=== PATIENT | male | born 1935 | race Caucasian/White ===

== ENCOUNTER 2020-04-24 12:17 | Inpatient (IN) | payer OTHER ==
[2020-04-24 12:47] LABS: Absolute Lymphocytes (CBC) 0.9 K/uL (0.7-4.9); Basophils % 0.6 % (0-1.3); Hematocrit 47.1 % (39.6-49.0); Lymphocytes % 6.9 % (15.3-44.8); MPV 10.3 fL (7.6-11.3); RBC Red Blood Cell Count 4.89 M/uL (4.33-5.43)
[2020-04-24 12:51] LABS: Protime INR 1.06
--- NOTE | 2020-04-24 12:51 | RAD REPORT ---
EXAM DESCRIPTION: CT - Ct Stroke Brain Wo Cont - 04/24/2020 12:43 pm CLINICAL HISTORY: CONFUSED Headache, drowsiness, CVA symptomology COMPARISON: No comparisons TECHNIQUE: All CT scans are performed using dose optimization technique as appropriate and may inclu de automated exposure control or mA/KV adjustment according to patient size. FINDINGS: No intracranial hemorrhage, hydrocephalus or extra-axial fluid collection. Moderate genera lized brain atrophy is present with moderate periventricular and deep white matter chronic microvascu lar ischemic changes. No areas of brain edema or evidence of midline shift. Trace fluid is seen in the right maxillary antrum the paranasal sinuses and mastoids otherwise clear. The calvarium is intact. IMPRESSION: No acute intracranial abnormality. If there is continued clinical concern for CVA, MR i maging of the brain would be recommended. The findings were discussed with Gail in the ER on 04/24/2020 at 12:45 p.m. by telephone.
[2020-04-24 12:57] LABS: Potassium 3.1 mmol/L (3.5-5.1)
--- NOTE | 2020-04-24 13:20 | RAD REPORT ---
EXAM DESCRIPTION: RAD - Chest Single View - 04/24/2020 1:15 pm CLINICAL HISTORY: AMS Chest pain. COMPARISON: Chest Pa And Lat (2 Views) dated 09/18/2019; Chest Single View dated 09/18/2017; CHEST PA AND LAT 2 VIEW dated 10/24/2013; CHEST PA AND LAT 2 VIEW dated 12/04/2012 FINDINGS: Portable technique limits examination quality. The lungs are grossly clear. The heart is moderately enlarged. No displaced fractures.Aortic atherosc lerosis. IMPRESSION: No acute intrathoracic process suspected.
[2020-04-24] MEDS ORDERED: ALTEPLASE 100 ML IV ONE (13:34)
--- NOTE | 2020-04-24 13:45 | ER ---
Nurse's Notes [facility] Name: Jhonatan Madden Age: 84 yrs Sex: Male : 1935 Arrival Date: 04/24/2020 Time: 12:19 Bed 3 Private MD: Rio Brooks V Diagnosis: Altered mental status, unspecified;Aphasia;Aphasia following unspecified cerebrovascular disease Presentation: 04/24 12:25 Chief complaint: Niece reports that pt lives alone but neighbors check on him twice a ph day, approx an hour ago they called saying that he wasn't speaking clearly and was confused, pt reports weakness that started last night, garbled speech noted upon arrival to ED, last known normal last night. Coronavirus screen: Patient denies a cough. Patient denies shortness of breath or difficulty breathing. Patient denies measured and/or subjective temperature greater than 100.4F prior to today's visit. Patient denies travel on a cruise ship or to a country the [facility] currently lists as an affected area. Patient denies contact with known and/or suspected case of COVID-19. Ebola Screen: No symptoms or risks identified at this time. An acute neurological deficit is present. The patient has been moved to a treatment area. Pre-hospital glucose is not applicable to this patient. Initial Sepsis Screen: Does the patient meet any 2 criteria? Altered Mental Status. Does the patient have a suspected source of infection? No. Patient's initial sepsis screen is negative. Risk Assessment: Do you want to hurt yourself or someone else? Patient reports no desire to harm self or others. 12:25 Method Of Arrival: Wheelchair ph 12:25 Acuity: DONG 2 ph 19:23 Onset of symptoms is unknown. jd3 Triage Assessment: 19:21 The onset of the patients symptoms was at an unknown time. General: Appears in no jd3 apparent distress. comfortable, Behavior is calm, cooperative. Neuro: Reports pt with AMS on arrival to ED. 19:24 The onset of the patients symptoms was April 24, 2020 at 00:00. jd3 Stroke Activation: Symptom onset > 6 hours Physician: Stroke Attending; Name: ; Notified At: ; Arrived At: Physician: Chief Stroke Resident; Name: ; Notified At: ; Arrived At: Physician: Stroke Resident; Name: ; Notified At: ; Arrived At: Physician: ED Attending; Name: Medhat; Notified At: 12:25; Arrived At: 12:25 Physician: ED Resident; Name: ; Notified At: ; Arrived At: Historical: - Allergies: 12:37 Codeine; ph - Home Meds: 13:12 trelegy inhaler [Active]; tramadol 50 mg oral tab [Active]; aspirin 81 mg Oral TbEC 1 ph tab once daily [Active]; Niacin Oral [Active]; - PMHx: 12:37 COPD; Hypertension; ph - PSHx: 12:37 Hernia repair; prostate surgery; Appendectomy; back surgery; ph - Immunization history:: Adult Immunizations unknown. - Social history:: Smoking status: unknown. Screenin:25 Abuse screen: Denies threats or abuse. Nutritional screening: No deficits noted. em Tuberculosis screening: No symptoms or risk factors identified. Fall Risk IV access (20 points). Gait- Impaired (20 pts.). Mental Status- Overestimates/Forgets Limitations (15 pts.). Total Mcbride Fall Scale indicates High Risk Score (45 or more points). Side Rails Up X 2 Placed Close to Nursing Station Family Present and informed to notify staff if the need to leave the bedside. Assessment: 12:25 Reassessment: Dr Meléndez at bedside to assess pt, BGL 104, code stroke called overhead. ph 12:25 General: Appears in no apparent distress. uncomfortable, slender, well developed, well em nourished, Behavior is calm. Pain: Unable to use pain scale. Does not appear to understand pain scale. Neuro: Level of Consciousness is awake, confused, Moves all extremities. Facial symmetry appears normal, niece states pt is confused and speech is slurred. Cardiovascular: Capillary refill < 3 seconds Patient's skin is warm and dry. Rhythm is atrial fibrillation. Respiratory: Airway is patent Respiratory effort is even, unlabored, Respiratory pattern is regular, symmetrical. Derm: Skin is intact, is fragile, is thin, Skin is pink, warm \T\ dry. Musculoskeletal: Range of motion: intact in all extremities. 12:25 Reassessment: pt was unable to complete the NIH stroke scale due to pt was having em trouble following commands, Dr. Meléndez assessed pt and was unable to assess limb ataxia, sensory loss, and extinction and inattention and was given 0 for all. 12:30 Reassessment: Pt taken to CT via stretcher by LONG Rosario. ph 13:05 Patient has been NPO before screening. The patient is alert, and able to follow em commands. The patient exhibits slurred or garbled speech. Provider notified of the indication for Speech Therapy consult. The patient is exhibiting difficulty speaking. Provider notified of the indication for Speech Therapy consult. The patient does not exhibit difficulty understanding words. The patient is able to swallow own secretions with no drooling or need for suction. Patient tolerated one teaspoon of water. No drooling, immediate coughing, gurgling, or clearing of the throat was noted. The patient tolerated 90mL of water. No drooling, immediate coughing, gurgling, or clearing of the throat was noted. The patient passed the bedside swallow screening. Oral medications may be given as ordered. Contact Physician for further diet orders. Provider notified of bedside swallow screening results: Monty Meléndez MD. 13:10 T-PA (Activase) Screening: Indications: Definite evidence of stroke, ischemic, embolic, em or hypertensive: Yes. Treatment will start within 4.5 hours onset of symptoms: Yes. No evidence of intracranial hemorrhage or CT of head and no evidence of peripheral hemorrhage or recent CVA: Yes. Consent for thrombolytic therapy: Yes. 13:10 VAN Scoring: Arm Drift: Patients demonstrates NO arm weakness. Patient is VAN Negative. em 14:00 Reassessment: Patient appears in no apparent distress at this time. Patient and/or em family updated on plan of care and expected duration. Pain level reassessed. 15:38 Reassessment: Patient appears in no apparent distress at this time. Patient and/or em family updated on plan of care and expected duration. Pain level reassessed. Patient is alert, oriented x 3, equal unlabored respirations, skin warm/dry/pink. 16:25 Reassessment: Patient appears in no apparent distress at this time. pt wheeled to MRI em via wheelchair, D/C'd Angel bertrand, BP 172/77. 17:58 Reassessment: Patient appears in no apparent distress at this time. returned back from em MRI, BP 192/98, Dr. Meléndez notified, restarted Cardene. 18:30 Reassessment: Patient appears in no apparent distress at this time. Niece (Yvrose Frost) went home, if need anything she can be reached at [phone]. 19:15 General: Appears in no apparent distress. comfortable, well groomed, well developed, jd3 Behavior is calm, cooperative. Pain: Denies pain. Neuro: Level of Consciousness is awake, alert, confused, Moves all extremities. Speech with expressive aphasia noted, Facial symmetry appears normal. Cardiovascular: Capillary refill < 3 seconds Patient's skin is warm and dry. Rhythm is atrial fibrillation. Respiratory: Airway is patent Respiratory effort is even, unlabored, Respiratory pattern is regular, symmetrical, Denies cough, shortness of breath. GI: No signs and/or symptoms were reported involving the gastrointestinal system. : No signs and/or symptoms were reported regarding the genitourinary system. EENT: No signs and/or symptoms were reported regarding the EENT system. Derm: Skin is intact, is fragile, is thin, Skin is dry, Skin is normal, Skin temperature is warm. Musculoskeletal: Range of motion: intact in all extremities. 19:41 Reassessment: report given to Suze ALVES. jd3 Vital Signs: 12:25 BP 207 / 90; Pulse 65; Resp 14; Temp 97.8; Pulse Ox 100% on R/A; ph 12:59 BP 179 / 93; Pulse 59; Resp 19; Pulse Ox 100% on R/A; em 13:36 Weight 79.8 kg (M); em 13:45 BP 206 / 93; Pulse 57; em 13:55 BP 170 / 79; Pulse 55; em 14:04 BP 164 / 79; Pulse 58; em 14:10 BP 161 / 71; Pulse 61; Resp 16; Pulse Ox 100% on R/A; em 14:14 BP 149 / 97; Pulse 60; em 14:16 BP 168 / 84; Pulse 58; em 14:19 BP 170 / 78; Pulse 57; em 14:21 BP 178 / 77; Pulse 49; em 14:30 BP 157 / 80; Pulse 57; em 14:43 BP 157 / 80; Pulse 62; em 14:45 BP 188 / 82; Pulse 55; em 14:50 BP 170 / 75; Pulse 56; em 14:55 BP 153 / 63; Pulse 58; em 15:12 BP 153 / 82; Pulse 56; em 15:30 BP 156 / 82; Pulse 61; Resp 16; Pulse Ox 100% ; em 15:38 BP 169 / 78; Pulse 63; Resp 18; em 16:00 BP 164 / 76; Pulse 57; em 16:15 BP 160 / 70; Pulse 55; em 16:25 BP 172 / 77; Pulse 57; Resp 16; Pulse Ox 99% on R/A; em 17:56 BP 192 / 98; Pulse 72; Resp 16; Pulse Ox 100% on R/A; em 18:35 BP 171 / 63; Pulse 65; Resp 20; Pulse Ox 99% on R/A; Pain 0/10; em 18:53 BP 140 / 64; Pulse 59; Resp 19; Pulse Ox 99% on R/A; em 19:15 BP 142 / 67; Pulse 56; Resp 16 S; Pulse Ox 97% on R/A; jd3 NIH Stroke Scale Scores: 12:25 NIHSS Score: 5 em 19:18 NIHSS Score: 4 jd3 ED Course: 12:19 Patient arrived in ED. am2 12:19 Rio Brooks MD is Private Physician. am2 12:25 Arm band placed on. em 12:33 Patient has correct armband on for positive identification. Placed in gown. Bed in low mh5 position. Call light in reach. Adult w/ patient. Warm blanket given. site monitor on. Pulse ox on. NIBP on. 12:34 Initial lab(s) drawn, by me, sent to lab. EKG done, by ED staff, reviewed by Monty Meléndez MD. Inserted saline lock: 20 gauge in left antecubital area, using aseptic technique. Blood collected. 12:36 Monty Meléndez MD is Attending Physician. kdr 12:36 Triage completed. ph 12:38 Abraham Young, RN is Primary Nurse. em 12:43 CT Stroke Brain w/o Contrast In Process Unspecified. EDMS 12:49 Basic Metabolic Panel Sent. mh5 12:50 CBC with Diff Sent. mh5 12:50 Protime (+inr) Sent. mh5 12:50 Ptt, Activated Sent. mh5 13:14 Stroke CXR 1 View In Process Unspecified. EDMS 13:44 Rio Brooks MD is Hospitalizing Provider. kdr 13:50 Missed attempt(s): 22 gauge in right wrist. forearm. mh5 13:59 Inserted saline lock: 22 gauge in left forearm, using aseptic technique. mh5 17:59 MRA Head Wo Cont In Process Unspecified. EDMS 18:01 MRA Neck W/Wo Cont In Process Unspecified. EDMS 18:01 Brain W/Wo Cont In Process Unspecified. EDMS 19:25 No provider procedures requiring assistance completed. Patient admitted, IV remains in jd3 place. 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 Exp: em 12/28/2021. Lot #: [id number]. } Route: IM; Site: right deltoid; 19:24 Follow up: Response: No adverse reaction j Point of Care Testing: Blood Glucose: 12:25 Blood Glucose: 104 mg/dL; em Ranges: Intake: Output: 18:53 Urine: 500ml (Voided); Total: 500ml. em Outcome: 13:45 Decision to Hospitalize by Provider. kdr 19:42 Admitted to ICU accompanied by nurse, via stretcher, room ICU 6, on monitor, with j chart, Report called to Suze ALVES 19:42 Condition: stable 19:42 Instructed on the need for admit. 19:43 Patient left the ED. jd3 NIH Stroke Scale - NIH Stroke Score Date: 04/24/2020 Time: 12:25 Total Score = 5 1a. Level of Consciousness (LOC) - 0(Alert) 1b. Level of Consciousness (LOC) (Year \T\ Age) - 0(Both) 1c. LOC Commands (Open \T\ Closes Eyes/Stock Counter) - 1(One) 2. Best Gaze (Lateral Gaze Paresis) - 0(Normal) 3. Visual Field Loss - 0(No visual loss) 4. Facial Palsy - 0(Normal) 5a. Left Arm: Motor (10-second hold) - 0(No drift) 5b. Right Arm: Motor (10-second hold) - 0(No drift) 6a. Left Leg: Motor (5-second hold - always test supine) - 0(No drift) 6b. Right Leg: Motor (5-second hold - always test supine) - 0(No drift) 7. Limb Ataxia (finger/nose \T\ heel/dotson - test with eyes open) - 0(Absent) 8. Sensory Loss (pinprick arms/legs/face) - 0(Normal) 9. Best Language: Aphasia (description/naming/reading) - 2(Severe aphasia) 10. Dysarthria (speech clarity - read or repeat words) - 2(Severe) 11. Extinction and Inattention (visual/tactile/auditory/spatial/personal) - 0(No abnormality) Initials: NIH Stroke Scale - NIH Stroke Score Date: 04/24/2020 Time: 19:18 Total Score = 4 1a. Level of Consciousness (LOC) - 0(Alert) 1b. Level of Consciousness (LOC) (Year \T\ Age) - 1(One) 1c. LOC Commands (Open \T\ Closes Eyes/Stock Counter) - 0(Both) 2. Best Gaze (Lateral Gaze Paresis) - 0(Normal) 3. Visual Field Loss - 0(No visual loss) 4. Facial Palsy - 0(Normal) 5a. Left Arm: Motor (10-second hold) - 0(No drift) 5b. Right Arm: Motor (10-second hold) - 0(No drift) 6a. Left Leg: Motor (5-second hold - always test supine) - 0(No drift) 6b. Right Leg: Motor (5-second hold - always test supine) - 0(No drift) 7. Limb Ataxia (finger/nose \T\ heel/dotson - test with eyes open) - 0(Absent) 8. Sensory Loss (pinprick arms/legs/face) - 0(Normal) 9. Best Language: Aphasia (description/naming/reading) - 1(Mild to moderate aphasia) 10. Dysarthria (speech clarity - read or repeat words) - 2(Severe) 11. Extinction and Inattention (visual/tactile/auditory/spatial/personal) - 0(No abnormality) Initials: jd3 Signatures: Dispatcher [employer] Monty Fuentes MD MD [facility] Abraham Young, RN RN em Maite Zimmerman RN RN ph Mikey, Latoya [facility] Rosmery Polk [facility] Simone Huerta RN RN jd3 Maite Zimmerman RN ph Corrections: (The following items were deleted from the chart) 13:23 12:25 Neuro: Level of Consciousness is awake, confused, em em
--- NOTE | 2020-04-24 13:45 | EDPHYS ---
Physician Documentation [facility]ly [facility] Name: Jhonatan Madden Age: 84 yrs Sex: Male : 1935 Arrival Date: 04/24/2020 Time: 12:19 Bed 3 Private MD: Rio Brooks V ED Physician Monty Meléndez HPI: 04/24 13:19 This 84 yrs old Male presents to ER via Wheelchair with complaints of S/S of kdr Possible Stroke. 13:19 The patient's problem is reported as altered mental status, disoriented to place, time, kdr confused, responds to to verbal stimuli, to tactile stimuli, weakness. Onset: The symptoms/episode began/occurred at an unknown time. Initially, niece indicated that he had been found in this condition this morning but later she indicated that he was making coffee and apparently well at 09:00 today and. 13:45 Duration: This was a single incident. kdr 17:40 Context: the episode(s) was witnessed, by no one, symptoms became apparent at 11:00. kdr occurred at home, occurred while the patient was at rest, Possible contributing factors include:. The symptoms are alleviated by nothing. The symptoms are aggravated by nothing. Associated signs and symptoms: Pertinent positives: confusion, weakness. Severity of symptoms: At their worst the symptoms were mild in the emergency department the symptoms are unchanged. Patient's baseline: Neuro: alert and fully oriented, Motor: no deficits, Ambulation: walks without assistance, Speech: normal for age, The patient has a previous history of COPD, HTN. The patient has not experienced similar symptoms in the past. The patient has not recently seen a physician. Historical: - Allergies: 12:37 Codeine; ph - Home Meds: 13:12 trelegy inhaler [Active]; tramadol 50 mg oral tab [Active]; aspirin 81 mg Oral TbEC 1 ph tab once daily [Active]; Niacin Oral [Active]; - PMHx: 12:37 COPD; Hypertension; ph - PSHx: 12:37 Hernia repair; prostate surgery; Appendectomy; back surgery; ph - Immunization history:: Adult Immunizations unknown. - Social history:: Smoking status: unknown. ROS: 17:40 Constitutional: The patient is poor historian and family not initially present Eyes: kdr Negative for injury, pain, redness, and discharge. 17:40 Constitutional: Edvin arrived and indicated that to her knowledge, the patient had been well and in his usual satae of health until tihs morning when the nieghbor found him unable to speek clearly 17:40 Unable to obtain ROS due to patient's speech is incomprehensible, patient's inability to understand questions. Exam: 17:40 Constitutional: This is a well developed, well nourished patient who is awake, alert, kdr and in no acute distress. Head/Face: Normocephalic, atraumatic. Eyes: Pupils equal round and reactive to light, extra-ocular motions intact. Lids and lashes normal. Conjunctiva and sclera are non-icteric and not injected. Cornea within normal limits. Periorbital areas with no swelling, redness, or edema. Neck: Trachea midline, no thyromegaly or masses palpated, and no cervical lymphadenopathy. Supple, full range of motion without nuchal rigidity, or vertebral point tenderness. No Meningismus. Chest/axilla: Normal chest wall appearance and motion. Nontender with no deformity. No lesions are appreciated. Cardiovascular: Regular rate and rhythm with a normal S1 and S2. No gallops, murmurs, or rubs. Normal PMI, no JVD. No pulse deficits. Respiratory: Lungs have equal breath sounds bilaterally, clear to auscultation and percussion. No rales, rhonchi or wheezes noted. No increased work of breathing, no retractions or nasal flaring. Abdomen/GI: Soft, non-tender, with normal bowel sounds. No distension or tympany. No guarding or rebound. No evidence of tenderness throughout. Back: No spinal tenderness. No costovertebral tenderness. Full range of motion. MS/ Extremity: Pulses equal, no cyanosis. Neurovascular intact. Full, normal range of motion. 17:40 Neuro: Orientation: unable to test, Cranial nerves: no acute changes, Cerebellar function: no acute changes, Motor: moves all fours, strength is 4/5 in the right arm, left arm, right leg and left leg, Gait: is unsteady, shuffling. 17:48 Radiologist reports: No bleed - [place] kdr Vital Signs: 12:25 BP 207 / 90; Pulse 65; Resp 14; Temp 97.8; Pulse Ox 100% on R/A; ph 12:59 BP 179 / 93; Pulse 59; Resp 19; Pulse Ox 100% on R/A; em 13:36 Weight 79.8 kg (M); em 13:45 BP 206 / 93; Pulse 57; em 13:55 BP 170 / 79; Pulse 55; em 14:04 BP 164 / 79; Pulse 58; em 14:10 BP 161 / 71; Pulse 61; Resp 16; Pulse Ox 100% on R/A; em 14:14 BP 149 / 97; Pulse 60; em 14:16 BP 168 / 84; Pulse 58; em 14:19 BP 170 / 78; Pulse 57; em 14:21 BP 178 / 77; Pulse 49; em 14:30 BP 157 / 80; Pulse 57; em 14:43 BP 157 / 80; Pulse 62; em 14:45 BP 188 / 82; Pulse 55; em 14:50 BP 170 / 75; Pulse 56; em 14:55 BP 153 / 63; Pulse 58; em 15:12 BP 153 / 82; Pulse 56; em 15:30 BP 156 / 82; Pulse 61; Resp 16; Pulse Ox 100% ; em 15:38 BP 169 / 78; Pulse 63; Resp 18; em 16:00 BP 164 / 76; Pulse 57; em 16:15 BP 160 / 70; Pulse 55; em 16:25 BP 172 / 77; Pulse 57; Resp 16; Pulse Ox 99% on R/A; em 17:56 BP 192 / 98; Pulse 72; Resp 16; Pulse Ox 100% on R/A; em 18:35 BP 171 / 63; Pulse 65; Resp 20; Pulse Ox 99% on R/A; Pain 0/10; em 18:53 BP 140 / 64; Pulse 59; Resp 19; Pulse Ox 99% on R/A; em 19:15 BP 142 / 67; Pulse 56; Resp 16 S; Pulse Ox 97% on R/A; jd3 NIH Stroke Scale Scores: 12:25 NIHSS Score: 5 em 19:18 NIHSS Score: 4 jd3 MDM: 12:38 ED course: CT head negative - onset is unknown - not a tPA candidate. kdr 13:34 ED course: Niece updated time frame now states that last known well was 10:00 AM. Seen kdr making coffee at that time and when the neighbor returned an hour late at 11:00 he was then noted to be altered and poor speech.. 13:45 Patient medically screened. kdr 17:40 Data reviewed: vital signs, nurses notes, lab test result(s), EKG, radiologic studies. [facility] Counseling: I had a detailed discussion with the patient and/or guardian regarding: the historical points, exam findings, and any diagnostic results supporting the discharge/admit diagnosis, lab results, radiology results, the need for outpatient follow up. Physician consultation: Az Dahl MD regarding admission, consult, patient's condition, need to evaluate the patient as soon as possible, and will see patient in unit, later today, would like medications started, TPA. Admission orders: after a detailed discussion of the patient's condition and case, the admit orders are written by me. 04/24 12:35 Order name: Glucose, Ancillary Testing; Complete Time: 12:37 [facility] 04/24 12:38 Order name: Basic Metabolic Panel; Complete Time: 13:15 [facility] 04/24 12:38 Order name: CBC with Diff; Complete Time: 13:15 [facility] 04/24 12:38 Order name: Protime (+inr); Complete Time: 13:15 [facility] 04/24 12:38 Order name: Ptt, Activated; Complete Time: 13:15 [facility] 04/24 17:34 Order name: CKMB Creatine Kinase MB [facility] 04/24 12:38 Order name: CT Stroke Brain w/o Contrast; Complete Time: 12:56 [facility] 04/24 17:34 Order name: CKMB Creatine Kinase MB [facility] 04/24 17:34 Order name: Creatine Phosphokinase [facility] 04/24 17:34 Order name: Creatine Phosphokinase [facility] 04/24 17:34 Order name: Lipid Profile [facility] 04/24 17:34 Order name: Lipid Profile [facility] 04/24 17:34 Order name: Troponin I [facility] 04/24 17:34 Order name: Troponin I [facility] 04/24 12:38 Order name: Stroke CXR 1 View [facility] 04/24 12:38 Order name: EKG; Complete Time: 12:38 [facility] 04/24 12:38 Order name: Accucheck; Complete Time: 12:50 [facility] 04/24 12:38 Order name: Cardiac monitoring; Complete Time: 12:50 [facility] 04/24 12:38 Order name: EKG - Nurse/Tech; Complete Time: 12:50 [facility] 04/24 17:05 Order name: Diet Mech. Soft (chopped); Complete Time: 17:05 ph 04/24 17:27 Order name: MRA Head Wo Cont EDMS 04/24 17:34 Order name: NPO EDMS 04/24 17:34 Order name: NPO EDMS 04/24 17:34 Order name: NPO EDMS 04/24 17:36 Order name: MRA Neck W/Wo Cont EDMS 04/24 17:36 Order name: Brain W/Wo Cont EDMS 04/24 12:38 Order name: IV Saline Lock; Complete Time: 12:50 kdr 04/24 12:38 Order name: Labs collected and sent; Complete Time: 12:50 kdr 04/24 12:38 Order name: NPO; Complete Time: 12:50 kdr 04/24 12:38 Order name: O2 Per Protocol; Complete Time: 12:57 kdr 04/24 12:38 Order name: O2 Sat Monitoring; Complete Time: 12:57 kdr 04/24 12:38 Order name: Stroke Swallow Screen; Complete Time: 19:11 kdr Administered Medications: 13:45 Drug: niCARdipine (25mg/250ml) 5 mg/hr {Note: started at 5 mg/hr at 1345.} Route: IV; em Rate: calculated rate; Site: left antecubital; 19:25 Follow up: Response: No adverse reaction; IV Status: Infusion continued upon admission jd3 14:05 Drug: Alteplase {Co-Signature: ph (Maite Zimmerman RN).} Route: IV Thrombolytics; Rate: em calculated rate; 15:06 Follow up: Response: No adverse reaction ph 15:07 Follow up: Response: No adverse reaction em 19:25 Follow up: infusion complete at 1506 ph 18:59 Drug: Tetanus-Diphtheria Toxoid Adult 0.5 ml {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 Exp: em 12/28/2021. Lot #: [id number]. } Route: IM; Site: right deltoid; 19:24 Follow up: Response: No adverse reaction jd3 Point of Care Testing: Blood Glucose: 12:25 Blood Glucose: 104 mg/dL; em Ranges: Critical Glucose Levels:Adult <50 mg/dl or >400 mg/dl <40 mg/dl or >180 mg/dl Disposition: 04/24/20 13:45 Hospitalization ordered by Rio Brooks for Inpatient Admission. Preliminary diagnosis are Altered mental status, unspecified, Aphasia, Aphasia following unspecified cerebrovascular disease. - Bed requested for Intensive Care Unit. - Status is Inpatient Admission. jd3 - Condition is Serious. - Problem is new. - Symptoms have improved. NIH Stroke Scale - NIH Stroke Score Date: 04/24/2020 Time: 12:25 Total Score = 5 1a. Level of Consciousness (LOC) - 0(Alert) 1b. Level of Consciousness (LOC) (Year \T\ Age) - 0(Both) 1c. LOC Commands (Open \T\ Closes Eyes/Lead Fabricator) - 1(One) 2. Best Gaze (Lateral Gaze Paresis) - 0(Normal) 3. Visual Field Loss - 0(No visual loss) 4. Facial Palsy - 0(Normal) 5a. Left Arm: Motor (10-second hold) - 0(No drift) 5b. Right Arm: Motor (10-second hold) - 0(No drift) 6a. Left Leg: Motor (5-second hold - always test supine) - 0(No drift) 6b. Right Leg: Motor (5-second hold - always test supine) - 0(No drift) 7. Limb Ataxia (finger/nose \T\ heel/dotson - test with eyes open) - 0(Absent) 8. Sensory Loss (pinprick arms/legs/face) - 0(Normal) 9. Best Language: Aphasia (description/naming/reading) - 2(Severe aphasia) 10. Dysarthria (speech clarity - read or repeat words) - 2(Severe) 11. Extinction and Inattention (visual/tactile/auditory/spatial/personal) - 0(No abnormality) Initials: NIH Stroke Scale - NIH Stroke Score Date: 04/24/2020 Time: 19:18 Total Score = 4 1a. Level of Consciousness (LOC) - 0(Alert) 1b. Level of Consciousness (LOC) (Year \T\ Age) - 1(One) 1c. LOC Commands (Open \T\ Closes Eyes/Lead Fabricator) - 0(Both) 2. Best Gaze (Lateral Gaze Paresis) - 0(Normal) 3. Visual Field Loss - 0(No visual loss) 4. Facial Palsy - 0(Normal) 5a. Left Arm: Motor (10-second hold) - 0(No drift) 5b. Right Arm: Motor (10-second hold) - 0(No drift) 6a. Left Leg: Motor (5-second hold - always test supine) - 0(No drift) 6b. Right Leg: Motor (5-second hold - always test supine) - 0(No drift) 7. Limb Ataxia (finger/nose \T\ heel/dotson - test with eyes open) - 0(Absent) 8. Sensory Loss (pinprick arms/legs/face) - 0(Normal) 9. Best Language: Aphasia (description/naming/reading) - 1(Mild to moderate aphasia) 10. Dysarthria (speech clarity - read or repeat words) - 2(Severe) 11. Extinction and Inattention (visual/tactile/auditory/spatial/personal) - 0(No abnormality) Initials: jd3 Signatures: Dispatcher [employer] [facility] Monty Meléndez MD MD kdr Abraham Young, RN LONG em Maite Zimmerman RN RN ph Simone Huerta RN RN j Ricardo Castellon RN RN ja Maite Zimmerman RN ph Corrections: (The following items were deleted from the chart) 13:39 13:34 ED course: Niece updated time frame. [facility] kdr 17:27 12:58 MR STROKE PROTOCOL+MRI.RAD.BRZ ordered. [facility] 17:48 13:45 Hospitalization Ordered by Rio Brooks MD for Inpatient Admission. kdr Preliminary diagnosis is Altered mental status, unspecified; Aphasia; Aphasia following unspecified cerebrovascular disease. Bed requested for Telemetry/MedSurg (Inpatient). Status is Inpatient Admission. Condition is Serious. Problem is new. Symptoms have improved. kdr 18:48 17:48 04/24/2020 13:45 Hospitalization Ordered by Rio Brooks MD for Inpatient ja1 Admission. Preliminary diagnosis is Altered mental status, unspecified; Aphasia; Aphasia following unspecified cerebrovascular disease. Bed requested for Intensive Care Unit. Status is Inpatient Admission. Condition is Serious. Problem is new. Symptoms have improved. kdr 19:43 18:48 04/24/2020 13:45 Hospitalization Ordered by Rio Brooks MD for Inpatient jd3 Admission. Preliminary diagnosis is Altered mental status, unspecified; Aphasia; Aphasia following unspecified cerebrovascular disease. Bed requested for Intensive Care Unit. Status is Inpatient Admission. Condition is Serious. Problem is new. Symptoms have improved. ja1
[2020-04-24] MEDS ORDERED: Nicardipine/NS 25 MG/250 ML KIT IV ONE (13:46)
[2020-04-24] MEDS ORDERED: NA CHLORIDE 0.9% 1,000 ML IV SCH ×2 (18:00→21:28)
[2020-04-24] MEDS ORDERED: TETANUS & DIPHTHERIA TOX,ADULT 0.5 ML VIAL ONE (18:15)
--- NOTE | 2020-04-24 18:31 | RAD REPORT ---
EXAM DESCRIPTION: MRI - Brain W/Wo Cont - 04/24/2020 5:59 pm CLINICAL HISTORY: Confused; Aphasia Headache, drowsiness, CVA symptomology COMPARISON: MRA Head Wo Cont dated 04/24/2020 TECHNIQUE: Multi-sequence, multiplanar MR imaging of the brain was performed with contrast. FINDINGS: No intracranial hemorrhage, hydrocephalus, or extra-axial fluid collection.Moderate conflu ent T2/FLAIR hyperintensity in the periventricular and deep white matter is present compatible with c hronic microvascular ischemic changes. No edema or shift of midline structures. No intracranial mass. An area of restricted diffusion is seen in the left posterior parietal lobe measuring 4.0 x 3.5 cm c ompatible with acute CVA. No hemorrhagic component is seen.. The midline structures are normally formed. Mild fluid is seen in the right mastoid air cell. Post-contrast images show no abnormal enhancement to suggest tumor or infection. IMPRESSION: 4.0 x 3.5 cm acute nonhemorrhagic CVA left posterior parietal lobe.
--- NOTE | 2020-04-24 18:32 | RAD REPORT ---
EXAM DESCRIPTION: MRI - MRA Head Wo Cont - 04/24/2020 5:59 pm CLINICAL HISTORY: Confused;Aphasia CVA COMPARISON: Ct Stroke Brain Wo Cont dated 04/24/2020 FINDINGS: 3D noncontrast [id number] MR angiography of the [place] was performed. No aneurysm, flow-limiting stenosis or vascular malformation is seen. Forward flow seen in codominant vertebral arteries. The visualized dural venous sinuses appear patent. IMPRESSION: No significant flow abnormality of the [place] is identified.
--- NOTE | 2020-04-24 18:34 | RAD REPORT ---
EXAM DESCRIPTION: MRI - MRA Neck W/Wo Cont - 04/24/2020 5:59 pm CLINICAL HISTORY: Confused; Aphasia CVA symptomology COMPARISON: No comparisons FINDINGS: Contrast enhance 2D [id number] MR angiography of the neck vessels was performed. Image quality of the submitted study is poor with poor opacification of the neck vessels. The majorit y visualize contrast is in the venous system of the left upper extremity. Examination is considered q uite limited for assessment of carotid disease. No gross severe carotid stenosis is seen, however car otid ultrasound would be recommended for better visualization if clinically indicated.
[2020-04-24] MEDS ORDERED: Nicardipine in Saline, Iso-Osm 20 MG/200 ML IV.SOLN. IV PRN (20:39)
[2020-04-24] MEDS ORDERED: INSULIN -REGULAR HUMAN 50 UNIT/0.5 ML ML SQ SCH (21:00)
[2020-04-24 21:10] LABS: Urine Appearance CLOUDY; Urine Bilirubin NEGATIVE (NEG); Urine Blood 1+ (NEG); Urine Color YELLOW; Urine Glucose NEGATIVE (NEG); Urine Protein TRACE (NEG)
[2020-04-24 21:17] LABS: Urine Microscopic Reflex ORDER UMIC
--- NOTE | 2020-04-24 21:27 | P.HP ---
Certification for Inpatient Patient admitted to: Inpatient With expected LOS: >2 Midnights Practitioner: I am a practitioner with admitting privileges, knowledge of patient current condition, hospital course, and medical plan of care. Services: Services provided to patient in accordance with Admission requirements found in Title 42 Section 412.3 of the Code of Federal Regulations Patient History Date of Service: 04/24/20 Reason for admission: DIFFICULTY IN SPEECH History of Present Illness: MR. BOLIVAR THIS AM WAS FOUND TO HAVE SPEECH DIFFICULTY NOTED BY A NEIGHBOUR. HE LATER DROPPED HIS COFFEE. HE WAS BROUGHT TO ER IN 3 HOURS AND RECEIVED TPA, SAW SIGNIFICANT IMPROVEMENT IN CVA. HE HAS L POSTERIOR PARIETAL 4.3.5 CM STROKE THAT IS AN INFARCT. HE DOES NOT HAVE AN MAJOR BLOCKAGE ON MRA. Allergies codeine Allergy (Verified 09/19/17 04:58) Itching - Past Medical/Surgical History Diabetic: No -: Hypertension -: COPD -: Prostate Enlargement -: Urolift -: Appendectomy - Social History Alcohol use: Yes CD- Drugs: No Caffeine use: Yes Review of Systems 10-point ROS is otherwise unremarkable General: Weakness, Malaise Physical Examination - Vital Signs Temperature: 97.8 F Blood Pressure: 142/67 Pulse: 56 Respirations: 16 - Physical Exam General: Mild distress HEENT: Atraumatic, PERRLA, Mucous membr. moist/pink, EOMI, Sclerae nonicteric Neck: Supple, 2+ carotid pulse no bruit, No LAD, Without JVD or thyroid abnormality Respiratory: Clear to auscultation bilaterally, Normal air movement Cardiovascular: Regular rate/rhythm, Normal S1 S2 Gastrointestinal: Normal bowel sounds, No tenderness Musculoskeletal: No tenderness Integumentary: No rashes Neurological: Normal strength at 5/5 x4 extr, Abnormal speech (EXPRESSIVE APHASIA. HE IS ABLE TO ARTICULATE BUT STILL HAS SOME JARGON. THIS IS AFTER TPA AT 6 PM IN ER. ) Lymphatics: No axilla or inguinal lymphadenopathy - Studies Laboratory Data (last 24 hrs) 04/24/20 12:25: PT 12.5, INR 1.06, APTT 28.7 04/24/20 12:25: WBC 12.6 H, Hgb 15.7, Hct 47.1, Plt Count 165 04/24/20 12:25: Sodium 129 L, Potassium 3.1 L, BUN 14, Creatinine 1.11, Glucose 102 Assessment and Plan - Problems (Diagnosis) (1) Left acute arterial ischemic stroke, MCA (middle cerebral artery) Current Visit: Yes Status: Acute Plan: SP TPA. RECOVERED SOME. CONTINUE PROTOCOL IN ICU. POST CVA THERAPY AFTER 24 HOURS- ASPIRIN OR PLAVIX. THIS IS AN INFRACT MAINLY FROM AGING RELATED VASCUALR CHANGES. PT CONSULT REHAB CONSULT SPEECH THERAPY. - Advance Directives Does patient have a Living Will: Yes Does patient have a Durable POA for Healthcare: Yes
[2020-04-24 21:33] LABS: Urine Bacteria <20 /HPF (NONE SEEN); Urine Culture Reflex Order NOT NEEDED
[2020-04-24] MEDS ORDERED: POTASSIUM CL SA 10 MEQ TAB PO ONE (22:03)
[2020-04-25 04:05] VITALS: O2SAT 97
[2020-04-25 05:11] VITALS: BMI 24.8
[2020-04-25 05:44] LABS: CKMB Creatine Kinase MB 4.9 ng/mL (0.3-3.6); Troponin I 0.14 ng/mL (0.0-0.045)
[2020-04-25 06:51] LABS: Potassium 3.1 mmol/L (3.5-5.1)
[2020-04-25] MEDS: TRAMADOL HCL 50 MG TAB PO SCH ×2 (08:50→13:01)
[2020-04-25] MEDS ORDERED: ASPIRIN EC 81 MG TAB PO SCH (09:00)
[2020-04-25] MEDS ORDERED: AMLODIPINE 5 MG TAB PO SCH (09:00)
[2020-04-25] MEDS ORDERED: POTASSIUM CL SA 10 MEQ TAB PO ONE (09:00)
[2020-04-25] MEDS ORDERED: HOME MED 1 EA UNK (Fluticasone/Umeclidin/Vilanter [Trelegy Ellipta 100-62.5-25] 1 EACH) IH SCH (09:00)
[2020-04-25 13:20] LABS: MPV 9.9 fL (7.6-11.3)
--- NOTE | 2020-04-25 14:18 | RAD REPORT ---
EXAM DESCRIPTION: RAD - Barium Swallow Modified - 04/25/2020 2:09 pm CLINICAL HISTORY: stroke patient, difficulty swallowing COMPARISON: None. TECHNIQUE: The patient was given liquid, semi-solid and solid forms of barium. Lateral view fluorosc opic imaging was performed in conjunction with speech pathology service. FINDINGS: Cineloop acquisitions: 19 Fluoro time: 3 minutes 12 seconds Laryngeal penetration: cleared with thin liquid Pharyngeal residue: Moderate with thin liquid in the vallecular and pyriform 1 sec. swallow delay. Prominent cricopharyngus IMPRESSION: Modified barium swallow as summarized above and fully detailed on speech pathology repor carlo
--- NOTE | 2020-04-25 14:21 | RAD REPORT ---
EXAM DESCRIPTION: CT - Head Brain Wo Cont - 04/25/2020 1:58 pm CLINICAL HISTORY: ischemic stroke, post TPA COMPARISON: Ct Stroke Brain Wo Cont dated 04/24/2020; Brain W/Wo Cont dated 04/24/2020 TECHNIQUE: Axial 5 mm thick images of the head were obtained without IV contrast. All CT scans are performed using dose optimization technique as appropriate and may include automated exposure control or mA/KV adjustment according to patient size. FINDINGS: No intracranial hemorrhage has developed. Hypodense tissues in the posterior left parietal lobe are again noted. There is loss of duque matter -white matter differentiation. Mild cortical brett a and sulcal effacement seen in the infarction zone. This does not cause any increase in the amount o f localized mass effect. No edema or shift of midline structures. Underlying atrophy and chronic isch emic changes again noted. Ventricles remain in proportion to volume loss. Mastoid air cells are clear. Right maxillary sinus fluid and mucosal thickening again noted. No acute bony findings. IMPRESSION: Left parietal CVA changes are noted. No hemorrhage has developed, no increase mass effect or edema and the infarction does not appear to h ave enlarged since prior day.
[2020-04-25 14:40] LABS: Platelet Estimate ADEQ
[2020-04-25 16:48] VITALS: BP 154/75; TEMP 97.1
--- NOTE | 2020-04-25 19:19 | PN ---
Subjective: Mr. Serrato is about the same as yesterday when I saw him in emergency room. He still has a speech difficulty with expressive and also receptive aphasia to moderate extent. He is physica lly able to move all 4 limbs with 4/5 strength. Physical Examination: Vital signs: Blood pressure 159/62, pulse is 67. HEENT/NECK: No JVD. No carotid bruits. Chest: Clear. Heart: Regular. Neurological: As described above. 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 Start with therapy, consultat ion Speech Therapy. Referred to rehab. Prognosis overall guarded. Aspirin has been restarted. Jimmie enox subcu. The patient is an 84-year-old man at this age, patient is about to have a stroke from va scular disease. JONATHON/MUNIRA Voice ID: [id number] Report ID: [id number]
--- NOTE | 2020-04-25 20:49 | CON ---
Reason For Consultation: Consultation called because of acute stroke. History Of Present Illness: Mr. Serrato is an 84-year-old right-handed patient with strok e risk factors of hypertension and COPD, who comes in with aphasia and mild right-sided weakness. He came into the hospital at 12:19. His niece reportedly checked with him about an hour prior to him c oming into the hospital and found that he was not making sense, was confused, and some weakness was n oted. The patient himself apparently reported weakness may have started the night before. However, when he came to [facility] the head CT scan was negative for any acute ischemic or hemorrhag ic changes. Since he had significant deficit of aphasia, both expressive and receptive along with ri ght upper and some lower extremity weakness, he did have a higher NIH Stroke Scale around 5, although not fully documented in the emergency room note, but the patient was felt to be a good candidate for tPA since his arrival time and workup was within the 4.5 hour window for tPA. His head CT scan was actually done within 30 minutes of his arrival to [facility]. He did receive tPA per protoc ol and was admitted to the ICU for protocol of neuro checks and followup. Aspirin was not given. Bl ood pressures were kept below 180 systolic. He did see initially some significant improvement in the aphasia, but then that stabilized later, but still has significant deficits of communication and cherelle e right arm and leg weakness. A [address] scan showed no hemorrhagic conversion. His brai n MRI and MRA showed no significant blockage in the brain or neck vessel distribution. A barium swal low study showed there was some laryngeal penetration which cleared with thin liquids. In terms of t he pharynx, there was some pharyngeal residue which is moderate with thin liquids in the vallecula an d pyriform. There was a 1 second swallow delay. The speech pathologist recommended a mechanical sof t diet with ground meats and nectar thick liquids and that the speech therapy will be helpful. He wa s evaluated by Physical therapy and determined to be a good candidate for admission to the inpatient rehabilitation unit and is therefore deemed appropriate and necessary for him to begin improvement af ter his stroke to be admitted to the inpatient rehabilitation unit. Past Medical History: COPD and hypertension. Past Surgical History: Hernia repair, prostate surgery, appendectomy, and back surgery. Home Medications: Tramadol 50 mg as needed, aspirin 81 mg daily, niacin daily. Allergies: CODEINE. Social History: No recent tobacco or alcohol use. Family History: Noncontributory. Review of Systems: No reported fevers, chills, nausea, vomiting, myalgias, arthralgias. No travels to places in risk fo r COVID-19. Physical Examination: Vital Signs: Blood pressure 159/62, pulse 67, respiratory rate 16, temperature 97.2, oxygen saturati on 98% on room air. Weight 168 pounds, height 5 feet 9 inches, BMI 25.4. General: Mr. Serrato is resting in bed. He is in no acute distress. He does have significant brui sing in his arms, in his back, and in his lower extremities, possibly related to the tPA or potential ly a fall, although the patient is not able to articulate any history of falling. Otherwise, he is c lear in terms of auscultation. Abdomen: Soft. Extremities: Showed no significant edema, but again bruising throughout the body. Neurologic: Patient is alert. He has difficulty comprehending speech and expressing himself eventua lly with gestures, communication can be made for him to either move arm leg or so, however, it takes significant repeated efforts to get him to understand the instructions and to express himself. In te marium of cranial nerves, no obvious focal cranial nerve deficits noted. There may be subtle right naso labial fold decreased, but he has good excursions and smiling and sensation appears intact. Motor ex amination; a subtle 4+/5 strength is noted in the right upper extremity and 5-/5 in the left upper ex tremity and lower extremities also on the right, slightly weak around 4+/5 on the left, 5/5. Sensati on difficult to assess fully appears intact bilaterally. Coordination appears intact, although some difficulty with lateral movement. He does require some cuing and some steading as he tries to ambula te. Laboratory Studies: Complete blood count with differential essentially unremarkable, except slightly elevated white blood cell count of 12.6, neutrophils slightly elevated at 82.6. Coagulation panel i s normal. Chemistries show sodium being low at 129, potassium low at 3.1. Kinase was elevated at 48 8. Calcium normal at 8.9, glucose 102, HDL cholesterol is 71, LDL cholesterol 46. His cholesterol H DL ratio 1.82. Urinalysis is 1+ blood, 5 to 10 red blood cells, otherwise unremarkable. Imaging Studies: His chest x-ray shows no acute cardiothoracic processes. Assessment And Plan: Mr. Serrato is an 84-year-old patient with an acute left parietal stroke measu ring 4 x 3.5 cm in the left posterior parietal lobe. He has deficits of a transcortical aphasia, bot h comprehension expression are impacted and some difficulty with right-sided strength in the upper an d lower extremities and difficulty performing learned behaviors bilaterally. He has comorbid hyperte nsion and COPD and he did receive tPA with some initial recovery and reverting back to deficits which he currently has an AH of 5. His stroke would likely show improvement with aggressive director geophysical laboratory apy, which it is recommended that he be admitted to the inpatient rehabilitation unit for physical, o ccupational, and speech therapy. He should have his blood pressure began to normalize over the next 3 to 5 days, which is the time for most slowing following a stroke. He will be back on aspirin 81 mg daily, folic acid 1 mg daily, Lovenox for DVT prophylaxis, and Norvasc to be used for his hypertensi on and since his LDL is less than 70, will be off high-dose statin at this point. Again, admit to [facility] inpatient rehabilitation unit. JOHNNY/MUNIRA Voice ID: [id number] Report ID: [id number]
--- NOTE | 2020-04-26 06:41 | P.DS ---
Admission Date: 04/24/20 Discharge Date: 04/26/20 Disposition: TRANSFR TO OTHER-PSY/CD/REHAB Reason for Admission: DIFFICULTY IN SPEECH - Problems (1) Left acute arterial ischemic stroke, MCA (middle cerebral artery) Status: Acute Brief History of Present Illness: MR. BOLIVAR THIS AM WAS FOUND TO HAVE SPEECH DIFFICULTY NOTED BY A NEIGHBOUR. HE LATER DROPPED HIS COFFEE. HE WAS BROUGHT TO ER IN 3 HOURS AND RECEIVED TPA, SAW SIGNIFICANT IMPROVEMENT IN CVA. HE HAS L POSTERIOR PARIETAL 4.3.5 CM STROKE THAT IS AN INFARCT. HE DOES NOT HAVE AN MAJOR BLOCKAGE ON MRA. Hospital Course: MR. BOLIVAR RECOVERED PARTIALLY AFTER TPA REGARDING HIS SPEECH. HE STILL HS SIGNIFICANT RECEPTIVE AND EXPRESSIVE APHASIA. HE IS TRANSFERRED TO REHAB FOR FURTHER CARE. Vital Signs/Physical Exam: Temp Pulse Resp BP Pulse Ox 97.1 F 55 16 154/75 H 97 04/25/20 16:00 04/25/20 16:00 04/25/20 16:00 04/25/20 16:00 04/25/20 16:00 Laboratory Data at Discharge: WBC 12.6 K/uL (4.3-10.9) H 04/24/20 12:25 Hgb 15.7 g/dL (13.6-17.9) 04/24/20 12:25 Hct 47.1 % (39.6-49.0) 04/24/20 12:25 Plt Count 143 K/uL (152-406) L 04/25/20 13:10 PT 12.5 SECONDS (9.5-12.5) 04/24/20 12:25 INR 1.06 04/24/20 12:25 APTT 28.7 SECONDS (24.3-36.9) 04/24/20 12:25 Sodium 129 mmol/L (136-145) L 04/24/20 12:25 Potassium 3.1 mmol/L (3.5-5.1) L 04/25/20 04:56 BUN 14 mg/dL (7-18) 04/24/20 12:25 Creatinine 1.11 mg/dL (0.55-1.3) 04/24/20 12:25 Glucose 102 mg/dL (74-106) 04/24/20 12:25 Troponin I 0.14 ng/mL (0.0-0.045) H 04/25/20 04:56 Triglycerides 59 mg/dL (<150) 04/25/20 04:56 Cholesterol 129 mg/dL (<200) 04/25/20 04:56 HDL Cholesterol 71 mg/dL (40-60) H 04/25/20 04:56 Cholesterol/HDL Ratio 1.82 04/25/20 04:56 Home Medications: Aspirin [Adult Aspirin Regimen] 81 mg PO DAILY 04/24/20 Fluticasone/Umeclidin/Vilanter [Trelegy Ellipta 100-62.5-25] 1 each IH DAILY 04/24/20 Tramadol HCl [Ultram] 50 mg PO DAILYPRN PRN 04/24/20
[2020-04-26] MEDS ORDERED: ENOXAPARIN 40 MG/0.4 ML SQ SCH (09:00)
== END 2020-04-25 16:25 | DRG 63 ==
LOC: ER 12:17 → ERHOLD 17:33 → 3RD-ICU 19:40 → 2ND 04-25 10:30
PROVIDERS: ADMIT Internal Medicine; ATTEND Internal Medicine
DX: I63.512 Cerebral infarction due to unspecified occlusion or stenosis of left middle cerebral artery (principal); R47.01 Aphasia; I10 Essential (primary) hypertension; J44.9 Chronic obstructive pulmonary disease, unspecified; R53.1 Weakness; R29.705 NIHSS score 5; Z90.49 Acquired absence of other specified parts of digestive tract; Z79.82 Long term (current) use of aspirin; Z79.899 Other long term (current) drug therapy; Z88.5 Allergy status to narcotic agent
CPT/HCPCS: 36415; 70450; 70544; 70549; 70553; 71045; 74230; 80048; 80061; 81003; 81015; 82550; 82553; 82947; 84132; 84484; 85025; 85049; 85610; 85730; 90471; 90714; 92523; 92611; 92977; 93005; 96365; 96366; 97112; 97116; 97161; 97530; 99285; A9577; J2997; J7030; U0002

== ENCOUNTER 2020-04-25 11:30 | Inpatient (IN) | payer OTHER ==
--- NOTE | 2020-04-25 12:39 | R.PREADM ---
SCREENING DATE AND TIME 04/25/2020 11:40 (CDT) ANTICIPATED REHAB ADMISSION DATE 04/27/2020 REFERRING FACILITY Doctor Office REFERRAL DATE AND TIME 04/25/2020 08:10 (CDT) REFERRAL OFFICE PHONE REFERRAL ROOM# [id number] ACUTE ADMIT DATE 04/24/2020 Previous Rehabilitation(s): No. ACUTE IGNITION SPECIALIST/DC CLEAN IN PLACES OPERATOR Naila REFERRING PHYSICIAN Dr Brooks REHAB FACILITY [facility] CLINICAL LIAISON Marjorie Ponce PHYSICIAN REVIEWER Dr. Az Dahl M.D. MR# [id number] [id number] NAME CHRIS BOLIVAR AD[address]ESS [address] PHONE [facility] [address] DATE OF 1935 AGE 84 SSN# [id number] GENDER male MARITAL STATUS Unknown RACE white PREF. LANGUAGE (IF NON-BULGARIAN) Sinhala ADMIT FROM 02 - [facility] PRE-HOSPITAL LIVING SETTING 01 - Home (private home/apt. board/care, assisted living, [facility], transitional living) HOME TYPE AND DETAILS Type of home: single family house # of steps to enter the residence: 0 # of levels in the residence: 1 # of steps within the residence: 0 PRE-HOSPITAL LIVING WITH Alone FAMILY SUPPORT No PRIMARY FAMILY CONTACT NAME Yvrose Frost PRIMARY FAMILY CONTACT PHONE PRIMARY FAMILY CONTACT RELATIONSHIP Neice IS PRIMARY FAMILY CONTACT AUTH. REP.? no 1ST EMERGENCY CONTACT Yvrose Frost 1ST CONTACT PHONE 1ST CONTACT RELATIONSHIP Neice IS 1ST CONTACT AUTH. REP.? no PHONE 2ND CONTACT ON ADM.? no PATIENT EMPLOYMENT STATUS Retired (for age) PATIENT EMPLOYER No Employer PAYOR INFORMATION: 1ST PAYOR NAME MEDICARE 1ST PAYOR PHONE 1ST PAYOR INJURY/ILLNESS DUE TO ACCIDENT? No ANOTHER DEMOCRAT RESPONSIBLE? 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 SUMMARY OF ACUTE HOSPITALIZATION: Pt. is a 84 yo Right-handed white male. 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 His impairment category is Stroke 01 - Right Body (Left Brain) (01.2). Pre-morbidly, Pt. was independent/mod-I in Transfers Control and Locomotion; and he had good Balance, Safety Awareness, Social Cognition, Sphincter Control, and Communication. Currently, he has deficits of Transfers Control, Balance, Locomotion, Safety Awareness, Self-Care, an d Communication. Pt. is now referred to [facility] for acute in-patient rehabilitation in order to maximize patient's functional independence in activities of daily living, strength, ROM, and mobi lity. Patient has realistic goal of being discharged at assistance level 6-Therese to reside at Home with Pt self. Patient was found to have speech difficulty yesterday morning by a neighbor. A bit later he dropped his coffee cup due to right sided weakness. Patient lives at home independently and normally performs all ADLs and administered TPA. The patient was treated and monitored in the ICU and now needs intensive rehab in order to return home independently, at his baseline. It is reasonably and necessary for the patient to be admitted to inpatient rehab in order to regain transfers Control, balance, locomotion, safety awareness, self-care, and communication. PAST MEDICAL HISTORY HTN COPD PAST SURGICAL HISTORY: Urolift, Appendectomy, Prostate Enlargement MEDICATION ALLERGIES: CODEINE ENVIRONMENTAL ALLERGIES: None Known - Substance Allergies None Known - Other Allergies None Known CODE STATUS: Full code WEIGHT/HEIGHT/BMI: WEIGHT 168 lbs HEIGHT 5' 9" BMI 24.8 DIET: - Diet Type Regular - Diet - Solid Texture Regular - Diet - Liquid Texture Regular - Tube Feed N/A REVIEW OF SYSTEMS: - Gen Alert and awake Lying in bed No apparent distress Oriented to: person, time, and place - Vital Signs Vital signs stable, afebrile - CVS RRR VITAL SIGNS Temperature: 97.4 F SBP/DBP: 165/77 Pulse: 62 Resp: 16 Vital signs stable, afebrile MEDICATIONS/TREATMENT: Other- See attached MAR (Medication Administration Record). CURRENT SPHINCTER CONTROL: Pre-hospital bladder status: continent # of bladder accidents in the last 7 days prior to screenin Pre-hospital bowel status: continent # of bowel accidents in the last 7 days prior to screenin Last Bowel Movement Date: 04/25/2020 CURRENT LOCOMOTION STATUS: distance walked 4 feet *4 side steps DETAILED CURRENT FUNCTIONAL STATUS: - Bladder accident frequency: Ind - No accidents in the past 7 days - Bowel accident frequency: Ind - No accidents in the past 7 days - Walking score based on distance walked: 0(N/A) score based on distance walked: 1(<=50ft) - Wheelchair score based on distance traveled: 0(N/A) QI SCORES: - Self-Care A. Eating 04-Supervision or touching assistance B. Oral hygiene 04-Supervision or touching assistance C. Toileting hygiene 03-Partial/moderate assistance E. Shower/bathe self 88-Not attempted due to medical condition or safety concerns F. Upper body dressing 03-Partial/moderate assistance G. Lower body dressing 88-Not attempted due to medical condition or safety concerns H. Putting on/taking off footwear 88-Not attempted due to medical condition or safety concerns - Mobility A. Roll left and right 04-Supervision or touching assistance B. Sit to lying 04-Supervision or touching assistance C. Lying to sitting on side of bed 04-Supervision or touching assistance D. Sit to stand 04-Supervision or touching assistance E. Chair/byf-sf-ptrwv transfer 04-Supervision or touching assistance F. Toilet transfer 04-Supervision or touching assistance G. Car transfer 88-Not attempted due to medical condition or safety concerns I. Walk 10 feet 10-Not attempted due to environmental limitations J. Walk 50 feet with two turns 88-Not attempted due to medical condition or safety concerns K. Walk 150 feet 88-Not attempted due to medical condition or safety concerns L. Walking 10 feet on uneven surfaces 88-Not attempted due to medical condition or safety concerns M. 1 step (curb) 88-Not attempted due to medical condition or safety concerns N. 4 steps 88-Not attempted due to medical condition or safety concerns O. 12 steps 88-Not attempted due to medical condition or safety concerns P. Picking up object 88-Not attempted due to medical condition or safety concerns R. Wheel 50 feet with two turns S. Wheel 150 feet - Bladder and Bowel Bladder continence 0-Always continent Bowel continence 0-Always continent - Endurance Poor - Balance Poor - Safety Awareness Poor CURRENT FUNC. DEFICITS: Self-Care, Mobility, Endurance, Balance, and Safety Awareness HISTORY OF FALLS. HAS THE PATIENT HAD TWO OR MORE FALLS IN THE PAST YEAR OR ANY FALL WITH INJURY IN T HE PAST YEAR?: Yes PRIOR SURGERY. DID THE PATIENT HAVE MAJOR SURGERY DURING THE 100 DAYS PRIOR TO ADMISSION?: No THERAPY NOTES FROM ACUTE CARE: Attached. SPECIAL NEEDS: - Safety Concerns Skin breakdown precautions needed due to skin breakdown risk PRECAUTIONS: - Weight Bearing Precaution WBAT right LE PATIENT NEEDS ACTIVE AND ONGOING THERAPEUTIC INTERVENTION OF MULTIPLE THERAPY DISCIPLINES, INCLUDING: - Occupational Therapy Cognitive Retraining. Visual Perceptual Training. - Dietary and Nutrition Adequate Nutrition. Nutritional Education. Nutritional Supplements. - Speech Therapy Cognitive Training. Expressive Language Skills. Memory Strategies. Receptive Language Skills. Speech Intelligibility Training. PATIENT NEEDS CLOSE MEDICAL SUPERVISION BY A REHABILITATION PHYSICIAN FOR: Coordination of Treatment Team PATIENT REQUIRES 24X7 REHAB NURSING FOR MEDICAL AND FUNCTIONAL MGT. OF THE FOLLOWING DEFICITS: Disease Management Medication Management Patient/Family Education Providing Safe Environment PATIENT REQUIRES INTENSIVE, COORDINATED INTERDISCIPLINARY APPROACH TO REHAB: Arranging Home Equipment/Services Discharge Planning Family Intervention/Training Hop Trainer/Case Management PATIENT REHAB POTENTIAL: Andrew BOLIVAR is able and expected to receive 3 hours of individualized therapy daily on at least 5 of every 7 days Andrew BOLIVAR's prognosis for significant practical improvement within a reasonable period of time appe ars Good Expected level of measurable improvement will be of a practical value to Andrew BOLIVAR's functional cap acity or adaptations to impairments Has a viable Discharge Plan Medically appropriate; condition is sufficiently stable to participate in intensive rehab program DISCHARGE PLAN: - Estimated Length of Stay (days) 17. - Consensus on plan Discharge plan has been discussed with primary caregiver. Patient/Family is in agreement with the tiara n. - Patient/Family Goals Return home with assistance. - Planned Living Setting Upon Discharge Home, to live alone. Primary caregiver: Pt self. RECOMMENDED CARE LEVEL: IRF RECOMMENDATION DETAILS: Recommended Admission to Comprehensive Rehabilitation Program to Increase Functional [place] SCREENER'S COMPLETENESS CONFIRMATION: - Screening Confirmation The patient data collection on this preadmission screening form is finished PHYSICIANS REVIEW AND ADMISSION DETERMINATION Admit - Based on my review of the Pre-Admission Screening results, in my medical judgment and experie nce, I concur with the findings and recommend admission to [facility], as this patient requires an IRF level of care. SIGNATURE PANEL: Superintendent Pressure - [electronically] signed by Ariadne Amato Lens Finisher on 04/25/2020 at 12:17 (CD T) Clinical Liaison - [electronically] signed by Marjorie Ponce RN on 04/25/2020 at 12:29 (CDT) Physician Reviewer - [electronically] signed by Dr. Az Dahl M.D. on 04/25/2020 at 12:38 (CDT )
[2020-04-25] MEDS ORDERED: TRAMADOL HCL 50 MG TAB PO PRN (17:44)
--- NOTE | 2020-04-25 17:51 | R.HP ---
FACILITY: [facility] ENCOUNTER DATE AND TIME: 04/25/2020 17:46 (CDT) MR#: [id number] NAME CHRIS BOLIVAR ADDRESS: [address] [place] [address] ROAD CITY: [place]IP [id number] PHONE: DATE OF : 1935 AGE: 84 SSN# [id number] GENDER: Male DEXTERITY Right-handed MARITAL STATUS Unknown RACE White PRE-HOSPITAL LIVING SETTING 01 - Home (private home/apt. board/care, assisted living, fci, transitional living) PRE-HOSPITAL LIVING WITH Alone ENCOUNTER PHYSICIAN: Dr. Az Dahl M.D. REFERRING DOCTOR: Dr Brooks DATE OF ADMISSION: 04/25/2020 17:47 (Central Daylight Time) REFERRING FACILITY Doctor Office HOME TYPE AND DETAILS: Type of home: single family house # of steps to enter the residence: 0 # of levels in the residence: 1 # of steps within the residence: 0 ONSET DATE: 04/24/2020 PRIMARY DIAGNOSIS-RELATED SURGERIES: No surgeries related to the primary diagnosis were performed. HISTORY OF PRESENT ILLNESS (HPI): Pt. is a 84 yo Right-handed white male. 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 His impairment category is Stroke 01 - Right Body (Left Brain) (01.2). Pre-morbidly, Pt. was independent/mod-I in Transfers Control and Locomotion; and he had good Balance, Safety Awareness, Social Cognition, Sphincter Control, and Communication. Currently, he has deficits of Transfers Control, Balance, Locomotion, Safety Awareness, Self-Care, an d Communication. Pt. is now referred to [facility] for acute in-patient rehabilitation in order to maximize patient's functional independence in activities of daily living, strength, ROM, and mobi lity. Patient has realistic goal of being discharged at assistance level 6-Therese to reside at Home with Pt self. Patient was found to have speech difficulty yesterday morning by a neighbor. A bit later he dropped his coffee cup due to right sided weakness. Patient lives at home independently and normally performs all ADLs and administered TPA. The patient was treated and monitored in the ICU and now needs intensive rehab in order to return home independently, at his baseline. It is reasonably and necessary for the patient to be admitted to inpatient rehab in order to regain transfers Control, balance, locomotion, safety awareness, self-care, and communication. MEDICATION ALLERGIES: CODEINE ENVIRONMENTAL ALLERGIES: None Known - Substance Allergies None Known - Other Allergies None Known PAST MEDICAL HISTORY: HTN COPD PAST SURGICAL HISTORY: Urolift, Appendectomy, Prostate Enlargement FAMILY HISTORY: Family history is not contributory. SOCIAL HISTORY: - Home Living Alone REVIEW OF SYSTEMS: - Gen No Chills Fatigue No Fever - Eyes No Double Vision No itchiness - ENMT Difficulty Swallowing - CVS No Chest Discomfort No Chest Pain Fatigue No Weight Gain - Resp No Cough No Shortness of Breath - GI Continent No Abdominal Pain No Constipation No Diarrhea - Continent No Kidney Pain No Painful Urination No Urinary Urgency - MSK No Joint Pain No Muscle Cramps Stiffness - Skin No Itching No Rash No Suspicious Lesions - Neuro Coordination Difficulty No Difficulty with Concentration Memory Loss No Seizures Weakness Global aphasia - Psych No Anxiety No Depression No HIV Exposure No Persistent Infections No Seasonal Allergies - Endo No Cold/Heat Intolerance No Excessive Hunger No Excessive Thirst No Excessive Urination PHYSICAL EXAM - Gen Alert and awake Lying in bed No apparent distress Oriented to: person, time, and place - Skin Bruising on the forearms and back Normacephalic - Eyes No abnormalities - ENMT No abnormalities - Neck No abnormalities - CVS RRR - Chest Clear - Resp Clear to auscultation - Abd Soft - GI + bowel sounds Deferred - No abnormalities - Ext Mild edema in both lower extremities. - MSK 4+/5 weakness in right upper and lower extremities - Neuro 4/5 strength right upper and lower extremities, global aphasia - Psych Mild anxiety. VITAL SIGNS Temperature: 97.4 F SBP/DBP: 165/77 Pulse: 62 Resp: 16 NURSING: - Shower allowing shower - Bladder care per protocol - Skin care per protocol PRECAUTIONS: - Weight Bearing Precaution WBAT right LE ACTIVITIES OOB only with supervision QI SCORES: - Self-Care A. Eating 04-Supervision or touching assistance B. Oral hygiene 04-Supervision or touching assistance C. Toileting hygiene 03-Partial/moderate assistance E. Shower/bathe self 88-Not attempted due to medical condition or safety concerns F. Upper body dressing 03-Partial/moderate assistance G. Lower body dressing 88-Not attempted due to medical condition or safety concerns H. Putting on/taking off footwear 88-Not attempted due to medical condition or safety concerns - Mobility A. Roll left and right 04-Supervision or touching assistance B. Sit to lying 04-Supervision or touching assistance C. Lying to sitting on side of bed 04-Supervision or touching assistance D. Sit to stand 04-Supervision or touching assistance E. Chair/dbr-vt-wqsbu transfer 04-Supervision or touching assistance F. Toilet transfer 04-Supervision or touching assistance G. Car transfer 88-Not attempted due to medical condition or safety concerns I. Walk 10 feet 10-Not attempted due to environmental limitations J. Walk 50 feet with two turns 88-Not attempted due to medical condition or safety concerns K. Walk 150 feet 88-Not attempted due to medical condition or safety concerns L. Walking 10 feet on uneven surfaces 88-Not attempted due to medical condition or safety concerns M. 1 step (curb) 88-Not attempted due to medical condition or safety concerns N. 4 steps 88-Not attempted due to medical condition or safety concerns O. 12 steps 88-Not attempted due to medical condition or safety concerns P. Picking up object 88-Not attempted due to medical condition or safety concerns R. Wheel 50 feet with two turns S. Wheel 150 feet - Bladder and Bowel Bladder continence 0-Always continent Bowel continence 0-Always continent - Endurance Poor - Balance Poor - Safety Awareness Poor CURRENT FUNC. DEFICITS: Self-Care, Mobility, Endurance, Balance, and Safety Awareness MEDICATIONS: - Other See attached MAR (Medication Administration Record) ASSESSMENT: Pt. 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 was independent/mod-I in Transfers Control a nd Locomotion; and he had good Balance, Safety Awareness, Social Cognition, Sphincter Control, and Co mmunication.Currently, he has deficits of Transfers Control, Balance, Locomotion, Safety Awareness, S elf-Care, and Communication.Pt. is now referred to [facility] for acute in-pat ient rehabilitation in order to maximize patient's functional independence in activities of daily jose ing, strength, ROM, and mobility.- Rehab Goal Patient has realistic goal of being discharged at assistance level 6-Therese to reside at Home with Pt self. Patient was found to have speech difficulty yesterday morning by a neighbor. A bit later he dropped his coffee cup due to right sided weakness. Patient lives at home independently and normally performs all ADLs and administered TPA. The patient was treated and monitored in the ICU and now needs intensive rehab in order to return home independently, at his baseline. It is reasonably and necessary for the patient to be admitted to inpatient rehab in order to regain transfers Control, balance, locomotion, safety awareness, self-care, and communication.REHAB PLAN: for Dementia, TBI, Stroke, or others - Physical Therapy Gait dysfunction - to improve, our physical therapists will perform initial evaluation of pt's status upon admission and devise an individualized program for Gait Training, and Wheel Chair mobility Inability to transfer - to improve, our physical therapists will perform initial evaluation of pt's s tatus upon admission and devise an individualized program for Bed mobility Need for home safety evaluation - to improve, our physical therapists will perform initial evaluation of pt's status upon admission and devise an individualized program for Home Evaluation Need in caregiver upon discharge - to improve, our physical therapists will perform initial evaluatio n of pt's status upon admission and devise an individualized program for Caregiver Training Edema - to improve, our physical therapists will perform initial evaluation of pt's status upon admi ssion and devise an individualized program for Elevation Training, and Lymphedema Therapy New precaution - to improve, our physical therapists will perform initial evaluation of pt's status u akila admission and devise an individualized program for Patient precaution education Poor balance - to improve, our physical therapists will perform initial evaluation of pt's status upo n admission and devise an individualized program for Balance Training Weakness - to improve, our physical therapists will perform initial evaluation of pt's status upon ad mission and devise an individualized program for Aquatic Therapy, Neuromuscular Reeducation, and Stre ngthening Achieving independence - to improve, our physical therapists will perform initial evaluation of pt's status upon admission and devise an individualized program for Community Reintegration Activities - Occupational Therapy ADL deficits - to improve, our occupation therapists will perform initial evaluation of pt's status u akila admission and devise an individualized program for Bathing, Bed mobility, Community Reintegration , Cooking, Dressing, Eating, Fine Motor Skills, Grooming, Homemaking, Kitchen Mobility, Laundry, Eleanor ent Education, Safety Awareness, Splinting - Positioning, Transfers(Toilet, Tub, Shower), and Wheel C hair Management Need for companion caregiver - to improve, our occupation therapists will perform initial evaluation of pt's s tatus upon admission and devise an individualized program for Caregiver Training Weakness - to improve, our occupation therapists will perform initial evaluation of pt's status upon admission and devise an individualized program for Aquatic Therapy, Balance, Endurance, UE ROM, and U E strengthening MEDICAL PLAN: - Diet Type Start Regular - Diet - Liquid Texture Start Regular - Tube Feed Start N/A - Bladder care per protocol - Weight Bearing Precaution WBAT right LE - Skin care per protocol - Other See attached MAR (Medication Administration Record) - Diet - Solid Texture Regular - Shower shower DISCHARGE PLAN: - Estimated Length of Stay (days) 17. - Consensus on plan Discharge plan has been discussed with primary caregiver. Patient/Family is in agreement with the tiara n. - Patient/Family Goals Return home with assistance. - Planned Living Setting Upon Discharge Home, to live alone. Primary caregiver: Pt self. SIGNATURE PANEL: (CDT)
--- NOTE | 2020-04-25 17:53 | PAPE ---
PATIENT: [facility] MR# [id number] REFERRING DOCTOR Dr Brooks EVALUATION DATE AND TIME 04/25/2020 17:51 (CDT) NAME CHRIS BOLIVAR DATE OF 1935 AGE 84 PHONE SSN# [id number] GENDER male EVALUATING PHYSICIAN Dr. Az Dahl M.D. ADMISSION DIAGNOSIS: 4.0 x 3.5cm acute non-hemorrhagic CVA L posterio-parietal lobe ONSET DATE 04/24/2020 POST-ADMISSION FUNCTIONAL/MEDICAL STATUS: - Bladder Same accident frequency: Ind - No accidents in the past 7 days - Bowel Same accident frequency: Ind - No accidents in the past 7 days - Walking Same score based on distance walked: 0(N/A) Same score based on distance walked: 1(<=50ft) - Wheelchair Same score based on distance traveled: 0(N/A) STATUS CHANGE EVALUATION: No change in Functional or Medical Status is identified compared with Pre-Admission screening. PATIENT NEEDS CLOSE MEDICAL SUPERVISION BY A REHABILITATION PHYSICIAN FOR: Coordination of Treatment Team PATIENT REQUIRES 24X7 REHAB NURSING FOR MEDICAL AND FUNCTIONAL MGT. OF THE FOLLOWING DEFICITS: Disease Management Medication Management Patient/Family Education Providing Safe Environment PATIENT REQUIRES INTENSIVE, COORDINATED INTERDISCIPLINARY APPROACH TO REHAB: Arranging Home Equipment/Services Discharge Planning Family Intervention/Training Top Stitcher/Case Management LIST OF IDENTIFIED AND POTENTIAL PROBLEMS: Alteration in leisure activities Bladder, Incontinence Bowel, Incontinence Infection, Actual or Potential Mobility Impaired Pain, Alteration in Comfort Self Care Deficit Skin Integrity, Actual or Potential Urinary Tract Infection (UTI), Actual or Potential PATIENT COULD BE AT RISK FOR COMPLICATIONS FROM ADVERSE MEDICAL CONDITIONS DUE TO HIS/HER COMORBIDITI ES AND THE RIGORS OF THE INTENSIVE REHABILLITATION PROGRAM. METHODS OR INTERVENTIONS TO AVOID COMPLIC ATIONS INCLUDE: - Bleeding Stroke patients assessed for lethargy or change in status. - Infection Clinical staff to assess and manage the signs and symptoms of infection including fever, redness, war mth, etc. - Urinary Tract Infection - Aspiration Clinical staff will assess and manage coughing, drooling, congestion. - Falls Patient will be evaluated for Fall Precautions and will be placed on Fall Precautions as indicated pe r protocol. - Skin Breakdown Nursing will assess skin daily using assessment tool and will place on Skin Breakdown Precautions as indicated per protocol. - Pain Clinical staff may employ non-medication methods such as massage, distraction, decrease stimulus, etc . as needed. Clinical staff will assess patient's pain level every shift per protocol to assess and e nsure pain management effectiveness. Medications will be given and the pain level re-assessed. PRELIMINARY PLAN OF CARE: - Physical Therapy Patient needs Physical Therapy for a daily minimum of 1.5 hours at least 5 out of 7 days, to improve: Mobility, Strengthening, Transfers, Stretching, ROM, Endurance, Ability to manage stairs, Gait, and Balance. - Speech Therapy Patient needs Speech Therapy for a daily minimum of 0.5 hours at least 5 out of 7 days, to improve: S wallowing, Cognition, Language Skills, and Compensatory Strategies. - Rehabilitation Nursing Patient requires 24x7 Rehabilitation Nursing for: Pain Issues, Identifying and preventing risk factor s, Monitoring and reporting current medical conditions, Assisting with ambulation and transfer, Maria E ting with all ADL-s, Teaching patients about disease process and medications, Family teaching, Provid ing safe environment, Bowel and Bladder Issues, Skin Integrity, and Medication Management. Patient needs Top Stitcher and/or Case Management for: Discharge Planning, Arranging Home Equipmen t or Services, and Family Interventions. - Dietary and Nutrition Services Patient needs Dietary and Nutrition Services for: Adequate Nutrition, Nutritional Supplements, and Nu tritional Education. - Occupational Therapy Patient needs Occupational Therapy for a daily minimum of 1.5 hours at least 5 out of 7 days, to impr ove Activities of Daily Living, including: Eating, Grooming, Bathing, Dressing, Toileting, Toilet Tra nsfers, Community Reintegration, Higher functional activities, Adaptive Equipment, Splinting, Househo ld Tasks, and Other activities as determined. QI SCORES: - Self-Care A. Eating 04-Supervision or touching assistance B. Oral hygiene 04-Supervision or touching assistance C. Toileting hygiene 03-Partial/moderate assistance E. Shower/bathe self 88-Not attempted due to medical condition or safety concerns F. Upper body dressing 03-Partial/moderate assistance G. Lower body dressing 88-Not attempted due to medical condition or safety concerns H. Putting on/taking off footwear 88-Not attempted due to medical condition or safety concerns - Mobility A. Roll left and right 04-Supervision or touching assistance B. Sit to lying 04-Supervision or touching assistance C. Lying to sitting on side of bed 04-Supervision or touching assistance D. Sit to stand 04-Supervision or touching assistance E. Chair/ebz-tn-iykyq transfer 04-Supervision or touching assistance F. Toilet transfer 04-Supervision or touching assistance G. Car transfer 88-Not attempted due to medical condition or safety concerns I. Walk 10 feet 10-Not attempted due to environmental limitations J. Walk 50 feet with two turns 88-Not attempted due to medical condition or safety concerns K. Walk 150 feet 88-Not attempted due to medical condition or safety concerns L. Walking 10 feet on uneven surfaces 88-Not attempted due to medical condition or safety concerns M. 1 step (curb) 88-Not attempted due to medical condition or safety concerns N. 4 steps 88-Not attempted due to medical condition or safety concerns O. 12 steps 88-Not attempted due to medical condition or safety concerns P. Picking up object 88-Not attempted due to medical condition or safety concerns R. Wheel 50 feet with two turns S. Wheel 150 feet - Bladder and Bowel Bladder continence 0-Always continent Bowel continence 0-Always continent - Endurance Poor - Balance Poor - Safety Awareness Poor POTENTIAL FUNCTIONAL GOALS FOR PATIENT TO ACHIEVE BY DISCHARGE: - Safety Precaution Patient will remain free from falls or injury at time of discharge. - Bed Mobility Patient will perform bed mobility at 4-Edwardo level of assistance. - Transfers Patient will complete transfers from bed to chair at 4-Edwardo level of assistance. - Mobility Patient will ambulate 150 ft with 4-Edwardo level of assistance with RW. PATIENT REHAB POTENTIAL Andrew BOLIVAR is able and expected to receive 3 hours of individualized therapy daily on at least 5 of every 7 days SendyMarcos HERNANDEZOSMEL's prognosis for significant practical improvement within a reasonable period of time appe ars Good Expected level of measurable improvement will be of a practical value to Andrew BOLIVAR's functional cap acity or adaptations to impairments Has a viable Discharge Plan Medically appropriate; condition is sufficiently stable to participate in intensive rehab program DISCHARGE PLAN: - Estimated Length of Stay (days) 17. - Consensus on plan Discharge plan has been discussed with primary caregiver. Patient/Family is in agreement with the tiara n. - Patient/Family Goals Return home with assistance. - Planned Living Setting Upon Discharge Home, to live alone. Primary caregiver: Pt self. CONCLUSION ON REHABILITATION NECESSITY: I have evaluated patient's pre-admission functional status and, comparing it to the patient's post-ad mission functional status now, I conclude that the pre-admission assessment was accurate. Patient's c ondition on admission supports the medical necessity of admission to IRF. It is safe to proceed with patient's therapy program. SIGNATURE PANEL: (CDT)
[2020-04-25] MEDS: ENOXAPARIN 40 MG/0.4 ML SQ SCH (18:04)
--- NOTE | 2020-04-26 02:06 | FAST ---
SHIFT START DATE/TIME: 04/25/2020 19:00 (CDT) SHIFT END DATE/TIME: 04/26/2020 07:00 (CDT) NAME CHRIS BOLIVAR DATE OF : 1935 DATE OF ADMISSION: 04/25/2020 17:47 (CDT) PHONE: AGE: 84 N# [id number] GENDER: Male ENCOUNTER PHYSICIAN: Dr. Az Dahl M.D. 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 EATING: Not assessed/no information CODE: - ORAL HYGIENE: Not assessed/no information CODE: - TOILETING HYGIENE: TOILETING HYGIENE - STEP 1: Does the patient complete the activity by him/herself with no assistance (physical, verbal/nonverbal cueing, setup/clean-up)? No. TOILETING HYGIENE - STEP 2: Does the patient need only setup/clean-up assistance from one helper? No. TOILETING HYGIENE - STEP 3: Does the patient need only verbal/nonverbal cueing or touching/steadying/contact guard assistance fro m one helper? No. TOILETING HYGIENE - STEP 4: Does the patient need physical assistance - for example lifting or trunk support from one helper - wi th the helper providing less than half of the effort? Yes. 1. [id number] ADMISSION PERFORMANCE: Partial/moderate assistance CODE: 03 BATHING: Not assessed/no information CODE: - DRESSING - UPPER BODY: Not assessed/no information CODE: - DRESSING - LOWER BODY: Not assessed/no information CODE: - PUTTING ON/TAKING OFF FOOTWEAR: Not assessed/no information CODE: - ROLL LEFT AND RIGHT: ROLL LEFT AND RIGHT - STEP 1: Does the patient complete the activity by him/herself with no assistance (physical, verbal/nonverbal cueing, setup/clean-up)? No. ROLL LEFT AND RIGHT - STEP 2: Does the patient need only setup/clean-up assistance from one helper? No. ROLL LEFT AND RIGHT - STEP 3: Does the patient need only verbal/nonverbal cueing or touching/steadying/contact guard assistance fro m one helper? No. ROLL LEFT AND RIGHT - STEP 4: Does the patient need physical assistance - for example lifting or trunk support from one helper - wi th the helper providing less than half of the effort? Yes. 1. [id number] ADMISSION PERFORMANCE: Partial/moderate assistance CODE: 03 SIT TO LYING: Not assessed/no information CODE: - LYING TO SITTING: Not assessed/no information CODE: - SIT TO STAND: Not assessed/no information CODE: - TRANSFERS: BED, CHAIR: Not assessed/no information CODE: - TRANSFER TOILET: Not assessed/no information CODE: - TRANSFERS: CAR: Not assessed/no information CODE: - WALK 10 FEET: Not assessed/no information CODE: - 1 STEP (CURB): Not assessed/no information CODE: - PICKING UP OBJECT: Not assessed/no information CODE: - DOES THE PATIENT USE A WHEELCHAIR/SCOOTER? CODE: EXPR WHEEL 50 FEET WITH TWO TURNS: Not assessed/no information CODE: - INDICATE THE TYPE OF WHEELCHAIR/SCOOTER USED: CODE: EXPR WHEEL 150 FEET: Not assessed/no information CODE: - INDICATE THE TYPE OF WHEELCHAIR/SCOOTER USED: CODE: EXPR BLADDER AND BOWEL: H350. BLADDER CONTINENCE (3-DAY ASSESSMENT PERIOD): Always incontinent CODE: 4 H400. BOWEL CONTINENCE (3-DAY ASSESSMENT PERIOD): Always continent CODE: 0
[2020-04-26 03:24] LABS: Urine Appearance CLEAR; Urine Bilirubin NEGATIVE (NEG); Urine Blood NEGATIVE (NEG); Urine Color YELLOW; Urine Glucose NEGATIVE (NEG); Urine Protein NEGATIVE (NEG); Urine Specific Gravity 1.015 (1.005-1.030); Urine pH 6.5 (5.0-7.0)
[2020-04-26 03:54] LABS: Urine Bacteria <20 /HPF (NONE SEEN); Urine Culture Reflex Order NOT NEEDED; Urine RBC <5 /HPF (NONE SEEN)
[2020-04-26 06:59] LABS: Albumin 2.8 g/dL (3.4-5.0); Potassium 3.3 mmol/L (3.5-5.1); Prealbumin 12.1 mg/dL (20-40)
[2020-04-26 07:20] LABS: Absolute Lymphocytes (CBC) 1.6 K/uL (0.7-4.9); Basophils % 0.8 % (0-1.3); Hematocrit 41.5 % (39.6-49.0); Lymphocytes % 17.2 % (15.3-44.8); MPV 9.6 fL (7.6-11.3); RBC Red Blood Cell Count 4.33 M/uL (4.33-5.43)
[2020-04-26] MEDS: TRELEGY ELLIPTA IH SCH (08:00)
[2020-04-26] MEDS: ASPIRIN EC 81 MG TAB PO SCH (08:02)
[2020-04-26] MEDS ORDERED: POTASSIUM CL SA 10 MEQ TAB PO ONE (09:51)
[2020-04-26] MEDS: ENOXAPARIN 40 MG/0.4 ML SQ SCH (16:14)
[2020-04-26] MEDS: ENSURE HIGH PROTEIN 237 ML CAN PO SCH (20:57)
[2020-04-26] MEDS: PROMOD 30 ML DOSE PO SCH (20:57)
--- NOTE | 2020-04-26 23:56 | PN ---
Subjective: Mr. Serrato is stable. He is doing about the same. 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 He also has receptive aphasia because he does not comprehend the question whi ch is asked properly and has the answer which is coming out which is not appropriate, even though he is able to make some sentences now. Assessment And Plan: 1.Cerebrovascular accident; infarct, parietal lobe, left side. Continue OT, PT, and speech therapy. 2.Hypertension, 150/76, currently stable. 3.Hypokalemia. Replace potassium one more time, 20 mEq. RVD/MODL Voice ID: [id number] Report ID: [id number]
[2020-04-27] MEDS: TRELEGY ELLIPTA IH SCH ×2 (08:00→11:57)
[2020-04-27] MEDS ORDERED: cloNIDine HCL 0.1 MG TAB PO PRN (08:09)
[2020-04-27] MEDS: ASPIRIN EC 81 MG TAB PO SCH (08:16)
[2020-04-27] MEDS: ENSURE HIGH PROTEIN 237 ML CAN PO SCH ×2 (08:16→19:34)
[2020-04-27] MEDS: PROMOD 30 ML DOSE PO SCH ×2 (08:16→19:34)
[2020-04-27] MEDS: AMLODIPINE 5 MG TAB PO SCH (10:36)
[2020-04-27] MEDS ORDERED: DOCUSATE NA/SENNA CONC 1 TAB PO PRN (10:39)
[2020-04-27] MEDS: ENOXAPARIN 40 MG/0.4 ML SQ SCH (16:32)
--- NOTE | 2020-04-27 20:41 | PN ---
Mr. Serrato is an 84-year-old gentleman who has a stroke in left parietal region with global aphasia more expressive than receptive, but actually he has both. Physically he does not have any other marley or defects. He is able to ambulate. He is able to eat. He does not have aspiration. He is in the rehab for occupational and physical therapy. Blood pressure is high. We are adding Norvasc 5 mg onc e a day for blood pressure control. He is currently stable with overall guarded prognosis. RVD/MODL Voice ID: [id number] Report ID: [id number]
[2020-04-28] MEDS: AMLODIPINE 5 MG TAB PO SCH (07:12)
[2020-04-28] MEDS: ASPIRIN EC 81 MG TAB PO SCH (07:12)
[2020-04-28] MEDS: TRELEGY ELLIPTA IH SCH (09:10)
[2020-04-28] MEDS: ENSURE HIGH PROTEIN 237 ML CAN PO SCH (09:10)
[2020-04-28] MEDS: PROMOD 30 ML DOSE PO SCH (09:10)
[2020-04-28] MEDS: ENOXAPARIN 40 MG/0.4 ML SQ SCH (16:21)
--- NOTE | 2020-04-28 19:39 | R.PN ---
ENCOUNTER DATE AND TIME: 04/28/2020 19:34 (CDT) NAME CHRIS BOLIVAR DATE OF : 1935 DATE OF ADMISSION: 04/25/2020 17:47 (CDT) 4.0 x 3.5cm acute non-hemorrhagic CVA L posterio-parietal lobeCHIEF COMPLAINT: Aphasic stroke with right sided weakness SUBJECTIVE: Pt denied any Shortness of Breath. Pt denied any depression. Grooming done with standby assistance. CBC with differential is normal. NA and K are mildly low. His is on K replacement. Prealbumin is moderately low at 12.1. VITAL SIGNS Temperature: 97.6 F SBP/DBP: 151/78 Pulse: 60 Resp: 16 MEDICATION ALLERGIES: CODEINE ENVIRONMENTAL ALLERGIES: None Known - Substance Allergies None Known - Other Allergies None Known NURSING: - Shower allowing shower - Bladder care per protocol - Skin care per protocol PRECAUTIONS: - Weight Bearing Precaution WBAT right LE ACTIVITIES OOB only with supervision THERAPIES: - Occupational Therapy Cognitive Retraining. Visual Perceptual Training. - Dietary and Nutrition Adequate Nutrition. Nutritional Education. Nutritional Supplements. - Speech Therapy Cognitive Training. Expressive Language Skills. Memory Strategies. Receptive Language Skills. Speech Intelligibility Training. PHYSICAL EXAM - Gen Alert and awake Lying in bed No apparent distress Oriented to: person, time, and place - Skin Bruising on the forearms and back Normacephalic - Eyes No abnormalities - ENMT No abnormalities - Neck No abnormalities - CVS RRR - Chest Clear - Resp Clear to auscultation - Abd Soft - GI + bowel sounds Deferred - No abnormalities - Ext Mild edema in both lower extremities. - MSK 4+/5 weakness in right upper and lower extremities - Neuro 4/5 strength right upper and lower extremities, global aphasia - Psych Mild anxiety. ASSESSMENT: Pt. 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 was independent/mod-I in Transfers Control a nd Locomotion; and he had good Balance, Safety Awareness, Social Cognition, Sphincter Control, and Co mmunication.Currently, he has deficits of Transfers Control, Balance, Locomotion, Safety Awareness, S elf-Care, and Communication.Pt. is now referred to [facility] for acute in-pat ient rehabilitation in order to maximize patient's functional independence in activities of daily jose ing, strength, ROM, and mobility.- Rehab Goal Patient has realistic goal of being discharged at assistance level 6-Therese to reside at Home with Pt self. MDM/PLAN: - Physical Therapy Gait dysfunction - to improve, our physical therapists will perform initial evaluation of pt's statu s upon admission and devise an individualized program for Gait Training, and Wheel Chair mobility Inability to transfer - to improve, our physical therapists will perform initial evaluation of pt's status upon admission and devise an individualized program for Bed mobility Need for home safety evaluation - to improve, our physical therapists will perform initial evaluatio n of pt's status upon admission and devise an individualized program for Home Evaluation Need in caregiver upon discharge - to improve, our physical therapists will perform initial evaluati on of pt's status upon admission and devise an individualized program for Caregiver Training Edema - to improve, our physical therapists will perform initial evaluation of pt's status upon admis omkar and devise an individualized program for Elevation Training, and Lymphedema Therapy New precaution - to improve, our physical therapists will perform initial evaluation of pt's status upon admission and devise an individualized program for Patient precaution education Poor balance - to improve, our physical therapists will perform initial evaluation of pt's status up on admission and devise an individualized program for Balance Training Weakness - to improve, our physical therapists will perform initial evaluation of pt's status upon a dmission and devise an individualized program for Aquatic Therapy, Neuromuscular Reeducation, and Str engthening Achieving independence - to improve, our physical therapists will perform initial evaluation of pt's status upon admission and devise an individualized program for Community Reintegration Activities - Occupational Therapy ADL deficits - to improve, our occupation therapists will perform initial evaluation of pt's status upon admission and devise an individualized program for Bathing, Bed mobility, Community Reintegratio n, Cooking, Dressing, Eating, Fine Motor Skills, Grooming, Homemaking, Kitchen Mobility, Laundry, Pat ient Education, Safety Awareness, Splinting - Positioning, Transfers(Toilet, Tub, Shower), and Wheel Chair Management Need for care transport nurse - to improve, our occupation therapists will perform initial evaluation of pt's status upon admission and devise an individualized program for Caregiver Training Weakness - to improve, our occupation therapists will perform initial evaluation of pt's status upon admission and devise an individualized program for Aquatic Therapy, Balance, Endurance, UE ROM, and UE strengthening - Other See attached MAR (Medication Administration Record) - Diet Type Continue Regular - Diet - Liquid Texture Continue Regular - Tube Feed Continue N/A - Bladder care per protocol - Weight Bearing Precaution WBAT right LE - Skin care per protocol - Diet - Solid Texture Continue Regular - Shower allowing shower for Dementia, TBI, Stroke, or others FUNCTIONAL STATUS: UPDATED AT WEEKLY TEAM CONFERENCE - Bladder Same accident frequency: 7-Ind - No accidents in the past 7 days - Bowel Same accident frequency: 7-Ind - No accidents in the past 7 days - Walking Same score based on distance walked: 0(N/A) Same score based on distance walked: 1(<=50ft) - Wheelchair Same score based on distance traveled: 0(N/A) FUNCTIONAL STATUS: - Self-Care A. Eating modA B. Grooming Edwardo C. Bathing modA D. Dressing - Upper Edwardo E. Dressing - Lower modA F. Toileting Edwardo - Sphincter Control G. Bladder control Edwardo H. Bowel control Edwardo - Transfers Control I. Bed/Chair/Wheelchair Edwardo J. Toilet Edwardo K. Tub/Shower modA - Locomotion L. Walk/Wheelchair (B) modA M. Stairs ADNO - Communication N. Comprehension (B) modA O. Expression (B) modA - Social Cognition P. Social Interaction Edwardo Q. Problem Solving Edwardo R. Memory Edwardo - Endurance Fair - Balance Fair - Safety Awareness Fair QI SCORES: - Self-Care A. Eating 04-Supervision or touching assistance B. Oral hygiene 04-Supervision or touching assistance C. Toileting hygiene 03-Partial/moderate assistance E. Shower/bathe self 88-Not attempted due to medical condition or safety concerns F. Upper body dressing 03-Partial/moderate assistance G. Lower body dressing 88-Not attempted due to medical condition or safety concerns H. Putting on/taking off footwear 88-Not attempted due to medical condition or safety concerns - Mobility A. Roll left and right 04-Supervision or touching assistance B. Sit to lying 04-Supervision or touching assistance C. Lying to sitting on side of bed 04-Supervision or touching assistance D. Sit to stand 04-Supervision or touching assistance E. Chair/qff-do-jubfi transfer 04-Supervision or touching assistance F. Toilet transfer 04-Supervision or touching assistance G. Car transfer 88-Not attempted due to medical condition or safety concerns I. Walk 10 feet 10-Not attempted due to environmental limitations J. Walk 50 feet with two turns 88-Not attempted due to medical condition or safety concerns K. Walk 150 feet 88-Not attempted due to medical condition or safety concerns L. Walking 10 feet on uneven surfaces 88-Not attempted due to medical condition or safety concerns M. 1 step (curb) 88-Not attempted due to medical condition or safety concerns N. 4 steps 88-Not attempted due to medical condition or safety concerns O. 12 steps 88-Not attempted due to medical condition or safety concerns P. Picking up object 88-Not attempted due to medical condition or safety concerns R. Wheel 50 feet with two turns S. Wheel 150 feet - Bladder and Bowel Bladder continence 0-Always continent Bowel continence 0-Always continent - Endurance Poor - Balance Poor - Safety Awareness Poor CURRENT FUNC. DEFICITS: Self-Care, Mobility, Endurance, Balance, and Safety Awareness SIGNATURE PANEL: (CDT)
[2020-04-28] MEDS: JUVEN PACKET PO SCH (20:00)
[2020-04-28] MEDS: ENSURE ENLIVE 237 ML CAN PO SCH (20:10)
--- NOTE | 2020-04-29 02:53 | PN ---
Mr. Serrato is in a rehab, getting physical therapy. His blood pressure has been slightly high. He has been started on Norvasc 5 mg once a day since yesterday. He has a parietal stroke on the left si de with global aphasia, which is significant and not improving. He is able to ambulate with assistan ce. He has ability to communicate. He is very poor now because of aphasia. Clinically, he is stapatrick PRETTYD/MODL Voice ID: [id number] Report ID: [id number]
[2020-04-29] MEDS: JUVEN PACKET PO SCH ×2 (08:00→20:05)
[2020-04-29] MEDS: ASPIRIN EC 81 MG TAB PO SCH (08:15)
[2020-04-29] MEDS: AMLODIPINE 5 MG TAB PO SCH (08:15)
[2020-04-29] MEDS: ENSURE ENLIVE 237 ML CAN PO SCH ×2 (08:16→20:05)
[2020-04-29] MEDS: TRELEGY ELLIPTA IH SCH (08:22)
--- NOTE | 2020-04-29 14:45 | FAST ---
SHIFT START DATE/TIME: 04/29/2020 07:00 (CDT) SHIFT END DATE/TIME: 04/29/2020 19:00 (CDT) NAME CHRIS BOLIVAR DATE OF : 1935 DATE OF ADMISSION: 04/25/2020 17:47 (CDT) PHONE: AGE: 84 N# [id number] GENDER: Male ENCOUNTER PHYSICIAN: Dr. Az Dahl M.D. 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 EATING: EATING - STEP 1: Does the patient complete the activity by him/herself with no assistance (physical, verbal/nonverbal cueing, setup/clean-up)? No. EATING - STEP 2: Does the patient need only setup/clean-up assistance from one helper? Yes. 1. [id number] ADMISSION PERFORMANCE: Setup or clean-up assistance CODE: 05 TOILETING HYGIENE: TOILETING HYGIENE - STEP 1: Does the patient complete the activity by him/herself with no assistance (physical, verbal/nonverbal cueing, setup/clean-up)? No. TOILETING HYGIENE - STEP 2: Does the patient need only setup/clean-up assistance from one helper? Yes. 1. [id number] ADMISSION PERFORMANCE: Setup or clean-up assistance CODE: 05 BATHING: Not assessed/no information CODE: - DRESSING - UPPER BODY: DRESSING - UPPER BODY - STEP 1: Does the patient complete the activity by him/herself with no assistance (physical, verbal/nonverbal cueing, setup/clean-up)? No. DRESSING - UPPER BODY - STEP 2: Does the patient need only setup/clean-up assistance from one helper? Yes. 1. [id number] ADMISSION PERFORMANCE: Setup or clean-up assistance CODE: 05 DRESSING - LOWER BODY: DRESSING - LOWER BODY - STEP 1: Does the patient complete the activity by him/herself with no assistance (physical, verbal/nonverbal cueing, setup/clean-up)? No. DRESSING - LOWER BODY - STEP 2: Does the patient need only setup/clean-up assistance from one helper? Yes. 1. [id number] ADMISSION PERFORMANCE: Setup or clean-up assistance CODE: 05 PUTTING ON/TAKING OFF FOOTWEAR: FOOTWEAR - STEP 1: Does the patient complete the activity by him/herself with no assistance (physical, verbal/nonverbal cueing, setup/clean-up)? No. FOOTWEAR - STEP 2: Does the patient need only setup/clean-up assistance from one helper? Yes. 1. [id number] ADMISSION PERFORMANCE: Setup or clean-up assistance CODE: 05 ROLL LEFT AND RIGHT: ROLL LEFT AND RIGHT - STEP 1: Does the patient complete the activity by him/herself with no assistance (physical, verbal/nonverbal cueing, setup/clean-up)? No. ROLL LEFT AND RIGHT - STEP 2: Does the patient need only setup/clean-up assistance from one helper? Yes. 1. [id number] ADMISSION PERFORMANCE: Setup or clean-up assistance CODE: 05 SIT TO LYING: SIT TO LYING - STEP 1: Does the patient complete the activity by him/herself with no assistance (physical, verbal/nonverbal cueing, setup/clean-up)? No. SIT TO LYING - STEP 2: Does the patient need only setup/clean-up assistance from one helper? Yes. 1. [id number] ADMISSION PERFORMANCE: Setup or clean-up assistance CODE: 05 LYING TO SITTING: LYING TO SITTING ON SIDE OF BED - STEP 1: Does the patient complete the activity by him/herself with no assistance (physical, verbal/nonverbal cueing, setup/clean-up)? No. LYING TO SITTING ON SIDE OF BED - STEP 2: Does the patient need only setup/clean-up assistance from one helper? Yes. 1. [id number] ADMISSION PERFORMANCE: Setup or clean-up assistance CODE: 05 SIT TO STAND: SIT TO STAND - STEP 1: Does the patient complete the activity by him/herself with no assistance (physical, verbal/nonverbal cueing, setup/clean-up)? Yes. 1. [id number] ADMISSION PERFORMANCE: Independent CODE: 06 TRANSFERS: BED, CHAIR: CHAIR/[id number] TRANSFER - STEP 1: Does the patient complete the activity by him/herself with no assistance (physical, verbal/nonverbal cueing, setup/clean-up)? No. CHAIR/[id number] TRANSFER - STEP 2: Does the patient need only setup/clean-up assistance from one helper? Yes. 1. [id number] ADMISSION PERFORMANCE: Setup or clean-up assistance CODE: 05 TRANSFER TOILET: TOILET TRANSFER - STEP 1: Does the patient complete the activity by him/herself with no assistance (physical, verbal/nonverbal cueing, setup/clean-up)? Yes. 1. [id number] ADMISSION PERFORMANCE: Independent CODE: 06 TRANSFERS: CAR: Not assessed/no information CODE: - WALK 10 FEET: Not assessed/no information CODE: - WALK 50 FEET: Not assessed/no information CODE: - 1 STEP (CURB): Not assessed/no information CODE: - PICKING UP OBJECT: Not assessed/no information CODE: - DOES THE PATIENT USE A WHEELCHAIR/SCOOTER? Q1. DOES THE PATIENT USE A WHEELCHAIR/SCOOTER?: Yes CODE: 1 WHEEL 50 FEET WITH TWO TURNS: WHEEL 50 FEET WITH TWO TURNS - STEP 1: Does the patient complete the activity by him/herself with no assistance (physical, verbal/nonverbal cueing, setup/clean-up)? No. WHEEL 50 FEET WITH TWO TURNS - STEP 2: Does the patient need only setup/clean-up assistance from one helper? Yes. 1. [id number] ADMISSION PERFORMANCE: Setup or clean-up assistance CODE: 05 INDICATE THE TYPE OF WHEELCHAIR/SCOOTER USED: RR1. INDICATE THE TYPE OF WHEELCHAIR/SCOOTER USED.: Manual CODE: 1 WHEEL 150 FEET: WHEEL 150 FEET - STEP 1: Does the patient complete the activity by him/herself with no assistance (physical, verbal/nonverbal cueing, setup/clean-up)? Yes. 1. [id number] ADMISSION PERFORMANCE: Independent CODE: 06 INDICATE THE TYPE OF WHEELCHAIR/SCOOTER USED: SS1. INDICATE THE TYPE OF WHEELCHAIR/SCOOTER USED.: Manual CODE: 1 BLADDER AND BOWEL: H350. BLADDER CONTINENCE (3-DAY ASSESSMENT PERIOD): Always continent (no documented incontinence) CODE: 0 H400. BOWEL CONTINENCE (3-DAY ASSESSMENT PERIOD): Always continent CODE: 0 SIGNATURE PANEL: The following modified sections: 1. [id number] Admission Performance, 1. [id number] Admission Performance, 1. [id number] Admission Performance, 1. [id number] Admission Performance, 1. [id number] Admission Performance, 1. [id number] Admission Performance, 1. [id number] Admission Performance, 1. [id number] Admission Performance , 1. [id number] Admission Performance, 1. [id number] Admission Performance, 1. [id number] Admission Performanc e, Q1. Does the patient use a wheelchair/scooter?, 1. [id number] Admission Performance, RR1. Indicate th e type of wheelchair/scooter used., 1. [id number] Admission Performance, Code, SS1. Indicate the type of wheelchair/scooter used., H350. Bladder Continence (3-day assessment period), H400. Bowel Continence (3-day assessment period) were [electronically] signed by Rowan Padilla C.N.A. on TueApr 29 2020 14 :41:18 T-0500 (Central Daylight Time)
[2020-04-29] MEDS: ENOXAPARIN 40 MG/0.4 ML SQ SCH (16:41)
--- NOTE | 2020-04-29 18:23 | P.PN ---
Subjective Date of Service: 04/29/20 Chief Complaint: DIFFICULTY IN SPEECH. Subjective: No new changes HE HAS DIFFICULTY EXPRESSING WITH WHAT MAKES SENSE ALSO HIS RECEPTIVE APHASIA DOES NOT GIVE HIM QUESTION THAT HE CAN COMPREHEND. Review of Systems 10-point ROS is otherwise unremarkable Physical Examination - Vital Signs Temperature: 99.2 F Blood Pressure: 145/81 Pulse: 62 Respirations: 16 Pulse Ox (%): 100 - Physical Exam General: Mild distress HEENT: Atraumatic, PERRLA, EOMI Neck: Supple, JVD not distended Respiratory: Clear to auscultation bilaterally, Normal air movement Cardiovascular: Regular rate/rhythm, Normal S1 S2 Gastrointestinal: Normal bowel sounds, No tenderness Musculoskeletal: No tenderness Integumentary: No rashes Neurological: Abnormal speech (GLOBAL APHASIA. ) Lymphatics: No axilla or inguinal lymphadenopathy - Studies Medications List Reviewed: Yes Assessment And Plan - Current Problems (Diagnosis) (1) HTN (hypertension) Current Visit: Yes Status: Chronic Qualifiers: Hypertension type: essential hypertension Qualified Code(s): I10 - Essential (primary) hypertension (2) Left acute arterial ischemic stroke, MCA (middle cerebral artery) Current Visit: No Status: Acute Plan: 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
[2020-04-30 05:59] LABS: Absolute Lymphocytes (CBC) 1.8 K/uL (0.7-4.9); Basophils % 0.3 % (0-1.3); Hematocrit 38.3 % (39.6-49.0); Lymphocytes % 28.1 % (15.3-44.8); MPV 9.6 fL (7.6-11.3); RBC Red Blood Cell Count 3.95 M/uL (4.33-5.43)
[2020-04-30 06:37] LABS: BUN Blood Urea Nitrogen 14 mg/dL (7-18); Bicarbonate 30 mmol/L (21-32); Glucose Level 89 mg/dL (74-106); Sodium Level 136 mmol/L (136-145)
[2020-04-30 06:52] LABS: Blood Morphology Comment NOT SEEN (NOT SEEN); Platelet Estimate ADEQ; Potassium 2.8 mmol/L (3.5-5.1); Urine White Blood Cell Casts OK
[2020-04-30] MEDS: ASPIRIN EC 81 MG TAB PO SCH (07:16)
[2020-04-30] MEDS: AMLODIPINE 5 MG TAB PO SCH (07:16)
[2020-04-30] MEDS: JUVEN PACKET PO SCH ×2 (07:18→20:30)
[2020-04-30] MEDS: ENSURE ENLIVE 237 ML CAN PO SCH ×2 (07:18→20:30)
[2020-04-30] MEDS: TRELEGY ELLIPTA IH SCH (07:20)
[2020-04-30] MEDS ORDERED: POTASSIUM CL SA 10 MEQ TAB PO ONE (07:51)
[2020-04-30] MEDS: POTASSIUM CL SA 10 MEQ TAB PO SCH ×2 (08:00→20:30)
[2020-04-30] MEDS: ENOXAPARIN 40 MG/0.4 ML SQ SCH (16:34)
--- NOTE | 2020-04-30 18:29 | P.PN ---
Subjective Date of Service: 04/30/20 Chief Complaint: DIFFICULTY IN SPEECH. Subjective: Improving HE HAS DIFFICULTY EXPRESSING WITH WHAT MAKES SENSE ALSO HIS RECEPTIVE APHASIA DOES NOT GIVE HIM QUESTION THAT HE CAN COMPREHEND. HE IS STABLE, SLEEPING WELL. Review of Systems 10-point ROS is otherwise unremarkable Physical Examination - Vital Signs Temperature: 97.1 F Blood Pressure: 148/68 Pulse: 56 Respirations: 16 Pulse Ox (%): 98 - Physical Exam General: Mild distress HEENT: Atraumatic, PERRLA, EOMI Neck: Supple, JVD not distended Respiratory: Clear to auscultation bilaterally, Normal air movement Cardiovascular: Regular rate/rhythm, Normal S1 S2 Gastrointestinal: Normal bowel sounds, No tenderness Musculoskeletal: No tenderness Integumentary: No rashes Neurological: Normal speech, Normal tone, Normal affect, Abnormal speech Lymphatics: No axilla or inguinal lymphadenopathy - Studies Laboratory Data (last 24 hrs) 04/30/20 05:36: Sodium 136, Potassium 2.8 L*, BUN 14, Creatinine 0.70, Glucose 89 04/30/20 05:36: WBC 6.5 D, Hgb 13.1 L, Hct 38.3 L, Plt Count 154 Medications List Reviewed: Yes Assessment And Plan - Current Problems (Diagnosis) (1) HTN (hypertension) Current Visit: Yes Status: Chronic Qualifiers: Hypertension type: essential hypertension Qualified Code(s): I10 - Essential (primary) hypertension (2) Left acute arterial ischemic stroke, MCA (middle cerebral artery) Current Visit: No Status: Acute Plan: 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 START SPIRONOLACTONE 25 MG DAILY.
--- NOTE | 2020-04-30 18:35 | R.PN ---
ENCOUNTER DATE AND TIME: 04/30/2020 18:28 (CDT) NAME CHRIS BOLIVAR DATE OF : 1935 DATE OF ADMISSION: 04/25/2020 17:47 (CDT) 4.0 x 3.5cm acute non-hemorrhagic CVA L posterio-parietal lobeCHIEF COMPLAINT: Aphasic stroke with right sided weakness SUBJECTIVE: Pt denied any Shortness of Breath. Pt denied any depression. Grooming done with standby assistance. CBC with differential is normal. NA and K are mildly low. His is on K replacement. Prealbumin is moderately low at 12.1. Ambulated 750' with rolling walker and contact guard assistance. Ambulated 100' without an assistive device. Mobilized 300' with modified independence. VITAL SIGNS Temperature: 97.5 F SBP/DBP: 148/68 Pulse: 57 Resp: 16 MEDICATION ALLERGIES: CODEINE ENVIRONMENTAL ALLERGIES: None Known - Substance Allergies None Known - Other Allergies None Known NURSING: - Shower allowing shower - Bladder care per protocol - Skin care per protocol PRECAUTIONS: - Weight Bearing Precaution WBAT right LE ACTIVITIES OOB only with supervision THERAPIES: - Occupational Therapy Cognitive Retraining. Visual Perceptual Training. - Dietary and Nutrition Adequate Nutrition. Nutritional Education. Nutritional Supplements. - Speech Therapy Cognitive Training. Expressive Language Skills. Memory Strategies. Receptive Language Skills. Speech Intelligibility Training. PHYSICAL EXAM - Gen Alert and awake Lying in bed No apparent distress Oriented to: person, time, and place - Skin Bruising on the forearms and back Normacephalic - Eyes No abnormalities - ENMT No abnormalities - Neck No abnormalities - CVS RRR - Chest Clear - Resp Clear to auscultation - Abd Soft - GI + bowel sounds Deferred - No abnormalities - Ext Mild edema in both lower extremities. - MSK 4+/5 weakness in right upper and lower extremities - Neuro 4/5 strength right upper and lower extremities, global aphasia - Psych Mild anxiety. ASSESSMENT: Pt. 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 was independent/mod-I in Transfers Control a nd Locomotion; and he had good Balance, Safety Awareness, Social Cognition, Sphincter Control, and Co mmunication.Currently, he has deficits of Transfers Control, Balance, Locomotion, Safety Awareness, S elf-Care, and Communication.Pt. is now referred to [facility] for acute in-pat ient rehabilitation in order to maximize patient's functional independence in activities of daily jose ing, strength, ROM, and mobility.- Rehab Goal Patient has realistic goal of being discharged at assistance level 6-Therese to reside at Home with Pt self. MDM/PLAN: - Physical Therapy Gait dysfunction - to improve, our physical therapists will perform initial evaluation of pt's statu s upon admission and devise an individualized program for Gait Training, and Wheel Chair mobility Inability to transfer - to improve, our physical therapists will perform initial evaluation of pt's status upon admission and devise an individualized program for Bed mobility Need for home safety evaluation - to improve, our physical therapists will perform initial evaluatio n of pt's status upon admission and devise an individualized program for Home Evaluation Need in caregiver upon discharge - to improve, our physical therapists will perform initial evaluati on of pt's status upon admission and devise an individualized program for Caregiver Training Edema - to improve, our physical therapists will perform initial evaluation of pt's status upon admi ssion and devise an individualized program for Elevation Training, and Lymphedema Therapy New precaution - to improve, our physical therapists will perform initial evaluation of pt's status upon admission and devise an individualized program for Patient precaution education Poor balance - to improve, our physical therapists will perform initial evaluation of pt's status up on admission and devise an individualized program for Balance Training Weakness - to improve, our physical therapists will perform initial evaluation of pt's status upon a dmission and devise an individualized program for Aquatic Therapy, Neuromuscular Reeducation, and Str engthening Achieving independence - to improve, our physical therapists will perform initial evaluation of pt's status upon admission and devise an individualized program for Community Reintegration Activities - Occupational Therapy ADL deficits - to improve, our occupation therapists will perform initial evaluation of pt's status upon admission and devise an individualized program for Bathing, Bed mobility, Community Reintegratio n, Cooking, Dressing, Eating, Fine Motor Skills, Grooming, Homemaking, Kitchen Mobility, Laundry, Pat ient Education, Safety Awareness, Splinting - Positioning, Transfers(Toilet, Tub, Shower), and Wheel Chair Management Need for hearing healthcare practitioner - to improve, our occupation therapists will perform initial evaluation of pt's status upon admission and devise an individualized program for Caregiver Training Weakness - to improve, our occupation therapists will perform initial evaluation of pt's status upon admission and devise an individualized program for Aquatic Therapy, Balance, Endurance, UE ROM, and UE strengthening - Other See attached MAR (Medication Administration Record) - Diet Type Continue Regular - Diet - Liquid Texture Continue Regular - Tube Feed Continue N/A - Bladder care per protocol - Weight Bearing Precaution WBAT right LE - Skin care per protocol - Diet - Solid Texture Continue Regular - Shower allowing shower for Dementia, TBI, Stroke, or others FUNCTIONAL STATUS: UPDATED AT WEEKLY TEAM CONFERENCE - Bladder Same accident frequency: 7-Ind - No accidents in the past 7 days - Bowel Same accident frequency: 7-Ind - No accidents in the past 7 days - Walking Same score based on distance walked: 0(N/A) Same score based on distance walked: 1(<=50ft) - Wheelchair Same score based on distance traveled: 0(N/A) FUNCTIONAL STATUS: - Self-Care A. Eating modA B. Grooming Edwardo C. Bathing modA D. Dressing - Upper Edwardo E. Dressing - Lower modA F. Toileting Edwardo - Sphincter Control G. Bladder control Edwardo H. Bowel control Edwardo - Transfers Control I. Bed/Chair/Wheelchair Edwardo J. Toilet Edwardo K. Tub/Shower modA - Locomotion L. Walk/Wheelchair (B) modA M. Stairs ADNO - Communication N. Comprehension (B) modA O. Expression (B) modA - Social Cognition P. Social Interaction Edwardo Q. Problem Solving Edwardo R. Memory Edwardo - Endurance Fair - Balance Fair - Safety Awareness Fair QI SCORES: - Self-Care A. Eating 04-Supervision or touching assistance B. Oral hygiene 04-Supervision or touching assistance C. Toileting hygiene 03-Partial/moderate assistance E. Shower/bathe self 88-Not attempted due to medical condition or safety concerns F. Upper body dressing 03-Partial/moderate assistance G. Lower body dressing 88-Not attempted due to medical condition or safety concerns H. Putting on/taking off footwear 88-Not attempted due to medical condition or safety concerns - Mobility A. Roll left and right 04-Supervision or touching assistance B. Sit to lying 04-Supervision or touching assistance C. Lying to sitting on side of bed 04-Supervision or touching assistance D. Sit to stand 04-Supervision or touching assistance E. Chair/[id number] transfer 04-Supervision or touching assistance F. Toilet transfer 04-Supervision or touching assistance G. Car transfer 88-Not attempted due to medical condition or safety concerns I. Walk 10 feet 10-Not attempted due to environmental limitations J. Walk 50 feet with two turns 88-Not attempted due to medical condition or safety concerns K. Walk 150 feet 88-Not attempted due to medical condition or safety concerns L. Walking 10 feet on uneven surfaces 88-Not attempted due to medical condition or safety concerns M. 1 step (curb) 88-Not attempted due to medical condition or safety concerns N. 4 steps 88-Not attempted due to medical condition or safety concerns O. 12 steps 88-Not attempted due to medical condition or safety concerns P. Picking up object 88-Not attempted due to medical condition or safety concerns R. Wheel 50 feet with two turns S. Wheel 150 feet - Bladder and Bowel Bladder continence 0-Always continent Bowel continence 0-Always continent - Endurance Poor - Balance Poor - Safety Awareness Poor CURRENT FUNC. DEFICITS: Self-Care, Mobility, Endurance, Balance, and Safety Awareness SIGNATURE PANEL: (CDT)
[2020-04-30] MEDS ORDERED: DULERA 100/5 (MOMETASONE/FORMOTEROL) INHALER IH SCH (20:00)
[2020-04-30] MEDS: ADVAIR IH SCH (20:30)
[2020-05-01 06:00] LABS: Albumin 2.9 g/dL (3.4-5.0); BUN Blood Urea Nitrogen 24 mg/dL (7-18); Bicarbonate 33 mmol/L (21-32); Glucose Level 93 mg/dL (74-106); Potassium 3.4 mmol/L (3.5-5.1); Prealbumin 13.5 mg/dL (20-40); Sodium Level 137 mmol/L (136-145)
[2020-05-01 06:22] LABS: Absolute Lymphocytes (CBC) 1.7 K/uL (0.7-4.9); Hematocrit 38.8 % (39.6-49.0); Lymphocytes % 25.3 % (15.3-44.8); MPV 9.9 fL (7.6-11.3); RBC Red Blood Cell Count 4.02 M/uL (4.33-5.43)
[2020-05-01] MEDS: ASPIRIN EC 81 MG TAB PO SCH (07:21)
[2020-05-01] MEDS: AMLODIPINE 5 MG TAB PO SCH (07:21)
[2020-05-01] MEDS: POTASSIUM CL SA 10 MEQ TAB PO SCH ×2 (07:22→20:45)
[2020-05-01] MEDS: ENSURE ENLIVE 237 ML CAN PO SCH ×2 (07:22→20:46)
[2020-05-01] MEDS: SPIRONOLACTONE 25 MG TABLET PO SCH (07:22)
[2020-05-01] MEDS: TRELEGY ELLIPTA IH SCH (07:23)
[2020-05-01] MEDS: ADVAIR IH SCH ×2 (07:23→20:46)
[2020-05-01] MEDS: JUVEN PACKET PO SCH ×2 (07:23→20:46)
[2020-05-01 08:21] LABS: Blood Morphology Comment NOT SEEN (NOT SEEN); Platelet Estimate ADEQ
[2020-05-01] MEDS: ENOXAPARIN 40 MG/0.4 ML SQ SCH (16:34)
--- NOTE | 2020-05-01 18:01 | R.PN ---
ENCOUNTER DATE AND TIME: 05/01/2020 17:54 (CDT) NAME CHRIS BOLIVAR DATE OF : 1935 DATE OF ADMISSION: 04/25/2020 17:47 (CDT) 4.0 x 3.5cm acute non-hemorrhagic CVA L posterio-parietal lobeCHIEF COMPLAINT: Aphasic stroke with right sided weakness SUBJECTIVE: Pt denied any Shortness of Breath. Pt denied any depression. Grooming done with standby assistance. CBC 6.6, Hgb 13.3, Plt 131, K 3.4, prealbumin 13.5. His is on K replacement. Ambulated 750' with rolling walker and contact guard assistance. Ambulated 5250' without an assistive device. Up and down 25 steps with standby assistance. VITAL SIGNS Temperature: 97.5 F SBP/DBP: 174/66 Pulse: 58 Resp: 16 MEDICATION ALLERGIES: CODEINE ENVIRONMENTAL ALLERGIES: None Known - Substance Allergies None Known - Other Allergies None Known NURSING: - Shower allowing shower - Bladder care per protocol - Skin care per protocol PRECAUTIONS: - Weight Bearing Precaution WBAT right LE ACTIVITIES OOB only with supervision THERAPIES: - Occupational Therapy Cognitive Retraining. Visual Perceptual Training. - Dietary and Nutrition Adequate Nutrition. Nutritional Education. Nutritional Supplements. - Speech Therapy Cognitive Training. Expressive Language Skills. Memory Strategies. Receptive Language Skills. Speech Intelligibility Training. PHYSICAL EXAM - Gen Alert and awake Lying in bed No apparent distress Oriented to: person, time, and place - Skin Bruising on the forearms and back Normacephalic - Eyes No abnormalities - ENMT No abnormalities - Neck No abnormalities - CVS RRR - Chest Clear - Resp Clear to auscultation - Abd Soft - GI + bowel sounds Deferred - No abnormalities - Ext Mild edema in both lower extremities. - MSK 4+/5 weakness in right upper and lower extremities - Neuro 4/5 strength right upper and lower extremities, global aphasia - Psych Mild anxiety. ASSESSMENT: Pt. is a 84 yo Right-handed white male.On 04/24/[address] 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 was independent/mod-I in Transfers Control a nd Locomotion; and he had good Balance, Safety Awareness, Social Cognition, Sphincter Control, and Co mmunication.Currently, he has deficits of Transfers Control, Balance, Locomotion, Safety Awareness, S elf-Care, and Communication.Pt. is now referred to [facility] for acute in-pat ient rehabilitation in order to maximize patient's functional independence in activities of daily jose ing, strength, ROM, and mobility.- Rehab Goal Patient has realistic goal of being discharged at assistance level 6-Therese to reside at Home with Pt self. MDM/PLAN: - Physical Therapy Gait dysfunction - to improve, our physical therapists will perform initial evaluation of pt's statu s upon admission and devise an individualized program for Gait Training, and Wheel Chair mobility Inability to transfer - to improve, our physical therapists will perform initial evaluation of pt's status upon admission and devise an individualized program for Bed mobility Need for home safety evaluation - to improve, our physical therapists will perform initial evaluatio n of pt's status upon admission and devise an individualized program for Home Evaluation Need in caregiver upon discharge - to improve, our physical therapists will perform initial evaluati on of pt's status upon admission and devise an individualized program for Caregiver Training Edema - to improve, our physical therapists will perform initial evaluation of pt's status upon admi ssion and devise an individualized program for Elevation Training, and Lymphedema Therapy New precaution - to improve, our physical therapists will perform initial evaluation of pt's status upon admission and devise an individualized program for Patient precaution education Poor balance - to improve, our physical therapists will perform initial evaluation of pt's status up on admission and devise an individualized program for Balance Training Weakness - to improve, our physical therapists will perform initial evaluation of pt's status upon a dmission and devise an individualized program for Aquatic Therapy, Neuromuscular Reeducation, and Str engthening Achieving independence - to improve, our physical therapists will perform initial evaluation of pt's status upon admission and devise an individualized program for Community Reintegration Activities - Occupational Therapy ADL deficits - to improve, our occupation therapists will perform initial evaluation of pt's status upon admission and devise an individualized program for Bathing, Bed mobility, Community Reintegratio n, Cooking, Dressing, Eating, Fine Motor Skills, Grooming, Homemaking, Kitchen Mobility, Laundry, Pat ient Education, Safety Awareness, Splinting - Positioning, Transfers(Toilet, Tub, Shower), and Wheel Chair Management Need for aged or disabled carer - to improve, our occupation therapists will perform initial evaluation of pt's status upon admission and devise an individualized program for Caregiver Training Weakness - to improve, our occupation therapists will perform initial evaluation of pt's status upon admission and devise an individualized program for Aquatic Therapy, Balance, Endurance, UE ROM, and UE strengthening - Other See attached MAR (Medication Administration Record) - Diet Type Continue Regular - Diet - Liquid Texture Continue Regular - Tube Feed Continue N/A - Bladder care per protocol - Weight Bearing Precaution WBAT right LE - Skin care per protocol - Diet - Solid Texture Continue Regular - Shower allowing shower for Dementia, TBI, Stroke, or others FUNCTIONAL STATUS: UPDATED AT WEEKLY TEAM CONFERENCE - Bladder Same accident frequency: 7-Ind - No accidents in the past 7 days - Bowel Same accident frequency: 7-Ind - No accidents in the past 7 days - Walking Same score based on distance walked: 0(N/A) Same score based on distance walked: 1(<=50ft) - Wheelchair Same score based on distance traveled: 0(N/A) FUNCTIONAL STATUS: - Self-Care A. Eating modA B. Grooming Edwardo C. Bathing modA D. Dressing - Upper Edwardo E. Dressing - Lower modA F. Toileting Edwardo - Sphincter Control G. Bladder control Edwardo H. Bowel control Edwardo - Transfers Control I. Bed/Chair/Wheelchair Edwardo J. Toilet Edwardo K. Tub/Shower modA - Locomotion L. Walk/Wheelchair (B) modA M. Stairs ADNO - Communication N. Comprehension (B) modA O. Expression (B) modA - Social Cognition P. Social Interaction Edwardo Q. Problem Solving Edwardo R. Memory Edwardo - Endurance Fair - Balance Fair - Safety Awareness Fair QI SCORES: - Self-Care A. Eating 04-Supervision or touching assistance B. Oral hygiene 04-Supervision or touching assistance C. Toileting hygiene 03-Partial/moderate assistance E. Shower/bathe self 88-Not attempted due to medical condition or safety concerns F. Upper body dressing 03-Partial/moderate assistance G. Lower body dressing 88-Not attempted due to medical condition or safety concerns H. Putting on/taking off footwear 88-Not attempted due to medical condition or safety concerns - Mobility A. Roll left and right 04-Supervision or touching assistance B. Sit to lying 04-Supervision or touching assistance C. Lying to sitting on side of bed 04-Supervision or touching assistance D. Sit to stand 04-Supervision or touching assistance E. Chair/lhv-sy-zrcsy transfer 04-Supervision or touching assistance F. Toilet transfer 04-Supervision or touching assistance G. Car transfer 88-Not attempted due to medical condition or safety concerns I. Walk 10 feet 10-Not attempted due to environmental limitations J. Walk 50 feet with two turns 88-Not attempted due to medical condition or safety concerns K. Walk 150 feet 88-Not attempted due to medical condition or safety concerns L. Walking 10 feet on uneven surfaces 88-Not attempted due to medical condition or safety concerns M. 1 step (curb) 88-Not attempted due to medical condition or safety concerns N. 4 steps 88-Not attempted due to medical condition or safety concerns O. 12 steps 88-Not attempted due to medical condition or safety concerns P. Picking up object 88-Not attempted due to medical condition or safety concerns R. Wheel 50 feet with two turns S. Wheel 150 feet - Bladder and Bowel Bladder continence 0-Always continent Bowel continence 0-Always continent - Endurance Poor - Balance Poor - Safety Awareness Poor CURRENT FUNC. DEFICITS: Self-Care, Mobility, Endurance, Balance, and Safety Awareness SIGNATURE PANEL: (CDT)
[2020-05-01] MEDS: DOCUSATE NA/SENNA CONC 1 TAB PO PRN (20:45)
[2020-05-02] MEDS: ADVAIR IH SCH ×2 (07:29→20:26)
[2020-05-02] MEDS: ENSURE ENLIVE 237 ML CAN PO SCH ×2 (07:29→20:25)
[2020-05-02] MEDS: JUVEN PACKET PO SCH ×2 (07:29→20:26)
[2020-05-02] MEDS: POTASSIUM CL SA 10 MEQ TAB PO SCH ×2 (07:30→20:26)
[2020-05-02] MEDS: ASPIRIN EC 81 MG TAB PO SCH (07:30)
[2020-05-02] MEDS: SPIRONOLACTONE 25 MG TABLET PO SCH (07:30)
[2020-05-02] MEDS: AMLODIPINE 5 MG TAB PO SCH (07:30)
[2020-05-02] MEDS: TRELEGY ELLIPTA IH SCH (07:31)
[2020-05-02 08:09] LABS: Absolute Lymphocytes (CBC) 1.4 K/uL (0.7-4.9); Basophils % 1.1 % (0-1.3); Lymphocytes % 21.4 % (15.3-44.8); MPV 11.5 fL (7.6-11.3); RBC Red Blood Cell Count 4.63 M/uL (4.33-5.43)
[2020-05-02 08:20] LABS: Potassium 3.4 mmol/L (3.5-5.1)
--- NOTE | 2020-05-02 10:16 | P.RH.PN ---
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: Mobility, Transfers, Self Care Vital Signs: Last Vital Signs Temp 97.6 F 05/02/20 09:23 Pulse 50 05/02/20 09:23 Resp 18 05/02/20 09:23 BP 148/62 H 05/02/20 09:23 Pulse Ox 95 05/02/20 09:23 Laboratory: Laboratory Last Values WBC 6.5 K/uL (4.3-10.9) 05/02/20 07:40 RBC 4.63 M/uL (4.33-5.43) 05/02/20 07:40 Hgb 15.1 g/dL (13.6-17.9) 05/02/20 07:40 Hct 45.0 % (39.6-49.0) D 05/02/20 07:40 MCV 97.2 fL (80-100) 05/02/20 07:40 MCH 32.7 pg (27.0-35.0) 05/02/20 07:40 MCHC 33.6 g/dL (32.0-36.0) 05/02/20 07:40 RDW 12.6 % (12.1-15.2) 05/02/20 07:40 Plt Count 138 K/uL (152-406) L 05/02/20 07:40 MPV 11.5 fL (7.6-11.3) H D 05/02/20 07:40 Neutrophils % 65.1 % (41.7-73.7) 05/02/20 07:40 Lymphocytes % 21.4 % (15.3-44.8) 05/02/20 07:40 Monocytes % 10.6 % (3.3-12.3) 05/02/20 07:40 Eosinophils % 1.8 % (0-4.4) 05/02/20 07:40 Basophils % 1.1 % (0-1.3) 05/02/20 07:40 Absolute Neutrophils 4.2 K/uL (1.8-8.0) 05/02/20 07:40 Segmented Neutrophils 53 % (40-80) 05/01/20 05:30 Absolute Lymphocytes 1.4 K/uL (0.7-4.9) 05/02/20 07:40 Lymphocytes 30 % (15-42) 05/01/20 05:30 Monocytes 15 % (0-10) H 05/01/20 05:30 Absolute Monocytes 0.7 K/uL (0.1-1.3) 05/02/20 07:40 Eosinophils 1 % (0-3) 05/01/20 05:30 Absolute Eosinophils 0.1 K/uL (0-0.5) 05/02/20 07:40 Basophils 1 % (0-1) 05/01/20 05:30 Absolute Basophils 0.1 K/uL (0-0.5) 05/02/20 07:40 Clumped Platelets Many 05/01/20 05:30 Morphology Comment Not seen (NOT SEEN) 05/01/20 05:30 Sodium 137 mmol/L (136-145) 05/02/20 07:40 Potassium 3.4 mmol/L (3.5-5.1) L 05/02/20 07:40 Chloride 98 mmol/L (98-107) 05/02/20 07:40 Carbon Dioxide 30 mmol/L (21-32) 05/02/20 07:40 BUN 18 mg/dL (7-18) 05/02/20 07:40 Creatinine 0.96 mg/dL (0.55-1.3) 05/02/20 07:40 Estimated GFR 75 mL/min (=/>90) L 05/02/20 07:40 Glucose 117 mg/dL (74-106) H 05/02/20 07:40 Calcium 9.5 mg/dL (8.5-10.1) 05/02/20 07:40 Magnesium 2.0 mg/dL (1.8-2.4) 04/26/20 05:38 Albumin Cancelled 05/01/20 06:00 Prealbumin Cancelled 05/01/20 06:00 Urine Color Yellow 04/26/20 02:20 Urine Appearance Clear 04/26/20 02:20 Urine pH 6.5 (5.0-7.0) 04/26/20 02:20 Ur Specific [place] 1.015 (1.005-1.030) 04/26/20 02:20 Glucose (UA)(Auto) Negative (NEG) 04/26/20 02:20 Urine Ketones Negative (NEG) 04/26/20 02:20 Urine Blood Negative (NEG) 04/26/20 02:20 Urine Nitrite Negative (NEG) 04/26/20 02:20 Urine Bilirubin Negative (NEG) 04/26/20 02:20 Urine Urobilinogen 1.0 mg/dL (0.2-1.0) 04/26/20 02:20 Ur Leukocyte Esterase Negative (NEG) 04/26/20 02:20 Urine RBC <5 /HPF (NONE SEEN) 04/26/20 02:20 Urine WBC <5 /HPF (<5) 04/26/20 02:20 Ur Squamous Epith Cells <5 /HPF (NONE SEEN) 04/26/20 02:20 Urine Bacteria <20 /HPF (NONE SEEN) 04/26/20 02:20 Urine Culture Reflexed Not needed 04/26/20 02:20 Urine Total Protein Negative (NEG) 04/26/20 02:20 Weight: 164 lb 3.2 oz Wound Present: Yes Closed Surgical Incision Present: No Negative Pressure Wound Therapy Present: No Physician Update: Labs reviewed and are stable. He is doing fairly well with his expressive aphasia. His automatic speech is better. He is doing well physical therapy but has some difficulty performing learned activities such as dressing. He will likely require standby assistance with 2 or 3 step activities. Speech Therapy Update: Patient presents with mod-severe expressive aphasia characterized by severe anomia, paraphasias, and neologisms. Patient uses a combination of speech and non-speech to communicate basic wants/needs to caregivers. He can comprehend much more than he can express, though receptive language and cognition appears to be slightly impaired as well. Patient will require close supervision upon d/c home. 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 Please see the Rehabilitation Signature page for all necessary signatures.
[2020-05-02] MEDS: ENOXAPARIN 40 MG/0.4 ML SQ SCH (16:12)
--- NOTE | 2020-05-02 18:08 | P.PN ---
Subjective Date of Service: 05/02/20 Chief Complaint: DIFFICULTY IN SPEECH. Subjective: No new changes HE HAS DIFFICULTY EXPRESSING WITH WHAT MAKES SENSE ALSO HIS RECEPTIVE APHASIA DOES NOT GIVE HIM QUESTION THAT HE CAN COMPREHEND. HE IS STABLE, SLEEPING WELL. MR. BOLIVAR STILL HAS SAME GLOBAL APHASIA. HE CAN SEE SOMETHING BUT DOES NOT HAVE SENIOR J2EE DEVELOPER OF WHAT HE SEES OR HEARS. I SHOWED HIM TWO FINGERS AND ASKED HOW MANY- HE SAID 5 AND I ASKED HIM FIVE AND HE TOLD ME 10. Review of Systems 10-point ROS is otherwise unremarkable Physical Examination - Vital Signs Temperature: 97.6 F Blood Pressure: 148/62 Pulse: 50 Respirations: 18 Pulse Ox (%): 95 - Physical Exam General: Mild distress HEENT: Atraumatic, PERRLA, EOMI Neck: Supple, JVD not distended Respiratory: Clear to auscultation bilaterally, Normal air movement Cardiovascular: Regular rate/rhythm, Normal S1 S2 Gastrointestinal: Normal bowel sounds, No tenderness Musculoskeletal: No tenderness Integumentary: No rashes Neurological: Abnormal speech (SAME DEGREE OF APHASIA. ) Lymphatics: No axilla or inguinal lymphadenopathy - Studies Laboratory Data (last 24 hrs) 05/02/20 07:40: Sodium 137, Potassium 3.4 L, BUN 18, Creatinine 0.96, Glucose 117 H 05/02/20 07:40: WBC 6.5, Hgb 15.1, Hct 45.0 D, Plt Count 138 L Medications List Reviewed: Yes Assessment And Plan - Current Problems (Diagnosis) (1) HTN (hypertension) Current Visit: Yes Status: Chronic Qualifiers: Hypertension type: essential hypertension Qualified Code(s): I10 - Essential (primary) hypertension (2) Left acute arterial ischemic stroke, MCA (middle cerebral artery) Current Visit: No Status: Acute Plan: 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 NO CHANGES. RESUME PT. 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 START SPIRONOLACTONE 25 MG DAILY. IMPROVED SPIRONOLACONTE SHOULD HELP.
[2020-05-02] MEDS: DOCUSATE NA/SENNA CONC 1 TAB PO PRN (20:27)
[2020-05-03 05:44] VITALS: BMI 24.0
[2020-05-03 05:55] LABS: Absolute Lymphocytes (CBC) 2.1 K/uL (0.7-4.9); Basophils % 0.7 % (0-1.3); Hematocrit 37.1 % (39.6-49.0); Lymphocytes % 29.4 % (15.3-44.8); MPV 9.9 fL (7.6-11.3)
[2020-05-03 06:07] LABS: BUN Blood Urea Nitrogen 29 mg/dL (7-18); Bicarbonate 29 mmol/L (21-32); Glucose Level 83 mg/dL (74-106); Potassium 3.5 mmol/L (3.5-5.1); Sodium Level 138 mmol/L (136-145)
[2020-05-03] MEDS ORDERED: POLYETHYL GLY 3350 17 GM/DOSE PO PRN (07:03)
[2020-05-03] MEDS: AMLODIPINE 5 MG TAB PO SCH (07:20)
[2020-05-03] MEDS: ASPIRIN EC 81 MG TAB PO SCH (07:20)
[2020-05-03] MEDS: SPIRONOLACTONE 25 MG TABLET PO SCH (07:20)
[2020-05-03] MEDS: TRELEGY ELLIPTA IH SCH (07:23)
[2020-05-03] MEDS: JUVEN PACKET PO SCH ×2 (07:26→21:22)
[2020-05-03] MEDS: ENSURE ENLIVE 237 ML CAN PO SCH ×2 (07:26→21:22)
[2020-05-03] MEDS: ADVAIR IH SCH ×2 (10:01→21:21)
[2020-05-03 10:49] LABS: Blood Morphology Comment NOT SEEN (NOT SEEN); Platelet Estimate ADEQ; Urine White Blood Cell Casts OK
[2020-05-03] MEDS: ENOXAPARIN 30 MG/0.3 ML SQ SCH (16:29)
[2020-05-04 04:58] LABS: Absolute Lymphocytes (CBC) 1.9 K/uL (0.7-4.9); Basophils % 1.3 % (0-1.3); Hematocrit 38.3 % (39.6-49.0); Lymphocytes % 25.1 % (15.3-44.8); MPV 9.9 fL (7.6-11.3); RBC Red Blood Cell Count 3.91 M/uL (4.33-5.43)
[2020-05-04 05:11] LABS: Potassium 3.4 mmol/L (3.5-5.1)
[2020-05-04] MEDS: JUVEN PACKET PO SCH ×2 (07:19→20:00)
[2020-05-04] MEDS: ENSURE ENLIVE 237 ML CAN PO SCH ×2 (07:19→20:00)
[2020-05-04] MEDS: ADVAIR IH SCH ×2 (07:19→20:18)
[2020-05-04] MEDS: AMLODIPINE 5 MG TAB PO SCH (07:20)
[2020-05-04] MEDS: ASPIRIN EC 81 MG TAB PO SCH (07:20)
[2020-05-04] MEDS: SPIRONOLACTONE 25 MG TABLET PO SCH (07:20)
[2020-05-04] MEDS: TRELEGY ELLIPTA IH SCH (07:21)
--- NOTE | 2020-05-04 10:06 | P.PN ---
Subjective Date of Service: 05/04/20 Chief Complaint: DIFFICULTY IN SPEECH. Subjective: No new changes HE HAS DIFFICULTY EXPRESSING WITH WHAT MAKES SENSE ALSO HIS RECEPTIVE APHASIA DOES NOT GIVE HIM QUESTION THAT HE CAN COMPREHEND. HE IS STABLE, SLEEPING WELL. MR. BOLIVAR STILL HAS SAME GLOBAL APHASIA. HE CAN SEE SOMETHING BUT DOES NOT HAVE AGILE TEST LEAD OF WHAT HE SEES OR HEARS. I SHOWED HIM TWO FINGERS AND ASKED HOW MANY- HE SAID 5 AND I ASKED HIM FIVE AND HE TOLD ME 10. PER NURSES. HE IS EATING WELL, WALKING WELL. SPEECH IS THE SAME. Review of Systems 10-point ROS is otherwise unremarkable Physical Examination - Vital Signs Temperature: 98.4 F Blood Pressure: 154/67 Pulse: 46 Respirations: 18 Pulse Ox (%): 98 - Physical Exam General: Alert, In no apparent distress HEENT: Atraumatic, PERRLA, EOMI Neck: Supple, JVD not distended Respiratory: Clear to auscultation bilaterally, Normal air movement Cardiovascular: Regular rate/rhythm, Normal S1 S2 Gastrointestinal: Normal bowel sounds, No tenderness Musculoskeletal: No tenderness Integumentary: No rashes Neurological: Normal speech, Normal tone, Normal affect, Abnormal speech (DIFFUSE GLOBAL APHASIA) Lymphatics: No axilla or inguinal lymphadenopathy - Studies Laboratory Data (last 24 hrs) 05/04/20 04:30: Sodium 136, Potassium 3.4 L, BUN 27 H, Creatinine 0.85, Glucose 106 05/04/20 04:30: WBC 7.7, Hgb 12.8 L, Hct 38.3 L, Plt Count 147 L 05/03/20 05:12: WBC 7.1, Hgb 12.6 L D, Hct 37.1 L D, Plt Count 156 Medications List Reviewed: Yes Assessment And Plan - Current Problems (Diagnosis) (1) HTN (hypertension) Current Visit: Yes Status: Chronic Plan: CHANGE FROM AMLODIPINE TO LOSARTAN. I UNDERSTAND BOTH LOSARTAN AND SPIRONOLACTONE CAN RAISE K BUT THAT IS THE GOAL FOR THIS GM. 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 WILL FU ON LAB EVERY OTHER DYA. 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 NO CHANGES. RESUME PT. 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 START SPIRONOLACTONE 25 MG DAILY. IMPROVED SPIRONOLACONTE SHOULD HELP.
[2020-05-04] MEDS: ENOXAPARIN 30 MG/0.3 ML SQ SCH (16:37)
[2020-05-05 06:48] LABS: Potassium 4.1 mmol/L (3.5-5.1)
[2020-05-05] MEDS: SPIRONOLACTONE 25 MG TABLET PO SCH (07:05)
[2020-05-05] MEDS: ASPIRIN EC 81 MG TAB PO SCH (07:05)
[2020-05-05] MEDS: LOSARTAN POTASSIUM 50 MG TABLET PO SCH (07:05)
[2020-05-05] MEDS: ENSURE ENLIVE 237 ML CAN PO SCH ×2 (07:07→19:31)
[2020-05-05] MEDS: JUVEN PACKET PO SCH ×2 (07:07→19:31)
[2020-05-05] MEDS: ADVAIR IH SCH ×2 (07:07→19:31)
[2020-05-05] MEDS: TRELEGY ELLIPTA IH SCH (07:07)
[2020-05-05 07:46] LABS: Absolute Lymphocytes (CBC) 1.8 K/uL (0.7-4.9); Basophils % 1.2 % (0-1.3); Hematocrit 43.2 % (39.6-49.0); Lymphocytes % 21.4 % (15.3-44.8); MPV 10.2 fL (7.6-11.3); RBC Red Blood Cell Count 4.41 M/uL (4.33-5.43)
[2020-05-05] MEDS: ENOXAPARIN 30 MG/0.3 ML SQ SCH (17:16)
--- NOTE | 2020-05-05 17:55 | R.PN ---
ENCOUNTER DATE AND TIME: 05/05/2020 17:50 (CDT) NAME CHRIS BOLIVAR DATE OF : 1935 DATE OF ADMISSION: 04/25/2020 17:47 (CDT) 4.0 x 3.5cm acute non-hemorrhagic CVA L posterio-parietal lobeCHIEF COMPLAINT: Aphasic stroke with right sided weakness SUBJECTIVE: Pt denied any Shortness of Breath. Pt denied any depression. Grooming done with standby assistance. CBC with differential is normal. BMP is normal. Ambulated 750' with rolling walker and contact guard assistance. Ambulated 1500' without an assistive device. Up and down 15 steps with independence. VITAL SIGNS Temperature: 98.6 F SBP/DBP: 153/67 Pulse: 64 Resp: 16 MEDICATION ALLERGIES: CODEINE ENVIRONMENTAL ALLERGIES: None Known - Substance Allergies None Known - Other Allergies None Known NURSING: - Shower allowing shower - Bladder care per protocol - Skin care per protocol PRECAUTIONS: - Weight Bearing Precaution WBAT right LE ACTIVITIES OOB only with supervision THERAPIES: - Occupational Therapy Cognitive Retraining. Visual Perceptual Training. - Dietary and Nutrition Adequate Nutrition. Nutritional Education. Nutritional Supplements. - Speech Therapy Cognitive Training. Expressive Language Skills. Memory Strategies. Receptive Language Skills. Speech Intelligibility Training. PHYSICAL EXAM - Gen Alert and awake Lying in bed No apparent distress Oriented to: person, time, and place - Skin Bruising on the forearms and back Normacephalic - Eyes No abnormalities - ENMT No abnormalities - Neck No abnormalities - CVS RRR - Chest Clear - Resp Clear to auscultation - Abd Soft - GI + bowel sounds Deferred - No abnormalities - Ext Mild edema in both lower extremities. - MSK 4+/5 weakness in right upper and lower extremities - Neuro 4/5 strength right upper and lower extremities, global aphasia - Psych Mild anxiety. ASSESSMENT: Pt. is a 84 yo Right-handed white male.On 04/24/2020 he was admitted to [facility] with diag nosis 4.0 x 3.5cm acute non-hemorrhagic CVA L posterio-parietal lobe.His impairment category is Strok e 01 - Right Body (Left Brain) (01.2).Pre-morbidly, Pt. was independent/mod-I in Transfers Control a nd Locomotion; and he had good Balance, Safety Awareness, Social Cognition, Sphincter Control, and Co mmunication.Currently, he has deficits of Transfers Control, Balance, Locomotion, Safety Awareness, S elf-Care, and Communication.Pt. is now referred to [facility] for acute in-pat ient rehabilitation in order to maximize patient's functional independence in activities of daily jose ing, strength, ROM, and mobility.- Rehab Goal Patient has realistic goal of being discharged at assistance level 6-Therese to reside at Home with Pt self. MDM/PLAN: - Physical Therapy Gait dysfunction - to improve, our physical therapists will perform initial evaluation of pt's statu s upon admission and devise an individualized program for Gait Training, and Wheel Chair mobility Inability to transfer - to improve, our physical therapists will perform initial evaluation of pt's status upon admission and devise an individualized program for Bed mobility Need for home safety evaluation - to improve, our physical therapists will perform initial evaluatio n of pt's status upon admission and devise an individualized program for Home Evaluation Need in caregiver upon discharge - to improve, our physical therapists will perform initial evaluati on of pt's status upon admission and devise an individualized program for Caregiver Training Edema - to improve, our physical therapists will perform initial evaluation of pt's status upon admi ssion and devise an individualized program for Elevation Training, and Lymphedema Therapy New precaution - to improve, our physical therapists will perform initial evaluation of pt's status upon admission and devise an individualized program for Patient precaution education Poor balance - to improve, our physical therapists will perform initial evaluation of pt's status up on admission and devise an individualized program for Balance Training Weakness - to improve, our physical therapists will perform initial evaluation of pt's status upon a dmission and devise an individualized program for Aquatic Therapy, Neuromuscular Reeducation, and Str engthening Achieving independence - to improve, our physical therapists will perform initial evaluation of pt's status upon admission and devise an individualized program for Community Reintegration Activities - Occupational Therapy ADL deficits - to improve, our occupation therapists will perform initial evaluation of pt's status upon admission and devise an individualized program for Bathing, Bed mobility, Community Reintegratio n, Cooking, Dressing, Eating, Fine Motor Skills, Grooming, Homemaking, Kitchen Mobility, Laundry, Pat ient Education, Safety Awareness, Splinting - Positioning, Transfers(Toilet, Tub, Shower), and Wheel Chair Management Need for pharmacy care coordinator - to improve, our occupation therapists will perform initial evaluation of pt's status upon admission and devise an individualized program for Caregiver Training Weakness - to improve, our occupation therapists will perform initial evaluation of pt's status upon admission and devise an individualized program for Aquatic Therapy, Balance, Endurance, UE ROM, and UE strengthening - Other See attached MAR (Medication Administration Record) - Diet Type Continue Regular - Diet - Liquid Texture Continue Regular - Tube Feed Continue N/A - Bladder care per protocol - Weight Bearing Precaution WBAT right LE - Skin care per protocol - Diet - Solid Texture Continue Regular - Shower allowing shower for Dementia, TBI, Stroke, or others FUNCTIONAL STATUS: UPDATED AT WEEKLY TEAM CONFERENCE - Bladder Same accident frequency: 7-Ind - No accidents in the past 7 days - Bowel Same accident frequency: 7-Ind - No accidents in the past 7 days - Walking Same score based on distance walked: 0(N/A) Same score based on distance walked: 1(<=50ft) - Wheelchair Same score based on distance traveled: 0(N/A) FUNCTIONAL STATUS: - Self-Care A. Eating modA B. Grooming Edwardo C. Bathing modA D. Dressing - Upper Edwardo E. Dressing - Lower modA F. Toileting Edwardo - Sphincter Control G. Bladder control Edwardo H. Bowel control Edwardo - Transfers Control I. Bed/Chair/Wheelchair Edwardo J. Toilet Edwardo K. Tub/Shower modA - Locomotion L. Walk/Wheelchair (B) modA M. Stairs ADNO - Communication N. Comprehension (B) modA O. Expression (B) modA - Social Cognition P. Social Interaction Edwardo Q. Problem Solving Edwardo R. Memory Edwardo - Endurance Fair - Balance Fair - Safety Awareness Fair QI SCORES: - Self-Care A. Eating 04-Supervision or touching assistance B. Oral hygiene 04-Supervision or touching assistance C. Toileting hygiene 03-Partial/moderate assistance E. Shower/bathe self 88-Not attempted due to medical condition or safety concerns F. Upper body dressing 03-Partial/moderate assistance G. Lower body dressing 88-Not attempted due to medical condition or safety concerns H. Putting on/taking off footwear 88-Not attempted due to medical condition or safety concerns - Mobility A. Roll left and right 04-Supervision or touching assistance B. Sit to lying 04-Supervision or touching assistance C. Lying to sitting on side of bed 04-Supervision or touching assistance D. Sit to stand 04-Supervision or touching assistance E. Chair/[id number] transfer 04-Supervision or touching assistance F. Toilet transfer 04-Supervision or touching assistance G. Car transfer 88-Not attempted due to medical condition or safety concerns I. Walk 10 feet 10-Not attempted due to environmental limitations J. Walk 50 feet with two turns 88-Not attempted due to medical condition or safety concerns K. Walk 150 feet 88-Not attempted due to medical condition or safety concerns L. Walking 10 feet on uneven surfaces 88-Not attempted due to medical condition or safety concerns M. 1 step (curb) 88-Not attempted due to medical condition or safety concerns N. 4 steps 88-Not attempted due to medical condition or safety concerns O. 12 steps 88-Not attempted due to medical condition or safety concerns P. Picking up object 88-Not attempted due to medical condition or safety concerns R. Wheel 50 feet with two turns S. Wheel 150 feet - Bladder and Bowel Bladder continence 0-Always continent Bowel continence 0-Always continent - Endurance Poor - Balance Poor - Safety Awareness Poor CURRENT FUNC. DEFICITS: Self-Care, Mobility, Endurance, Balance, and Safety Awareness SIGNATURE PANEL: (CDT)
[2020-05-06 05:31] LABS: Absolute Lymphocytes (CBC) 1.6 K/uL (0.7-4.9); Basophils % 1.1 % (0-1.3); Hematocrit 39.5 % (39.6-49.0); Lymphocytes % 16.1 % (15.3-44.8); MPV 10.1 fL (7.6-11.3); RBC Red Blood Cell Count 4.06 M/uL (4.33-5.43)
[2020-05-06 05:41] LABS: BUN Blood Urea Nitrogen 28 mg/dL (7-18); Bicarbonate 27 mmol/L (21-32); Glucose Level 84 mg/dL (74-106); Potassium 3.9 mmol/L (3.5-5.1); Sodium Level 138 mmol/L (136-145)
[2020-05-06] MEDS: SPIRONOLACTONE 25 MG TABLET PO SCH (06:59)
[2020-05-06] MEDS: LOSARTAN POTASSIUM 50 MG TABLET PO SCH ×2 (07:00→07:43)
[2020-05-06] MEDS: ASPIRIN EC 81 MG TAB PO SCH (07:00)
[2020-05-06] MEDS: ENSURE ENLIVE 237 ML CAN PO SCH ×2 (07:00→19:04)
[2020-05-06] MEDS: JUVEN PACKET PO SCH ×2 (07:00→19:04)
[2020-05-06] MEDS: ADVAIR IH SCH ×2 (07:01→19:03)
[2020-05-06] MEDS: TRELEGY ELLIPTA IH SCH (07:01)
[2020-05-06] MEDS ORDERED: LOSARTAN POTASSIUM 50 MG TABLET PO ONE (07:45)
[2020-05-06] MEDS: ENOXAPARIN 30 MG/0.3 ML SQ SCH (17:12)
--- NOTE | 2020-05-06 18:03 | R.PN ---
ENCOUNTER DATE AND TIME: 05/06/2020 18:00 (CDT) NAME CHRIS BOLIVAR DATE OF : 1935 DATE OF ADMISSION: 04/25/2020 17:47 (CDT) 4.0 x 3.5cm acute non-hemorrhagic CVA L posterio-parietal lobeCHIEF COMPLAINT: Aphasic stroke with right sided weakness SUBJECTIVE: Pt denied any Shortness of Breath. Pt denied any depression. Grooming done with standby assistance. CBC with differential and BMP are esssentially normal. Ambulated 750' with rolling walker and contact guard assistance. Ambulated 2000' without an assistive device. Up and down 20 steps with independence. VITAL SIGNS Temperature: 97.6 F SBP/DBP: 169/73 Pulse: 60 Resp: 14 MEDICATION ALLERGIES: CODEINE ENVIRONMENTAL ALLERGIES: None Known - Substance Allergies None Known - Other Allergies None Known NURSING: - Shower allowing shower - Bladder care per protocol - Skin care per protocol PRECAUTIONS: - Weight Bearing Precaution WBAT right LE ACTIVITIES OOB only with supervision THERAPIES: - Occupational Therapy Cognitive Retraining. Visual Perceptual Training. - Dietary and Nutrition Adequate Nutrition. Nutritional Education. Nutritional Supplements. - Speech Therapy Cognitive Training. Expressive Language Skills. Memory Strategies. Receptive Language Skills. Speech Intelligibility Training. PHYSICAL EXAM - Gen Alert and awake Lying in bed No apparent distress Oriented to: person, time, and place - Skin Bruising on the forearms and back Normacephalic - Eyes No abnormalities - ENMT No abnormalities - Neck No abnormalities - CVS RRR - Chest Clear - Resp Clear to auscultation - Abd Soft - GI + bowel sounds Deferred - No abnormalities - Ext Mild edema in both lower extremities. - MSK 4+/5 weakness in right upper and lower extremities - Neuro 4/5 strength right upper and lower extremities, global aphasia - Psych Mild anxiety. ASSESSMENT: Pt. is a 84 yo Right-handed white male.On 04/24/2020 he was admitted to [facility] with diag nosis 4.0 x 3.5cm acute non-hemorrhagic CVA L posterio-parietal lobe.His impairment category is Strok e 01 - Right Body (Left Brain) (01.2).Pre-morbidly, Pt. was independent/mod-I in Transfers Control a nd Locomotion; and he had good Balance, Safety Awareness, Social Cognition, Sphincter Control, and Co mmunication.Currently, he has deficits of Transfers Control, Balance, Locomotion, Safety Awareness, S elf-Care, and Communication.Pt. is now referred to [facility] for acute in-pat ient rehabilitation in order to maximize patient's functional independence in activities of daily jose ing, strength, ROM, and mobility.- Rehab Goal Patient has realistic goal of being discharged at assistance level 6-Therese to reside at Home with Pt self. MDM/PLAN: - Physical Therapy Gait dysfunction - to improve, our physical therapists will perform initial evaluation of pt's statu s upon admission and devise an individualized program for Gait Training, and Wheel Chair mobility Inability to transfer - to improve, our physical therapists will perform initial evaluation of pt's status upon admission and devise an individualized program for Bed mobility Need for home safety evaluation - to improve, our physical therapists will perform initial evaluatio n of pt's status upon admission and devise an individualized program for Home Evaluation Need in caregiver upon discharge - to improve, our physical therapists will perform initial evaluati on of pt's status upon admission and devise an individualized program for Caregiver Training Edema - to improve, our physical therapists will perform initial evaluation of pt's status upon admi ssion and devise an individualized program for Elevation Training, and Lymphedema Therapy New precaution - to improve, our physical therapists will perform initial evaluation of pt's status upon admission and devise an individualized program for Patient precaution education Poor balance - to improve, our physical therapists will perform initial evaluation of pt's status up on admission and devise an individualized program for Balance Training Weakness - to improve, our physical therapists will perform initial evaluation of pt's status upon a dmission and devise an individualized program for Aquatic Therapy, Neuromuscular Reeducation, and Str engthening Achieving independence - to improve, our physical therapists will perform initial evaluation of pt's status upon admission and devise an individualized program for Community Reintegration Activities - Occupational Therapy ADL deficits - to improve, our occupation therapists will perform initial evaluation of pt's status upon admission and devise an individualized program for Bathing, Bed mobility, Community Reintegratio n, Cooking, Dressing, Eating, Fine Motor Skills, Grooming, Homemaking, Kitchen Mobility, Laundry, Pat ient Education, Safety Awareness, Splinting - Positioning, Transfers(Toilet, Tub, Shower), and Wheel Chair Management Need for critical care nurse practitioner - to improve, our occupation therapists will perform initial evaluation of pt's status upon admission and devise an individualized program for Caregiver Training Weakness - to improve, our occupation therapists will perform initial evaluation of pt's status upon admission and devise an individualized program for Aquatic Therapy, Balance, Endurance, UE ROM, and UE strengthening - Other See attached MAR (Medication Administration Record) - Diet Type Continue Regular - Diet - Liquid Texture Continue Regular - Tube Feed Continue N/A - Bladder care per protocol - Weight Bearing Precaution WBAT right LE - Skin care per protocol - Diet - Solid Texture Continue Regular - Shower allowing shower for Dementia, TBI, Stroke, or others FUNCTIONAL STATUS: UPDATED AT WEEKLY TEAM CONFERENCE - Bladder Same accident frequency: 7-Ind - No accidents in the past 7 days - Bowel Same accident frequency: 7-Ind - No accidents in the past 7 days - Walking Same score based on distance walked: 0(N/A) Same score based on distance walked: 1(<=50ft) - Wheelchair Same score based on distance traveled: 0(N/A) FUNCTIONAL STATUS: - Self-Care A. Eating modA B. Grooming Edwardo C. Bathing modA D. Dressing - Upper Edwardo E. Dressing - Lower modA F. Toileting Edwardo - Sphincter Control G. Bladder control Edwardo H. Bowel control Edwardo - Transfers Control I. Bed/Chair/Wheelchair Edwardo J. Toilet Edwardo K. Tub/Shower modA - Locomotion L. Walk/Wheelchair (B) modA M. Stairs ADNO - Communication N. Comprehension (B) modA O. Expression (B) modA - Social Cognition P. Social Interaction Edwardo Q. Problem Solving Edwardo R. Memory Edwardo - Endurance Fair - Balance Fair - Safety Awareness Fair QI SCORES: - Self-Care A. Eating 04-Supervision or touching assistance B. Oral hygiene 04-Supervision or touching assistance C. Toileting hygiene 03-Partial/moderate assistance E. Shower/bathe self 88-Not attempted due to medical condition or safety concerns F. Upper body dressing 03-Partial/moderate assistance G. Lower body dressing 88-Not attempted due to medical condition or safety concerns H. Putting on/taking off footwear 88-Not attempted due to medical condition or safety concerns - Mobility A. Roll left and right 04-Supervision or touching assistance B. Sit to lying 04-Supervision or touching assistance C. Lying to sitting on side of bed 04-Supervision or touching assistance D. Sit to stand 04-Supervision or touching assistance E. Chair/[id number] transfer 04-Supervision or touching assistance F. Toilet transfer 04-Supervision or touching assistance G. Car transfer 88-Not attempted due to medical condition or safety concerns I. Walk 10 feet 10-Not attempted due to environmental limitations J. Walk 50 feet with two turns 88-Not attempted due to medical condition or safety concerns K. Walk 150 feet 88-Not attempted due to medical condition or safety concerns L. Walking 10 feet on uneven surfaces 88-Not attempted due to medical condition or safety concerns M. 1 step (curb) 88-Not attempted due to medical condition or safety concerns N. 4 steps 88-Not attempted due to medical condition or safety concerns O. 12 steps 88-Not attempted due to medical condition or safety concerns P. Picking up object 88-Not attempted due to medical condition or safety concerns R. Wheel 50 feet with two turns S. Wheel 150 feet - Bladder and Bowel Bladder continence 0-Always continent Bowel continence 0-Always continent - Endurance Poor - Balance Poor - Safety Awareness Poor CURRENT FUNC. DEFICITS: Self-Care, Mobility, Endurance, Balance, and Safety Awareness SIGNATURE PANEL: (CDT)
[2020-05-07] MEDS: LOSARTAN POTASSIUM 50 MG TABLET PO SCH (07:01)
[2020-05-07] MEDS: SPIRONOLACTONE 25 MG TABLET PO SCH (07:01)
[2020-05-07] MEDS: ASPIRIN EC 81 MG TAB PO SCH (07:01)
[2020-05-07] MEDS: TRELEGY ELLIPTA IH SCH (07:02)
[2020-05-07] MEDS: JUVEN PACKET PO SCH ×2 (07:02→19:07)
[2020-05-07] MEDS: ENSURE ENLIVE 237 ML CAN PO SCH ×2 (07:02→19:07)
[2020-05-07] MEDS: ADVAIR IH SCH ×2 (07:03→19:07)
--- NOTE | 2020-05-07 15:04 | FAST ---
ENCOUNTER DATE AND TIME: 05/07/2020 08:00 (CDT) NAME CHRIS BOLIVAR DATE OF : 1935 DATE OF ADMISSION: 04/25/2020 17:47 (CDT) PHONE: AGE: 84 N# [id number] GENDER: Male ENCOUNTER PHYSICIAN: Dr. Az Dahl M.D. 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 EATING: Not assessed/no information CODE: - ORAL HYGIENE: ORAL HYGIENE - STEP 1: Does the patient complete the activity by him/herself with no assistance (physical, verbal/nonverbal cueing, setup/clean-up)? Yes. 1. [id number] ADMISSION PERFORMANCE: Independent CODE: 06 TOILETING HYGIENE: Not assessed/no information CODE: - BATHING: SHOWER/BATHE SELF - STEP 1: Does the patient complete the activity by him/herself with no assistance (physical, verbal/nonverbal cueing, setup/clean-up)? Yes. 1. [id number] ADMISSION PERFORMANCE: Independent CODE: 06 DRESSING - UPPER BODY: DRESSING - UPPER BODY - STEP 1: Does the patient complete the activity by him/herself with no assistance (physical, verbal/nonverbal cueing, setup/clean-up)? Yes. 1. [id number] ADMISSION PERFORMANCE: Independent CODE: 06 DRESSING - LOWER BODY: DRESSING - LOWER BODY - STEP 1: Does the patient complete the activity by him/herself with no assistance (physical, verbal/nonverbal cueing, setup/clean-up)? Yes. 1. [id number] ADMISSION PERFORMANCE: Independent CODE: 06 PUTTING ON/TAKING OFF FOOTWEAR: FOOTWEAR - STEP 1: Does the patient complete the activity by him/herself with no assistance (physical, verbal/nonverbal cueing, setup/clean-up)? Yes. 1. [id number] ADMISSION PERFORMANCE: Independent CODE: 06 DOES THE PATIENT USE A WHEELCHAIR/SCOOTER? CODE: EXPR INDICATE THE TYPE OF WHEELCHAIR/SCOOTER USED: CODE: EXPR INDICATE THE TYPE OF WHEELCHAIR/SCOOTER USED: CODE: EXPR BLADDER AND BOWEL: CODE: EXPR CODE: EXPR SIGNATURE PANEL: The following modified sections: 1. [id number] Admission Performance, 1. [id number] Admission Performance, 1. [id number] Admission Performance, 1. [id number] Admission Performance, 1. [id number] Admission Performance were [electronically] signed by STEVEN Brady on TueMay 07 2020 15:03:51 GMT-0500 (Central Daylight Time)
--- NOTE | 2020-05-07 15:13 | FAST ---
SHIFT START DATE/TIME: 05/07/2020 07:00 (CDT) SHIFT END DATE/TIME: 05/07/2020 19:00 (CDT) NAME CHRIS BOLIVAR DATE OF : 1935 DATE OF ADMISSION: 04/25/2020 17:47 (CDT) PHONE: AGE: 84 N# [id number] GENDER: Male ENCOUNTER PHYSICIAN: Dr. Az Dahl M.D. 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 EATING: EATING - STEP 1: Does the patient complete the activity by him/herself with no assistance (physical, verbal/nonverbal cueing, setup/clean-up)? No. EATING - STEP 2: Does the patient need only setup/clean-up assistance from one helper? Yes. 1. [id number] ADMISSION PERFORMANCE: Setup or clean-up assistance CODE: 05 ORAL HYGIENE: ORAL HYGIENE - STEP 1: Does the patient complete the activity by him/herself with no assistance (physical, verbal/nonverbal cueing, setup/clean-up)? No. ORAL HYGIENE - STEP 2: Does the patient need only setup/clean-up assistance from one helper? Yes. 1. [id number] ADMISSION PERFORMANCE: Setup or clean-up assistance CODE: 05 TOILETING HYGIENE: TOILETING HYGIENE - STEP 1: Does the patient complete the activity by him/herself with no assistance (physical, verbal/nonverbal cueing, setup/clean-up)? Yes. 1. [id number] ADMISSION PERFORMANCE: Independent CODE: 06 BATHING: Not assessed/no information CODE: - DRESSING - UPPER BODY: DRESSING - UPPER BODY - STEP 1: Does the patient complete the activity by him/herself with no assistance (physical, verbal/nonverbal cueing, setup/clean-up)? Yes. 1. [id number] ADMISSION PERFORMANCE: Independent CODE: 06 DRESSING - LOWER BODY: DRESSING - LOWER BODY - STEP 1: Does the patient complete the activity by him/herself with no assistance (physical, verbal/nonverbal cueing, setup/clean-up)? Yes. 1. [id number] ADMISSION PERFORMANCE: Independent CODE: 06 PUTTING ON/TAKING OFF FOOTWEAR: FOOTWEAR - STEP 1: Does the patient complete the activity by him/herself with no assistance (physical, verbal/nonverbal cueing, setup/clean-up)? Yes. 1. [id number] ADMISSION PERFORMANCE: Independent CODE: 06 ROLL LEFT AND RIGHT: ROLL LEFT AND RIGHT - STEP 1: Does the patient complete the activity by him/herself with no assistance (physical, verbal/nonverbal cueing, setup/clean-up)? No. ROLL LEFT AND RIGHT - STEP 2: Does the patient need only setup/clean-up assistance from one helper? Yes. 1. [id number] ADMISSION PERFORMANCE: Setup or clean-up assistance CODE: 05 SIT TO LYING: SIT TO LYING - STEP 1: Does the patient complete the activity by him/herself with no assistance (physical, verbal/nonverbal cueing, setup/clean-up)? No. SIT TO LYING - STEP 2: Does the patient need only setup/clean-up assistance from one helper? Yes. 1. [id number] ADMISSION PERFORMANCE: Setup or clean-up assistance CODE: 05 LYING TO SITTING: LYING TO SITTING ON SIDE OF BED - STEP 1: Does the patient complete the activity by him/herself with no assistance (physical, verbal/nonverbal cueing, setup/clean-up)? No. LYING TO SITTING ON SIDE OF BED - STEP 2: Does the patient need only setup/clean-up assistance from one helper? Yes. 1. [id number] ADMISSION PERFORMANCE: Setup or clean-up assistance CODE: 05 SIT TO STAND: SIT TO STAND - STEP 1: Does the patient complete the activity by him/herself with no assistance (physical, verbal/nonverbal cueing, setup/clean-up)? No. SIT TO STAND - STEP 2: Does the patient need only setup/clean-up assistance from one helper? Yes. 1. [id number] ADMISSION PERFORMANCE: Setup or clean-up assistance CODE: 05 TRANSFERS: BED, CHAIR: CHAIR/[id number] TRANSFER - STEP 1: Does the patient complete the activity by him/herself with no assistance (physical, verbal/nonverbal cueing, setup/clean-up)? No. CHAIR/[id number] TRANSFER - STEP 2: Does the patient need only setup/clean-up assistance from one helper? Yes. 1. [id number] ADMISSION PERFORMANCE: Setup or clean-up assistance CODE: 05 TRANSFER TOILET: TOILET TRANSFER - STEP 1: Does the patient complete the activity by him/herself with no assistance (physical, verbal/nonverbal cueing, setup/clean-up)? No. TOILET TRANSFER - STEP 2: Does the patient need only setup/clean-up assistance from one helper? Yes. 1. [id number] ADMISSION PERFORMANCE: Setup or clean-up assistance CODE: 05 TRANSFERS: CAR: Not assessed/no information CODE: - WALK 10 FEET: WALK 10 FEET - STEP 1: Does the patient complete the activity by him/herself with no assistance (physical, verbal/nonverbal cueing, setup/clean-up)? No. WALK 10 FEET - STEP 2: Does the patient need only setup/clean-up assistance from one helper? Yes. 1. [id number] ADMISSION PERFORMANCE: Setup or clean-up assistance CODE: 05 WALK 50 FEET: WALK 50 FEET - STEP 1: Does the patient complete the activity by him/herself with no assistance (physical, verbal/nonverbal cueing, setup/clean-up)? No. WALK 50 FEET - STEP 2: Does the patient need only setup/clean-up assistance from one helper? Yes. 1. [id number] ADMISSION PERFORMANCE: Setup or clean-up assistance CODE: 05 WALK 150 FEET: WALK 150 FEET - STEP 1: Does the patient complete the activity by him/herself with no assistance (physical, verbal/nonverbal cueing, setup/clean-up)? No. WALK 150 FEET - STEP 2: Does the patient need only setup/clean-up assistance from one helper? Yes. 1. [id number] ADMISSION PERFORMANCE: Setup or clean-up assistance CODE: 05 WALK 10 FEET UNEVEN: Not assessed/no information CODE: - 1 STEP (CURB): Not assessed/no information CODE: - PICKING UP OBJECT: Not assessed/no information CODE: - DOES THE PATIENT USE A WHEELCHAIR/SCOOTER? Q1. DOES THE PATIENT USE A WHEELCHAIR/SCOOTER?: No CODE: 0 INDICATE THE TYPE OF WHEELCHAIR/SCOOTER USED: CODE: EXPR INDICATE THE TYPE OF WHEELCHAIR/SCOOTER USED: CODE: EXPR BLADDER AND BOWEL: H350. BLADDER CONTINENCE (3-DAY ASSESSMENT PERIOD): Always continent (no documented incontinence) CODE: 0 H400. BOWEL CONTINENCE (3-DAY ASSESSMENT PERIOD): Always continent CODE: 0 SIGNATURE PANEL: The following modified sections: 1. [id number] Admission Performance, 1. [id number] Admission Performance, 1. [id number] Admission Performance, 1. MT3404v Admission Performance, 1. AO5649t Admission Performance, 1. WO5618t Admission Performance, 1. [id number] Admission Performance, 1. LE1044E Admission Performance , 1. [id number] Admission Performance, 1. [id number] Admission Performance, 1. [id number] Admission Performanc e, 1. PD9121V Admission Performance, 1. [id number] Admission Performance, 1. CK2694P Admission Performan ce, 1. UQ0982P Admission Performance, 1. [id number] Admission Performance, Q1. Does the patient use a wh eelchair/scooter?, H350. Bladder Continence (3-day assessment period), H400. Bowel Continence (3-day assessment period) were [electronically] signed by Anitha DesaiNFrederic on TueMay 07 2020 15:12:20 G MT-0500 (Central Daylight Time)
--- NOTE | 2020-05-07 15:58 | PN ---
He is on the rehab floor. Subjective: Mr. Serrato continues to have speech difficulties. He is able to say a few words, not able to say some others. I have done a full examination of his speech again today, but is not able t o identify a pen or a paper. He was able to identify my 2 and 5 fingers. He was able to say correct ly compared to yesterday, but when showed a telephone, he was not able to identify what that is. He came up with some word, which is a new word, but could not say phone. Otherwise, he is able to ambul ate, eat properly without any kind of dysphagia. Assessment/plan: Global aphasia. Continue speech therapy. Continue OT and PT. Discharge plan per Dr. Dahl following Medicare guidelines. JONATHON/MUNIRA Voice ID: [id number] Report ID: [id number]
[2020-05-07] MEDS: ENOXAPARIN 30 MG/0.3 ML SQ SCH (16:20)
--- NOTE | 2020-05-07 17:41 | P.PN ---
Subjective Date of Service: 05/07/20 Chief Complaint: DIFFICULTY IN SPEECH. Subjective: No new changes HE HAS DIFFICULTY EXPRESSING WITH WHAT MAKES SENSE ALSO HIS RECEPTIVE APHASIA DOES NOT GIVE HIM QUESTION THAT HE CAN COMPREHEND. HE IS STABLE, SLEEPING WELL. MR. BOLIVAR STILL HAS SAME GLOBAL APHASIA. HE CAN SEE SOMETHING BUT DOES NOT HAVE GRADER GREEN MEAT OF WHAT HE SEES OR HEARS. I SHOWED HIM TWO FINGERS AND ASKED HOW MANY- HE SAID 5 AND I ASKED HIM FIVE AND HE TOLD ME 10. PER NURSES. HE IS EATING WELL, WALKING WELL. SPEECH IS THE SAME. CHRIS'S SPEECH IS STILL THE SAME. HE AMBULATES WELL AND EATS WELL. DC PLAN IN TWO DAYS. Review of Systems 10-point ROS is otherwise unremarkable General: Weakness Physical Examination - Vital Signs Temperature: 97.2 F Blood Pressure: 161/45 Pulse: 53 Respirations: 20 Pulse Ox (%): 98 - Physical Exam General: Alert, In no apparent distress HEENT: Atraumatic, PERRLA, EOMI Neck: Supple, JVD not distended Respiratory: Clear to auscultation bilaterally, Normal air movement Cardiovascular: Regular rate/rhythm, Normal S1 S2 Gastrointestinal: Normal bowel sounds, No tenderness Musculoskeletal: No tenderness Integumentary: No rashes Neurological: Normal speech, Normal tone, Normal affect, Abnormal speech Lymphatics: No axilla or inguinal lymphadenopathy - Studies Medications List Reviewed: Yes Assessment And Plan - Current Problems (Diagnosis) (1) HTN (hypertension) Current Visit: Yes Status: Chronic Plan: CHANGE FROM AMLODIPINE TO LOSARTAN. I UNDERSTAND BOTH LOSARTAN AND SPIRONOLACTONE CAN RAISE K BUT THAT IS THE GOAL FOR THIS GM. 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 WILL FU ON LAB EVERY OTHER DYA. 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 NO CHANGES. RESUME PT. 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 START SPIRONOLACTONE 25 MG DAILY. IMPROVED SPIRONOLACONTE SHOULD HELP. (4) All medications reviewed Current Visit: Yes Status: Acute
--- NOTE | 2020-05-07 18:12 | R.PN ---
ENCOUNTER DATE AND TIME: 05/07/2020 18:09 (CDT) NAME CHRIS BOLIVAR DATE OF : 1935 DATE OF ADMISSION: 04/25/2020 17:47 (CDT) 4.0 x 3.5cm acute non-hemorrhagic CVA L posterio-parietal lobeCHIEF COMPLAINT: Aphasic stroke with right sided weakness SUBJECTIVE: Pt denied any Shortness of Breath. Pt denied any depression. Grooming done with standby assistance. CBC with differential and BMP are esssentially normal. Ambulated 750' with rolling walker and contact guard assistance. Ambulated 2000' without an assistive device. Up and down 20 steps with independence. VITAL SIGNS Temperature: 97.0 F SBP/DBP: 157/76 Pulse: 65 Resp: 14 MEDICATION ALLERGIES: CODEINE ENVIRONMENTAL ALLERGIES: None Known - Substance Allergies None Known - Other Allergies None Known NURSING: - Shower allowing shower - Bladder care per protocol - Skin care per protocol PRECAUTIONS: - Weight Bearing Precaution WBAT right LE ACTIVITIES OOB only with supervision THERAPIES: - Occupational Therapy Cognitive Retraining. Visual Perceptual Training. - Dietary and Nutrition Adequate Nutrition. Nutritional Education. Nutritional Supplements. - Speech Therapy Cognitive Training. Expressive Language Skills. Memory Strategies. Receptive Language Skills. Speech Intelligibility Training. PHYSICAL EXAM - Gen Alert and awake Lying in bed No apparent distress Oriented to: person, time, and place - Skin Bruising on the forearms and back Normacephalic - Eyes No abnormalities - ENMT No abnormalities - Neck No abnormalities - CVS RRR - Chest Clear - Resp Clear to auscultation - Abd Soft - GI + bowel sounds Deferred - No abnormalities - Ext Mild edema in both lower extremities. - MSK 4+/5 weakness in right upper and lower extremities - Neuro 4/5 strength right upper and lower extremities, global aphasia - Psych Mild anxiety. ASSESSMENT: Pt. is a 84 yo Right-handed white male.On 04/24/2020 [facility] with diag nosis 4.0 x 3.5cm acute non-hemorrhagic CVA L posterio-parietal lobe.His impairment category is Strok e 01 - Right Body (Left Brain) (01.2).Pre-morbidly, Pt. was independent/mod-I in Transfers Control a nd Locomotion; and he had good Balance, Safety Awareness, Social Cognition, Sphincter Control, and Co mmunication.Currently, he has deficits of Transfers Control, Balance, Locomotion, Safety Awareness, S elf-Care, and Communication.Pt. is now referred to [facility] for acute in-pat ient rehabilitation in order to maximize patient's functional independence in activities of daily jose ing, strength, ROM, and mobility.- Rehab Goal Patient has realistic goal of being discharged at assistance level 6-Therese to reside at Home with Pt self. MDM/PLAN: - Physical Therapy Gait dysfunction - to improve, our physical therapists will perform initial evaluation of pt's statu s upon admission and devise an individualized program for Gait Training, and Wheel Chair mobility Inability to transfer - to improve, our physical therapists will perform initial evaluation of pt's status upon admission and devise an individualized program for Bed mobility Need for home safety evaluation - to improve, our physical therapists will perform initial evaluatio n of pt's status upon admission and devise an individualized program for Home Evaluation Need in caregiver upon discharge - to improve, our physical therapists will perform initial evaluati on of pt's status upon admission and devise an individualized program for Caregiver Training Edema - to improve, our physical therapists will perform initial evaluation of pt's status upon admi ssion and devise an individualized program for Elevation Training, and Lymphedema Therapy New precaution - to improve, our physical therapists will perform initial evaluation of pt's status upon admission and devise an individualized program for Patient precaution education Poor balance - to improve, our physical therapists will perform initial evaluation of pt's status up on admission and devise an individualized program for Balance Training Weakness - to improve, our physical therapists will perform initial evaluation of pt's status upon a dmission and devise an individualized program for Aquatic Therapy, Neuromuscular Reeducation, and Str engthening Achieving independence - to improve, our physical therapists will perform initial evaluation of pt's status upon admission and devise an individualized program for Community Reintegration Activities - Occupational Therapy ADL deficits - to improve, our occupation therapists will perform initial evaluation of pt's status upon admission and devise an individualized program for Bathing, Bed mobility, Community Reintegratio n, Cooking, Dressing, Eating, Fine Motor Skills, Grooming, Homemaking, Kitchen Mobility, Laundry, Pat ient Education, Safety Awareness, Splinting - Positioning, Transfers(Toilet, Tub, Shower), and Wheel Chair Management Need for health care analyst - to improve, our occupation therapists will perform initial evaluation of pt's status upon admission and devise an individualized program for Caregiver Training Weakness - to improve, our occupation therapists will perform initial evaluation of pt's status upon admission and devise an individualized program for Aquatic Therapy, Balance, Endurance, UE ROM, and UE strengthening - Other See attached MAR (Medication Administration Record) - Diet Type Continue Regular - Diet - Liquid Texture Continue Regular - Tube Feed Continue N/A - Bladder care per protocol - Weight Bearing Precaution WBAT right LE - Skin care per protocol - Diet - Solid Texture Continue Regular - Shower allowing shower for Dementia, TBI, Stroke, or others FUNCTIONAL STATUS: UPDATED AT WEEKLY TEAM CONFERENCE - Bladder Same accident frequency: 7-Ind - No accidents in the past 7 days - Bowel Same accident frequency: 7-Ind - No accidents in the past 7 days - Walking Same score based on distance walked: 0(N/A) Same score based on distance walked: 1(<=50ft) - Wheelchair Same score based on distance traveled: 0(N/A) FUNCTIONAL STATUS: - Self-Care A. Eating modA B. Grooming Edwardo C. Bathing modA D. Dressing - Upper Edwardo E. Dressing - Lower modA F. Toileting Edwardo - Sphincter Control G. Bladder control Edwardo H. Bowel control Edwardo - Transfers Control I. Bed/Chair/Wheelchair Edwardo J. Toilet Edwardo K. Tub/Shower modA - Locomotion L. Walk/Wheelchair (B) modA M. Stairs ADNO - Communication N. Comprehension (B) modA O. Expression (B) modA - Social Cognition P. Social Interaction Edwardo Q. Problem Solving Edwardo R. Memory Edwardo - Endurance Fair - Balance Fair - Safety Awareness Fair QI SCORES: - Self-Care A. Eating 04-Supervision or touching assistance B. Oral hygiene 04-Supervision or touching assistance C. Toileting hygiene 03-Partial/moderate assistance E. Shower/bathe self 88-Not attempted due to medical condition or safety concerns F. Upper body dressing 03-Partial/moderate assistance G. Lower body dressing 88-Not attempted due to medical condition or safety concerns H. Putting on/taking off footwear 88-Not attempted due to medical condition or safety concerns - Mobility A. Roll left and right 04-Supervision or touching assistance B. Sit to lying 04-Supervision or touching assistance C. Lying to sitting on side of bed 04-Supervision or touching assistance D. Sit to stand 04-Supervision or touching assistance E. Chair/eil-lu-dlpao transfer 04-Supervision or touching assistance F. Toilet transfer 04-Supervision or touching assistance G. Car transfer 88-Not attempted due to medical condition or safety concerns I. Walk 10 feet 10-Not attempted due to environmental limitations J. Walk 50 feet with two turns 88-Not attempted due to medical condition or safety concerns K. Walk 150 feet 88-Not attempted due to medical condition or safety concerns L. Walking 10 feet on uneven surfaces 88-Not attempted due to medical condition or safety concerns M. 1 step (curb) 88-Not attempted due to medical condition or safety concerns N. 4 steps 88-Not attempted due to medical condition or safety concerns O. 12 steps 88-Not attempted due to medical condition or safety concerns P. Picking up object 88-Not attempted due to medical condition or safety concerns R. Wheel 50 feet with two turns S. Wheel 150 feet - Bladder and Bowel Bladder continence 0-Always continent Bowel continence 0-Always continent - Endurance Poor - Balance Poor - Safety Awareness Poor CURRENT FUNC. DEFICITS: Self-Care, Mobility, Endurance, Balance, and Safety Awareness SIGNATURE PANEL: (CDT)
[2020-05-08 06:03] LABS: Absolute Lymphocytes (CBC) 1.7 K/uL (0.7-4.9); Basophils % 1.1 % (0-1.3); Hematocrit 37.8 % (39.6-49.0); MPV 9.6 fL (7.6-11.3); RBC Red Blood Cell Count 3.88 M/uL (4.33-5.43)
[2020-05-08 06:08] LABS: Albumin 2.9 g/dL (3.4-5.0); Potassium 4.1 mmol/L (3.5-5.1); Prealbumin 13.5 mg/dL (20-40)
[2020-05-08] MEDS: ASPIRIN EC 81 MG TAB PO SCH (07:32)
[2020-05-08] MEDS: LOSARTAN POTASSIUM 50 MG TABLET PO SCH (07:32)
[2020-05-08] MEDS: SPIRONOLACTONE 25 MG TABLET PO SCH (07:33)
[2020-05-08] MEDS: ADVAIR IH SCH ×2 (07:33→20:40)
[2020-05-08] MEDS: TRELEGY ELLIPTA IH SCH (07:35)
[2020-05-08] MEDS: ENSURE ENLIVE 237 ML CAN PO SCH ×2 (09:55→20:39)
[2020-05-08] MEDS: JUVEN PACKET PO SCH ×2 (09:55→20:40)
[2020-05-08] MEDS: ENOXAPARIN 30 MG/0.3 ML SQ SCH (16:41)
--- NOTE | 2020-05-08 18:20 | R.PN ---
ENCOUNTER DATE AND TIME: 05/08/2020 18:11 (CDT) NAME CHRIS BOLIVAR DATE OF : 1935 DATE OF ADMISSION: 04/25/2020 17:47 (CDT) 4.0 x 3.5cm acute non-hemorrhagic CVA L posterio-parietal lobeCHIEF COMPLAINT: Aphasic stroke with right sided weakness SUBJECTIVE: Pt denied any Shortness of Breath. Pt denied any depression. Grooming done with standby assistance. CBC with differential and BMP are essentially normal. Hgb 13. 1, Poacher Wringer Operator 0.97, Prealbumin 13.5. Ambulated 2750' with independence and an without an assistive device. Up and down 25 steps with inde pendence. VITAL SIGNS Temperature: 97.9 F SBP/DBP: 156/82 Pulse: 60 Resp: 16 MEDICATION ALLERGIES: CODEINE ENVIRONMENTAL ALLERGIES: None Known - Substance Allergies None Known - Other Allergies None Known NURSING: - Shower allowing shower - Bladder care per protocol - Skin care per protocol PRECAUTIONS: - Weight Bearing Precaution WBAT right LE ACTIVITIES OOB only with supervision THERAPIES: - Occupational Therapy Cognitive Retraining. Visual Perceptual Training. - Dietary and Nutrition Adequate Nutrition. Nutritional Education. Nutritional Supplements. - Speech Therapy Cognitive Training. Expressive Language Skills. Memory Strategies. Receptive Language Skills. Speech Intelligibility Training. PHYSICAL EXAM - Gen Alert and awake Lying in bed No apparent distress Oriented to: person, time, and place - Skin Bruising on the forearms and back Normacephalic - Eyes No abnormalities - ENMT No abnormalities - Neck No abnormalities - CVS RRR - Chest Clear - Resp Clear to auscultation - Abd Soft - GI + bowel sounds Deferred - No abnormalities - Ext Mild edema in both lower extremities. - MSK 4+/5 weakness in right upper and lower extremities - Neuro 4/5 strength right upper and lower extremities, global aphasia - Psych Mild anxiety. ASSESSMENT: Pt. is a 84 yo Right-handed white male.On 04/24/2020 he was admitted to [facility] with diag nosis 4.0 x 3.5cm acute non-hemorrhagic CVA L posterio-parietal lobe.His impairment category is Strok e 01 - Right Body (Left Brain) (01.2).Pre-morbidly, Pt. was independent/mod-I in Transfers Control a nd Locomotion; and he had good Balance, Safety Awareness, Social Cognition, Sphincter Control, and Co mmunication.Currently, he has deficits of Transfers Control, Balance, Locomotion, Safety Awareness, S elf-Care, and Communication.Pt. is now referred to [facility] for acute in-pat ient rehabilitation in order to maximize patient's functional independence in activities of daily jose ing, strength, ROM, and mobility.- Rehab Goal Patient has realistic goal of being discharged at assistance level 6-Therese to reside at Home with Pt self. MDM/PLAN: - Physical Therapy Gait dysfunction - to improve, our physical therapists will perform initial evaluation of pt's statu s upon admission and devise an individualized program for Gait Training, and Wheel Chair mobility Inability to transfer - to improve, our physical therapists will perform initial evaluation of pt's status upon admission and devise an individualized program for Bed mobility Need for home safety evaluation - to improve, our physical therapists will perform initial evaluatio n of pt's status upon admission and devise an individualized program for Home Evaluation Need in caregiver upon discharge - to improve, our physical therapists will perform initial evaluati on of pt's status upon admission and devise an individualized program for Caregiver Training Edema - to improve, our physical therapists will perform initial evaluation of pt's status upon admi ssion and devise an individualized program for Elevation Training, and Lymphedema Therapy New precaution - to improve, our physical therapists will perform initial evaluation of pt's status upon admission and devise an individualized program for Patient precaution education Poor balance - to improve, our physical therapists will perform initial evaluation of pt's status up on admission and devise an individualized program for Balance Training Weakness - to improve, our physical therapists will perform initial evaluation of pt's status upon a dmission and devise an individualized program for Aquatic Therapy, Neuromuscular Reeducation, and Str engthening Achieving independence - to improve, our physical therapists will perform initial evaluation of pt's status upon admission and devise an individualized program for Community Reintegration Activities - Occupational Therapy ADL deficits - to improve, our occupation therapists will perform initial evaluation of pt's status upon admission and devise an individualized program for Bathing, Bed mobility, Community Reintegratio n, Cooking, Dressing, Eating, Fine Motor Skills, Grooming, Homemaking, Kitchen Mobility, Laundry, Pat ient Education, Safety Awareness, Splinting - Positioning, Transfers(Toilet, Tub, Shower), and Wheel Chair Management Need for career development specialist - to improve, our occupation therapists will perform initial evaluation of pt's status upon admission and devise an individualized program for Caregiver Training Weakness - to improve, our occupation therapists will perform initial evaluation of pt's status upon admission and devise an individualized program for Aquatic Therapy, Balance, Endurance, UE ROM, and UE strengthening - Other See attached MAR (Medication Administration Record) - Diet Type Continue Regular - Diet - Liquid Texture Continue Regular - Tube Feed Continue N/A - Bladder care per protocol - Weight Bearing Precaution WBAT right LE - Skin care per protocol - Diet - Solid Texture Continue Regular - Shower allowing shower for Dementia, TBI, Stroke, or others FUNCTIONAL STATUS: UPDATED AT WEEKLY TEAM CONFERENCE - Bladder Same accident frequency: 7-Ind - No accidents in the past 7 days - Bowel Same accident frequency: 7-Ind - No accidents in the past 7 days - Walking Same score based on distance walked: 0(N/A) Same score based on distance walked: 1(<=50ft) - Wheelchair Same score based on distance traveled: 0(N/A) FUNCTIONAL STATUS: - Self-Care A. Eating modA B. Grooming Edwardo C. Bathing modA D. Dressing - Upper Edwardo E. Dressing - Lower modA F. Toileting Edwardo - Sphincter Control G. Bladder control Edwardo H. Bowel control Edwardo - Transfers Control I. Bed/Chair/Wheelchair Edwardo J. Toilet Edwardo K. Tub/Shower modA - Locomotion L. Walk/Wheelchair (B) modA M. Stairs ADNO - Communication N. Comprehension (B) modA O. Expression (B) modA - Social Cognition P. Social Interaction Edwardo Q. Problem Solving Edwardo R. Memory Edwardo - Endurance Fair - Balance Fair - Safety Awareness Fair QI SCORES: - Self-Care A. Eating 04-Supervision or touching assistance B. Oral hygiene 04-Supervision or touching assistance C. Toileting hygiene 03-Partial/moderate assistance E. Shower/bathe self 88-Not attempted due to medical condition or safety concerns F. Upper body dressing 03-Partial/moderate assistance G. Lower body dressing 88-Not attempted due to medical condition or safety concerns H. Putting on/taking off footwear 88-Not attempted due to medical condition or safety concerns - Mobility A. Roll left and right 04-Supervision or touching assistance B. Sit to lying 04-Supervision or touching assistance C. Lying to sitting on side of bed 04-Supervision or touching assistance D. Sit to stand 04-Supervision or touching assistance E. Chair/[id number]-[id number] transfer 04-Supervision or touching assistance F. Toilet transfer 04-Supervision or touching assistance G. Car transfer 88-Not attempted due to medical condition or safety concerns I. Walk 10 feet 10-Not attempted due to environmental limitations J. Walk 50 feet with two turns 88-Not attempted due to medical condition or safety concerns K. Walk 150 feet 88-Not attempted due to medical condition or safety concerns L. Walking 10 feet on uneven surfaces 88-Not attempted due to medical condition or safety concerns M. 1 step (curb) 88-Not attempted due to medical condition or safety concerns N. 4 steps 88-Not attempted due to medical condition or safety concerns O. 12 steps 88-Not attempted due to medical condition or safety concerns P. Picking up object 88-Not attempted due to medical condition or safety concerns R. Wheel 50 feet with two turns S. Wheel 150 feet - Bladder and Bowel Bladder continence 0-Always continent Bowel continence 0-Always continent - Endurance Poor - Balance Poor - Safety Awareness Poor CURRENT FUNC. DEFICITS: Self-Care, Mobility, Endurance, Balance, and Safety Awareness SIGNATURE PANEL: (CDT)
--- NOTE | 2020-05-08 21:32 | P.PN ---
Subjective Date of Service: 05/08/20 Chief Complaint: DIFFICULTY IN SPEECH. Subjective: Improving HE HAS DIFFICULTY EXPRESSING WITH WHAT MAKES SENSE ALSO HIS RECEPTIVE APHASIA DOES NOT GIVE HIM QUESTION THAT HE CAN COMPREHEND. HE IS STABLE, SLEEPING WELL. MR. BOLIVAR STILL HAS SAME GLOBAL APHASIA. HE CAN SEE SOMETHING BUT DOES NOT HAVE NIB INSPECTOR OF WHAT HE SEES OR HEARS. I SHOWED HIM TWO FINGERS AND ASKED HOW MANY- HE SAID 5 AND I ASKED HIM FIVE AND HE TOLD ME 10. PER NURSES. HE IS EATING WELL, WALKING WELL. SPEECH IS THE SAME. CHRIS'S SPEECH IS STILL THE SAME. HE AMBULATES WELL AND EATS WELL. DC PLAN IN TWO DAYS. MR. BOLIVAR IS SAFE TO BE GOING HOME. FAMILY WILL HAVE TO SUPERVISE HIS SPEECH IS SERIOUSLY AFFECTED. Review of Systems 10-point ROS is otherwise unremarkable Neurological: Change in Speech Physical Examination - Vital Signs Temperature: 97.8 F Blood Pressure: 134/60 Pulse: 58 Respirations: 16 Pulse Ox (%): 100 - Physical Exam General: Alert, In no apparent distress HEENT: Atraumatic Neck: Supple Respiratory: Clear to auscultation bilaterally Cardiovascular: No edema, Normal S1 S2 Neurological: Normal gait, Normal strength at 5/5 x4 extr, Normal tone, Abnormal speech - Studies Laboratory Data (last 24 hrs) 05/08/20 05:36: Sodium 141, Potassium 4.1, BUN 35 H, Creatinine 0.97, Glucose 89 05/08/20 05:36: WBC 7.2 D, Hgb 13.1 L, Hct 37.8 L, Plt Count 213 Medications List Reviewed: Yes Assessment And Plan - Current Problems (Diagnosis) (1) HTN (hypertension) Current Visit: Yes Status: Chronic Plan: CHANGE FROM AMLODIPINE TO LOSARTAN. I UNDERSTAND BOTH LOSARTAN AND SPIRONOLACTONE CAN RAISE K BUT THAT IS THE GOAL FOR THIS . 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 WILL FU ON LAB EVERY OTHER DYA. 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 NO CHANGES. RESUME PT. 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 START SPIRONOLACTONE 25 MG DAILY. IMPROVED SPIRONOLACONTE SHOULD HELP. (4) All medications reviewed Current Visit: Yes Status: Acute
[2020-05-09] MEDS: SPIRONOLACTONE 25 MG TABLET PO SCH (07:20)
[2020-05-09] MEDS: LOSARTAN POTASSIUM 50 MG TABLET PO SCH (07:20)
[2020-05-09] MEDS: ASPIRIN EC 81 MG TAB PO SCH (07:20)
[2020-05-09] MEDS: ADVAIR IH SCH (07:20)
[2020-05-09] MEDS: JUVEN PACKET PO SCH (07:22)
[2020-05-09] MEDS: ENSURE ENLIVE 237 ML CAN PO SCH (07:22)
[2020-05-09 07:23] VITALS: BP 133/71
[2020-05-09] MEDS: TRELEGY ELLIPTA IH SCH (07:23)
[2020-05-09 09:44] VITALS: TEMP 97.4
--- NOTE | 2020-05-09 10:04 | P.RH.PN ---
Estimated Length of Stay: 15 Expected Discharge Date: 05/09/20 Discharge Disposition Plan: Home Family Support: Yes Correction Goal: Mobility, Transfers, Self Care Vital Signs: Last Vital Signs Temp 97.4 F 05/09/20 08:00 Pulse 64 05/09/20 08:00 Resp 14 05/09/20 08:00 BP 133/71 05/09/20 08:00 Pulse Ox 97 05/09/20 08:00 Laboratory: Laboratory Last Values WBC 7.2 K/uL (4.3-10.9) D 05/08/20 05:36 RBC 3.88 M/uL (4.33-5.43) L 05/08/20 05:36 Hgb 13.1 g/dL (13.6-17.9) L 05/08/20 05:36 Hct 37.8 % (39.6-49.0) L 05/08/20 05:36 MCV 97.4 fL (80-100) 05/08/20 05:36 MCH 33.8 pg (27.0-35.0) 05/08/20 05:36 MCHC 34.7 g/dL (32.0-36.0) 05/08/20 05:36 RDW 12.9 % (12.1-15.2) 05/08/20 05:36 Plt Count 213 K/uL (152-406) 05/08/20 05:36 MPV 9.6 fL (7.6-11.3) 05/08/20 05:36 Neutrophils % 59.4 % (41.7-73.7) 05/08/20 05:36 Lymphocytes % 23.0 % (15.3-44.8) 05/08/20 05:36 Monocytes % 13.7 % (3.3-12.3) H 05/08/20 05:36 Eosinophils % 2.8 % (0-4.4) 05/08/20 05:36 Basophils % 1.1 % (0-1.3) 05/08/20 05:36 Absolute Neutrophils 4.3 K/uL (1.8-8.0) 05/08/20 05:36 Segmented Neutrophils 53 % (40-80) 05/01/20 05:30 Absolute Lymphocytes 1.7 K/uL (0.7-4.9) 05/08/20 05:36 Lymphocytes 30 % (15-42) 05/01/20 05:30 Monocytes 15 % (0-10) H 05/01/20 05:30 Absolute Monocytes 1.0 K/uL (0.1-1.3) 05/08/20 05:36 Eosinophils 1 % (0-3) 05/01/20 05:30 Absolute Eosinophils 0.2 K/uL (0-0.5) 05/08/20 05:36 Basophils 1 % (0-1) 05/01/20 05:30 Absolute Basophils 0.1 K/uL (0-0.5) 05/08/20 05:36 Clumped Platelets Present 05/03/20 05:12 Morphology Comment Not seen (NOT SEEN) 05/03/20 05:12 Sodium 141 mmol/L (136-145) 05/08/20 05:36 Potassium 4.1 mmol/L (3.5-5.1) 05/08/20 05:36 Chloride 107 mmol/L (98-107) 05/08/20 05:36 Carbon Dioxide 29 mmol/L (21-32) 05/08/20 05:36 BUN 35 mg/dL (7-18) H 05/08/20 05:36 Creatinine 0.97 mg/dL (0.55-1.3) 05/08/20 05:36 Estimated GFR 74 mL/min (=/>90) L 05/08/20 05:36 Glucose 89 mg/dL (74-106) 05/08/20 05:36 Calcium 9.1 mg/dL (8.5-10.1) 05/08/20 05:36 Magnesium 2.0 mg/dL (1.8-2.4) 04/26/20 05:38 Albumin 2.9 g/dL (3.4-5.0) L 05/08/20 05:36 Prealbumin 13.5 mg/dL (20-40) L 05/08/20 05:36 Urine Color Yellow 04/26/20 02:20 Urine Appearance Clear 04/26/20 02:20 Urine pH 6.5 (5.0-7.0) 04/26/20 02:20 Ur Specific Viola 1.015 (1.005-1.030) 04/26/20 02:20 Glucose (UA)(Auto) Negative (NEG) 04/26/20 02:20 Urine Ketones Negative (NEG) 04/26/20 02:20 Urine Blood Negative (NEG) 04/26/20 02:20 Urine Nitrite Negative (NEG) 04/26/20 02:20 Urine Bilirubin Negative (NEG) 04/26/20 02:20 Urine Urobilinogen 1.0 mg/dL (0.2-1.0) 04/26/20 02:20 Ur Leukocyte Esterase Negative (NEG) 04/26/20 02:20 Urine RBC <5 /HPF (NONE SEEN) 04/26/20 02:20 Urine WBC <5 /HPF (<5) 04/26/20 02:20 Ur Squamous Epith Cells <5 /HPF (NONE SEEN) 04/26/20 02:20 Urine Bacteria <20 /HPF (NONE SEEN) 04/26/20 02:20 Urine Culture Reflexed Not needed 04/26/20 02:20 Urine Total Protein Negative (NEG) 04/26/20 02:20 Weight: 162 lb 12.8 oz Wound Present: Yes Closed Surgical Incision Present: No Negative Pressure Wound Therapy Present: No Physician Update: Labs reviewed and are stable. He has done well with all therapy including speech. His global aphasia has improved well. He will go home and have no transportation to do outpatient speech therapy. Therefore, he will have home health speech therapy. Speech Therapy Update: Pt. cont. to present with mild-moderate receptive, [id number] expressive aphasia. Patient requires repeated, simplified instruction. Patient attempts to communicate verbally but often utilizes gestures and visual referents to communicate basic wants/needs. Continued ST is warranted at this time to address aforementioned deficits. Summary: Patient's care plan and continuous churn buttermaker goals have been reviewed and revised as necessary. Please see the Rehabilitation Signature page for all necessary signatures.
--- NOTE | 2020-05-09 18:07 | PN ---
Subjective: Mr. Serrato is doing lot better. He is ambulating and eating properly after stroke. H is aphasia has improved today. He was able to come around to tell me "I recognize table and TV and c loset with some effort" and he was able to tell me about 2 in 5 fingers I showed him. So this is the improvement he has so far. Blood pressure is stable. He will continue on spironolactone and losartan. 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 RVD/MODL Voice ID: [id number] Report ID: [id number]
== END 2020-05-09 13:25 | disposition home health service (06) | DRG 57 ==
LOC: 5TH 16:44
PROVIDERS: ADMIT Psychiatry & Neurology Neurology with Special Qualifications in Child Neurology; ATTEND Psychiatry & Neurology Neurology with Special Qualifications in Child Neurology
DX: I69.320 Aphasia following cerebral infarction (principal); I69.351 Hemiplegia and hemiparesis following cerebral infarction affecting right dominant side; I10 Essential (primary) hypertension; J44.9 Chronic obstructive pulmonary disease, unspecified; E87.6 Hypokalemia; Z88.5 Allergy status to narcotic agent; Z20.828 Contact with and (suspected) exposure to other viral communicable diseases; Z90.49 Acquired absence of other specified parts of digestive tract
CPT/HCPCS: 36415; 80048; 81001; 82040; 83735; 84134; 85025; 87086; 87088; 92507; 92523; 92610; 97110; 97112; 97116; 97161; 97530; 97542; J1650

== ENCOUNTER 2020-07-05 15:38 | Emergency (ER) | payer OTHER ==
[2020-07-05 17:46] LABS: Absolute Lymphocytes (CBC) 1.8 K/uL (0.7-4.9); Basophils % 0.6 % (0-1.3); Hematocrit 42.8 % (39.6-49.0); Lymphocytes % 22.8 % (15.3-44.8); MPV 10.1 fL (7.6-11.3); Protime INR 1.05; RBC Red Blood Cell Count 4.53 M/uL (4.33-5.43)
[2020-07-05 18:12] LABS: ALT/SGPT 41 U/L (12-78); AST/SGOT 33 U/L (15-37); Albumin 3.3 g/dL (3.4-5.0); Alkaline Phosphatase 89 U/L (45-117); BUN Blood Urea Nitrogen 33 mg/dL (7-18); Bicarbonate 26 mmol/L (21-32); Bilirubin Direct 0.2 mg/dL (0-0.2); Bilirubin Total 0.7 mg/dL (0.2-1.0); Glucose Level 80 mg/dL (74-106); Lipase 308 U/L (73-393); NT PRO-BNP 1707 pg/mL (<450); Potassium 4.6 mmol/L (3.5-5.1); Protein, Total 7.3 g/dL (6.4-8.2); Sodium Level 134 mmol/L (136-145); Troponin (Emerg Dept Use Only) < 0.02 ng/mL (0.0-0.045)
--- NOTE | 2020-07-05 19:31 | RAD REPORT ---
EXAM DESCRIPTION: CT - Chest For Pe Angio - 07/05/2020 7:16 pm CLINICAL HISTORY: sob COMPARISON: 2016 TECHNIQUE: Dynamically enhanced axial 3 mm thick images of the chest were obtained during administra tion of <100> mL Isovue 370 IV contrast. Coronal and oblique reconstruction images were generated and reviewed. Exam utilizes a protocol for optimal evaluation of pulmonary arterial tree. Maximum intensity projections 3D imaging was utilized All CT scans are performed using dose optimization technique as appropriate and may include automated exposure control or mA/KV adjustment according to patient size. FINDINGS: A pulmonary embolus is not seen. Prominence of the main pulmonary artery may pulmonary art erial hypertension A thoracic aortic aneurysm is not noted. A pleural effusion is not seen. A pericardial effusion is not seen. Bilateral calcified pleural plaqu es A lung consolidation is not present. Centrilobular emphysema IMPRESSION: Negative for a pulmonary embolism. 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
--- NOTE | 2020-07-05 19:58 | RAD REPORT ---
EXAM DESCRIPTION: CT - Abdomen Pelvis W Contrast - 07/05/2020 7:16 pm CLINICAL HISTORY: Abdominal pain COMPARISON: 2016 TECHNIQUE: Computed axial tomography of the abdomen pelvis was obtained. 100 cc Isovue-300 was admin istered intravenously. Oral contrast was not requested which limits evaluation of bowel. All CT scans are performed using dose optimization technique as appropriate and may include automated exposure control or mA/KV adjustment according to patient size. FINDINGS: The liver, spleen, pancreas, adrenal and kidneys appear unremarkable. Diverticula stem from the colon without evidence of diverticulitis. Postsurgical changes of left inguinal hernia repair. Moderate right inguinal hernia contains fat. An infrarenal abdominal aorta has an AP diameter 3.4 centimeters. Small umbilical hernia contains fat. Diastases of the rectus abdominis muscles 4.8 centimeters. Mild to moderate anterior subluxation L5 on S1. Spondylolysis L5 Mild gallbladder distention. Atherosclerotic disease. High-grade stenosis right common iliac artery. High-grade stenosis left external iliac artery IMPRESSION: Moderate right inguinal hernia containing fat 3.4 centimeter abdominal aortic aneurysm Mild gallbladder distention
--- NOTE | 2020-07-05 20:27 | EDPHYS ---
Physician Documentation [facility] Name: Jhonaatn Madden Age: 85 yrs Sex: Male : 1935 Arrival Date: 07/05/2020 Time: 15:40 Bed 2 Private MD: Rio Brooks V ED Physician Gab Powers HPI: 07/05 16:49 This 85 yrs old Male presents to ER via Ambulatory with complaints of jmm Breathing Difficulty. 16:49 The patient has shortness of breath at rest. Onset: The symptoms/episode began/occurred jmm at an unknown time. The patient's shortness of breath is aggravated by nothing, is alleviated by nothing. This is an 85 year old male with a of COPD, HTN that presents to the ED with complaints of shortness of breath. Ongoing for an uncertain duration. Home health evaluated the patient and had concerns due to labored breathing. Patient denies chest pain but admits to some right sided abdominal pain. . Historical: - Allergies: 15:59 Codeine; jd3 - Home Meds: 15:59 losartan 100 mg oral tab [Active]; spironolactone 25 mg Oral tab [Active]; Flonase jd3 Nasal [Active]; olopatadine ophthalmic ophthalmic [Active]; Advair Diskus Inhl [Active]; aspirin 81 mg Oral TbEC 1 tab once daily [Active]; - PMHx: 15:59 COPD; Hypertension; jd3 - PSHx: 15:59 prostate surgery; Hernia repair; Appendectomy; back surgery; jd3 - Immunization history:: Adult Immunizations up to date. - Social history:: Smoking status: Patient/guardian denies using tobacco, but has a distant history of tobacco abuse. ROS: 16:49 Constitutional: Negative for fever, chills, and weight loss, Cardiovascular: Negative jmm for chest pain, palpitations, and edema. 16:49 Respiratory: Positive for shortness of breath. 16:49 Abdomen/GI: Positive for abdominal pain. 16:49 All other systems are negative. Exam: 16:49 Constitutional: This is a well developed, well nourished patient who is awake, alert, jmm and in no acute distress. Head/Face: atraumatic. Eyes: EOMI, no conjunctival erythema appreciated ENT: Moist Mucus Membranes Neck: Trachea midline, Supple Chest/axilla: Normal chest wall appearance and motion. 16:49 Respiratory: Normal respirations, no respiratory distress appreciated Abdomen/GI: Non distended, soft Back: Normal ROM Skin: General appearance color normal MS/ Extremity: Moves all extremities, no obvious deformities appreciated, no edema noted to the lower extremities Neuro: Awake and alert, normal gait Psych: Behavior is normal, Mood is normal, Patient is cooperative and pleasant 16:49 Cardiovascular: Rate: bradycardic, Rhythm: regular. Vital Signs: 15:59 BP 150 / 64; Pulse 49; Resp 20 S; Temp 98.5(O); Pulse Ox 99% on R/A; Weight 73.48 kg jd3 (R); Height 5 ft. 9 in. (175.26 cm) (R); Pain 0/10; 17:00 BP 154 / 68; Pulse 38; Resp 20; Pulse Ox 100% on R/A; rb1 18:00 BP 155 / 61; Pulse 38; Resp 22; Pulse Ox 100% ; Pain 0/10; rb1 18:30 BP 155 / 60; Pulse 41; Resp 18; Pulse Ox 100% ; rb1 19:30 BP 189 / 79; Pulse 46; Resp 21; Pulse Ox 100% on R/A; rv 20:00 BP 205 / 79; Pulse 45; Resp 21; Pulse Ox 100% on R/A; rv 20:30 BP 196 / 76; Pulse 49; Resp 18; Pulse Ox 100% on R/A; rv 21:00 BP 165 / 60; Pulse 38 MON; Resp 16; Pulse Ox 100% on R/A; rv 22:00 BP 176 / 67; Pulse 47; Resp 19; Pulse Ox 99% ; rr5 23:00 BP 126 / 54; Pulse 45; Resp 16; Pulse Ox 99% on R/A; rr5 15:59 Body Mass Index 23.92 (73.48 kg, 175.26 cm) jd3 21:00 A fib rv MDM: 16:49 Patient medically screened. adelaida 20:15 Data reviewed: vital signs, nurses notes. ED course: Voicemail left with Rajan davila regarding the patient. . 20:20 ED course: I discussed the patient with Dr. Comer whom recommended transfer due to giovanni need for EP. . 21:07 ED course: Transfer to [facility] initiated. [facility] 22:29 ED course: I discussed the patient with with cardiology and Dr. Zamorano whom accepted [facility] transfer. . 07/05 17:01 Order name: Basic Metabolic Panel; Complete Time: 18:14 [facility] 07/05 17:01 Order name: CBC with Diff; Complete Time: 17:56 [facility] 07/05 17:01 Order name: LFT's; Complete Time: 18:14 [facility] 07/05 17:01 Order name: Magnesium; Complete Time: 18:14 [facility] 07/05 17:01 Order name: NT PRO-BNP; Complete Time: 18:14 [facility] 07/05 17:01 Order name: PT-INR; Complete Time: 17:56 [facility] 07/05 17:01 Order name: Troponin (emerg Dept Use Only); Complete Time: 18:14 [facility] 07/05 17:01 Order name: EKG; Complete Time: 17:02 [facility] 07/05 17:01 Order name: Cardiac monitoring; Complete Time: 17:29 [facility] 07/05 17:40 Order name: Lipase; Complete Time: 18:14 [facility] 07/05 18:15 Order name: CT Chest For PE Angio; Complete Time: 19:34 [facility] 07/05 18:15 Order name: CT Abd/Pelvis - IV Contrast Only; Complete Time: 20:02 [facility] 07/05 20:15 Order name: COVID-19 [facility] 07/05 17:01 Order name: EKG - Nurse/Tech; Complete Time: 17:29 [facility] 07/05 17:01 Order name: IV Saline Lock; Complete Time: 17:29 [facility] 07/05 17:01 Order name: Labs collected and sent; Complete Time: 17:29 [facility] 07/05 17:01 Order name: O2 Per Protocol; Complete Time: 17:29 [facility] 07/05 17:01 Order name: O2 Sat Monitoring; Complete Time: 17:28 [facility] 07/05 19:42 Order name: EKG - Nurse/Tech; Complete Time: 20:10 [facility] Administered Medications: No medications were administered Disposition: 07/06 08:58 Co-signature as Attending Physician, Gab Powers MD I agree with the assessment and adelaida plan of care. Disposition: 07/05/20 22:34 Transfer ordered to [facility]. Diagnosis are Dyspnea, Bradycardia, unspecified. - Reason for transfer: Higher level of care. - Accepting physician is Jaun. - Condition is Stable. - Problem is new. - Symptoms are unchanged. Signatures: Dispatcher [employer] [facility] Gab Powers MD MD cha Mickail, Joel, PA PA jmm Davies, Jonathon, RN RN jd3 Kenny Walden RN RN rv Corrections: (The following items were deleted from the chart) 07/05 17:40 17:15 LIPASE+C.LAB.BRZ ordered. [facility] 20:28 20:27 07/05/2020 20:27 Discharged to Home. Impression: Bradycardia, unspecified; jmm Dyspnea. Condition is Stable. Forms are SBAR form, Medication Reconciliation Form, Thank You Letter, Antibiotic Education, Prescription Opioid Use. Follow up: Rio Brooks; When: 2 - 3 days; Reason: Recheck today's complaints, Continuance of care, Re-evaluation by your physician. [facility] 20:51 20:29 Hospitalization Ordered by Rio Brooks MD for Observation. Preliminary diagnosis jmm is Dyspnea; Bradycardia, unspecified. Bed requested for Telemetry/MedSurg (observation). Status is Observation. Condition is Stable. Problem is new. Symptoms are unchanged. [facility] 07/06 00:02 07/05 22:34 07/05/2020 22:34 Transfer ordered to [facility]. rv Diagnosis is Dyspnea; Bradycardia, unspecified. Reason for transfer: Higher level of care. Accepting physician is Jaun. Condition is Stable. Problem is new. Symptoms are unchanged. [facility]
--- NOTE | 2020-07-05 20:27 | ER ---
Nurse's Notes [facility] Name: Jhonatan Madden Age: 85 yrs Sex: Male : 1935 Arrival Date: 07/05/2020 Time: 15:40 Bed 2 Private MD: Rio Brooks V Diagnosis: Dyspnea;Bradycardia, unspecified Presentation: 07/05 15:53 Chief complaint: Patient's son or daughter states: adult child states: "His home nurse jd3 said he need was having problems breathing with his COPD and we needed to come to the ER. he said he has been feeling short of breath for the last 2 days.". Coronavirus screen: difficulty breathing, At this time, the client does not indicate any symptoms associated with coronavirus-19. Ebola Screen: Patient negative for fever greater than or equal to 101.5 degrees Fahrenheit, and additional compatible Ebola Virus Disease symptoms. Initial Sepsis Screen: Does the patient meet any 2 criteria? No. Patient's initial sepsis screen is negative. Does the patient have a suspected source of infection? No. Patient's initial sepsis screen is negative. Risk Assessment: Do you want to hurt yourself or someone else? Patient reports no desire to harm self or others. Onset of symptoms was July 03, 2020. 15:53 Method Of Arrival: Ambulatory [facility] 15:53 Acuity: DONG 3 jd3 Triage Assessment: 16:50 Respiratory: Onset: The symptoms/episode began/occurred x 2 days. rb1 20:25 General: Appears comfortable, Behavior is calm, cooperative. Pain: Denies pain. rv Historical: - Allergies: 15:59 Codeine; jd3 - Home Meds: 15:59 losartan 100 mg oral tab [Active]; spironolactone 25 mg Oral tab [Active]; Flonase jd3 Nasal [Active]; olopatadine ophthalmic ophthalmic [Active]; Advair Diskus Inhl [Active]; aspirin 81 mg Oral TbEC 1 tab once daily [Active]; - PMHx: 15:59 COPD; Hypertension; jd3 - PSHx: 15:59 prostate surgery; Hernia repair; Appendectomy; back surgery; jd3 - Immunization history:: Adult Immunizations up to date. - Social history:: Smoking status: Patient/guardian denies using tobacco, but has a distant history of tobacco abuse. Screenin:29 Abuse screen: Denies threats or abuse. Denies injuries from another. Nutritional bp screening: No deficits noted. Tuberculosis screening: No symptoms or risk factors identified. Fall Risk None identified. Assessment: 16:50 General: Appears in no apparent distress. comfortable, Behavior is calm, cooperative. rb1 Neuro: Level of Consciousness is awake, alert, obeys commands, Oriented to person, place, time, situation, Speech Needs time to responds and has trouble verbalizing. Cardiovascular: Rhythm is sinus bradycardia. Respiratory: Airway is patent Respiratory effort is even, unlabored, Respiratory pattern is regular, symmetrical, the patient has mild shortness of breath. Respiratory: Reports shortness of breath since x 2 days. GI: No signs and/or symptoms were reported involving the gastrointestinal system. : No signs and/or symptoms were reported regarding the genitourinary system. Derm: Skin is pink, warm \\T\\ dry. 17:50 Reassessment: Patient appears in no apparent distress at this time. No changes from rb1 previously documented assessment. Family at the bedside. 18:45 Reassessment: Patient appears in no apparent distress at this time. Patient and/or rb1 family updated on plan of care and expected duration. Pain level reassessed. Patient is alert, oriented x 3, equal unlabored respirations, skin warm/dry/pink. 20:21 Reassessment:. Reassessment: HEART RATE IS AT 40s, BLOOD PRESSURE OF 189/79. MICKAIL, malena HICKEY, AWARE OF THE VITAL SIGNS. FAMILY UPDATED AT BEDSIDE. MONITORING HEART RHYTHM AND VITAL SIGNS CLOSELY. PATIENT DENIES ANY CHEST PAIN OR DISCOMFORT. DENIES DIZZINESS OR LIGHT HEADEDNESS. Cardiovascular: Heart tones S1 S2 present Patient's skin is warm and dry. Rhythm is atrial fibrillation Chest pain is denied. Respiratory: Airway is patent Respiratory effort is even, unlabored, Breath sounds are clear bilaterally. 21:07 Reassessment: LOREN MONTANO, KENROY, CONTACT NUMBER [phone]. rv 21:25 Reassessment: FAMILY UPDATED ON THE PLAN FOR TRANSFER VIA PHONE CALL. rv 23:16 Reassessment: report given to LONG Doe of [facility]. rr5 Vital Signs: 15:59 BP 150 / 64; Pulse 49; Resp 20 S; Temp 98.5(O); Pulse Ox 99% on R/A; Weight 73.48 kg jd3 (R); Height 5 ft. 9 in. (175.26 cm) (R); Pain 0/10; 17:00 BP 154 / 68; Pulse 38; Resp 20; Pulse Ox 100% on R/A; rb1 18:00 BP 155 / 61; Pulse 38; Resp 22; Pulse Ox 100% ; Pain 0/10; rb1 18:30 BP 155 / 60; Pulse 41; Resp 18; Pulse Ox 100% ; rb1 19:30 BP 189 / 79; Pulse 46; Resp 21; Pulse Ox 100% on R/A; rv 20:00 BP 205 / 79; Pulse 45; Resp 21; Pulse Ox 100% on R/A; rv 20:30 BP 196 / 76; Pulse 49; Resp 18; Pulse Ox 100% on R/A; rv 21:00 BP 165 / 60; Pulse 38 MON; Resp 16; Pulse Ox 100% on R/A; rv 22:00 BP 176 / 67; Pulse 47; Resp 19; Pulse Ox 99% ; rr5 23:00 BP 126 / 54; Pulse 45; Resp 16; Pulse Ox 99% on R/A; rr5 15:59 Body Mass Index 23.92 (73.48 kg, 175.26 cm) jd3 21:00 A fib rv ED Course: 15:40 Patient arrived in ED. ag5 15:40 Rio Brooks MD is Private Physician. ag5 15:46 Boo Alamo PA is PHCP. jmm 15:46 Gab Powers MD is Attending Physician. [facility] 15:57 Triage completed. jd3 16:00 Arm band placed on. jd3 16:48 Boo Alamo PA is PHCP. jmm 16:48 Gab Powers MD is Attending Physician. [facility] 16:50 Margo John, LONG is Primary Nurse. rb1 17:04 Missed attempt(s): 22 gauge in right forearm. Bleeding controlled, band aid applied, rb1 catheter tip intact. 17:29 Patient has correct armband on for positive identification. Bed in low position. Call bp light in reach. Side rails up X2. Adult w/ patient. 17:29 Inserted saline lock: 22 gauge in right forearm, using aseptic technique. Blood bp collected. 19:16 CT Chest For PE Angio In Process Unspecified. EDMS 19:16 CT Abd/Pelvis - IV Contrast Only In Process Unspecified. EDMS 20:26 Rio Brooks MD is Referral Physician. jmm 20:29 Rio Brooks MD is Hospitalizing Provider. [facility] 21:07 initiated transfer to [facility] spoke with Kimberlyn Woodruff. mw2 21:09 No provider procedures requiring assistance completed. rv 22:10 Dr. Nadine Dye the [employer]el C[employer] Machine Operator from [facility] accepted the pt. mw2 22:25 Dr. Lourdes Zamorano the Emergency Dr at [facility] accepted the pt. mw2 22:33 Kimberlyn Tejeda the transfer table operator at [facility] called and gave acceptance for [facility] pt. They will be going to [facility] Emergency Department. Report number [id number]. 07/06 00:01 IV is intact, with fluids infusing freely, Patient transferred, IV remains in place. rv Administered Medications: No medications were administered Outcome: 07/05 20:27 Discharge ordered by MD. [facility] 20:29 Decision to Hospitalize by Provider. [facility] 22:34 ER care complete, transfer ordered by MD. [facility] 07/06 00:01 Transferred by ground EMS to [facility], Transfer form completed. rv X-rays sent w/ patient. Condition: stable Instructed on the need for transfer. 00:02 Patient left the ED. rv Signatures: Dispatcher [employer] EDMS Boo Alamo PA PA jmm Barber, Rebecca, RN RN rb1 Simone Huerta RN RN jd3 Peltier, Brian RN LONG Jono Randolph 2 Kenny Walden RN Marty Melissa RN RN rr5 Kiara Olvera 5
== END 2020-07-06 00:02 | disposition short-term general hospital (02) ==
LOC: ER 15:38
DX: R00.1 Bradycardia, unspecified (principal); Z20.828 Contact with and (suspected) exposure to other viral communicable diseases; I10 Essential (primary) hypertension; J44.9 Chronic obstructive pulmonary disease, unspecified; Z79.82 Long term (current) use of aspirin; Z88.5 Allergy status to narcotic agent
CPT/HCPCS: 93005 ×2; 85025; 80048; 36415; 83735; 85610; 80076; 84484; 83690; 83880; 71275; 74177; 99285; U0002; Q9967

== ENCOUNTER 2020-09-22 11:13 | Emergency (ER) | payer OTHER ==
--- OUTSIDE RECORDS SUMMARY | 2020-09-22 11:17 | XMS REPORT | Clinical Summary ---
:1935 Author Organization [facility] Address [address] [place] [address] Care Team Providers Name Role Phone Pcp, No Primary Care Provider Unavailable Allergies Active Allergy Reactions Severity Noted Date Comments Codeine Itching 07/06/2020 Medications Medication Sig Dispensed Refills Start Date End Date Status fluticasone 1 spray by 0 Active propionate Nasal route (FLONASE) 50 daily. mcg/actuation nasal spray olopatadine 1 drop 2 0 Active (PATANOL) 0.1 % (two) times ophthalmic solution daily. fluticasone Inhale 1 0 Active propion-salmeteroL puff by (ADVAIR) 100-50 mouth via mcg/dose diskus inhaler inhaler every 12 (twelve) hours. aspirin 81 MG EC Take 81 mg 0 Ac tive tablet by mouth daily. apixaban (ELIQUIS) Take 1 60 tablet 1 07/10/2020 Active 5 mg Tab tablet tablet (5 mg total) by mouth 2 (two) times daily. atorvastatin Take 1 30 tablet 0 07/10/2020 Active (LIPITOR) 10 MG tablet (10 1 tablet mg total) by mouth nightly. hydrALAZINE Take 1 90 tablet 0 07/11/2020 Active (APRESOLINE) 25 MG tablet (25 tablet mg total) by mouth 3 (three) times daily. losartan (COZAAR) Take 100 mg 0 Discontinued 100 MG tablet by mouth 0 (Reord er) daily. spironolactone Take 25 mg 0 Disc ontinued (ALDACTONE) 25 MG by mouth 0 (S top Taking at tablet daily. Discharge) losartan (COZAAR) Take 1 30 tablet 1 07/10/2020 D iscontinued 25 MG tablet tablet (25 0 (Reord er) mg total) by mouth daily. apixaban (ELIQUIS) Take 1 60 tablet 1 07/10/2020 Discontinued 5 mg Tab tablet tablet (5 mg 0 total) by mouth 2 (two) times daily. atorvastatin Take 1 30 tablet 0 07/10/2020 Discon tinued (LIPITOR) 10 MG tablet (10 0 tablet mg total) by mouth nightly. losartan (COZAAR) Take 1 30 tablet 1 07/10/2020 D iscontinued 25 MG tablet tablet (25 0 (Stop Taking at mg total) by Dischar ge) mouth daily. Hospital, Clinic, or Other Ordered Dose Route Frequency Start Date End Date Status Facility Administered Medication influenza vaccine (PF) 0.5 mL IM Once 07/22/20202019 Ended (FLUAD HIGH DOSE) syringe 65 years and up Active Problems Problem Noted Date Diastolic dysfunction 07/22/2020 Paroxysmal atrial fibrillation 07/22/2020 Chronic anticoagulation 07/22/2020 LUMA (acute kidney injury) 07/11/2020 Bradycardia 07/06/2020 Encounters Date Type Specialty Care Team Description 08/04/2020 Telephone Transplant Kristy Raya Follow-up MELPIDIO 07/22/2020 Office Visit Transplant Nadine Dye Bradycardia; MD Joshua Diastolic dysfu nction; Paroxysmal atri al fibrillation (HCC); Chronic anticoa gulation; Solitary pulmon pako nodule 07/22/2020 Orders Only Transplant Bartolo Fountain Y, Bradycardia ( Primary RN Dx) 07/10/2020 - Emergency Cardiology Deirdre Valenzuela LUMA (acute k idney injury) (HCC) (Primary Dx); 07/11/2020 MD Suellen Hyponatremia; Deirdre Valenzuela MD Giveon, Ron, MD Hasan, Reyes Siu MD 07/10/2020 Travel 07/08/2020 Anesthesia Event Oleksandr Wynn MD 07/08/2020 Surgery Lambert Faria PACEMA KIRSTY Feng MD INSERTION W/ MA C ANESTHESIA 07/07/2020 Outside Orders Jennifer Mccrary, SALES UTILITY REPRESENTATIVE, RPSGT 07/06/2020 - Hospital Encounter Cardiology Lourdes Zamorano Bradyca rdia (Primary Dx); 07/10/2020 MD Jaime Chronic atrial fibrillation (HCC); Nadine Dye Chronic antic oagulation; MD Joshua Simple chronic bronchitis (HCC); Lung mass; Lung nodule; IPF (idiopathic pulmonary fibrosis) (HCC) 07/06/2020 Orders Only General Internal Medicine 07/06/2020 Lab Requisition Lab 07/06/2020 Travel after 09/22/2019 Immunizations Name Administration Dates Next Due INFLUENZA QIV ADJUVANTED PF IM 07/22/2020 Social History Tobacco Use Types Packs/Day Years Used Date Former Smoker Alcohol Use Drinks/Week oz/Week Comments No Alcohol Habits Answer Date Recorded How often do you have a drink containing alcohol? Never 07/06/2020 How many drinks containing alcohol do you have on a typical Not asked day when you are drinking? How often do you have six or more drinks on one occasion? No t asked Sex Assigned at Date Recorded Not on file Last Filed Vital Signs Vital Sign Reading Time Taken Comments Blood Pressure 188/87 07/22/2020 2:46 PM CDT Pulse 78 07/22/2020 2:46 PM CDT Temperature 36.2 C (97.2 F) 07/22/2020 2:46 PM CDT Respiratory Rate 18 07/22/2020 2:46 PM CDT Oxygen Saturation 100% 07/22/2020 2:46 PM ra CDT Inhaled Oxygen Concentration 21% 07/07/2020 4:35 AM CDT Weight 77.9 kg (171 lb 11.2 oz) 07/22/2020 2:46 PM CDT Height 175.3 cm (5' 9") 07/22/2020 2:46 PM actual CDT Body Mass Index 25.36 07/22/2020 2:46 PM CDT Plan of Treatment Date Type Specialty Care Team Description 10/01/2020 Appointment Radiology Nadine Dye MD [address] [address] 0 [phone] Health Maintenance Due Date Last Done Comments PNEUMOCOCCAL 65+ YRS (1 of 1 - [id number]) 2001 MEDICARE ANNUAL WELLNESS (YEAR 2 or FIRST YEAR if no 05/15/2002 IPPE) INFLUENZA VACCINE Completed 07/22/2020 Implants Implanted Type Area Special Delivery Mail Carrier Device Shelf Model / Identifier Expiration Serial / Date Lot Pacemaker Micra Transcath Perm [id number] - [id number] PACEMAKER/I N/A: [employer]:CARD 08/11/2021 [id number] / Implanted: Qty: 1 on 07/08/2020 by Lambert Faria MD at [facility] CD CHAMBER Heart RHY:PACING SYS [id number] / 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 B-TYPE NATRIURETIC STAT 07/22/2020 2:59 Bradycardia Resul ts for this FACTOR (BNP) PM CDT procedure are i n the results section. COMPREHENSIVE STAT 07/22/2020 2:59 Bradycardia Results fo r this METABOLIC PANEL PM CDT procedure ar e in the results section. CBC W/PLT COUNT & AUTO Routine 07/22/2020 2:59 Bradycardia R esults for this DIFFERENTIAL PM CDT procedure are i n the results section. ECG 12-LEAD Routine 07/22/2020 12:42 PM CDT Procedure Note - Interface, External Ris In - 07/22/2020 3:52 PM CDT Ventricular Rate 84 BPM Atrial Rate 38 BPM QRS Duration 162 ms Q-T Interval 450 ms QTC Calculation(Bazett) 531 ms R Coolin 68 degrees T Coolin 68 degrees Electronic ventricular pacem adriane When compared with ECG of 08:24, Electronic ventricular pacem adriane has replaced Atrial fibrillation Vent. rate has increased BY 48 BPM ECG 12-LEAD Routine 07/22/2020 12:42 Bradycardia Results for this PM CDT procedure are i n the results section. RHYTHM STRIP - SCAN 07/14/2020 3:33 PM CDT RHYTHM STRIP - SCAN 07/14/2020 11:50 AM CDT REPORT OF PROCEDURE - 07/14/2020 10:51 ENDOSCOPY SCAN AM CDT RHYTHM STRIP - SCAN 07/14/2020 10:51 AM CDT ARRYTHMIA IMPLANT REPORT 07/14/2020 10:51 Results for this - SCAN AM CDT procedure are i n the results section. CARDIAC CATH REPORT - 07/14/2020 10:51 SCAN AM CDT REPORT OF PROCEDURE - 07/14/2020 10:51 ENDOSCOPY SCAN AM CDT ARRYTHMIA IMPLANT REPORT 07/11/2020 12:00 Results for this - SCAN PM CDT procedure are i n the results section. CBC W/PLT COUNT & AUTO Routine 07/11/2020 7:28 R esults for this DIFFERENTIAL AM CDT procedure are i n the results section. CBC W/PLT COUNT & AUTO Routine 07/11/2020 7:28 R esults for this DIFFERENTIAL AM CDT procedure are i n the results section. MAGNESIUM Routine 07/11/2020 5:03 Results for this AM CDT procedure are i n the results section. BASIC METABOLIC PANEL Routine 07/11/2020 5:03 Re sults for this (7) AM CDT procedure are i n the results section. SARS-COV2/RT-PCR (HS & STAT 07/11/2020 2:42 Results for this REF LABS) AM CDT procedure are i n the results section. CBC W/PLT COUNT & AUTO STAT 07/10/2020 11:26 R esults for this DIFFERENTIAL PM CDT procedure are i n the results section. PT/APTT STAT 07/10/2020 11:26 Results for this PM CDT procedure are i n the results section. BASIC METABOLIC PANEL STAT 07/10/2020 11:26 Re sults for this (7) PM CDT procedure are i n the results section. CBC W/PLT COUNT & AUTO STAT 07/10/2020 11:26 R esults for this DIFFERENTIAL PM CDT procedure are i n the results section. ARTERIAL DOPPLER LEG, STAT 07/10/2020 10:59 Re sults for this RIGHT PM CDT procedure are i n the results section. MAGNESIUM Routine 07/10/2020 4:39 Results for this AM CDT procedure are i n the results section. BASIC METABOLIC PANEL Routine 07/10/2020 4:39 Re sults for this (7) AM CDT procedure are i n the results section. TRANSFUSION SERVICE 07/09/2020 6:01 REPORT - SCAN PM CDT LIMITED 2D JUSTINO 07/09/2020 7:36 Results for this ECHOCARDIOGRAM AM CDT procedure are in the results section. CBC W/PLT COUNT & AUTO Routine 07/09/2020 3:51 R esults for this DIFFERENTIAL AM CDT procedure are i n the results section. MAGNESIUM Routine 07/09/2020 3:51 Results for this AM CDT procedure are i n the results section. BASIC METABOLIC PANEL Routine 07/09/2020 3:51 Re sults for this (7) AM CDT procedure are i n the results section. CBC W/PLT COUNT & AUTO Routine 07/09/2020 3:51 R esults for this DIFFERENTIAL AM CDT procedure are i n the results section. XR CHEST 1 VIEW Routine 07/08/2020 3:10 Results for this PORTABLE/BEDSIDE PM CDT procedure a re in the results section. LEADLESS PACEMAKER 07/08/2020 11:30 AV heart block INSERTION W/ MAC AM CDT ANESTHESIA ABORH, MANUAL STAT 07/08/2020 6:32 Results fo r this AM CDT procedure are i n the results section. TYPE AND SCREEN, Routine 07/08/2020 6:22 Results for this AUTOMATED AM CDT procedure are i n the results section. CBC W/PLT COUNT & AUTO Routine 07/08/2020 5:04 R esults for this DIFFERENTIAL AM CDT procedure are i n the results section. APTT Routine 07/08/2020 5:04 Results for this AM CDT procedure are i n the results section. MAGNESIUM Routine 07/08/2020 5:04 Results for this AM CDT procedure are i n the results section. BASIC METABOLIC PANEL Routine 07/08/2020 5:04 Re sults for this (7) AM CDT procedure are i n the results section. CBC W/PLT COUNT & AUTO Routine 07/08/2020 5:04 R esults for this DIFFERENTIAL AM CDT procedure are i n the results section. CBC W/PLT COUNT & AUTO Routine 07/07/2020 9:53 R esults for this DIFFERENTIAL AM CDT procedure are i n the results section. CBC W/PLT COUNT & AUTO Routine 07/07/2020 9:53 R esults for this DIFFERENTIAL AM CDT procedure are i n the results section. CT CHEST WITHOUT IV Routine 07/07/2020 9:45 Resu lts for this CONTRAST AM CDT procedure are i n the results section. IMMUNOFIXATION Routine 07/07/2020 4:40 Results f or this ELECTROPHORESIS (JOHNSON) AM CDT proced ure are in the results section. APTT Routine 07/07/2020 4:40 Results for this AM CDT procedure are i n the results section. MAGNESIUM Routine 07/07/2020 4:40 Results for this AM CDT procedure are i n the results section. HEMOGLOBIN A1C Routine 07/07/2020 4:40 Results f or this AM CDT procedure are i n the results section. ANGIOTENSIN CONVERTING Routine 07/07/2020 4:40 R esults for this ENZYME (RADHA) AM CDT procedure are i n the results section. IRON, TIBC, % SAT. Routine 07/07/2020 4:40 Resul ts for this (WITHOUT FERRITIN) AM CDT procedure are in the results section. VITAMIN B12 AND FOLATE Routine 07/07/2020 4:40 R esults for this AM CDT procedure are i n the results section. PROTEIN ELECTROPHORESIS, AP Routine 07/07/2020 4:40 Results for this SERUM AM CDT procedure are i n the results section. KAPPA / LAMBDA LIGHT Routine 07/07/2020 4:40 Res ults for this CHAINS, SERUM AM CDT procedure are in the results section. LIPID PANEL Routine 07/07/2020 4:40 Results for this AM CDT procedure are i n the results section. TSH/FREE T4 IF INDICATED Routine 07/07/2020 4:40 Results for this AM CDT procedure are i n the results section. BASIC METABOLIC PANEL Routine 07/07/2020 4:40 Re sults for this (7) AM CDT procedure are i n the results section. CAROTID DOPPLER Routine 07/06/2020 10:24 Results for this BILATERAL PM CDT procedure are i n the results section. POCT-GLUCOSE METER Routine 07/06/2020 4:32 Resul ts for this PM CDT procedure are i n the results section. APTT Routine 07/06/2020 2:10 Results for this PM CDT procedure are i n the results section. POCT-GLUCOSE METER Routine 07/06/2020 11:08 Resul ts for this AM CDT procedure are i n the results section. CBC W/PLT COUNT & AUTO Routine 07/06/2020 10:03 R esults for this DIFFERENTIAL AM CDT procedure are i n the results section. CBC W/PLT COUNT & AUTO Routine 07/06/2020 10:03 R esults for this DIFFERENTIAL AM CDT procedure are i n the results section. 2D ECHO W/ DOPPLER JUSTINO 07/06/2020 9:17 Resul ts for this (CW/PW/COLOR) AM CDT procedure are in the results section. ECG 12-LEAD Routine 07/06/2020 8:24 AM CDT Procedure Note - Interface, External Ris In - 07/06/2020 8:25 AM CDT Ventricular Rate 36 BPM Atrial Rate 138 BPM QRS Duration 86 ms Q-T Interval 510 ms QTC Calculation(Bazett) 394 ms R Coolin -40 degrees T Coolin 46 degrees Atrial fibrillation with slo w ventricular response Left axis deviation Abnormal ECG ECG 12-LEAD Routine 07/06/2020 8:24 AM CDT Resu lts for this procedure are i n the results section . POCT-GLUCOSE METER Routine 07/06/2020 7:46 AM CDT Results for this procedure are i n the results section . MAGNESIUM Routine 07/06/2020 5:24 AM CDT Resu lts for this procedure are i n the results section . BASIC METABOLIC PANEL (7) Routine 07/06/2020 5:24 AM CDT Results for this procedure are i n the results section . APTT Routine 07/06/2020 5:24 AM CDT Resu lts for this procedure are i n the results section . B-TYPE NATRIURETIC FACTOR STAT 07/06/2020 3:49 AM CDT Results for this (BNP) procedure are i n the results section . TSH/FREE T4 IF INDICATED STAT 07/06/2020 3:49 AM CDT Results for this procedure are i n the results section . CT BRAIN WITHOUT IV STAT 07/06/2020 3:25 AM CDT Results for this CONTRAST procedure are i n the results section . XR CHEST 1 VIEW STAT 07/06/2020 2:16 AM CDT R esults for this PORTABLE/BEDSIDE procedure a re in the results section . CBC W/PLT COUNT & AUTO STAT 07/06/2020 2:09 AM CDT Results for this DIFFERENTIAL procedure are i n the results section . TROPONIN I STAT Add-on 07/06/2020 2:09 AM CDT Resu lts for this procedure are i n the results section . COMPREHENSIVE METABOLIC STAT 07/06/2020 2:09 AM CDT Results for this PANEL procedure are i n the results section . APTT STAT 07/06/2020 2:09 AM CDT Resu lts for this procedure are i n the results section . PROTHROMBIN TIME/INR STAT 07/06/2020 2:09 AM CDT Results for this procedure are i n the results section . CBC W/PLT COUNT & AUTO STAT 07/06/2020 2:09 AM CDT Results for this DIFFERENTIAL procedure are i n the results section . ECG 12-LEAD Routine 07/06/2020 1:54 AM CDT Procedure Note - Interface, External Ris In - 07/06/2020 7:32 PM CDT Ventricular Rate 40 BPM Atrial Rate 41 BPM QRS Duration 82 ms Q-T Interval 522 ms QTC Calculation(Bazett) 425 ms R Coolin -46 degrees T Coolin 52 degrees Atrial fibrillation with slo w ventricular response Left axis deviation Anterior infarct , age undet ermined Abnormal ECG No previous ECGs available ECG 12-LEAD STAT 07/06/2020 1:54 AM CDT Resu lts for this procedure are in the resu lts section. SARS-COV2/RT-PCR ([facility] & STAT 07/06/2020 1:42 AM CDT Results for this procedure REF LABS) are in the resu lts section. SARS-COV2/RT-PCR ([facility] & Routine 07/05/2020 8:44 PM CDT Results for this procedure REF LABS) are in the resu lts section. after 09/22/2019 Results CBC with platelet count + automated diff (07/22/2020 2:59 PM CDT)Only the most recent of8 resultswithin the time period is included. Pathologist Sig nature WBC 9.1 3.5 - 10.5 [facility] K/L [facility] RBC 4.45 (L) 4.63 - 6.08 [facility] M/L [facility] Hemoglobin 14.2 13.7 - 17.5 [facility] GM/DL [facility] Hematocrit 42.3 40.1 - 51.0 % [facility] MCV 95.1 (H) 79.0 - 92.2 fL [facility] MCH 31.9 25.7 - 32.2 pg [facility] MCHC 33.6 32.3 - 36.5 [facility] GM/DL [facility] RDW 12.2 11.6 - 14.4 % [facility] Platelets 156 150 - 450 K/CU [facility] MPV 11.3 9.4 - 12.4 fL [facility] nRBC 0 0 - 0 /100 WBC [facility] % Neutros 69 % [facility] % Lymphs 19 % [facility] % Monos 9 % [facility] % Eos 1 % [facility] % Baso 1 % [facility] # Neutros 6.25 (H) 1.78 - 5.38 [facility] # Lymphs 1.75 1.32 - 3.57 [facility]/L [facility] # Monos 0.85 (H) 0.30 - 0.82 [facility] # Eos 0.12 0.04 - 0.54 [facility] # Baso 0.07 0.01 - 0.08 [facility] Immature 0 0 - 1 % [facility] Granulocytes-Relative [facility] Specimen Blood Performing Organization Address City/[facility]/Zipcode Phone Number [address] [address] CENTER B-type Natriuretic Factor (BNP) (07/22/2020 2:59 PM CDT)Only the most recent of 2 resultswithin the time period is included. Pathologist Sig nature BNP 255 (H) 0 - 100 pg/mL [facility] Specimen Blood Narrative Performed At [employer] Apprentice ID - BS [facility] Performing Organization Address City/State/Zipcode Phone Number [facility] [address] [place] [address] CENTER Comprehensive metabolic panel (07/22/2020 2:59 PM CDT)Only the most recent of2 resultswithin the time period is included. Protein, Total 7.5 6.0 - 8.3 [facility] gm/dL [facility] Albumin 3.8 3.5 - 5.0 [facility] g/dL [facility] Alkaline 86 40 - 150 U/L [facility] Phosphatase [facility] Total Bilirubin 0.6 0.2 - 1.2 [facility] mg/dL [facility] Sodium 136 136 - 145 [facility] meq/L [facility] Potassium 3.6 3.5 - 5.1 [facility] meq/L [facility] Chloride 99 98 - 107 [facility] meq/L [facility] CO2 27 22 - 29 meq/L [facility] BUN 16 7 - 21 mg/dL [facility] Creatinine 1.01 0.57 - 1.25 [facility] mg/dL [facility] Glucose 84 70 - 105 [facility] mg/dL [facility] Calcium 9.5 8.4 - 10.2 [facility] mg/dL [facility] AST 37 (H) 5 - 34 U/L [facility] ALT 34 6 - 55 U/L [facility] EGFR 70Comment: mL/min/1.73 [facility] ESTIMATED GFR IS sq [facility] NOT ACCURATE MEDICAL CENTER CREATININE CLEARANCE IN PREDICTING GLOMERULAR FILTRATION RATE. ESTIMATED GFR IS NOT APPLICABLE FOR DIALYSIS PATIENTS. Specimen Blood Narrative Performed At [employer] Apprentice ID - BS [facility] Performing Organization Address City/State/Zipcode Phone Number [facility] [address] [place] [address] CENTER ECG 12 lead (07/22/2020 12:42 PM CDT)Only the most recent of3 resultswithin the time period is included. Specimen Narrative Performed At Ventricular Rate 84 BPM GE MUSE Atrial Rate 38 BPM QRS Duration 162 ms Q-T Interval 450 ms QTC Calculation(Bazett) 531 ms R Coolin 68 degrees T Coolin 68 degrees Electronic ventricular pacemaker When compared with ECG of 06-JUL-2020 08 :24, Electronic ventricular pacemaker has rep laced Atrial fibrillation Vent. rate has increased BY 48 BPM Confirmed by Nadine Dye ([id number]) on 07/28/2020 11:41: 27 AM Procedure Note Interface, External Ris In - 07/28/2020 11:41 AM CDT Ventricular Rate 84 BPM Atrial Rate 38 BPM QRS Duration 162 ms Q-T Interval 450 ms QTC Calculation(Bazett) 531 ms R Coolin 68 degrees T Coolin 68 degrees Electronic ventricular pacemaker When compared with ECG of 06-JUL-2020 08 :24, Electronic ventricular pacemaker has rep laced Atrial fibrillation Vent. rate has increased BY 48 BPM Confirmed by Nadine Dye ([id number]) on 11:41:27 AM Performing Organization Address City/[facility]/Zipcode Phone Number GE MUSE RHYTHM STRIP - SCAN (07/14/2020 3:33 PM CDT)Only the most recent of3 results within the time period is included. Narrative Performed At This result has an attachment that is no t available. EKG-SCANNED (07/14/2020 10:51 AM CDT)Only the most recent of2 resultswithin the time period is included. Narrative Performed At This result has an attachment that is no t available. ARRYTHMIA IMPLANT REPORT - SCAN (07/14/2020 10:51 AM CDT)Only the most recent of 2 resultswithin the time period is included. Narrative Performed At This result has an attachment that is no t available. CARDIAC CATH REPORT - SCAN (07/14/2020 10:51 AM CDT) Narrative Performed At This result has an attachment that is no t available. Magnesium (07/11/2020 5:03 AM CDT)Only the most recent of6 resultswithin the time period is included. Pathologist Sig nature Magnesium 1.9 1.6 - 2.6 mg/dL [facility] Specimen Blood Narrative Performed At Baker Apprentice ID - SUSAN [facility] Performing Organization Address City/[facility] Phone Number [facility] [address] [place] [address] CENTER Basic metabolic panel (07/11/2020 5:03 AM CDT)Only the most recent of7 results within the time period is included. Sodium 130 (L) 136 - 145 meq/L [facility] Potassium 3.7 3.5 - 5.1 meq/L [facility] Chloride 100 98 - 107 meq/L [facility] CO2 20 (L) 22 - 29 meq/L [facility] BUN 51 (H) 7 - 21 mg/dL [facility] Creatinine 1.26 (H) 0.57 - 1.25 [facility] mg/dL [facility] Glucose 100 70 - 105 mg/dL [facility] Calcium 9.6 8.4 - 10.2 [facility] mg/dL [facility] EGFR 55Comment: ESTIMATED mL/min/1.[address] [facility] GFR IS NOT m [facility] ACCURATE [place] CREATININE CLEARANCE IN PREDICTING GLOMERULAR FILTRATION RATE. ESTIMATED GFR IS NOT APPLICABLE FOR DIALYSIS PATIENTS. Specimen Blood Narrative Performed At [facility] Apprentice ID - JOSHUAASI [facility] Performing Organization Address City/State/Zipcode Phone Number [facility] [address] [place] [address] CENTER SARS-CoV2/RT-PCR (Asymptomatic ONLY) (07/11/2020 2:42 AM CDT)Only the most recent of3 resultswithin the time period is included. SARS-COV2/RT-PCR Negative Not Detected, [facility] Negative, See [facility] external report CENTER for linked test SARS-COV-2 [facility] PERFORMING LAB [facility] Specimen Other - Nasopharyngeal wall structure (b philip structure) Narrative Performed At Negative results do not preclude SARS-CoV-2 [facility] infection and should not be used as the sole basis for patient management decisions. Negative results must be combined with clinical observations, patient history, and epidemiological information. A false negative result may occur if a specimen is improperly collected, transported or handled. The limit of detection for this assay is 250 copies/mL. This SARS CoV-2 test is a rapid, real-time RT-PCR test intended for the qualitative detection of nucleic acid from SARS-CoV-2 in a nasopharyngeal swab specimen collected from individuals suspected of COVID-19 by their healthcare provider. This test has not been Food and Drug Administration (FDA) cleared or approved and has been authorized by FDA under an Emergency Use Authorization (EUA). This EUA will be effective until the declaration that circumstances exist justifying the authorization of the emergency use of in vitro diagnostic tests for detection and/or diagnosis of COVID-19 is terminated under Section 564(b)(2) of the Act or the EUA is revoked under Section 564(g) of the Act. Fact Sheet for Healthcare Providers: https://www.[employer]/Documents/Xpert%20Xpre ss%20SARS%20CoV-2/Fact%20Sheets/3023802%20SAR S-COV-2%20HEALTHCARE%20PROVIDERS%20FACT%20SHEE T.pdf Fact Sheet for Healthcare Patients: https://www.[employer] Lines/Documents/Xpert%20Xpre ss%20SARS%20CoV-2/Fact%20Sheets/[id number]%20SAR S-COV-2%20PATIENT%20FACT%20SHEET.pdf Performing Laboratory: [address] [place] [address] Performing Organization Address [facility] [place] [address] CENTER PT/aPTT (07/10/2020 11:26 PM CDT) [facility] Protime 14.5 (H) 11.9 - 14.2 seconds [facility] INR 1.16 <=5.90 [facility] PTT 30.0 22.5 - 36.0 seconds [facility] Specimen Blood Narrative Performed At Effective 04/11/2019: PT Reference Range [facility] Change New: 11.9-14.2 Previous: 11.7-14.7 RECOMMENDED COUMADIN/WARFARIN INR THERAPY RANGES STANDARD DOSE: 2.0-3.0 Includes: PROPHYLAXIS for venous thrombosis, systemic embolization; TREATMENT for venous thrombosis and/or pulmonary embolus. HIGH RISK: Target INR is 2.5-3.5 for patients wiht mechanical heart valves. Performing Organization Address [facility] Phone Number [facility]ARY[facility]ETH [facility] [address] [place] [address] CENTER Arterial doppler leg, right (07/10/2020 10:59 PM CDT) Pathologist Sig nature Ejection Fraction [facility] Specimen Impressions Performed At Right Impression [facility] 1. There is no pseudoaneurysm visualized . 2. There is no hematoma visualized. 3. There is no venous obstruction or arteriovenous fistula visualized. 4. The common femoral artery flow is biphasic with a velocity of 92 cm/sec. (within normal range). Conclusions Summary Duplex imaging of the right groin area was performed. The vessels were adequately visualized. There was no evidence of a pseudoaneurysm, venous obstruction or arteriovenous fistula in the right groin area. Signature Velocities are measured in cm/s ; Diameters are measured in cm Narrative Performed At PV LAB - Pseudoaneurysm Survey [facility] Demographics Patient Name CHRIS BOLIVAR Date of Study 07/10/2020 Age 85 Visit Number [id number] Gender Male Accession Number [id number] Date of 1935 Referring Nicolas Gilmore Room Number 1158 Physician Gloria Electrical Calibrator Skye Frank T Interpreting Physician PETE Saucedo Procedure Type of Study: Pseudoaneurysm: PSEUDOANEURYSM, GROIN DOPPLER RIGHT. Indications for Study:Pseudoaneurysm. Patient Status:STAT. Study Location:Portable. Technical Quality:Adequate visualization . Risk Factors History of Disease + + +--------- + !Diagnosis !Date !Comments ! + + +--------- + !History/Risk Factors: !07/06/2020!stroke ! + + +--------- + !History/Risk Factors: !07/10/2020!S/P pacemaker 07/08/20 ! ! ! !A fib ! ! ! !Eliquis ! ! ! !H/O stroke ! ! ! !carotid artery disease ! ! ! !Right groin bleeding ! + + +--------- + Procedure Note Interface, External Ris In - 07/11/2020 7:39 AM CDT [facility] LAB - Pseudoaneurysm Survey Demographics Patient Name CHRIS BOLIVAR te of Study 07/10/2020 e 85 Visit Number [id number] Ge nder Male Accession Number [id number] Da te of 1935 Referring Nicolas Pacheco om Number [id number] Physician Gloria Electrical Calibratoraman Frank RVT In terpreting Yisel Abdalla, Ph ysician Procedure Type of Study: Pseudoaneurysm: PSEUDOANEURYSM, GROIN D OPPLER RIGHT. Indications for Study:Pseudoaneurysm. Patient Status:STAT. Study Location:Portable. Technical Quality:Adequate visualization . Risk Factors History of Disease + + + + !Diagnosis !Date !Comments ! + + + + !History/Risk Factors: !07/06/2020 !stroke ! + + + + !History/Risk Factors: !07/10/2020 !S/P pacemaker 07/08/20 ! ! ! !A fib ! ! ! !Eliquis ! ! ! !H/O stroke ! ! ! !carotid artery disease ! ! ! !Right groin bleeding ! + + + + Impressions Right Impression 1. There is no pseudoaneurysm visualized . 2. There is no hematoma visualized. 3. There is no venous obstruction or art eriovenous fistula visualized. 4. The common femoral artery flow is bip hasic with a velocity of 92 cm/sec. (within normal range). Conclusions Summary Duplex imaging of the right groin area was performed. The vessels were adequately visualized. There was no joann dence of a pseudoaneurysm, venous obstruction or arteriovenous fistula in the right groin area. Signature Velocities are measured in cm/s ; Diamet ers are measured in cm Performing Organization Address City/State/Zipcode Phone Number [facility] REPORT - SCAN (07/09/2020 6:01 PM CDT) Narrative Performed At This result has an attachment that is no t available. Limited 2D Echocardiogram (07/09/2020 7:36 AM CDT) Pathologist Sig nature Ejection Fraction [facility] [employer] [facility] Specimen Narrative Performed At Transthoracic Echocardiography Report (T TE) [facility] Demographics Patient Name CHRIS BOLIVAR Date of Study 07/09/2020 Gender Male Visit Number [id number] Race Unknown Room Number 1415 Number Date of 1935 Referring Physician Bienvenido Verdin MD Age 85 year(s) Electrical Calibrator Nadeem Sinha i Ply Bander Chelly Devries, Interpreting Wendi new [facility] Physician Procedure Type of Study TTE procedure:LIMITED 2D ECHOCARDIOGRAM (Routine) Indications:Pericardial effusion. Clinical History HGB 14.5 HCT 42.8 % COPD HTN BRADYCARDIA LEADLESS PACEMAKER INSERTION 07/08/2020 Contrast Medium: Definity. Height: 69 inches Weight: 72.12 kg (159 lbs) BSA: 1.87 m^2 BMI: 23.48 kg/m^2 HR: 60 bpm BP: 107/58 mmHg Summary 1. LV is normal function. LVEF is normal (>60%) . All segments contract normally. 2. Normal RV size and function. 3. No Doppler. Signature Findings Technical Quality: Technically difficult exam. Left Ventricle Parasternal long axis measurements not possible. LV endocardium is partially visualized with IV ultrasound enhancing agent. The left ventricle is chamber size (by vol index) is normal (male - LVED vol - 34-74ml/m2). All of the LV segments cont ract normally . Global LV systolic function normal . LVEF by Ramirez's method of disk assessment is normal (>60%) . Left Atrium LA size is severely enlarged (>48 ml/m2) . Right Ventricle RV chamber size appears normal by limited views . Global RV systolic function is normal . Right Atrium RA cavity size is moderately enlarged . Aortic Valve Moderate AoV cusp calcification. AoV cusp mobility is decreased . Mitral Valve Moderate mitral annular calcification. Mild MV leaflet thickening. The submitral apparatus appears thickened and calc ified . Tricuspid Valve TV is partially visualized. Unable to estimate peak systolic PA pressure; inadequate TR velocity signal. Pulmonic Valve Normal PV structure and function by limited views and Doppler. Aorta Aortic root size (SInus of Valsalva diameter) is indeterminate (not well seen) . Pericardium No pericardial effusion is visualized. IVC/SVC/PA/PV/Pleural The estimated RA pressure by IVC dynamics 0-5mmHg . Chambers/Structures Left Atrium LA Volume: 102.67 ml LA Area: 30.52 cm^2 LA Vol. Index: 55 ml/m^2 Left Ventricle LVEDV Rmairez's:68.01 ml LVESV Ramirez's:24.75 ml LVEF Ramirez's: 63.6 % LVEDVI: 36 ml/m^2 LVESVI: 13 ml/m^2 Procedure Note Interface, External Ris In - 07/09/2020 6:08 PM CDT Transthoracic Echocardiography Report (TTE) Demographics Patient Name CHRIS BOLIVAR Date of Study 07/09/2020 Gender Male Visit Number [id number] Race Unknown Room [place] [address] Number Date of 1935 Referri Physician Bienvenido Verdin MD Age 85 year(s) Sonogra nando Gomez Ply Bander Chelly Devries, Interpr eting Wendi Ordonez, [facility] Elisabeth ferrari MD Procedure Type of Study TTE procedure:LIMITED 2D ECHO CARDIOGRAM (Routine) Indications:Pericardial effusion. Clinical History HGB 14.5 HCT 42.8 % COPD HTN BRADYCARDIA LEADLESS PACEMAKER INSERTION 07/08/2020 Contrast Medium: Definity. Height: 69 inches Weight: 72.12 kg (159 lbs) BSA: 1.87 m^2 BMI: 23.48 kg/m^2 HR: 60 bpm BP: 107/58 mmHg Summary 1. LV is normal function. LVEF is almita l (>60%) . All segments contract normally. 2. Normal RV size and function. 3. No Doppler. Signature Findings Technical Quality: Technically difficult exam. Left Ventricle Parasternal long axis measurements not possible. LV endocardium is p artially visualized with IV ultrasound enhan cing agent. The left ventricle is chamber size (by vol index) is normal (male - LVED vol - 34-74ml/m2 ). All of the LV segments contract normally . Globa l LV systolic function normal . LVEF by Ramirez' s method of disk assessment is normal (>60%) . Left Atrium LA size is sever chava enlarged (>48 ml/m2) . Right Ventricle RV chamber size appears normal by limited views . Global RV systol ic function is normal . Right Atrium RA cavity size i s moderately enlarged . Aortic Valve Moderate AoV cus p calcification. AoV cusp mobilit y is decreased . Mitral Valve Moderate mitral annular calcification. Mild MV leaflet thickening. The submitral ap paratus appears thickened and calcified . Tricuspid Valve TV is partially visualized. Unable to estima te peak systolic PA pressure; inadequate TR ve locity signal. Pulmonic Valve Normal PV struct ure and function by limited views and Doppler. Aorta Aortic root size (SInus of Valsalva diameter) is indeterminate (n ot well seen) . Pericardium No pericardial e ffusion is visualized. IVC/SVC/PA/PV/Pleural The estimated RA pressure by IVC dynamics 0-5mmHg . Chambers/Structures Left Atrium LA Volume: 102.67 ml LA Area: 30.52 cm^2 LA Vol. Index: 55 ml/m^2 Left Ventricle LVEDV Ramirez's:68.01 ml LVESV Ramirez's:24.75 ml LVEF Ramirez's: 63.6 % LVEDVI: 36 ml/m^2 LVESVI: 13 ml/m^2 Performing Organization Address City/State/[facility] Phone Number [facility] XR chest 1 view portable / bedside (07/08/2020 3:10 PM CDT)Only the most recent of2 resultswithin the time period is included. Specimen Narrative Performed At FINAL REPORT [employer] INDICATION: s/p Micra leadless PPM COMPARISON: July 06, 2020 TECHNIQUE: Single frontal view of the est. FINDINGS: Lungs and pleura: Clear lungs. No effusi on. Heart and mediastinum: Normal heart size . Unremarkable mediastinal contours. Osseous structures: No acute abnormality . Other: None. IMPRESSION: No acute intrathoracic abnormality. Signed: Devi Cabral MD Report Verified Date/Time: 07/08/2020 15:21:30 Reading Location: [facility] Radiolog y Reading Room Procedure Note Interface, External Ris In - 07/08/2020 3:23 PM CDT FINAL REPORT INDICATION: s/p Micra leadless PPM COMPARISON: July 06, 2020 TECHNIQUE: Single frontal view of the est. FINDINGS: Lungs and pleura: Clear lungs. No effusi on. Heart and mediastinum: Normal heart size . Unremarkable mediastinal contours. Osseous structures: No acute abnormality . Other: None. IMPRESSION: No acute intrathoracic abnormality. Signed: Devi Cabral MD Report Verified Date/Time: 07/08/2020 1 5:21:30 Reading Location: [facility] Reading Room Performing Organization Address City/[facility] Phone Number GE RIS ABORH, manual (07/08/2020 6:32 AM CDT) Pathologist Sig nature ABO Grouping O [facility] Rh Factor POS [facility] Specimen Blood Performing Organization Address [facility] Phone Number [address] [address] Type and screen, automated (07/08/2020 6:22 AM CDT) Pathologist Sig nature ABO/RH AUTOMATED O POSITIVE [facility] Ab Scrn NEGATIVE [facility] Specimen Blood Performing Organization Address [facility] Phone Number [address] [address] aPTT (07/08/2020 5:04 AM CDT)Only the most recent of5 resultswithin the time period is included. Pathologist Sig nature PTT 69.6 (H) 22.5 - 36.0 seconds [facility] Specimen Blood Performing Organization Address City/State/Zipcode Phone Number [facility] [address] [place] [address] chest without IV contrast (07/07/2020 9:45 AM CDT) Specimen Narrative Performed At FINAL REPORT [employer] TECHNIQUE: HRCT of the chest WITHOUT int ravenous contrast. Dose modulation, iterative reconstruction, an d/or weight-based adjustment of the mA/kV was utilized to reduce the radiation dose to as low as reasonably achievable. INDICATION: Interstitial lung disease. R ight upper lobe lung lesion. COMPARISON: None. FINDINGS: ABSENCE OF INTRAVENOUS CONTRAST DECREASE S SENSITIVITY FOR DETECTION OF FOCAL LESIONS AND VASCULAR PATHOLOGY. LINES/TUBES: None. LUNGS AND AIRWAYS: Mild retained secreti ons within the trachea. There is mild bibasilar bronchiectasis. Centra l airways are otherwise patent. There is mild diffuse bronchial wall thickening. Irregular-shaped nodular opacity in the left lower lobe adjacent to the left hemidiaphragm measuring 6 mm. ( See axial image 41). There is an 8 mm irregular nodular opacity within the posterior left upper lobe with surrounding groundglass opacit y. (See axial image 12). PLEURA: Bilateral pleural calcifications . There are anterior pleural calcifications of the right hemithorax w hich corresponds to the nodular density described on recent ches t x-ray.. There is a trace right-sided pleural effusion. There are mild subpleural reticular opacities and the lung bases. HEART AND MEDIASTINUM: The visualized th yroid gland is normal. No significant mediastinal, hilar, or axill pako lymphadenopathy. The heart is not enlarged. There is a small pericardial effusion. There is mitral annular calcification. Reevalu ate calcifications are also noted. Atherosclerotic calcifications in the thoracic aorta and coronary arteries... SOFT TISSUES AND BONES: There are a few bilateral healed anterior fracture deformities. Degenerative brown es noted throughout the thoracic spine. No suspicious osseous le omkar.. UPPER ABDOMEN: Unremarkable. 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 The pleural calcifications in the anterior right hemithorax correspond to the nodular density descri bed on recent chest x-ray. Minimal bibasilar subpleural reticular o pacities and bronchiectasis concerning for mild pulmonary fibrosis. Irregular nodular opacity within the pos terior left upper lobe with surrounding groundglass opacity. There i s also a nodular opacity in the left lower lobe. 2017 Fleischner Society Recommendations for Multiple Solid Lung Nodules Follow-Up base on size (average of long- and short-axis diameters). Use most suspicious nodule f or followup. Nodule Size (mm) >8 Low-Risk Patient: CT at 3-6 months, then consider CT at 18-24 months Nodule Size (mm) >8 High-Risk Patient: C T at 3-6 months, then at 18-24 months Signed: James Arreola MD Report Verified Date/Time: 07/07/2020 09:59:03 Reading Location: [facility] [employer] Reading Room - [place] [address] Procedure Note Interface, External Ris In - 07/07/2020 10:01 AM CDT FINAL REPORT TECHNIQUE: HRCT of the chest WITHOUT int ravenous contrast. Dose modulation, iterative reconstruction, an d/or weight-based adjustment of the mA/kV was utilized to reduce the radiation dose to as low as reasonably achievable. INDICATION: Interstitial lung disease. R ight upper lobe lung lesion. COMPARISON: None. FINDINGS: ABSENCE OF INTRAVENOUS CONTRAST DECREASE S SENSITIVITY FOR DETECTION OF FOCAL LESIONS AND VASCULAR PATHOLOGY. LINES/TUBES: None. LUNGS AND AIRWAYS: Mild retained secreti ons within the trachea. There is mild bibasilar bronchiectasis. Centra l airways are otherwise patent. There is mild diffuse bronchial wall thickening. Irregular-shaped nodular opacity in the left lower lobe adjacent to the left hemidiaphragm measuring 6 mm. ( See axial image 41). There is an 8 mm irregular nodular opacity within the posterior left upper lobe with surrounding groundglass opacit y. (See axial image 12). PLEURA: Bilateral pleural calcifications . There are anterior pleural calcifications of the right hemithorax w hich corresponds to the nodular density described on recent ches t x-ray.. There is a trace right-sided pleural effusion. There are mild subpleural reticular opacities and the lung bases. HEART AND MEDIASTINUM: The visualized th yroid gland is normal. No significant mediastinal, hilar, or axill pako lymphadenopathy. The heart is not enlarged. There is a small pericardial effusion. There is mitral annular calcification. Reevalu ate calcifications are also noted. Atherosclerotic calcifications in the thoracic aorta and coronary arteries... SOFT TISSUES AND BONES: There are a few bilateral healed anterior fracture deformities. Degenerative brown es noted throughout the thoracic spine. No suspicious osseous le omkar.. UPPER ABDOMEN: Unremarkable. 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 The pleural calcifications in the anterior right hemithorax correspond to the nodular density descri bed on recent chest x-ray. Minimal bibasilar subpleural reticular o pacities and bronchiectasis concerning for mild pulmonary fibrosis. Irregular nodular opacity within the pos terior left upper lobe with surrounding groundglass opacity. There i s also a nodular opacity in the left lower lobe. 2017 Fleischner Society Recommendations for Multiple Solid Lung Nodules Follow-Up base on size (average of long- and short-axis diameters). Use most suspicious nodule f or followup. Nodule Size (mm) >8 Low-Risk Patient: CT at 3-6 months, then consider CT at 18-24 months Nodule Size (mm) >8 High-Risk Patient: C T at 3-6 months, then at 18-24 months Signed: James Arreola MD Report Verified Date/Time: 07/07/2020 0 9:59:03 Reading Location: [facility] Reading Room - [place] [address] Performing Organization Address City/State/Zipcode Phone Number GE RIS Vitamin B12 and Folate (07/07/2020 4:40 AM CDT) Pathologist Sig nature Vitamin B12 351 213 - 816 pg/mL [facility] Folate 10.70 >=7.00 ng/mL [facility] Specimen Blood Narrative Performed At Baker Apprentice MATT - JENAE Guerra [facility] Performing Organization Address City/State/Zipcode Phone Number [facility] [address] [place] [address] CENTER TSH/Free T4 If Indicated (07/07/2020 4:40 AM CDT)Only the most recent of2 resultswithin the time period is included. Pathologist Sig nature TSH 1.960 0.350 - 4.940 uIU/mL [facility] Specimen Blood Narrative Performed At [facility] [employer] ID - JENAE Guerra [facility] Performing Organization Address City/[facility]/Zipcode Phone Number [facility] [address] [place] [address] CENTER Iron, TIBC, % sat. (without ferritin) (07/07/2020 4:40 AM CDT) Pathologist Sig nature Iron 102.0 40.0 - 160.0 [facility] ug/dL [facility] TIBC 228 (L) 250 - 450 ug/dL [facility] Iron % Saturation 45 20 - 55 % [facility] Specimen Blood Narrative Performed At [facility] Apprentice ID - JENAE Guerra [facility] Performing Organization Address City/[facility] Phone Number [facility] [address] [place] [address] [place] / lambda light chains, serum (07/07/2020 4:40 AM CDT) [place] Lt 38.1 (H) 3.3 - 19.4 [facility] Chain,Free mg/L [facility] Lambda Lt 19.6 5.7 - 26.3 [facility] Chain,Free mg/L [facility] [place]/Lambda,Fr 1.94 (H) 0.26 - 1.65 [facility] ee Comment: INC[facility]PORATED Free kappa/lambda ratio in serum of normal individuals is 0.26-1.65. Excess production of free kappa or lambda chains can alter th is ratio. Monoclonal free light chains are found in serum of patients with multiple myeloma, Waldenstrom's macroglobulinemia, mu-heavy chain disease, primary amyloidosis, light chain deposition disease, monoclonal gammopathy of undetermined significance, and lymphoproliferative disorders. Measu rement of free light chain concentration in serum is useful for diagnosis, prognosis, monitoring disease activity and following response to therapy of these disorders. Specimen Blood Narrative Performed At Performing Lab [facility] [place] [address] [place] [address] Richardson Edward MD, PhD, AURA Performing Organization Address City/[facility] Phone Number [place] [address] INCORPORATED [address] [facility] Angiotensin Converting Enzyme (RADHA) (07/07/2020 4:40 AM CDT) Pathologist Sig nature RADHA, Serum 21 9 - 67 U/L [facility] D Specimen Blood Narrative Performed At Performing Lab [facility] EZ [facility] te [address] [place] [address] Richardson Edward MD, PhD, AURA Performing Organization Address [facility] Phone Number [facility] [place] [address] INCORPORATED [address] [facility] Immunofixation electrophoresis (JOHNSON) (07/07/2020 4:40 AM CDT) IgG 1,276 540-1,822 [facility] mg/dL [facility] IgA 260 63 - 484 [facility] mg/dL [facility] IgM 175 22 - 293 [facility] mg/dL [facility] Serum JOHNSON IgM-lambda, [facility] Identification monoclonal (Note: the [facility] immunoglobulin present is polyclonal in distribution; the monoclonal protein is of very small concentration) Pathologist: MARYBETH Mccormick MD (electronic [facility]) MEDICAL CENTER Specimen Blood Narrative Performed At Baker Apprentice ID - NTP [facility] Performing Organization Address City/[facility]/Zipcode Phone Number [facility] [address] [place] [address] CENTER Protein electrophoresis, serum (07/07/2020 4:40 AM CDT) Albumin Fraction 3.2 (L) 3.5 - 5.5 [facility] g/dL [facility] Alpha 1 Fraction 0.2 0.2 - 0.4 [facility] g/dL [facility] Alpha 2 Fraction 0.9 0.5 - 0.9 [facility] g/dL [facility] Beta Fraction 0.8 0.6 - 1.1 [facility] g/dL [facility] Gamma Globulin 1.4 0.7 - 1.7 [facility] Fraction g/dL [facility] Interpretation Small restriction in [facility] mid-gamma region; [facility] concentration is [facility] insufficient to quantitate. Serum JOHNSON reported separately. Pathologist: MARYBETH Mccormick MD (electronic [facility] signature) MEDICAL [place] Protein, Total 6.4 6.0 - 8.3 [facility] gm/dL [facility] Specimen Blood Narrative Performed At [employer] Apprentice MATT Guerra [facility] Performing Organization Address City/State/Zipcode Phone Number [address] [address] [place] Hemoglobin A1c (07/07/2020 4:40 AM CDT) Pathologist Sig nature Hemoglobin A1C 5.3 4.3 - 6.1 % [facility] Specimen Blood Performing Organization Address City/State/Zipcode Phone Number [address] [address] [place] Lipid panel (07/07/2020 4:40 AM CDT) Pathologist Sig nature Triglycerides 27 mg/dL [facility] DICAL [place] Cholesterol 123 mg/dL [facility] ICAL [place] HDL 51 mg/dL [facility] [place] LDL Calculated 67 mg/dL [facility] Specimen Blood Narrative Performed At Triglyceride Reference Range: [facility] Low Risk <150 Borderline 150-199 High Risk 200-499 Very High Risk >=500 Cholesterol Reference Range: Low Risk <200 Borderline 200-239 High Risk >240 HDL Cholesterol Reference Range: Low Risk >=60 High Risk <40 LDL Cholesterol Reference Range: Optimal <100 Near Optimal 100-129 Borderline 130-159 High 160-189 Very High >=190 Baker Apprentice MATT Guerra Performing Organization Address City/State/Zipcode Phone Number [facility] [address] [place] [address] CENTER Carotid doppler bilateral (07/06/2020 10:24 PM CDT) [facility] Sig nature Ejection Fraction [facility] ECHO HEARTLAB MKCK ESSON CPACS Specimen Impressions Performed At Right Impression [facility]CHO [facility] 1. There is 50-69% diameter reduction in the internal carotid artery with a peak velocity of 168/28cm/sec and heterogeneous shadowing plaque. 2. There is non-occluding plaque in the external carotid artery. 3. There is non-occluding plaque in the common carotid artery. 4. The vertebral artery flow is antegrad e . 5. The subclavian artery is within normal limits where visualized. Left Impression 1. There is <50% diameter reduction in the internal carotid artery with a peak velocity of 62/12cm/sec and heterogeneous shadowing plaque. 2. There is non-occluding plaque in the external carotid artery. 3. There is non-occluding plaque in the common carotid artery. 4. The vertebral artery flow is antegrad e . 5. The subclavian artery is within normal limits where visualized. Conclusions Summary Carotid duplex scanning and color flow imaging were performed bilaterally. The arteries were adequately visualized. The right internal carotid artery had 50-69% hemodynamically significant stenosis with heterogeneous shadowing plaque. The left internal carotid artery had <50% hemodynamically insignificant stenosis with heterogeneous shadowing plaque. The vertebral artery flow was antegrade and normal bilaterally. The subclavian arteries were patent with normal flow bilaterally where visualized. Signature Velocities are measured in cm/s ; Diameters are measured in cm Carotid Right Measurements + +----+----+-----+ +---- + + !Location !PSV !EDV !Angle!%Stenosis 2D!%Stenosis Doppler!Tortuosity ! + +----+----+-----+ +---- + + !Prox CCA !88.8!13.7!60 ! ! ! ! + +----+----+-----+ +---- + + !Dist CCA !64 !8.7 !60 ! ! ! ! + +----+----+-----+ +---- + + !Prox ICA !168 !28.1!60 ! !>50% !Severe ! + +----+----+-----+ +---- + + !Dist ICA !114 !19.4!60 ! ! ! ! + +----+----+-----+ +---- + + !Vertebral !41.7! !60 ! ! ! ! + +----+----+-----+ +---- + + !Prox Subclavian!108 ! !60 ! ! ! ! + +----+----+-----+ +---- + + - There is antegrade vertebral flow noted on the right side. - Additional Measurements:ICAPSV/CCAPSV 2.62.ICAEDV/CCAEDV 2.05. Carotid Left Measurements + +----+----+-----+ +---- + + !Location !PSV !EDV !Angle!%Stenosis 2D!%Stenosis Doppler!Tortuosity ! + +----+----+-----+ +---- + + !Prox CCA !102 ! !60 ! ! ! ! + +----+----+-----+ +---- + + !Dist CCA !80.6!10.5!60 ! ! ! ! + +----+----+-----+ +---- + + !Prox ICA !62.3!12.1!18 ! !<50% !Severe ! + +----+----+-----+ +---- + + !Dist ICA !71.5!15.6!18 ! ! ! ! + +----+----+-----+ +---- + + !Prox ECA !48.3!8.41!0 ! ! ! ! + +----+----+-----+ +---- + + !Vertebral !42.8!12.8!60 ! ! ! ! + +----+----+-----+ +---- + + !Prox Subclavian!80.6! !60 ! ! ! ! + +----+----+-----+ +---- + + - There is antegrade vertebral flow noted on the left side. - Additional Measurements:ICAPSV/CCAP SV 0.89. Narrative Performed At LAB - Carotid Duplex Study [facility] ECHO HEARTLAB [facility] Demographics Patient Name CHRIS BOLIVAR Date of Study 07/06/2020 Age 85 Visit Number [id number] Gender Male Accession Number [id number] Date of 1935 Referring Nadine Dye MD Room Number 6105 Physician Marnie Kaba Electrical Calibrator Skye Frank Interpreting Amanuel Blanco MD RVT Physician Procedure Type of Study: Cerebral: Carotid, CAROTID DOPPLER, SHAJI ATERAL. Indications for Study:Stroke. Patient Status:Routine. Study Location:Portable. Technical Quality:Adequate visualization . Risk Factors History of Disease + -----+ +--------+ !Diagnosis !Date !Comments! + -----+ +--------+ !History/Risk Factors: !07/06/2020!stroke ! + -----+ +--------+ Procedure Note Interface, External Ris In - 07/07/2020 8:25 AM CDT PV LAB - Carotid Duplex Study Demographics Patient Name CHRIS BOLIVAR te of Study 07/06/2020 Ag e 85 Visit Number [id number] Ge nder Male Accession Number [id number] Da te of 1935 Referring Nadine Dye MD Ro om Number [id number] Physician Marnie Mccoy MD Electrical Calibrator Skye Frank In terpreting Amanuel Blanco MD RVT Ph ysician Procedure Type of Study: Cerebral: Carotid, CAROTID DOPPLER, SHAJI ATERAL. Indications for Study:Stroke. Patient Status:Routine. Study Location:Portable. Technical Quality:Adequate visualization . Risk Factors History of Disease + + +--------+ !Diagnosis !Date !Comments! + + +--------+ !History/Risk Factors: !07/06/2020!stroke ! + + +--------+ Impressions Right Impression 1. There is 50-69% diameter reduction in the internal carotid artery with a peak velocity of 168/28cm/sec and hetero geneous shadowing plaque. 2. There is non-occluding plaque in the external carotid artery. 3. There is non-occluding plaque in the common carotid artery. 4. The vertebral artery flow is antegrad e . 5. The subclavian artery is within almita l limits where visualized. Left Impression 1. There is <50% diameter reduction in t he internal carotid artery with a peak velocity of 62/12cm/sec and heterog eneous shadowing plaque. 2. There is non-occluding plaque in the external carotid artery. 3. There is non-occluding plaque in the common carotid artery. 4. The vertebral artery flow is antegrad e . 5. The subclavian artery is within almita l limits where visualized. Conclusions Summary Carotid duplex scanning and color flow imaging were performed bilaterally. The arteries were adequately visualized . The right internal carotid artery had 50-69% hemodynamically significant stenosis with heterogeneous shadowing plaque. The left internal car otid artery had <50% hemodynamically insignificant stenosis with heterogeneous shadowing plaque. The vertebral artery flow was a ntegrade and normal bilaterally. The subclavian arteries were patent wit h normal flow bilaterally where visualized. Signature Velocities are measured in cm/s ; Diamet ers are measured in cm Carotid Right Measurements + +----+----+-----+------- -----+ + + !Location !PSV !EDV !Angle!%Stenos is 2D!%Stenosis Doppler!Tortuosity ! + +----+----+-----+------- -----+ + + !Prox CCA !88.8!13.7!60 ! ! ! ! + +----+----+-----+------- -----+ + + !Dist CCA !64 !8.7 !60 ! ! ! ! + +----+----+-----+------- -----+ + + !Prox ICA !168 !28.1!60 ! !>50% !Severe ! + +----+----+-----+------- -----+ + + !Dist ICA !114 !19.4!60 ! ! ! ! + +----+----+-----+------- -----+ + + !Vertebral !41.7! !60 ! ! ! ! + +----+----+-----+------- -----+ + + !Prox Subclavian!108 ! !60 ! ! ! ! + +----+----+-----+------- -----+ + + - There is antegrade vertebral flow no hans on the right side. - Additional Measurements:ICAPSV/CCAPS V 2.62.ICAEDV/CCAEDV 2.05. Carotid Left Measurements + +----+----+-----+------- -----+ + + !Location !PSV !EDV !Angle!%Stenos is 2D!%Stenosis Doppler!Tortuosity ! + +----+----+-----+------- -----+ + + !Prox CCA !102 ! !60 ! ! ! ! + +----+----+-----+------- -----+ + + !Dist CCA !80.6!10.5!60 ! ! ! ! + +----+----+-----+------- -----+ + + !Prox ICA !62.3!12.1!18 ! !<50% !Severe ! + +----+----+-----+------- -----+ + + !Dist ICA !71.5!15.6!18 ! ! ! ! + +----+----+-----+------- -----+ + + !Prox ECA !48.3!8.41!0 ! ! ! ! + +----+----+-----+------- -----+ + + !Vertebral !42.8!12.8!60 ! ! ! ! + +----+----+-----+------- -----+ + + !Prox Subclavian!80.6! !60 ! ! ! ! + +----+----+-----+------- -----+ + + - There is antegrade vertebral flow no hans on the left side. - Additional Measurements:ICAPSV/CCAPS V 0.89. Performing Organization Address City/State/Zipcode Phone Number [facility] Areshay POC-Glucose meter (07/06/2020 4:32 PM CDT)Only the most recent of3 results within the time period is included. POC-Glucose Meter 83Comment: : 70 - 110 mg/dL [facility] TESTED AT [address], [facility]: Baker Apprentice/Technic bud ID = [id number] for KARYN SEBASTIAN Specimen Blood Performing Organization Address City/[facility] Phone Number [place] [phone] [place] 2D Echo W/Doppler(CW/PW/Color) (07/06/2020 9:17 AM CDT) Pathologist Sig nature Ejection Fraction [facility] Military [employer] [facility] Specimen Narrative Performed At Transthoracic Echocardiography Report (T TE) [facility] [employer] [facility] Demographics Patient Name CHRIS BOLIVAR Date of Study 07/06/2020 Gender Male Visit Number [id number] Race Unknown Room Number 6105 Number Date of 1935 Referring Physician Mert Martinez Age 85 year(s) Electrical Calibrator Sumi Ty CS Ply Bander Chelly Devries, Interpreting Jung chavarria MD RDCS Physician Procedure Type of Study TTE procedure:2DECHO W DOPPLER(CW/PW/COLOR) (JUSTINO) Indications:Shortness of breath. Clinical History Bradycardia, Former smoker, COPD, HTN HGB 15.1 HCT 44.5 % Contrast Medium: Definity. Amount - 2 ml Height: 69 inches Weight: 73.03 kg (161 lbs) BSA: 1.88 m^2 BMI: 23.78 kg/m^2 HR: 38 bpm BP: 136/61 mmHg Summary The left ventricle is chamber size (by vol index) is normal (male - LVED vol - 34-74ml/m2). Mild concentric LV hypertrophy. All of the LV segments are hyperkinetic . LVEF by Ramirez's method of disk assessment is increased (>70%) . Degree of diastolic dysfunction (LAP assessment) is inconclusive due to arrhythmia . Moderate aortic stenosis. AoV area at rest by continuity equation is in the range of 1.2 cm2. AoV dimensionless obstructive index (DOI)) is 0.37 .Peak Grad; 27 mmHg ,Mean Grad; 14 mmHg . Mild to moderate tricuspid regurgitatio n. Estimated peak systolic PA pressure is 45-50 mmHg (mild pulmonary hypertension) . Previous Study No prior studies available for comparis on. Signature Findings Technical Quality: Technically difficult exam. Left Ventricle LV endocardium is adequately visualized with IV ultrasound enhancing agent. The left ventricle is chamber size (by vol index) is normal (male - LVED vol - 34-74ml/m2). Mild concentric LV hypertro phy. All of the LV segments are hyperkinetic . Global LV systolic function hyperdynamic . LVEF by Ramirez' s method of disk assessment is increased (>70%) . Degree of diastolic dysfunction (LAP assessment) i s inconclusive due to arrhythmia . Left Atrium LA size is severely enlarged (>48 ml/m2) . Right Ventricle RV chamber size appears normal by limited views . Global RV systolic function is normal . Right Atrium RA cavity size is moderately enlarged . Aortic Valve Moderate AoV cusp calcification. AoV cusp mobility is decreased . A trace of aortic regurgitation. Moderate aortic stenosis. AoV area at rest by continuity equation is in the range of 1.2 cm2. AoV dimensionless obstructive index (DOI)) i s 0.37 .Peak Grad; 27 mmHg ,Mean Grad; 14 mmHg . Mitral Valve Moderate mitral annular calcification. Mild MV leaflet thickening. The submitral apparatus appears thickened and calc ified . Trace mitral regurgitation. Tricuspid Valve Mild to moderate tricuspid regurgitation. Estimated peak systolic PA pressure is 45-50 mmHg (mild pulmonary hypertension) . Pulmonic Valve Normal PV structure and function by limited views and Doppler. Aorta Aortic root size (SInus of Valsalva diameter) is indeterminate (not well seen) . Pericardium No pericardial effusion is visualized. IVC/SVC/PA/PV/Pleural The estimated RA pressure by IVC dynamics 0-5mmHg . Chambers/Structures Left Atrium LA Volume: 126.95 ml LA Area: 33.82 cm^2 LA Vol. Index: 68 ml/m^2 Left Ventricle LVIDd: 4.53 cm LVIDs: 2.84 cm LV Septum Diastolic: 1.2 cm LV PW Diastolic: 1.29 cm LV FS: 37.3 % LVEDV Ramirez's:99.64 ml LVESV Ramirez's:25.53 ml LVEDVI: 53 ml/m^2 LVEF Ramirez's: 74.4 % LVESVI: 14 ml/m^2 LVOT Diameter: 2 cm Right Ventricle RVOT VTI: 15.09 cm Doppler/Quantitative Measurements Mitral Valve Mean Velocity: 0.86 m/s Mean Gradient: 3.93 mmHg Area (continuity): 1.66 cm^2 MV VTI: 45.12 cm MV Todd. Peak: 1.76 m/s Aortic Valve Peak Velocity: 2.61 m/s Mean Velocity: 1.77 m/s Peak Gradient: 27.2 mmHg Mean Gradient: 14.45 mmHg AV Area (continuity): 1.16 cm^2 Area (2D): 1.45 cm^2 AV VTI: 64.85 cm AV DVI: 0.37 LVOT Peak Velocity: 0.8 m/s Peak Gradient: 2.57 mmHg Mean Velocity: 0.55 m/s Mean Gradient: 1.39 mmHg LVOT Diameter: 2 cm LVOT VTI: 23.87 cm LVOT Area: 3.14 cm^2 LVOT SV:74.95 ml LVOT CO: 2.85 l/min LVOT CI: 1.52 l/min/m^2 Tricuspid Valve TR Velocity: 3.27 m/s TR Gradient: 42.84 mmHg Procedure Note Interface, External Ris In - 07/07/2020 9:40 AM CDT Transthoracic Echocardiography Report (TTE) Demographics Patient Name CHRIS BOLIVAR Date of Study 07/06/2020 Gender Male Visit Number [id number] Race Unknown Room [facility] 6105 Number Date of 1935 Referri Physician Mert Martinez Age 85 year(s) Sonogra pher Sumi Ty [facility] Ply Bander Chelly Devries, Interpr eting Jung Hong MD [facility] Physici an Procedure Type of Study TTE procedure:2DECHO W DOPPLE R(CW/PW/COLOR) (JUSTINO) Indications:Shortness of breath. Clinical History Bradycardia, Former smoker, COPD, HTN HGB 15.1 HCT 44.5 % Contrast Medium: Definity. Amount - 2 ml Height: 69 inches Weight: 73.03 kg (161 lbs) BSA: 1.88 m^2 BMI: 23.78 kg/m^2 HR: 38 bpm BP: 136/61 mmHg Summary The left ventricle is chamber size (by vol index) is normal (male - LVED vol - 34-74ml/m2). Mild concentric LV h ypertrophy. All of the LV segments are hyperkinetic . LVEF by Ramirez's me thod of disk assessment is increased (>70%) . Degree of diastolic dysfunction (LAP as sessment) is inconclusive due to arrhythmia . Moderate aortic stenosis. AoV area at r est by continuity equation is in the range of 1.2 cm2. AoV dimensionless obstructive index (DOI)) is 0.37 .Peak Grad; 27 mmHg ,Mean Grad; 14 mmHg . Mild to moderate tricuspid regurgitatio n. Estimated peak systolic PA pressure is 45-50 mmHg (mild pulmonary hypertension) . Previous Study No prior studies available for comparis on. Signature Findings Technical Quality: Technically difficult exam. Left Ventricle LV endocardium i s adequately visualized with IV ultrasound enhan cing agent. The left ventricle is chamber size (by vol index) is normal (male - LVED vol - 34-74ml/m2 ). Mild concentric LV hypertrophy. All of the LV se gments are hyperkinetic . Global LV systolic functio n hyperdynamic . LVEF by Ramirez's method of disk a ssessment is increased (>70%) . Degree of diasto lic dysfunction (LAP assessment) is inconclusive due to arrhythmia . Left Atrium LA size is sever chava enlarged (>48 ml/m2) . Right Ventricle RV chamber size appears normal by limited views . Global RV systol ic function is normal . Right Atrium RA cavity size i s moderately enlarged . Aortic Valve Moderate AoV cus p calcification. AoV cusp mobilit y is decreased . A trace of aorti c regurgitation. Moderate aortic stenosis. AoV area at rest by continuity equation is in the range of 1.2 cm2 . AoV dimensionles s obstructive index (DOI)) is 0.37 .Peak Grad; 27 m mHg ,Mean Grad; 14 mmHg . Mitral Valve Moderate mitral annular calcification. Mild MV leaflet thickening. The submitral ap paratus appears thickened and calcified . Trace mitral reg urgitation. Tricuspid Valve Mild to moderate tricuspid regurgitation. Estimated peak s ystolic PA pressure is 45-50 mmHg (mild pulmonary hypertension) . Pulmonic Valve Normal PV struct ure and function by limited views and Doppler. Aorta Aortic root size (SInus of Valsalva diameter) is indeterminate (n ot well seen) . Pericardium No pericardial e ffusion is visualized. IVC/SVC/PA/PV/Pleural The estimated RA pressure by IVC dynamics 0-5mmHg . Chambers/Structures Left Atrium LA Volume: 126.95 ml LA Area: 33.82 cm^2 LA Vol. Index: 68 ml/m^2 Left Ventricle LVIDd: 4.53 cm LVIDs: 2.84 cm LV Septum Diastolic: 1.2 cm LV PW Diastolic: 1.29 cm LV FS: 37.3 % LVEDV Ramirez's:99.64 ml LVESV Ramirez's:25.53 ml LVEDVI: 53 ml/m^2 LVEF Ramirez's: 74.4 % LVESVI: 14 ml/m^2 LVOT Diameter: 2 cm Right Ventricle RVOT VTI: 15.09 cm Doppler/Quantitative Measurements Mitral Valve Mean Velocity: 0.86 m/s Mean Gradient: 3.93 mmHg Area (continuity): 1.66 cm^2 MV V TI: 45.12 cm MV Todd. Peak: 1.76 m/s Aortic Valve Peak Velocity: 2.61 m/s Mean Velocity: 1.77 m/s Peak Gradient: 27.2 mmHg Mean Gradient: 14.45 mmHg AV Area (continuity): 1.16 cm^2 Area (2D): 1.45 cm^2 AV VTI: 64.85 cm AV DVI: 0.37 LVOT Peak Velocity: 0.8 m/s Pea k Gradient: 2.57 mmHg Mean Velocity: 0.55 m/s Abigail n Gradient: 1.39 mmHg LVOT Diameter: 2 cm LVO T VTI: 23.87 cm LVOT Area: 3.14 cm^2 LVO T SV:74.95 ml LVOT CO: 2.85 l/min LVO T CI: 1.52 l/min/m^2 Tricuspid Valve TR Velocity: 3.27 m/s TR Gradient: 42.84 mmHg Performing Organization Address City/State/[facility] Hospital[facility] Phone Number [facility] ECHO HEARTLAB [facility] CT brain without IV contrast (07/06/2020 3:25 AM CDT) Specimen Narrative Performed At FINAL REPORT [facility] CT Head without contrast CLINICAL HISTORY: Altered mental status BRADYCARDIA TECHNIQUE: Contiguous axial images throu gh the head without contrast. This exam was performed according to the departmental dose optimization program which includes auto mated exposure control, adjustment of the mA and/or kV according to the patient size, and/or use of an iterative reconstruction techn ique. COMPARISON: None FINDINGS: Age indeterminate lucency within the lef t frontal parietal lobe. There is periventricular and subcortical white matter hypodensity which is nonspecific but compatible with chronic microvascular ischemic change. There are atherosclerot ic calcifications of the intracranial circulation. There is gener alized parenchymal volume loss without hydrocephalus, midline shif t, or apparent mass effect. No acute intracranial hemorrhage. Basila r cisterns are patent. There are no extra-axial fluid collections. Th e skull is intact. Air-fluid level in the right maxillary sinus, alfonso elate for signs acute sinusitis. Mastoid air cells are clear. Intraorbital contents are unremarkable. IMPRESSION: Age-indeterminate infarction within the left frontal parietal lobe, recommend further evaluation with MRI br ain to exclude acute infarction. Air-fluid level in the right maxillary s inus. Correlate for signs acute sinusitis. Signed: Darlin Edmond MD Report Verified Date/Time: 07/06/2020 03:30:21 Procedure Note Interface, External Ris In - 07/06/2020 3:33 AM CDT FINAL REPORT CT Head without contrast CLINICAL HISTORY: Altered mental status BRADYCARDIA TECHNIQUE: Contiguous axial images throu gh the head without contrast. This exam was performed according to the departmental dose optimization program which includes auto mated exposure control, adjustment of the mA and/or kV according to the patient size, and/or use of an iterative reconstruction techn ique. COMPARISON: None FINDINGS: Age indeterminate lucency within the lef t frontal parietal lobe. There is periventricular and subcortical white matter hypodensity which is nonspecific but compatible with chronic microvascular ischemic change. There are atherosclerot ic calcifications of the intracranial circulation. There is gener alized parenchymal volume loss without hydrocephalus, midline shif t, or apparent mass effect. No acute intracranial hemorrhage. Basila r cisterns are patent. There are no extra-axial fluid collections. Th e skull is intact. Air-fluid level in the right maxillary sinus, alfonso elate for signs acute sinusitis. Mastoid air cells are clear. Intraorbital contents are unremarkable. IMPRESSION: Age-indeterminate infarction within the left frontal parietal lobe, recommend further evaluation with MRI br ain to exclude acute infarction. Air-fluid level in the right maxillary s inus. Correlate for signs acute sinusitis. Signed: Darlin Edmond MD Report Verified Date/Time: 07/06/2020 0 3:30:21 Performing Organization Address City/State/Zipcode Phone Number [facility] Troponin I (07/06/2020 2:09 AM CDT) Pathologist Sig nature Troponin I <0.01 0.00 - 0.03 ng/mL [facility] Specimen Blood Narrative Performed At Troponin I (TnI) levels must be interpreted [facility] in the context of the presenting symptoms and the clinical findings. Elevated TnI levels indicate myocardial damage, but are not specific for ischemic heart disease. Elevated TnI levels are seen in patients with other cardiac conditions (including myocarditis and congestive heart failure), and slight TnI elevations occur in patients with other conditions, including sepsis, renal failure, acidosis, acute neurological disease, and persistent tachyarrhythmia. Baker Apprentice ID - [id number] Performing Organization Address City/State/Zipcode Phone Number [facility] [address] [place] [phone] CENTER PT/INR (07/06/2020 2:09 AM CDT) Pathologist Sig nature Protime 13.7 11.9 - 14.2 seconds [facility] INR 1.08 <=5.90 [facility] Specimen Blood Narrative Performed At Effective 04/11/2019: PT Reference Range [facility] Change New: 11.9-14.2 Previous: 11.7-14.7 RECOMMENDED COUMADIN/WARFARIN INR THERAPY RANGES STANDARD DOSE: 2.0-3.0 Includes: PROPHYLAXIS for venous thrombosis, systemic embolization; TREATMENT for venous thrombosis and/or pulmonary embolus. HIGH RISK: Target INR is 2.5-3.5 for patients wiht mechanical heart valves. Performing Organization Address City/State/Zipcode Phone Number [facility] [address] [place] [address] CENTER after 09/22/2019 Insurance Payer Benefit Plan / Subscriber ID Effective Phone Address T ype Group Dates MEDICARE MEDICARE A B [id number] 2001-Prese Medicare nt MCR GENERIC MEDICARE [id number] 2020-Prese Medigap SUPPLEMENT/IND SUPPLEMENT nt IVIDUAL CDC REVIEW CDC REVIEW [id number] 2020-[place] [place] [address] [id number]) [place] [id number] Advance Directives For more information, please contact: [phone] Code Status Date Activated Date Inactivated Comments Full Code 07/11/2020 2:32 AM 07/11/2020 6:09 PM This code status was determined by: Patient Full Code 07/06/2020 4:52 AM 07/10/2020 11:35 AM This code status was determined by: Patient
--- OUTSIDE RECORDS SUMMARY | 2020-09-22 11:19 | XMS REPORT | Continuity of Care Document ---
:1935 Author Organization [facility] t Address [facility] [place] [address] Care Team Providers Name Role Phone Pcp Primary Care Physician Unavailable Elver MAGALLANES M Attending Clinician Unavailable Joshua Dye MD Attending Clinician JOSHUA DYE Attending Clinician Unavailable Александр RN, Y Attending Clinician Unavailable Nicolas FREEMAN, Suellen Attending Clinician Gloria Valenzuela MD Attending Clinician Eduardo FREEMAN Attending Clinician Lata FREEMAN, Shree Siu Attending Clinician GLORIA VALENZUELA Attending Clinician Unavailable Jaime Duron MD Attending Clinician Bienvenido FREEMAN, Jung Attending Clinician Kingsley FREEMAN, Elian Attending Clinician Anibalxnaiame [employer], RPSGT, G Attending Clinician Unavailable Jaime DURON Attending Clinician Unavailable EDUARDO Admitting Clinician Unavailable JOSHUA DYE Admitting Clinician Unavailable Payers Payer Name Policy Type Policy Effective Date Expiration Date Sour ce Number MEDICAREMEDICARE A [id number] 2001 MARYBETH Palacios [id number] 2000-P 00:00:00 - Medical resentMedicare Center MCR [id number] 2020 MARYBETH Diaz SUPPLEMENT/INDIVIDUALG 00:00:00 - Medical ENERIC MEDICARE Center [id number]/-PresentMedigap CDC REVIEWCDC [id number] 2020 MARYBETH Baldwin [id number]/ 00:00:00 - [place] [address] Problems Condition Condition Condition Status Onset Resolution Last Treating Co mments Source Name Details Category Date Date Treatment Clinician Date Diastolic Diastolic Disease Active [facility]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 07-22 Ryann kes - n n 00:00: Medical 00 [place] Paroxysmal Paroxysmal Disease Active [facility] atrial atrial 07-22 [facility] fibrillati fibrillati 00:00: Me dical on on [place] Chronic Chronic Disease Active [facility] anticoagul anticoagul 07-22 Ryann kes - ation ation 00:00: Medical 00 [place] LUMA (acute LUMA (acute Disease Active [facility] kidney kidney 07-11 [facility] - injury) injury) 00:00: Medical 00 [place] Bradycardi Bradycardi Disease Active [facility] a a 07-06 [facility] - 00:00: Medical 00 [place] Allergies, Adverse Reactions, Alerts Allergy Allergy Status Severity Reaction(s) Onset Inactive Treating Comm ents Source Name Type Date Date Clinician Olivia Temple Active Itching [facility] ty to 07-06 [facility] - adverse 00:00: Medical reaction 00 [place] s Social History Social Habit Start Date Stop Date Quantity Comments Source History SDDC [facility] - Alcohol Std Drinks [facility] History SDDC [facility] - Alcohol Binge Medical Charisse ter Sex Assigned At [facility] Alcohol intake 2020-07-09 2020-07-09 [facility] non-drinker of Medical Ce nter alcohol (finding) History SDDC 2020-07-06 2020-07-[address] [facility] - Alcohol Frequency 00:00:00 00:00:00 [facility] Smoking Status Start Date Stop Date Source Former smoker 2020-07-09 00:00:00 2020-07-09 00:00:00 [facility] Medications Ordered Filled Start Stop Current Ordering Indication Dosage Frequency Signature Comments Components Source Medication Medication Date Date Medication? Clinician (SIG) Name Name influenza 2020- No .5mL [facility] vaccine 07-22 [facility] - (PF) 16:00: 15:37 Medical 00 :00 Center (FLUAD HIGH DOSE) syringe 65 years and up fluticasone 2020-0 Yes 1{spray QD [address] [facility] propionate 07-22 } Nasal [facility] - (FLONASE) 14:54: route Medical 50 01 daily. [place] mcg/actuati on nasal spray olopatadine Yes 1[drp] Q.5D [address] [facility] (PATANOL) 07-22 (two) [facility] - 0.1 % 14:54: times Medical ophthalmic 01 daily. [place] solution fluticasone Yes 1{puff} Inhale [address] [facility] propion-kenia 07-22 puff by [facility] - meteroL 14:54: mouth via Medic al (ADVAIR) 01 inhaler [place] 10050 every 12 mcg/dose (twelve) diskus hours. inhaler aspirin 81 2019-0 Yes 81mg QD Take [address] MG EC 07-22 by mouth [facility] - tablet 14:54: daily. Medical 01 [place] hydrALAZINE Yes 25mg Q.67744624 Take [address] [facility] (APRESOLINE - [id number] tablet (25 [facility] - ) 25 MG 00:00: 3D mg total) Medic al tablet 00 by mouth 3 Center (three) times daily. losartan 2019- No 100mg QD Take [address] [facility] (COZAAR) 8- 08-27 mg by [facility] - 100 MG 11:52: 00:00 mouth Medical tablet 51 :00 daily. [place] spironolact 2019-2019- No 25mg QD Take [address] [facility] one 8- 08-27 by mouth [facility] - (ALDACTONE) 07:53: 00:00 daily. Med ical 25 MG 57 :00 Center tablet apixaban Yes 5mg Q.5D Take [address] [facility] [address] (ELIQUIS) 5 8-27 tablet (5 Carlos es - mg Tab 00:00: mg total) Medica l tablet 00 by mouth 2 Center (two) times daily. atorvastati 2020- Yes 10mg QD Take [address] [facility] [address] n (LIPITOR) 8- 08-27 tablet (10 L ukes - 10 MG 00:00: 23:59 mg total) Medica l tablet 00 :00 by mouth Center nightly. losartan 2019-0 2019- No 25mg QD Take [address] [facility] [address] (COZAAR) 25 07-10- tablet (25 L ukes - MG tablet 00:00: 00:00 mg total) Me dical 00 :00 by mouth Center daily. losartan 2019- No 25mg QD Take [address] [facility] [address] (COZAAR) 25 07-10 tablet (25 L ukes - MG tablet 00:00: 00:00 mg total) Me dical 00 :00 by mouth Center daily. apixaban 2019- No 5mg Q.5D Take [address] [facility] [address] (ELIQUIS) 5 07-10 tablet (5 Ryann kes - mg Tab 00:00: 00:00 mg total) Medic al tablet 00 :00 by mouth 2 Center (two) times daily. atorvastati 2019- No 10mg QD Take [address] [facility] n (LIPITOR) 07-10 tablet (10 L ukes - 10 MG 00:00: 00:00 mg total) Medica l tablet 00 :00 by mouth Center nightly. Immunizations Ordered Immunization Filled Immunization Date Status Commen ts Source Name Name INFLUENZA QIV 2020-07-22 Completed [facility] - ADJUVANTED PF IM 00:00:00 Medical Center Vital Signs Vital Name Observation Time Observation Value Comments Source Systolic blood 2020-07-22 14:46:00 188 mm[Hg] [facility] Diastolic blood 2020-07-22 14:46:00 87 mm[Hg] [facility] S [facility] Heart rate 2020-07-22 14:46:00 78 /min [facility] Body temperature 2020-07-22 14:46:00 36.22 Acmila [facility] Respiratory rate 2020-07-22 14:46:00 18 /min [facility] Body height 2020-07-22 14:46:00 175.3 cm actual [facility] Body weight 2020-07-22 14:46:00 77.883 kg [facility] BMI 2020-07-22 14:46:00 25.36 kg/m2 [facility] Oxygen saturation in 2020-07-22 14:46:00 100 /min ra [facility] - Arterial blood by Medical Ce nter Pulse oximetry Procedures Procedure Date / Time Performing Clinician Source Performed COMPREHENSIVE METABOLIC 2020-07-22 14:59:[address] [facility] PANEL [facility] B-TYPE NATRIURETIC FACTOR 2020-07-22 14:59:00 Jeremie Palomino CH I [facility] (BNP) [facility] CBC W/PLT COUNT & AUTO 2020-07-22 14:59:00 Jeremie Palomino [facility] DIFFERENTIAL [facility] ECG 12-LEAD 2020-07-22 12:42:42 Unknown, Hl7 Doctor [facility] RHYTHM STRIP - SCAN 2020-07-14 15:33:26 Provider, [facility] Sc[facility] RHYTHM STRIP - SCAN 2020-07-14 11:50:44 Provider, [facility] Scanning [facility] REPORT OF PROCEDURE - 2020-07-14 10:51:53 Provider, [facility] ENDOSCOPY SCAN Scanning [facility] RHYTHM STRIP - SCAN 2020-07-14 10:51:51 Provider, [facility] ARRYTHMIA IMPLANT REPORT - 2020-07-14 10:51:42 Provider, [facility] SCAN Scanning [facility] CARDIAC CATH REPORT - SCAN 2020-07-14 10:51:32 Provider, [facility]ly [facility] Scanning [facility] REPORT OF PROCEDURE - 2020-07-14 10:51:28 Provider, [facility]ly [facility] ENDOSCOPY SCAN Scanning [facility] ARRYTHMIA IMPLANT REPORT - 2020-07-11 12:00:06 Provider, [facility] SCAN Scanning [facility] CBC W/PLT COUNT & AUTO 2020-07-11 07:28:00 [facility]els [facility] DIFFERENTIAL [facility] BASIC METABOLIC PANEL (7) 2020-07-11 05:03:00 Carol Samuels CH I [facility] MAGNESIUM 2020-07-11 05:03:00 Carol Samuels [facility] SARS-COV2/RT-PCR ([facility] & 2020-07-11 02:42:00 Deirdre Valenzuela [facility] - REF LABS) [facility] BASIC METABOLIC PANEL (7) 2020-07-10 23:26:00 Deirdre Valenzuela CH, I [facility] PT/APTT 2020-07-10 23:26:00 Deirdre Valenzuela [facility] CBC W/PLT COUNT & AUTO 2020-07-10 23:26:00 Nicolas Deirdre [facility] - DIFFERENTIAL [facility] ARTERIAL DOPPLER LEG, 2020-07-10 22:59:00 Nicole-Vang, [facility] S t [facility] - RIGHT [facility] BASIC METABOLIC PANEL (7) 2020-07-10 04:39:00 Mert Martinez [facility] MAGNESIUM 2020-07-10 04:39:00 Nadine Dye [facility] TRANSFUSION SERVICE REPORT 2020-07-09 18:01:08 ProviderAngel [facility] - - SCAN Scanning [facility] LIMITED 2D ECHOCARDIOGRAM 2020-07-09 07:36:29 Lambert Faria [facility] BASIC METABOLIC PANEL (7) 2020-07-09 03:51:00 Mert Martinez [facility] MAGNESIUM 2020-07-09 03:51:00 ObNadine kinney [facility] CBC W/PLT COUNT & AUTO 2020-07-09 03:51:00 [facility]ST 1 VIEW 2020-07-08 15:10:00 Lambert Faria [facility] - PORTABLE/BEDSIDE Medical Center LEADLESS PACEMAKER 2020-07-08 11:30:00 Lambert Faria [facility] - INSERTION W/ [facility] ANESTHESIA ABORH, MANUAL 2020-07-08 06:32:00 Janae Valle [facility] TYPE AND SCREEN, AUTOMATED 2020-07-08 06:22:00 Lambert Faria [facility] BASIC METABOLIC PANEL (7) 2020-07-08 05:04:00 Mert Martinez [facility] MAGNESIUM 2020-07-08 05:04:00 Nadine Dye Joshua [facility] APTT 2020-07-08 05:04:00 Mert Martinez [facility] CBC W/PLT COUNT & AUTO 2020-07-08 05:04:00 Juan Mert [facility] DIFFERENTIAL [facility] CBC W/PLT COUNT & AUTO 2020-07-07 09:53:[address] [facility] IV 2020-07-07 09:45:00 Ethan Patel [facility] BASIC METABOLIC PANEL (7) 2020-07-07 04:40:00 Mert Martinez [facility] TSH/FREE T4 IF INDICATED 2020-07-07 04:40:00 Ethan Patel r [facility] LIPID PANEL 2020-07-07 04:40:00 Nadine Dye Joshua [facility] KAPPA / LAMBDA LIGHT 2020-07-07 04:40:00 Nadine Dye [facility] PROTEIN ELECTROPHORESIS, 2020-07-07 04:40:00 Nadine Dye [facility] VITAMIN B12 AND FOLATE 2020-07-07 04:40:00 Nadine Dye [facility] IRON, TIBC, % SAT. 2020-07-07 04:40:00 Nadine Dye [facility] (WITHOUT FERRITIN) [facility] ANGIOTENSIN CONVERTING 2020-07-07 04:40:00 Nadine Dye [facility] ENZYME (RADHA) [facility] HEMOGLOBIN A1C 2020-07-07 04:40:00 Nadine Dye [facility] MAGNESIUM 2020-07-07 04:40:00 Nadine Dye [facility] APTT 2020-07-07 04:40:00 [facility] I[facility] 2020-07-07 04:40:00 Tanner Mcknight [facility] ELECTROPHORESIS (JOHNSON) Medical Ce nter CAROTID DOPPLER BILATERAL 2020-07-06 22:24:00 Nadine Dye [facility] POCT-GLUCOSE METER 2020-07-06 16:32:00 Nadine Dye [facility] APTT 2020-07-06 14:10:00 [facility] POCT-GLUCOSE METER 2020-07-06 11:08:00 Nadine Dye [facility] CBC W/PLT COUNT & AUTO 2020-07-06 10:03:00 [facility] 2D ECHO W/ DOPPLER 2020-07-06 09:17:00 Juan [facility] (CW/PW/COLOR) [facility] ECG 12-LEAD 2020-07-06 08:24:40 Unknown, Hl7 Doctor [facility] POCT-GLUCOSE METER 2020-07-06 07:46:00 Nadien Dye [facility] APTT 2020-07-06 05:24:00 Juan [facility] BASIC METABOLIC PANEL (7) 2020-07-06 05:24:00 Mert Martinez [facility] MAGNESIUM 2020-07-06 05:24:00 [facility] TSH/FREE T4 IF INDICATED 2020-07-06 03:49:00 Mert Martinez [facility] B-TYPE NATRIURETIC FACTOR 2020-07-06 03:49:[address] [facility] (BNP) [facility] CT BRAIN WITHOUT IV 2020-07-06 03:25:00 Lourdes Duron [facility] XR CHEST 1 VIEW 2020-07-06 02:16:00 [facility] PROTHROMBIN TIME/INR 2020-07-06 02:09:00 [facility] 2020-07-06 02:09:00 [facility] COMPREHENSIVE METABOLIC 2020-07-06 02:09:00 [facility] I 2020-07-06 02:09:00 Mert Martinez [facility] CBC W/PLT COUNT & AUTO 2020-07-06 02:09:00 Lourdes Duron [facility] - DIFFERENTIAL [facility] ECG 12-LEAD 2020-07-06 01:54:30 Unknown, Hl7 Doctor [facility] SARS-COV2/RT-PCR ([facility] & 2020-07-06 01:42:[address] Lour[address] Duron [facility] - REF LABS) [facility] SARS-COV2/RT-PCR ([facility] & 2020-07-05 20:44:00 [facility] - REF LABS) [facility] Plan of Care Planned Activity Planned Date Details Comments Source Future Scheduled 2002-05-15 MEDICARE ANNUAL [facility] - Test 00:00:00 WELLNESS (YEAR 2 or Medical Center FIRST YEAR if no IPPE) [code = MEDICARE ANNUAL WELLNESS (YEAR 2 or FIRST YEAR if no IPPE)] Future Scheduled 2001 P[facility]OC[facility]CCAL 65+ YRS [facility]00 (1 of 1 - Medical Center [id number]) [code = PNEUMOCOCCAL 65+ YRS (1 of 1 - [id number] PCV13)] Results Test Description Test Time Test Comments Results Result [facility] e Comments ECG 12 lead 2020-07-28 Interface, External [facility] 11:41:29 Ris In - 07/28/2020 - Med ical 11:41 AM Center CDTVentricular Rate 84 BPMAtrial Rate 38 BPMQRS Duration 162 msQ-T Interval 450 msQTC Calculation(Bazett) 531 msR [place] 68 degreesT [place] 68 degreesElectronic ventricular pacemakerWhen compared with ECG of 06-JUL-2020 08:24,Electronic ventricular pacemaker has replaced Atrial fibrillationVent. rate has increased BY 48 BPMConfirmed by Nadine Dye ([id number]) on 07/28/2020 11:41:27 AM B-type Natriuretic Factor (BNP) 2020-07-22 17:33:00 Test Item Value Reference Range Interpretation Comme nts BNP (test code = 96012-4) 255 pg/mL 0-100 H JUAREZ (test code = JUAREZ) Dispatch Clerk ID - BS Lab Interpretation (test code = 86068-1) [facility]normal [facility] FA[facility] (BNP)2020-07-22 17:33:00 Test Item Value Reference Range Interpretation Comments B-TYPE NATRIURETIC PEPTIDE (BEAKER) 255 pg/mL 0-100 H (test code = 700) Dispatch Clerk ID - BSComprehensive metabolic [id number] 17:21:00 Test Item Value Reference Range Interpretation Comments Protein, Total (test 7.5 6.0- 8.3 gm/dL code = 2885-2) Albumin (test code = 3.8 g/dL 3.5-5 55771-0) Alkaline Phosphatase 86 U/L 40-150 (test code = 6768-6) Total Bilirubin (test 0.6 mg/dL 0.2-1.2 code = 1975-2) Sodium (test code = 136 meq/L 239-900 4870-2) Potassium (test code = 3.6 meq/L 3.5-5.1 2823-3) Chloride (test code = 99 meq/L 98-107 2075-0) CO2 (test code = 27 meq/L 22-29 2028-9) BUN (test code = 16 mg/dL 7-21 3094-0) Creatinine (test code 1.01 mg/dL 0.57-1.25 = 2160-0) Glucose (test code = 84 mg/dL 70-105 2345-7) Calcium (test code = 9.5 mg/dL 8.4-10.2 90963-2) AST (test code = 37 U/L 5-34 H 1920-8) ALT (test code = 34 U/L 6-55 1742-6) EGFR (test code = 70 mL/min/1.73 [place] [address]-9) NOT ACCURATE CREATININE CLEARANCE IN PREDICTING GLOMERULAR FILTRATION RATE . ESTIMATED GFR I S NOT APPLICABLE FOR DIALYSIS PATIENTS. JUAREZ (test code = JUAREZ) Dispatch Clerk ID - BS Lab Interpretation Abnormal (test code = 57015-8) [facility] [id number] 17:21:00 Test Item Value Reference Range Interpretation Comments TOTAL PROTEIN 7.5 gm/dL 6.0-8.3 (BEAKER) (test code = 770) ALBUMIN (BEAKER) 3.8 g/dL 3.5-5.0 (test code = 1145) ALKALINE PHOSPHATASE 86 U/L 40-150 (BEAKER) (test code = 346) BILIRUBIN TOTAL 0.6 mg/dL 0.2-1.2 (BEAKER) (test code = 377) SODIUM (BEAKER) (test 136 meq/L 136-145 code = 381) POTASSIUM (BEAKER) 3.6 meq/L 3.5-5.1 (test code = 379) CHLORIDE (BEAKER) 99 meq/L 98-107 (test code = 382) CO2 (BEAKER) (test 27 meq/L 22-29 code = 355) BLOOD UREA NITROGEN 16 mg/dL 7-21 (BEAKER) (test code = 354) CREATININE (BEAKER) 1.01 mg/dL 0.57-1.25 (test code = 358) GLUCOSE RANDOM 84 mg/dL 70-105 (BEAKER) (test code = 652) CALCIUM (BEAKER) 9.5 mg/dL 8.4-10.2 (test code = 697) AST (SGOT) (BEAKER) 37 U/L 5-34 H (test code = 353) ALT (SGPT) (BEAKER) 34 U/L 6-55 (test code = 347) EGFR (BEAKER) (test 70 mL/min/1.73 ESTIMA REDD GFR IS code = 1092) sq m NOT ACCURATE CREATININE CLEARANCE IN PREDICTING GLOMERULAR FILTRATION RATE . ESTIMATED GFR I S NOT APPLICABLE FOR DIALYSIS PATIEN TS. Dispatch Clerk ID - BSCBC with platelet count + automated [id number] 15:23:00 Test Item Value Reference Range Interpretation Comments WBC (test code = 6690-2) 9.1 3.5- 10.5 K/L RBC (test code = 789-8) 4.45 4.63- 6.08 M/L L MCHC (test code = 786-4) 33.6 32.3- 36.5 GM/DL Hematocrit (test code = 4544-3) 42.3 % 40.1-51 MCV (test code = 787-2) 95.1 fL 79-92.2 H MCH (test code = 785-6) 31.9 pg 25.7-32.2 RDW (test code = 788-0) 12.2 % 11.6-14.4 Platelets (test code = 777-3) 156 150- 450 K/CU MM MPV (test code = 83220-5) 11.3 fL 9.4-12.4 nRBC (test code = 413) 0 0- 0 /100 WBC % Neutros (test code = 429) 69 % % Lymphs (test code = 430) 19 % % Monos (test code = 431) 9 % % Eos (test code = 432) 1 % % Baso (test code = 437) 1 % # Neutros (test code = 670) 6.25 1.78- 5.38 K/L H # Lymphs (test code = 414) 1.75 1.32- 3.57 K/L # Monos (test code = 415) 0.85 0.30- 0.82 K/L H # Eos (test code = 416) 0.12 0.04- 0.54 K/L # Baso (test code = 417) 0.07 0.01- 0.08 K/L Immature Granulocytes-Relative 0 % 0-1 (test code = 2801) Lab Interpretation (test code = Abnormal 45056-3) [facility] W/PLT COUNT & AUTO [id number] 15:23:00 Test Item Value Reference Range Interpretation Comments WHITE BLOOD CELL COUNT (BEAKER) 9.1 K/ L 3.5-10.5 (test code = 775) RED BLOOD CELL COUNT (BEAKER) 4.45 M/ L 4.63-6.08 L (test code = 761) HEMOGLOBIN (BEAKER) (test code = 14.2 GM/DL 13.7-17.5 410) HEMATOCRIT (BEAKER) (test code = 42.3 % 40.1-51.0 411) MEAN CORPUSCULAR VOLUME (BEAKER) 95.1 fL 79.0-92.2 H (test code = 753) MEAN CORPUSCULAR HEMOGLOBIN 31.9 pg 25.7-32.2 (BEAKER) (test code = 751) MEAN CORPUSCULAR HEMOGLOBIN CONC 33.6 GM/DL 32.3-36.5 (BEAKER) (test code = 752) RED CELL DISTRIBUTION WIDTH 12.2 % 11.6-14.4 (BEAKER) (test code = 412) PLATELET COUNT (BEAKER) (test 156 K/CU MM 150-450 code = 756) MEAN PLATELET VOLUME (BEAKER) 11.3 fL 9.4-12.4 (test code = 754) NUCLEATED RED BLOOD CELLS 0 /100 WBC 0-0 (BEAKER) (test code = 413) NEUTROPHILS RELATIVE PERCENT 69 % (BEAKER) (test code = 429) LYMPHOCYTES RELATIVE PERCENT 19 % (BEAKER) (test code = 430) MONOCYTES RELATIVE PERCENT 9 % (BEAKER) (test code = 431) EOSINOPHILS RELATIVE PERCENT 1 % (BEAKER) (test code = 432) BASOPHILS RELATIVE PERCENT 1 % (BEAKER) (test code = 437) NEUTROPHILS ABSOLUTE COUNT 6.25 K/ L 1.78-5.38 H (BEAKER) (test code = 670) LYMPHOCYTES ABSOLUTE COUNT 1.75 K/ L 1.32-3.57 (BEAKER) (test code = 414) MONOCYTES ABSOLUTE COUNT (BEAKER) 0.85 K/ L 0.30-0.82 H (test code = 415) EOSINOPHILS ABSOLUTE COUNT 0.12 K/ L 0.04-0.54 (BEAKER) (test code = 416) BASOPHILS ABSOLUTE COUNT (BEAKER) 0.07 K/ L 0.01-0.08 (test code = 417) IMMATURE GRANULOCYTES-RELATIVE 0 % 0-1 PERCENT (BEAKER) (test code = 2801) SARS-CoV2/RT-PCR (Asymptomatic ONLY)2020-07-11 09:49:00 Test Item Value Reference Range Interpretation Comments SARS-COV2/RT-PCR Negative Not Detected, (test code = Negative, See 07638-7) external report for linked test SARS-COV-2 [facility] PERFORMING LAB (test code = 00634-2) JUAREZ (test code = Negative results do not JUAREZ) preclude SARS-CoV-2 infection and should not be used as [...] of the Act. Fact Sheet for Healthcare Providers:https://www.[employer]/Documents/Xper t%20Xpress%20SARS%20CoV- 2/Fact%20Sheets/302-3802 %13ERQI-CIN-2%20HEALTHCA RE%20PROVIDERS%20FACT%20 SHEET.pdf Fact Sheet for Healthcare Patients:https://www.[employer]/Documents/Xpert %20Xpress%20SARS%20CoV-2 /Fact%20Sheets/302-3801% 08AOSM-HVW-5%20PATIENT%2 0FACT%20SHEET.pdf Performing Laboratory:[facility] [place] Kandis Newman.[address]ARS-COV2/RT-PCR ([facility] & REF LABS)2020-07-11 09:49:00 Test Item Value Reference Range Interpretation Comments SARS-COV2/RT-PCR (test code Negative Not Detected, Negative, = 4903779) See external report for linked test SARS-COV-2 PERFORMING LAB [facility] (test code = 2284389) Negative results do not preclude SARS-CoV-2 infection and should not be used as the sole basis for patient management decisions. Negative results must be combined with clinical observations, patient history, and epidemiological information. A false negative result may occur if a specimen is improperly collected, transported or handled.The limit of detection for this assay is 250 copies/mL.This SARS CoV-2 test is a rapid, real-time RT-PCR test intended for the qualitative detection of nucleic acid from SARS-CoV-2 in a nasopharyngeal swab specimen collected from individuals suspected of COVID-19 by their healthcare provider.This test has not been Food and Drug [...] is revoked under Section 564(g) of the Act.Fact Sheet for Healthcare Pro viders:https://www.[employer]/Documents/Xpert%20Xpress%20SARS%20CoV-2/Fact%20Sh eets/302-3802%31DEUD-DIW-5%20HEALTHCARE%20PROVIDERS%20FACT%20SHEET.pdfFact Sheet for Healthcare Patients:https://www.[employer]/Documents/Xpert%20Xpress%20SARS%20CoV-2/Fact%20Sheets/302-3801%20SARS-COV -2%20PATIENT%20FACT%20SHEET.pdfPerforming Laboratory:[address]ph[address] Newman.[place], [place] [address]Zgdbefqk doppler leg, [id number] 07:38:50Ejection FractionSLEH ECHO HEARTLAB MKCKESSON CPACSRight Impression1. There is no pseudoaneurysm visualized.2. There is no hematoma visualized.3. There is no venous obstruction or arteriovenous fistulavisualized.4. The common femoral artery flow is biphasic with a velocity of 92 cm/sec.(within normal range). Conclusions Summary Duplex imaging of the right groin area was performed. The vessels were adequately visualized. There was no evidence of a pseudoaneurysm, venous obstruction or arteriovenous fistula in the right groin area. Signature Velocities are measured in cm/s ;Diameters are measured in cm Interface, External Ris In - 07/11/2020 7:39 AM CDTPV LAB - Pseudoaneurysm Survey Demographics Patient Name CHRIS BOLIVAR Date of Study 07/10/2020 Age 85 Visit Number [id number] Gender Male Accession Number [id number] Date of 1935 Referring Nicolas Gilmore Room Number 1155 Physician Gloria Dining Room Manager Skye Frank T Interpreting Yisel Abdalla Physician ProcedureType of Study: Pseudoaneurysm: PSEUDOANEURYSM, GROIN DOPPLER RIGHT. Indications for Study:Pseudoaneurysm.Patient Status:STAT.Study Location:Portable.Technical Quality:Adequate visualization.Risk FactorsHistory of Disease+ + + --+!Diagnosis !Date !Comments !+ ------+ + +!History/Risk Factors: !07/06/2020!stroke !+ + + --+!History/Risk Factors: !07/10/2020!S/P pacemaker 07/08/20 !! ! !A fib !! ! !Eliquis !! ! !H/O stroke !! ! !carotid artery disease !! ! !Right groin bleeding !+ + +----- +ImpressionsRight Impression1. There is no pseudoaneurysm visualized.2.There is no hematoma visualized.3. There is no venous obstruction or arteriovenous fistula visualized.4. The common femoral artery flow is biphasic with a velocity of 92 cm/sec.(within normal range). Co nclusions Summary Duplex imaging of the right groin area was performed. The vessels were adequately visualized. There was no evidence of a pseudoaneurysm, venous obstruction or arteriovenous fistula in the right groin area. Signature Velocities are measured in cm/s ; Diameters are measured in [facility] W/PLT COUNT & AUTO [id number] 07:38:00 Test Item Value Reference Range Interpretation Comments WHITE BLOOD CELL COUNT (BEAKER) 10.2 K/ L 3.5-10.5 (test code = 775) RED BLOOD CELL COUNT (BEAKER) 4.51 M/ L 4.63-6.08 L (test code = 761) HEMOGLOBIN (BEAKER) (test code = 14.6 GM/DL 13.7-17.5 410) HEMATOCRIT (BEAKER) (test code = 42.3 % 40.1-51.0 411) MEAN CORPUSCULAR VOLUME (BEAKER) 93.8 fL 79.0-92.2 H (test code = 753) MEAN CORPUSCULAR HEMOGLOBIN 32.4 pg 25.7-32.2 H (BEAKER) (test code = 751) MEAN CORPUSCULAR HEMOGLOBIN CONC 34.5 GM/DL 32.3-36.5 (BEAKER) (test code = 752) RED CELL DISTRIBUTION WIDTH 11.9 % 11.6-14.4 (BEAKER) (test code = 412) PLATELET COUNT (BEAKER) (test 189 K/CU MM 150-450 code = 756) MEAN PLATELET VOLUME (BEAKER) 10.3 fL 9.4-12.4 (test code = 754) NUCLEATED RED BLOOD CELLS 0 /100 WBC 0-0 (BEAKER) (test code = 413) NEUTROPHILS RELATIVE PERCENT 62 % (BEAKER) (test code = 429) LYMPHOCYTES RELATIVE PERCENT 22 % (BEAKER) (test code = 430) MONOCYTES RELATIVE PERCENT 13 % (BEAKER) (test code = 431) EOSINOPHILS RELATIVE PERCENT 2 % (BEAKER) (test code = 432) BASOPHILS RELATIVE PERCENT 1 % (BEAKER) (test code = 437) NEUTROPHILS ABSOLUTE COUNT 6.28 K/ L 1.78-5.38 H (BEAKER) (test code = 670) LYMPHOCYTES ABSOLUTE COUNT 2.23 K/ L 1.32-3.57 (BEAKER) (test code = 414) MONOCYTES ABSOLUTE COUNT (BEAKER) 1.35 K/ L 0.30-0.82 H (test code = 415) EOSINOPHILS ABSOLUTE COUNT 0.24 K/ L 0.04-0.54 (BEAKER) (test code = 416) BASOPHILS ABSOLUTE COUNT (BEAKER) 0.05 K/ L 0.01-0.08 (test code = 417) IMMATURE GRANULOCYTES-RELATIVE 0 % 0-1 PERCENT (BEAKER) (test code = 2801) Basic metabolic [id number] 06:23:00 Test Item Value Reference Range Interpretation Comments Sodium (test code = 130 meq/L 136-145 L 2951-2) Potassium (test code = 3.7 meq/L 3.5-5.1 2823-3) Chloride (test code = 100 meq/L 98-107 5-0) CO2 (test code = 20 meq/L 22-29 L 8-9) BUN (test code = 51 mg/dL 7-21 H 3094-0) Creatinine (test code 1.26 mg/dL 0.57-1.25 H = 2160-0) Glucose (test code = 100 mg/dL 70-105 2345-7) Calcium (test code = 9.6 mg/dL 8.4-10.2 05565-4) EGFR (test code = 55 mL/min/1.73 [place] [address]-3) NOT ACCURATE CREATININE CLEARANCE IN PREDICTING GLOMERULAR FILTRATION RATE . ESTIMATED GFR I S NOT APPLICABLE FOR DIALYSIS PATIENTS. JUAREZ (test code = JUAREZ) Dispatch Clerk ID - EDASI Lab Interpretation Abnormal (test code = 17911-6) [facility]esium[facility] 06[facility]23:00 Test Item Value Reference Range Interpretation Comments Magnesium (test code = 1.9 mg/dL 1.6-2.6 48755-7) JUAREZ (test code = JUAREZ) Dispatch Clerk ID - EDASI Lab Interpretation (test Normal code = 99757-5) [facility] 06:23:00 Test Item Value Reference Range Interpretation Comments MAGNESIUM (BEAKER) (test code = 1.9 mg/dL 1.6-2.6 627) Dispatch Clerk ID - EDASIBASIC METABOLIC [id number] 06:23:00 Test Item Value Reference Range Interpretation Comments SODIUM (BEAKER) 130 meq/L 136-145 L (test code = 381) POTASSIUM (BEAKER) 3.7 meq/L 3.5-5.1 (test code = 379) CHLORIDE (BEAKER) 100 meq/L 98-107 (test code = 382) CO2 (BEAKER) (test 20 meq/L 22-29 L code = 355) BLOOD UREA NITROGEN 51 mg/dL 7-21 H (BEAKER) (test code = 354) CREATININE (BEAKER) 1.26 mg/dL 0.57-1.25 H (test code = 358) GLUCOSE RANDOM 100 mg/dL 70-105 (BEAKER) (test code = 652) CALCIUM (BEAKER) 9.6 mg/dL 8.4-10.2 (test code = 697) EGFR (BEAKER) (test 55 mL/min/1.73 ESTIMA REDD GFR IS code = 1092) sq m NOT ACCURATE CREATININE CLEARANCE IN PREDICTING GLOMERULAR FILTRATION RATE . ESTIMATED GFR I S NOT APPLICABLE FOR DIALYSIS PATIEN TS. Dispatch Clerk ID - EDASIBASIC METABOLIC [id number] 23:54:00 Test Item Value Reference Range Interpretation Comments SODIUM (BEAKER) 128 meq/L 136-145 L (test code = 381) POTASSIUM (BEAKER) 4.0 meq/L 3.5-5.1 (test code = 379) CHLORIDE (BEAKER) 96 meq/L 98-107 L (test code = 382) CO2 (BEAKER) (test 22 meq/L 22-29 code = 355) BLOOD UREA NITROGEN 57 mg/dL 7-21 H (BEAKER) (test code = 354) CREATININE (BEAKER) 1.48 mg/dL 0.57-1.25 H (test code = 358) GLUCOSE RANDOM 95 mg/dL 70-105 (BEAKER) (test code = 652) CALCIUM (BEAKER) 9.8 mg/dL 8.4-10.2 (test code = 697) EGFR (BEAKER) (test 45 mL/min/1.73 ESTIMA REDD GFR IS code = 1092) sq m NOT ACCURATE CREATININE CLEARANCE IN PREDICTING GLOMERULAR FILTRATION RATE . ESTIMATED GFR I S NOT APPLICABLE FOR DIALYSIS PATIEN TS. Dispatch Clerk ID - [id number] 23:50:00 Test Item Value Reference Range Interpretation Comments Protime (test code = 14.5 11.9- 14.2 H 5902-2) seconds INR (test code = 1.16 <=5.90 6301-6) PTT (test code = 30.0 22.5- 36.0 46860-6) seconds JUAREZ (test code = JUAREZ) Effective 04/11/2019: PT Reference Range ChangeNew: 11.9-14.2 Previous: 11.7-14.7 RECOMMENDED COUMADIN/WARFARIN INR THERAPY RANGESSTANDARD DOSE: 2.0-3.0 Includes: PROPHYLAXIS for venous thrombosis, systemic embolization; TREATMENT for venous thrombosis and/or pulmonary embolus.HIGH RISK: Target INR is 2.5-3.5 for patients wiht mechanical heart valves. Lab Interpretation Abnormal (test code = 57002-6) [facility] CenterPT/[id number] 23:50:00 Test Item Value Reference Range Interpretation Comments PROTIME (BEAKER) (test code = 14.5 seconds 11.9-14.2 H 759) INR (BEAKER) (test code = 370) 1.16 <=5.90 PARTIAL THROMBOPLASTIN TIME 30.0 seconds 22.5-36.0 (BEAKER) (test code = 760) Effective 04/11/2019: PT Reference Range ChangeNew: 11.9-14.2 Previous: 11.7- 14.7RECOMMENDED COUMADIN/WARFARIN INR THERAPY RANGESSTANDARD DOSE: 2.0-3.0 Includes: PROPHYLAXIS for venous thrombosis, systemic embolization; TREATMENT for venous thrombosis and/or pulmonary embolus.HIGH RISK: Target INR is2.5-3.5 for patients wiht mechanical heart valves.CBC W/PLT COUNT & AUTO [id number] 23:37:00 Test Item Value Reference Range Interpretation Comments WHITE BLOOD CELL COUNT (BEAKER) 9.6 K/ L 3.5-10.5 (test code = 775) RED BLOOD CELL COUNT (BEAKER) 4.67 M/ L 4.63-6.08 (test code = 761) HEMOGLOBIN (BEAKER) (test code = 15.0 GM/DL 13.7-17.5 410) HEMATOCRIT (BEAKER) (test code = 43.0 % 40.1-51.0 411) MEAN CORPUSCULAR VOLUME (BEAKER) 92.1 fL 79.0-92.2 (test code = 753) MEAN CORPUSCULAR HEMOGLOBIN 32.1 pg 25.7-32.2 (BEAKER) (test code = 751) MEAN CORPUSCULAR HEMOGLOBIN CONC 34.9 GM/DL 32.3-36.5 (BEAKER) (test code = 752) RED CELL DISTRIBUTION WIDTH 11.9 % 11.6-14.4 (BEAKER) (test code = 412) PLATELET COUNT (BEAKER) (test 150 K/CU MM 150-450 code = 756) MEAN PLATELET VOLUME (BEAKER) 11.5 fL 9.4-12.4 (test code = 754) NUCLEATED RED BLOOD CELLS 0 /100 WBC 0-0 (BEAKER) (test code = 413) NEUTROPHILS RELATIVE PERCENT 56 % (BEAKER) (test code = 429) LYMPHOCYTES RELATIVE PERCENT 26 % (BEAKER) (test code = 430) MONOCYTES RELATIVE PERCENT 15 % (BEAKER) (test code = 431) EOSINOPHILS RELATIVE PERCENT 2 % (BEAKER) (test code = 432) BASOPHILS RELATIVE PERCENT 1 % (BEAKER) (test code = 437) NEUTROPHILS ABSOLUTE COUNT 5.40 K/ L 1.78-5.38 H (BEAKER) (test code = 670) LYMPHOCYTES ABSOLUTE COUNT 2.48 K/ L 1.32-3.57 (BEAKER) (test code = 414) MONOCYTES ABSOLUTE COUNT (BEAKER) 1.47 K/ L 0.30-0.82 H (test code = 415) EOSINOPHILS ABSOLUTE COUNT 0.16 K/ L 0.04-0.54 (BEAKER) (test code = 416) BASOPHILS ABSOLUTE COUNT (BEAKER) 0.07 K/ L 0.01-0.08 (test code = 417) IMMATURE GRANULOCYTES-RELATIVE 0 % 0-1 PERCENT (BEAKER) (test code = 2801) [id number] 05:49:00 Test Item Value Reference Range Interpretation Comments MAGNESIUM (BEAKER) (test code = 1.8 mg/dL 1.6-2.6 627) Dispatch Clerk ID - NTPBASIC METABOLIC [id number] 05:49:00 Test Item Value Reference Range Interpretation Comments SODIUM (BEAKER) 130 meq/L 136-145 L (test code = 381) POTASSIUM (BEAKER) 4.1 meq/L 3.5-5.1 (test code = 379) CHLORIDE (BEAKER) 100 meq/L 98-107 (test code = 382) CO2 (BEAKER) (test 22 meq/L 22-29 code = 355) BLOOD UREA NITROGEN 43 mg/dL 7-21 H (BEAKER) (test code = 354) CREATININE (BEAKER) 0.99 mg/dL 0.57-1.25 (test code = 358) GLUCOSE RANDOM 91 mg/dL 70-105 (BEAKER) (test code = 652) CALCIUM (BEAKER) 9.3 mg/dL 8.4-10.2 (test code = 697) EGFR (BEAKER) (test 72 mL/min/1.73 ESTIMA REDD GFR IS code = 1092) sq m NOT ACCURATE CREATININE CLEARANCE IN PREDICTING GLOMERULAR FILTRATION RATE . ESTIMATED GFR I S NOT APPLICABLE FOR DIALYSIS PATIEN TS. Dispatch Clerk ID - NTPAngiotensin Converting Enzyme (RADHA)2020-07-09 23:16:00 Test Item Value Reference Range Interpretation Comments RADHA, Serum (test 21 U/L code = 5119449) JUAREZ (test code = Performing Lab EZ JUAREZ) [facility] [address] [place] [address] Richardson Edward MD, PhD, AURA [facility] CenterLimited 2D [id number] 18:08:15 Ejection FractionSLEH ECHO HEARTLAB MKCKESSON CPACSInterface, External Ris In - 07/09/2020 6:08 PM CDTTransthoracic Echocardiography Report (TTE) Demographics Patient Name CHRIS BOLIVAR Date of Study 07/09/2020 Gender Male Visit Number [id number] Race Unknown Room Number 1415 Number Date of 1935 Referring Physician Bienvenido Verdin MD Age 85 year(s) Dining Room Manager Nadeem Gomez Bus Driver/Monitor Chelly Devries, Interpreting Wendi Ordonez [facility] Physician Procedure Type of Study TTE procedure:LIMITED 2D ECHOCARDIOGRAM (Routine) Indications:Pericardial effusion.Clinical HistoryHGB 14.5HCT 42.8 %COPDHTNBRADYCARDIALEADLESS PACEMAKER INSERTION 07/08/2020Contrast Medium: Definity.Height: 69 inches Weight: 72.12 kg (159 lbs) BSA: 1.87 m^2 BMI: 23.48 kg/m^2HR: 60 bpm BP: 107/58 mmHg Summary 1. LV is normal function. LVEF is normal (>60%) . All segments contract normally. 2. Normal RV size and function. 3. No Doppler. Signature 06:08 PM Findings Technical Quality: Technically difficult exam. Left Ventricle Parasternal long axis measurements not possible. LV endocardium is partially visualized with IV ultrasound enhancing agent. The left ventricle is chamber size (by vol index) is normal (male - LVED vol - 34-74ml/m2). All of the LV segments contract normally . Global LV systolic function normal . LVEF by Ramirez'smethod of disk assessment is normal (>60%) . [...] annular calcification. Mild MV leaflet thickening. The submitralapparatus appears thickened and calcified . Tricuspid Valve TV is partially visualized. Unable to estimate peak systolic PA pressure; inadequate TR velocity signal. Pulmonic Valve Normal PV structure and function by l imited views and Doppler. Aorta Aortic root size (SInus of Valsalva diameter) is indeterminate (not well seen) . Pericardium No pericardial effusion is visualized. IVC/SVC/PA/PV/Pleural The estimated RA pressure by IVC dynamics 0-5mmHg . Chambers/Structures Left Atrium LA Volume: 102.67 ml LA Area: 30.52cm^2 LA Vol. Index: 55 ml/m^2 Left Ventricle LVEDV Ramirez's:68.01 ml LVESV Ramirez's:24.75 ml LVEF Ramirez's: 63.6 % LVEDVI: 36 ml/m^2 LVESVI: 13 ml/m^2[facility] CenterKappa / lambda light chains, [id number] 12:07:00 Test Item Value Reference Interpretation Comments Range [place] Lt Chain,Free 38.1 mg/L 3.3-19.4 H (test code = 69973-5) Lambda Lt 19.6 mg/L 5.7-26.3 Chain,Free (test code = 53213-7) [place]/Lambda,Free 1.94 0.26-1.65 H Free pati a/lambda (test code = ratio in serum of 5523538) normal individu als is 0.26-1.65. Excessproductio n of free kappa or l ambda chains can alte r this ratio. Monoclon alfree light chains ar e found in serum of pat ients with multiple myeloma,Waldens trom's macroglobulinem ia, mu-heavy chain disease, primary amyloidosis,lig ht chain deposition dise ase, monoclonal gamm opathy of undeterminedsig nificanc e, and lymphoprolifera tive disorders. Douglas urement of free lightch ain concentration i n serum is useful for diagnosis, prog nosis, monitoringdisea se activity and fo llowing response to the rapy of these disorders . JUAREZ (test code = Performing Lab JUAREZ) EZ [facility] [address] [place] [address] Richardson Edward MD, PhD, AURA Lab Interpretation Abnormal (test code = 82422-5) [facility] W/PLT COUNT & AUTO [id number] 05:12:00 Test Item Value Reference Range Interpretation Comments WHITE BLOOD CELL COUNT (BEAKER) 8.5 K/ L 3.5-10.5 (test code = 775) RED BLOOD CELL COUNT (BEAKER) 4.58 M/ L 4.63-6.08 L (test code = 761) HEMOGLOBIN (BEAKER) (test code = 14.5 GM/DL 13.7-17.5 410) HEMATOCRIT (BEAKER) (test code = 42.8 % 40.1-51.0 411) MEAN CORPUSCULAR VOLUME (BEAKER) 93.4 fL 79.0-92.2 H (test code = 753) MEAN CORPUSCULAR HEMOGLOBIN 31.7 pg 25.7-32.2 (BEAKER) (test code = 751) MEAN CORPUSCULAR HEMOGLOBIN CONC 33.9 GM/DL 32.3-36.5 (BEAKER) (test code = 752) RED CELL DISTRIBUTION WIDTH 11.9 % 11.6-14.4 (BEAKER) (test code = 412) PLATELET COUNT (BEAKER) (test 187 K/CU MM 150-450 code = 756) MEAN PLATELET VOLUME (BEAKER) 10.3 fL 9.4-12.4 (test code = 754) NUCLEATED RED BLOOD CELLS 0 /100 WBC 0-0 (BEAKER) (test code = 413) NEUTROPHILS RELATIVE PERCENT 63 % (BEAKER) (test code = 429) LYMPHOCYTES RELATIVE PERCENT 19 % (BEAKER) (test code = 430) MONOCYTES RELATIVE PERCENT 13 % (BEAKER) (test code = 431) EOSINOPHILS RELATIVE PERCENT 3 % (BEAKER) (test code = 432) BASOPHILS RELATIVE PERCENT 1 % (BEAKER) (test code = 437) NEUTROPHILS ABSOLUTE COUNT 5.32 K/ L 1.78-5.38 (BEAKER) (test code = 670) LYMPHOCYTES ABSOLUTE COUNT 1.64 K/ L 1.32-3.57 (BEAKER) (test code = 414) MONOCYTES ABSOLUTE COUNT (BEAKER) 1.12 K/ L 0.30-0.82 H (test code = 415) EOSINOPHILS ABSOLUTE COUNT 0.24 K/ L 0.04-0.54 (BEAKER) (test code = 416) BASOPHILS ABSOLUTE COUNT (BEAKER) 0.07 K/ L 0.01-0.08 (test code = 417) IMMATURE GRANULOCYTES-RELATIVE 1 % 0-1 PERCENT (BEAKER) (test code = 2801) [id number] 05:01:00 Test Item Value Reference Range Interpretation Comments MAGNESIUM (BEAKER) (test code = 2.0 mg/dL 1.6-2.6 627) Dispatch Clerk ID - EDASIBASIC METABOLIC [id number] 05:01:00 Test Item Value Reference Range Interpretation Comments SODIUM (BEAKER) 130 meq/L 136-145 L (test code = 381) POTASSIUM (BEAKER) 4.4 meq/L 3.5-5.1 (test code = 379) CHLORIDE (BEAKER) 100 meq/L 98-107 (test code = 382) CO2 (BEAKER) (test 21 meq/L 22-29 L code = 355) BLOOD UREA NITROGEN 32 mg/dL 7-21 H (BEAKER) (test code = 354) CREATININE (BEAKER) 0.94 mg/dL 0.57-1.25 (test code = 358) GLUCOSE RANDOM 90 mg/dL 70-105 (BEAKER) (test code = 652) CALCIUM (BEAKER) 9.2 mg/dL 8.4-10.2 (test code = 697) EGFR (BEAKER) (test 76 mL/min/1.73 ESTIMA REDD GFR IS code = 1092) sq m NOT ACCURATE CREATININE CLEARANCE IN PREDICTING GLOMERULAR FILTRATION RATE . ESTIMATED GFR I S NOT APPLICABLE FOR DIALYSIS PATIEN TS. Dispatch Clerk ID - EDASIRAD, CHEST, 1 VIEW, NON [id number] 15:21:00Reason for exam:->s/p Micra leadless PPMShould this be performed at the bedside?->Yes FINAL REPORT INDICATION: s/p Micra leadless PPM COMPARISON: July 06, 2020 TECHNIQUE: Single frontal view of the chest. FINDINGS: Lungs and pleura: Clear lungs. No effusion.Heart and mediastinum: Normal heart size. Unremarkable mediastinal contours.Osseous structures: No acute abnormality.Other: None. IMPRESSION: No acute intrathoracic abnormality. Signed: Nubia Cabral Verified Date/Time: 07/08/2020 15:21:30 Reading Location: [facility] Radiology Reading Room XR chest 1 view portable / [id number] 15:21:00Interface, External Ris In - 07/08/2020 3:23 PM CDTFINAL REPORT INDICATION: s/p Micra leadless PPM COMPARISON: July 06, 2020 TECHNIQUE: Single frontal view of the chest. FINDIN GS: Lungs and pleura: Clear lungs. No effusion.Heart and mediastinum: Normal heart size. Unremarkable mediastinal contours.Osseous structures: No acute abnormality.Other: None. IMPRESSION: No acute intrathoracic abnormality. Signed: Nubia Cabral Verified Date/Time: 07/08/2020 15:21:30 [place] ding Location: [facility] Radiology Reading Room [facility] Immunofixation electrophoresis (JOHNSON)2020-07-08 15:11:00 Test Item Value Reference Range Interpretation Comments IgG (test code = 1276 mg/dL 540-1822 2465-3) IgA (test code = 260 mg/dL 63-484 2458-8) IgM (test code = 175 mg/dL 22-293 2464-6) Serum JOHNSON IgM-lambda, monoclonal Identification (test (Note: the majority of code = 1814) immunoglobulin present is polyclonal in distribution; the monoclonal protein is of very small concentration) Pathologist: (test code Gloria Jacobs MD = 2597) (electronic signature) JUAREZ (test code = JUAREZ) Dispatch Clerk ID - NTP [facility] CenterIMMUNOFIXATION ELECTROPHORESIS (JOHNSON)2020-07-08 15:11:00 Test Item Value Reference Range Interpretation Comments IMMUNOGLOBULIN G (IGG) 1276 mg/dL 540-1,822 (BEAKER) (test code = 427) IMMUNOGLOBULIN A (IGA) 260 mg/dL 63-484 (BEAKER) (test code = 639) IMMUNOGLOBULIN M (IGM) 175 mg/dL 22-293 (BEAKER) (test code = 638) SERUM JOHNSON ID (BEAKER) IgM-lambda, monoclonal (test code = 1814) (Note: the majority of immunoglobulin present is polyclonal in distribution; the monoclonal protein is of very small concentration) [id number] Gloria Jacobs MD (BEAKER) (test code = (electronic signature) 2597) Dispatch Clerk ID - NTPProtein electrophoresis, [id number] 15:10:00 Test Item Value Reference Range Interpretation Comments Albumin Fraction (test 3.2 g/dL 3.5-5.5 L code = 405) Alpha 1 Fraction (test 0.2 g/dL 0.2-0.4 code = 389) Alpha 2 Fraction (test 0.9 g/dL 0.5-0.9 code = 390) Beta Fraction (test 0.8 g/dL 0.6-1.1 code = 392) Gamma Globulin Fraction 1.4 g/dL 0.7-1.7 (test code = 391) Interpretation (test Small restriction in code = 2615) mid-gamma region; concentration is insufficient to quantitate. Serum JOHNSON reported separately. Pathologist: (test code Gloria Jacobs MD = 2616) (electronic signature) Protein, Total (test 6.4 6.0- 8.3 gm/dL code = 2660) JUAREZ (test code = JUAREZ) Dispatch Clerk ID - JENAE M Lab Interpretation Abnormal (test code = 84581-2) [facility] CenterPROTEIN ELECTROPHORESIS, [id number] 15:10:00 Test Item Value Reference Range Interpretation Comments ALBUMIN FRACTION 3.2 g/dL 3.5-5.5 L (BEAKER) (test code = 405) ALPHA 1 FRACTION 0.2 g/dL 0.2-0.4 (BEAKER) (test code = 389) ALPHA 2 FRACTION 0.9 g/dL 0.5-0.9 (BEAKER) (test code = 390) BETA FRACTION 0.8 g/dL 0.6-1.1 (BEAKER) (test code = 392) GAMMA GLOBULIN 1.4 g/dL 0.7-1.7 FRACTION (BEAKER) (test code = 391) INTERPRETATION-119 Small restriction in (BEAKER) (test code mid-gamma region; = 2615) concentration is insufficient to quantitate. Serum JOHNSON reported separately. [id number] Gloria Jacobs MD (BEAKER) (test code (electronic signature) = 2616) PROTEIN TOTAL SERUM, 6.4 gm/dL 6.0-8.3 SPEP (BEAKER) (test code = 2660) Dispatch Clerk ID - JENAE MABORH, [id number] 07:29:00 Test Item Value Reference Range Interpretation Comments ABO Grouping (test code = 2588) O Rh Factor (test code = 2589) POS [facility] CenterType and screen, [id number] 07:20:00 Test Item Value Reference Range Interpretation Comments ABO/RH AUTOMATED (BEAKER) (test O POSITIVE code = 2260) Ab Scrn (test code = 890-4) NEGATIVE [facility] CenterMAGNESIUM2020-08-25 06:58:00 Test Item Value Reference Range Interpretation Comments MAGNESIUM (BEAKER) 2.1 mg/dL 1.6-2.6 Specimen moderately (test code = 627) hemolyzed Dispatch Clerk ID - JENAE MBASIC METABOLIC [id number] 06:58:00 Test Item Value Reference Range Interpretation Comments SODIUM (BEAKER) 128 meq/L 136-145 L (test code = 381) POTASSIUM (BEAKER) 4.5 meq/L 3.5-5.1 Specimen moderately (test code = 379) hemolyzed CHLORIDE (BEAKER) 99 meq/L 98-107 (test code = 382) CO2 (BEAKER) (test 18 meq/L 22-29 L code = 355) BLOOD UREA NITROGEN 31 mg/dL 7-21 H (BEAKER) (test code = 354) CREATININE (BEAKER) 0.97 mg/dL 0.57-1.25 Specimen moderately (test code = 358) hemolyzed GLUCOSE RANDOM 90 mg/dL 70-105 (BEAKER) (test code = 652) CALCIUM (BEAKER) 8.9 mg/dL 8.4-10.2 (test code = 697) EGFR (BEAKER) (test 74 mL/min/1.73 ESTIMA REDD GFR IS code = 1092) sq m NOT ACCURATE CREATININE CLEARANCE IN PREDICTING GLOMERULAR FILTRATION RATE . ESTIMATED GFR I S NOT APPLICABLE FOR DIALYSIS PATIEN TS. Dispatch Clerk ID - JENAE [facility] W/PLT COUNT & AUTO [id number] 06:13:00 Test Item Value Reference Range Interpretation Comments WHITE BLOOD CELL COUNT (BEAKER) 7.6 K/ L 3.5-10.5 (test code = 775) RED BLOOD CELL COUNT (BEAKER) 4.49 M/ L 4.63-6.08 L (test code = 761) HEMOGLOBIN (BEAKER) (test code = 14.4 GM/DL 13.7-17.5 410) HEMATOCRIT (BEAKER) (test code = 41.8 % 40.1-51.0 411) MEAN CORPUSCULAR VOLUME (BEAKER) 93.1 fL 79.0-92.2 H (test code = 753) MEAN CORPUSCULAR HEMOGLOBIN 32.1 pg 25.7-32.2 (BEAKER) (test code = 751) MEAN CORPUSCULAR HEMOGLOBIN CONC 34.4 GM/DL 32.3-36.5 (BEAKER) (test code = 752) RED CELL DISTRIBUTION WIDTH 11.9 % 11.6-14.4 (BEAKER) (test code = 412) PLATELET COUNT (BEAKER) (test 139 K/CU MM 150-450 L code = 756) MEAN PLATELET VOLUME (BEAKER) 11.4 fL 9.4-12.4 (test code = 754) NUCLEATED RED BLOOD CELLS 0 /100 WBC 0-0 (BEAKER) (test code = 413) NEUTROPHILS RELATIVE PERCENT 56 % (BEAKER) (test code = 429) LYMPHOCYTES RELATIVE PERCENT 27 % (BEAKER) (test code = 430) MONOCYTES RELATIVE PERCENT 13 % (BEAKER) (test code = 431) EOSINOPHILS RELATIVE PERCENT 3 % (BEAKER) (test code = 432) BASOPHILS RELATIVE PERCENT 1 % (BEAKER) (test code = 437) NEUTROPHILS ABSOLUTE COUNT 4.25 K/ L 1.78-5.38 (BEAKER) (test code = 670) LYMPHOCYTES ABSOLUTE COUNT 2.01 K/ L 1.32-3.57 (BEAKER) (test code = 414) MONOCYTES ABSOLUTE COUNT (BEAKER) 0.98 K/ L 0.30-0.82 H (test code = 415) EOSINOPHILS ABSOLUTE COUNT 0.23 K/ L 0.04-0.54 (BEAKER) (test code = 416) BASOPHILS ABSOLUTE COUNT (BEAKER) 0.07 K/ L 0.01-0.08 (test code = 417) IMMATURE GRANULOCYTES-RELATIVE 0 % 0-1 PERCENT (BEAKER) (test code = 2801) [id number] 05:32:00 Test Item Value Reference Range Interpretation Comments PTT (test code = 75192-5) 69.6 22.5- 36.0 seconds H Lab Interpretation (test code = Abnormal 30112-9) [id number] Test Item Value Reference Range Interpretation Comments PARTIAL THROMBOPLASTIN TIME 69.6 seconds 22.5-36.0 H (BEAKER) (test code = 760) CBC W/PLT COUNT & AUTO [id number] 10:20:00 Test Item Value Reference Range Interpretation Comments WHITE BLOOD CELL COUNT 8.1 K/ L 3.5-10.5 (BEAKER) (test code = 775) RED BLOOD CELL COUNT 4.50 M/ L 4.63-6.08 L (BEAKER) (test code = 761) HEMOGLOBIN (BEAKER) 14.4 GM/DL 13.7-17.5 (test code = 410) HEMATOCRIT (BEAKER) 42.6 % 40.1-51.0 (test code = 411) MEAN CORPUSCULAR 94.7 fL 79.0-92.2 H DISCORDANT MCV VOLUME (BEAKER) (test RESULT COMPARED TO code = 753) PREVIOUS RESULT ; CLINICAL CORREL ATION REQUIRED. MEAN CORPUSCULAR 32.0 pg 25.7-32.2 HEMOGLOBIN (BEAKER) (test code = 751) MEAN CORPUSCULAR 33.8 GM/DL 32.3-36.5 HEMOGLOBIN CONC (BEAKER) (test code = 752) RED CELL DISTRIBUTION 11.9 % 11.6-14.4 WIDTH (BEAKER) (test code = 412) PLATELET COUNT 157 K/CU MM 150-450 (BEAKER) (test code = 756) MEAN PLATELET VOLUME 11.5 fL 9.4-12.4 (BEAKER) (test code = 754) NUCLEATED RED BLOOD 0 /100 WBC 0-0 CELLS (BEAKER) (test code = 413) NEUTROPHILS RELATIVE 61 % PERCENT (BEAKER) (test code = 429) LYMPHOCYTES RELATIVE 24 % PERCENT (BEAKER) (test code = 430) MONOCYTES RELATIVE 12 % PERCENT (BEAKER) (test code = 431) EOSINOPHILS RELATIVE 2 % PERCENT (BEAKER) (test code = 432) BASOPHILS RELATIVE 1 % PERCENT (BEAKER) (test code = 437) NEUTROPHILS ABSOLUTE 4.95 K/ L 1.78-5.38 COUNT (BEAKER) (test code = 670) LYMPHOCYTES ABSOLUTE 1.91 K/ L 1.32-3.57 COUNT (BEAKER) (test code = 414) MONOCYTES ABSOLUTE 0.98 K/ L 0.30-0.82 H COUNT (BEAKER) (test code = 415) EOSINOPHILS ABSOLUTE 0.19 K/ L 0.04-0.54 COUNT (BEAKER) (test code = 416) BASOPHILS ABSOLUTE 0.05 K/ L 0.01-0.08 COUNT (BEAKER) (test code = 417) IMMATURE 0 % 0-1 GRANULOCYTES-RELATIVE PERCENT (BEAKER) (test code = 2801) Hemoglobin [id number] 10:14:00 Test Item Value Reference Range Interpretation Comments Hemoglobin A1C (test code = 4548-4) 5.3 % 4.3-6.1 Lab Interpretation (test code = Normal 42365-2) [facility]MO[facility] [id number] 10:14:00 Test Item Value Reference Range Interpretation Comments HEMOGLOBIN A1C (BEAKER) (test code = 5.3 % 4.3-6.1 368) CT, CHEST, WITHOUT [id number] 09:59:00Unlisted Reason for Exam - Click Yes and Enter Reason Below->YesUnlisted Reason for Exam->RUL lung lesionAnesthesia:->NoneFINAL REPORT TECHNIQUE: HRCT of the chest WITHOUT intravenous contrast. Dose modulation, iterative reconstruction, and/or weight-based adjustment of the mA/kV was utilized to redu ce the radiation dose to as low as reasonably achievable. INDICATION: Interstitial lung disease. Right upper lobe lung lesion. COMPARISON: None. FINDINGS: ABSENCE OF INTRAVENOUS CONTRAST DECREASES SENSITIVITY FOR DETECTION OF FOCAL LESIONS AND VASCULAR PATHOLOGY. LINES/TUBES: None. LUNGS AND AIRWAYS: Mild retained secretions within the trachea. There is mild bibasilar bronchiectasis. Central airways are otherwise patent. There is mild diffuse bronchial wall thickening. Irregular-shaped nodular opacity in the left lower lobe adjacent to the left hemidiaphragm measuring 6 mm. (See axial image 41). T here is an 8 mm irregular nodular opacity within the posterior left upper lobe with surrounding groundglass opacity. (See axial image 12). PLEURA: Bilateral pleural calcifications. There are anterior pleural calcifications of the right hemithorax which corresponds to the nodular density described on recent chest x- ray.. There is a trace right-sided pleural effusion. There are mild subpleural reticular opacities and the lung bases. HEART AND MEDIASTINUM: The visualized thyroid gland is normal. No significant mediastinal, hilar, or axillary lymphadenopathy. The heart is not enlarged. There is a smallpericardial effusion. There is mitral annular calcification. Reevaluate calcifications are also noted. Atherosclerotic calcifications in the thoracic aorta and coronary arteries... SOFT TISSUES AND BONES: There are a few bilateral healed anterior fracture deformities. Degenerative changes noted throughout the thoracic spine. No suspicious osseous lesion.. UPPER ABDOMEN: Unremarkable. IMPRESSION:Bilat eral pleural calcifications likely related to prior asbestos exposure. The pleural calcifications inthe anterior right hemithorax correspond to the nodular density described on recent chest x-ray. Minimal bibasilar subpleural reticular opacities and bronchiectasis concerning for mild pulmonary fibrosis. Irregular nodular opacity within the posterior left upper lobe with surrounding groundglass opacity. There is also a nodular opacity in the left lower lobe. 2017 Fleischner Society Recommendations for Multiple Solid Lung Nodules Follow- Up base on size (average of long- and short-axis diameters). Use most suspicious nodule for followup. Nodule Size (mm) >8 Low-Risk Patient: CT at 3-6 months, then consider CT at 18-24 monthsNodule Size (mm) >8 High-Risk Patient: CT at 3-6 months, then at 18-24 months Signed: James Arreola Verified Date/Time: 07/07/2020 09:59:03 Reading Location: [facility] Diagnostic Imaging Reading Room - [place] [address] [address] chest without IV [id number] 09:59:00Interface, External Ris In - 07/07/2020 10:01 AM CDTFINAL REPORT TECHNIQUE: HRCT of the chest WITHOUT intravenous contrast. Dose modulation, iterative reconstruction, and/or weight-based adjustment of the mA/kV was utilized to reduce the radiation dose to as low as reasonably ach ievable. INDICATION: Interstitial lung disease. Right upper lobe lung lesion. COMPARISON: None. FINDINGS: ABSENCE OF INTRAVENOUS CONTRAST DECREASES SENSITIVITY FOR DETECTION OF FOCAL LESIONS AND VASCULAR PATHOLOGY. LINES/TUBES: None. LUNGS AND AIRWAYS: Mild retained secretions within the trachea. There is mild bibasilar bronchiectasis. Central airways are otherwise patent. There is mild diffuse bronchial wall thickening. Irregular-shaped nodular opacity in the left lower lobe adjacent to the left hemidiaphragm measuring 6 mm. (See axial image 41). There is an 8 mm irregular nodular opacity withinthe posterior left upper lobe with surrounding groundglass opacity. (See axial image 12). PLEURA: Bilateral pleural calcifications. There are anterior pleural calcifications of the right hemithorax which corresponds to the nodular density described on recent chest x-ray.. There is a trace right-sided pleural effusion. There are mild subpleural reticular opacities and the lung bases. HEART AND MEDIASTINUM: The visualized thyroid gland is normal. No significant mediastinal, hilar, or axillary lymphadenopathy. The heart is not enlarged. There is a small pericardial effusion. There is mitral annular calcification. Reevaluate calcifications are also noted. Atherosclerotic calcifications in the thoracic aorta and coronary arteries... SOFT TISSUES AND BONES: There are a few bilateral healed anterior fracture deformities. Degenerative changes noted throughout the thoracic spine. No suspicious osseous lesion.. UPPER ABDOMEN: Unremarkable. 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 The pleural calcifications in the anterior right hemithorax correspond to the nodular density described on recent chest x-ray. Minimal bibasilar subpleural reticular opacities andbronchiectasis concerning for mild pulmonary fibrosis. Irregular nodular opacity within the posterior left upper lobe with surrounding groundglass opacity. There is also a nodular opacity in the left lo wer lobe. 2017 Fleischner Society Recommendations for Multiple Solid Lung Nodules Follow-Up base onsize (average of long- and short-axis diameters). Use most suspicious nodule for followup. Nodule Size (mm) >8 Low-Risk Patient: CT at 3-6 months, then consider CT at 18-24 monthsNodule Size (mm) >8 High-Risk Patient: CT at 3-6 months, then at 18-24 months Signed: James Arreola MDReportVerified Date/Time: 07/07/2020 09:59:03 Reading Location: [facility] Diagnostic Imaging Reading Room [place] [address] [facility] W/Doppler(CW/PW/Color)2020-07-07 09:40:46[facility] ECHO HEARTLAB MKCKESSON CPACSInterface, External Ris In - 07/07/2020 9:40 AM C DTTransthoracic Echocardiography Report (TTE) Demographics Patient Name CHRIS BOLIVAR Date of Study 07/06/2020 Gender Male Visit Number [id number] Race Unknown Room Number 6105 Number Date of 1935 Referring Physician Mert Martinez Age 85 year(s) Dining Room Manager Sumi Ty CS Bus Driver/Monitor Chelly Devries, Interpreting Jung Hong MD RDCS Physician Procedure Type of Study TTE procedure:2DECHO W DOPPLER(CW/PW/COLOR) (JUSTINO) Indications:Shortness of breath.Clinical HistoryBradycardia, Former smoker, COPD, HTNHGB 15.1HCT 44.5 %Contrast Medium: Definity. Amount - 2 mlHeight: 69 inchesWeight: 73.03 kg (161 lbs) BSA: 1.88 m^2 BMI: 23.78 kg/m^2HR: 38 bpm BP: 136/61 mmHg Summary The left ventricle is chamber size (by vol index) is normal (male - LVED vol - 34-74ml/m2). Mild concentric LV hypertrophy. All of the LV segments are hyperkinetic . LVEF by Ramirez's method of disk assessmentis increased (>70%) . Degree of diastolic dysfunction (LAP assessment) is inconclusive due to arrhythmia . Moderate aortic stenosis. AoV area at rest by continuity equation is in the range of 1.2 cm2. AoV dimensionless obstructive index (DOI)) is 0.37 .Peak Grad; 27 mmHg ,Mean Grad; 14 mmHg . Mild to moderate tricuspid regurgitation. Estimated peak systolic PA pressure is 45-50 mmHg (mild pulmonary hypertension) . Previous Study No prior studies available for comparison. Signature Findings Technical Quality: Technically difficult exam. Left Ventricle LV endocardium is adequately visualized with IV ultrasound enhancing agent. The left ventricle is chamber size (by vol index) is normal (male - LVED vol - 34-74ml/m2). Mild concentric LV hypertrophy. All of the LV segments are hyperkinetic . Global LV systolic function hyperdynamic . LVEF by Ramirez's method of [...] thickening. The submitral apparatus appears thickened and calcified . Trace mitral regurgitation. Tricuspid Valve Mild to moderate tricuspid regurgitation. Estimated peak systolic PA pressure is 45- 50 mmHg (mild pulmonary hypertension) .Pulmonic Valve Normal PV structure and function by [...] Velocity: 3.27 m/s TR Gradient: 42.84 mmHg [facility] CenterLipid [id number] 08:28:00 Test Item Value Reference Range Interpretation Comments Triglycerides (test 27 mg/dL code = 2571-8) Cholesterol (test code 123 mg/dL = 2093-3) HDL (test code = 51 mg/dL 5-9) LDL Calculated (test 67 mg/dL code = 94271-8) JUAREZ (test code = JUAREZ) Triglyceride Reference Range: Low Risk <150 Borderline 150-199 High Risk 200-499 Very High Risk >=500 Cholesterol Reference Range: Low Risk <200 Borderline 200-239 High Risk >240 HDL Cholesterol Reference Range: Low Risk >=60 High Risk <40 LDL Cholesterol Reference Range: Optimal <100 Near Optimal 100-129 Borderline 130-159 High 160-189 Very High >=190 Dispatch Clerk MATT Guerra [facility] CenterMAGNESIUM2020-08-24 08:28:00 Test Item Value Reference Range Interpretation Comments MAGNESIUM (BEAKER) (test code = 1.5 mg/dL 1.6-2.6 L 627) Dispatch Clerk MATT EMANUEL MBASIC METABOLIC [id number] 08:28:00 Test Item Value Reference Range Interpretation Comments SODIUM (BEAKER) 130 meq/L 136-145 L (test code = 381) POTASSIUM (BEAKER) 4.2 meq/L 3.5-5.1 (test code = 379) CHLORIDE (BEAKER) 102 meq/L 98-107 (test code = 382) CO2 (BEAKER) (test 15 meq/L 22-29 L code = 355) BLOOD UREA NITROGEN 33 mg/dL 7-21 H (BEAKER) (test code = 354) CREATININE (BEAKER) 0.96 mg/dL 0.57-1.25 (test code = 358) GLUCOSE RANDOM 89 mg/dL 70-105 (BEAKER) (test code = 652) CALCIUM (BEAKER) 8.2 mg/dL 8.4-10.2 L (test code = 697) EGFR (BEAKER) (test 75 mL/min/1.73 ESTIMA REDD GFR IS code = 1092) sq m NOT ACCURATE CREATININE CLEARANCE IN PREDICTING GLOMERULAR FILTRATION RATE . ESTIMATED GFR I S NOT APPLICABLE FOR DIALYSIS PATIEN TS. Dispatch Clerk ID - JENAE MLIPID [id number] 08:28:00 Test Item Value Reference Range Interpretation Comments TRIGLYCERIDES (BEAKER) (test code = 27 mg/dL 540) CHOLESTEROL (BEAKER) (test code = 123 mg/dL 631) HDL CHOLESTEROL (BEAKER) (test code 51 mg/dL = 976) LDL CHOLESTEROL CALCULATED (BEAKER) 67 mg/dL (test code = 633) Triglyceride Reference Range: Low Risk <150 Borderline 150-199 High Risk 200-499 Very High Risk >=500Cholesterol Reference Range: Low Risk <200 Borderline 200-239 High Risk >240HDL Cholesterol Reference Range: Low Risk >=60 High Risk <40LDL Cholesterol Reference Range: Optimal <100 Near Optimal 100-129 Borderline 130-159 High 160-189 Very High >=190 Dispatch Clerk ID - JENAE MCarotid doppler [id number] 08:25:13 [facility] ECHO HEARTLAB MKCKESSON CPACSRight Impression1. There is 50-69% diameter reduction in the internal carotid artery with apeak velocity of 168/28cm/sec and heterogeneous shadowing plaque.2. There is non-occluding plaque in the external carotid artery.3. There is non-occluding plaque in the common carotid artery.4. The vertebral artery flow is antegrade .5. The subclavian artery iswithin normal limits where visualized.Left Impression1. There is <50% diameter reduction in the internal carotid artery with apeak velocity of 62/12cm/sec and heterogeneous shadowing plaque.2. Thereis non-occluding plaque in the external carotid artery.3. There is non-occluding plaque in the common carotid artery.4. The vertebral artery flow is antegrade .5. The subclavian artery is within normallimits where visualized. Conclusions Summary Carotid duplex scanning and color flow imaging were performed bilaterally. The arteries were adequately visualized. The right internal carotid artery wxk48-50% hemodynamically significant stenosis with heterogeneous shadowing plaque. The left internal carotid artery had <50% hemodynamically insignificant stenosis with heterogeneous shadowing plaque.The vertebral artery flow was antegrade and normal bilaterally. The subclavian arteries were patent with normal flow bilaterally where visualized. Signature 08:25 AM Velocities are measured incm/s ; Diameters are measured in cm Carotid Right Measurements+ +----+----+-----+------ ------+ + +!Location !PSV !EDV !Angle!%Stenosis 2D!%Stenosis Doppler!Tortuosity !+ +----+----+-----+ + + +!Pr ox CCA !88.8!13.7!60 ! ! ! !+ +----+----+-----+----- -------+ + +!Dist CCA !64 !8.7 !60 ! !! !+ +----+----+-----+ + + +!Pr ox ICA !168 !28.1!60 ! !>50% !Severe !+ +----+----+-----+- + + +!Dist ICA !114 !19.4!60 ! ! ! !+ +----+----+-----+ + + +!Ve rtebral !41.7! !60 ! ! ! !+ +----+----+-----+ + + +!Prox Subclavian!108 ! !60 ! ! ! !+ +----+----+-----+ + + + - There is antegrade vertebral flow noted on the right side. - Additional Measurements:ICAPSV/CCAPSV 2.62.ICAEDV/CCAEDV 2.05. Carotid Left Measurements+ +----+----+-----+ +------- + +!Location !PSV !EDV !Angle!%Stenosis 2D!%Stenosis Doppler!Tortuosity !+- +----+----+-----+ + + +!Prox CCA !102 ! !60 ! ! ! !+ +----+----+-----+ +------ + +!Dist CCA !80.6!10.5!60 ! ! ! !+ +----+----+-----+ + + +!Prox ICA !62.3!12.1!18 ! !<50% !Severe !+ +----+----+-----+ +-- + +!Dist ICA !71.5!15.6!18 ! ! ! !+ +----+----+-----+ + + +!Pr ox ECA !48.3!8.41!0 ! ! ! !+ +----+----+-----+ +- + +!Vertebral !42.8!12.8!60 ! ! ! !+ +----+----+-----+ + + +!Pr ox Subclavian!80.6! !60 ! ! ! !+ +----+----+-----+ + + + - There is antegrade vertebral flow noted on the left side. - Additional Measurements:ICAPSV/CCAPSV 0.89. Interface, External Ris In - 07/07/2020 8:25 AM CDTPV LAB -Carotid Duplex Study Demographics Patient Name CHRIS BOLIVAR Date of Study 07/06/2020 Age 85 Visit Number [id number] Gender Male Accession Number [id number] Date of 1935 Nahed Dye MD Room Number 9502 Physician Marnie Mccoy MD Dining Room Manager Skye Frank Interpreting Amanuel Blanco MD RVT Physician ProcedureType of Study: Cerebral: Carotid, CAROTID DOPPLER, BILATERAL. Indicationsfor Study:Stroke.Patient Status:Routine.Study Location:Portable.Technical Quality:Adequate visualization.Risk FactorsHistory of Disease+ + + --------+!Diagnosis !Date !Comments!+ + +--------+!History/Risk Factors: !07/06/2020!stroke !+ + +--------+ImpressionsRight Impression1. There is 50-69% diameter reduction in the internal carotid artery with apeak velocity of 168/28cm/sec and heterogeneous shadowing plaque.2. There is non-occluding plaque in the external carotid artery.3. There is non-occluding plaque in the common carotid artery.4. The vertebral artery flow is antegrade .5. The subclavian artery is within normal limits where visualized.Left Impression1. There is <50% diameter reduction in the internal carotid artery with apeak velocity of 62/12cm/sec and heterogeneous shadowing plaque.2. There is non-occluding plaque in the external carotid artery.3. There is non-occluding plaque in the common carotid artery.4. The vertebral artery flow is antegrade .5. The subclavian artery is within normal limits [...] in cm/s ; Diameters are measured in cmCarotid Right Measurements+ +----+----+-----+ + +---- -------+!Location !PSV !EDV !Angle!%Stenosis 2D!%Stenosis Doppler!Tortuosity !+ +--- -+----+-----+ + + +!Prox CCA !88.8!13.7!60 !! ! !+ +----+----+-----+ + +------ -----+!Dist CCA !64 !8.7 !60 ! ! ! !+ +-- --+----+-----+ + + +!Prox ICA !168 !28.1!60 ! !>50% !Severe !+ +----+----+-----+ + +-- ---------+!Dist ICA !114 !19.4!60 ! ! ! !+ -+----+----+-----+ + + +!Vertebral !41.7! !60 ! ! ! !+ +----+----+-----+ + +- +!Prox Subclavian!108 ! !60 ! ! ! !+ --+----+----+-----+ + + + - There is antegrade vertebral flow noted on the right side. - Additional Measurements:ICAPSV/CCAPSV 2.62.ICAEDV/CCAEDV 2.05.Carotid Left Measurements+ +----+----+-----+ + +---- -------+!Location !PSV !EDV !Angle!%Stenosis 2D!%Stenosis Doppler!Tortuosity !+ +----+----+-----+---- --------+ + +!Prox CCA !102 ! !60 ! ! ! !+ +----+----+-----+ + + +!Di st CCA !80.6!10.5!60 ! ! ! !+ +----+----+-----+--- ---------+ + +!Prox ICA !62.3!12.1!18 ! !<50% !Severe !+ +----+----+-----+ + + +!Di st ICA !71.5!15.6!18 ! ! ! !+ +----+----+----- + + + +!Prox ECA !48.3!8.41!0 ! ! ! !+ +----+----+-----+ + + +!Ve rtebral !42.8!12.8!60 ! ! ! !+ +----+----+---- -+ + + +!Prox Subclavian!80.6! !60 ! ! ! !+ +----+----+-----+ + + + - There is antegrade vertebral flow noted on the left side. - Additional Measurements:ICAPSV/CCAPSV 0.89.[facility] CenterTS/Free T4 If [id number] 07:12:00 Test Item Value Reference Range Interpretation Comments TSH (test code = 1.960 0.350- 4.940 uIU/mL 48255-5) JUAREZ (test code = JUAREZ) Dispatch Clerk ID - JENAE M Lab Interpretation (test Normal code = 51111-2) [facility] CenterVitamin B12 and [id number] 07:12:00 Test Item Value Reference Range Interpretation Comments Vitamin B12 (test code = 351 pg/mL 610-412 2475-9) Folate (test code = 10.70 ng/mL >=7.00 2284-8) JUAREZ (test code = JUAREZ) Dispatch Clerk ID - JENAE M Lab Interpretation (test Normal code = 56347-4) [facility] CenterTS/FREE T4 IF [id number] 07:12:00 Test Item Value Reference Range Interpretation Comments THYROID STIMULATING HORMONE 1.960 uIU/mL 0.350-4.940 (BEAKER) (test code = 772) Dispatch Clerk ID - JENAE MVITAMIN B12 AND [id number] 07:12:00 Test Item Value Reference Range Interpretation Comments VITAMIN B12 (BEAKER) (test code = 351 pg/mL 213-816 774) FOLATE (BEAKER) (test code = 362) 10.70 ng/mL >=7.00 Dispatch Clerk ID - JENAE Slick, TIBC, % sat. (without ferritin)2020-07-07 06:38:00 Test Item Value Reference Range Interpretation Comments Iron (test code = 2498-4) 102.0 ug/dL 40-160 TIBC (test code = 2500-7) 228 ug/dL 250-450 L Iron % Saturation (test 45 % 20-55 code = 2502-3) JUAREZ (test code = JUAREZ) Dispatch Clerk ID - JENAE M Lab Interpretation (test Abnormal code = 18754-6) [facility] CenterIRON, TIBC, % SAT. (WITHOUT FERRITIN)2020-07-07 06:38:00 Test Item Value Reference Range Interpretation Comments IRON (BEAKER) (test code = 547) 102.0 ug/dL 40.0-160.0 TOTAL IRON BINDING CAPACITY 228 ug/dL 250-450 L (BEAKER) (test code = 769) IRON % SATURATION (2) (BEAKER) 45 % 20-55 (test code = 2590) Dispatch Clerk ID - JENAE [id number] 05:30:00 Test Item Value Reference Range Interpretation Comments PARTIAL THROMBOPLASTIN TIME 64.3 seconds 22.5-36.0 H (BEAKER) (test code = 760) POC-Glucose [id number] 16:43:00 Test Item Value Reference Range Interpretation Comments POC-Glucose Meter (test 83 mg/dL 70-110 : TE STED AT [facility] code = 1538) [address] [place], [address]: Dispatch Clerk/Techni armani ID = [id number] for KARYN SEBASTIAN Lab Interpretation (test Normal code = 97888-8) [facility] CenterPOCT-GLUCOSE [id number] 16:43:00 Test Item Value Reference Range Interpretation Comments POC-GLUCOSE METER 83 mg/dL 70-110 : TESTED A T [facility] 6720 (BEAKER) (test code = SALVATORE Sandoval [facility], 1538) [address]: Dispatch Clerk/Techni armani ID = [id number] for KARYN LUJAN SARS-COV2/RT-PCR ([facility])2020-07-06 14:44:00 Test Item Value Reference Range Interpretation Comments SARS-COV2/RT-PCR (test Negative Not Detected, Negative, code = 1600785) See external report for linked test SARS-COV-2 PERFORMING LAB [facility] CHRIS (test code = 8091748) Negative result for this test determines that SARS-CoV-2 RNA was not present in the specimen above the Limit of Detection (LOD). However, Negative results do not preclude SARS-CoV-2 infection and should not be used as the sole basis for treatment or patient management decisions. Negative results mustbe combined with clinical observations, patient history, and epidemiological information. A false negative result may occur if a specimen is improperly collected, transported or handled. A false negative result should be considered if patient's recent exposures or clinical presentation indicate that COVID-19 (SARS-CoV-2) is likely and diagnostic tests for other causes of illness are negative. Re-testing should be considered in cases of suspected false negatives.The limit of detection for this assay is 800 copies/mL.This SARS CoV-2 test is a real-time RT-PCR test intended for the qualitative detection of nucleic acid from SARS-CoV-2 in a nasopharyngeal swab specimen collected from individuals susp ected of COVID-19 by their healthcare provider.This test has not been Food and Drug Administration (FDA) cleared or approved. This is a modified version of an approved Emergency Use Authorization (EUA) and is in the process of review by the FDA. Once authorized by the FDA, the issued EUA will be effective until the declaration that circumstances exist justifying the authorization of the emergency use of in vitro diagnostic tests for detection and/or diagnosis of COVID-19 is terminated under Section 564(b)(2) of the Act or the EUA is revoked under Section 564(g) of the Act.Fact Sheet for Healthcare Providers:https://www.[employer].ideeli/sites/default/files/product/documents/Fact_Shee j_XB_Glwzakxdg_Ckdp_MYQM-GpI-4.pdfFact Sheet for Healthcare Patients:https://www.[employer].com/sites/default/files/product/ documents/Mgpm_Hpatj_Akmprafe_Tyxw_OGND-SbC-5.pdfPerforming Laboratory:[facility] [place], [place] [id number] 14:27:00 Test Item Value Reference Range Interpretation Comments PARTIAL THROMBOPLASTIN TIME 56.4 seconds 22.5-36.0 H (BEAKER) (test code = 760) POCT-GLUCOSE [id number] 11:20:00 Test Item Value Reference Range Interpretation Comments POC-GLUCOSE METER 107 mg/dL 70-110 : TESTED A T [facility] 6720 (BEAKER) (test code = SALVATORE Sandoval [facility], 1538) [address]: Dispatch Clerk/Techni armani ID = [id number] for KARYN LAUREANO CBC W/PLT COUNT & AUTO [id number] 10:35:00 Test Item Value Reference Range Interpretation Comments WHITE BLOOD CELL COUNT (BEAKER) 7.4 K/ L 3.5-10.5 (test code = 775) RED BLOOD CELL COUNT (BEAKER) 4.85 M/ L 4.63-6.08 (test code = 761) HEMOGLOBIN (BEAKER) (test code = 15.4 GM/DL 13.7-17.5 410) HEMATOCRIT (BEAKER) (test code = 43.7 % 40.1-51.0 411) MEAN CORPUSCULAR VOLUME (BEAKER) 90.1 fL 79.0-92.2 (test code = 753) MEAN CORPUSCULAR HEMOGLOBIN 31.8 pg 25.7-32.2 (BEAKER) (test code = 751) MEAN CORPUSCULAR HEMOGLOBIN CONC 35.2 GM/DL 32.3-36.5 (BEAKER) (test code = 752) RED CELL DISTRIBUTION WIDTH 11.8 % 11.6-14.4 (BEAKER) (test code = 412) PLATELET COUNT (BEAKER) (test 166 K/CU MM 150-450 code = 756) MEAN PLATELET VOLUME (BEAKER) 11.3 fL 9.4-12.4 (test code = 754) NUCLEATED RED BLOOD CELLS 0 /100 WBC 0-0 (BEAKER) (test code = 413) NEUTROPHILS RELATIVE PERCENT 72 % (BEAKER) (test code = 429) LYMPHOCYTES RELATIVE PERCENT 17 % (BEAKER) (test code = 430) MONOCYTES RELATIVE PERCENT 9 % (BEAKER) (test code = 431) EOSINOPHILS RELATIVE PERCENT 1 % (BEAKER) (test code = 432) BASOPHILS RELATIVE PERCENT 1 % (BEAKER) (test code = 437) NEUTROPHILS ABSOLUTE COUNT 5.27 K/ L 1.78-5.38 (BEAKER) (test code = 670) LYMPHOCYTES ABSOLUTE COUNT 1.22 K/ L 1.32-3.57 L (BEAKER) (test code = 414) MONOCYTES ABSOLUTE COUNT (BEAKER) 0.69 K/ L 0.30-0.82 (test code = 415) EOSINOPHILS ABSOLUTE COUNT 0.10 K/ L 0.04-0.54 (BEAKER) (test code = 416) BASOPHILS ABSOLUTE COUNT (BEAKER) 0.05 K/ L 0.01-0.08 (test code = 417) IMMATURE GRANULOCYTES-RELATIVE 0 % 0-1 PERCENT (BEAKER) (test code = 2801) POCT-GLUCOSE [id number] 07:57:00 Test Item Value Reference Range Interpretation Comments POC-GLUCOSE METER 73 mg/dL 70-110 : TESTED A T [facility] 6720 (BEAKER) (test code = SALVAT[place] DUMAS [place], 1538) [address]: Dispatch Clerk/Techni armani ID = [id number] for KAREL LEDBETTER [id number] 06:16:00 Test Item Value Reference Range Interpretation Comments MAGNESIUM (BEAKER) 2.0 mg/dL 1.6-2.6 Specimen slightly (test code = 627) hemolyzed Dispatch Clerk ID - JENAE MBASIC METABOLIC [id number] 06:16:00 Test Item Value Reference Range Interpretation Comments SODIUM (BEAKER) 128 meq/L 136-145 L (test code = 381) POTASSIUM (BEAKER) 4.4 meq/L 3.5-5.1 Specimen slightly (test code = 379) hemolyzed CHLORIDE (BEAKER) 98 meq/L 98-107 (test code = 382) CO2 (BEAKER) (test 21 meq/L 22-29 L code = 355) BLOOD UREA NITROGEN 26 mg/dL 7-21 H (BEAKER) (test code = 354) CREATININE (BEAKER) 0.95 mg/dL 0.57-1.25 Specimen slightly (test code = 358) hemolyzed GLUCOSE RANDOM 74 mg/dL 70-105 (BEAKER) (test code = 652) CALCIUM (BEAKER) 9.3 mg/dL 8.4-10.2 (test code = 697) EGFR (BEAKER) (test 76 mL/min/1.73 ESTIMA REDD GFR IS code = 1092) sq m NOT ACCURATE CREATININE CLEARANCE IN PREDICTING GLOMERULAR FILTRATION RATE . ESTIMATED GFR I S NOT APPLICABLE FOR DIALYSIS PATIEN TS. Dispatch Clerk ID - JEANE [id number] 05:53:00 Test Item Value Reference Range Interpretation Comments PARTIAL THROMBOPLASTIN TIME 29.5 seconds 22.5-36.0 (BEAKER) (test code = 760) Prior to initiating heparinTSH/FREE T4 IF [id number] 04:40:00 Test Item Value Reference Range Interpretation Comments THYROID STIMULATING HORMONE 2.029 uIU/mL 0.350-4.940 (BEAKER) (test code = 772) Dispatch Clerk ID - EDASIB-TYPE NATRIURETIC FACTOR (BNP)2020-07-06 04:25:00 Test Item Value Reference Range Interpretation Comments B-TYPE NATRIURETIC PEPTIDE (BEAKER) 217 pg/mL 0-100 H (test code = 700) Dispatch Clerk ID - EDASICT, BRAIN, WITHOUT [id number] 03:30:00Reason for exam:->BRADYCARDIAWhat is the patient's sedation requirement?->No Sedation FINAL REPORT CT Head without contrast CLINICAL HISTORY: Altered mental statusBRADYCARDIA TECHNIQUE: Contiguous axial images through the head without contrast. This exam was performed according to the departmental dose optimization program which includes automated exposure control, adjustment of the mA and/or kV according to the patient size, and/or use of an iterative reconstruction technique. COMPARISON: None FINDINGS:Age indeterminate lucency within the left frontal parietallobe. There is periventricular and subcortical white matter hypodensity which is nonspecific but compatible with chronic microvascular ischemic change. There are atherosclerotic calcifications of the intracranial circulation. There is generalized parenchymal volume loss without hydrocephalus, midline shift, or apparent mass effect. No acute intracranial hemorrhage. Basilar cisterns are patent. There are no extra-axial fluid collections. The skull is intact. Air-fluid level in the right maxillary sinus, correlate for signs acute sinusitis. Mastoid air cells are clear. Intraorbital contents are unremarkable. 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 Air-fluid level in the right maxillarysinus. Correlate for signs acute sinusitis. Signed: Nuris Edmondort Verified Date/Time: 07/06/2020 03:30:21 [facility] brain without IV [id number] 03:30:00Interface, External Ris In - 07/06/2020 3:[address] Head without contrast CLINICAL HISTORY: Altered mental statusBRADYCARDIA TECHNIQUE: Contiguous axial images through the head without contrast. This exam was performed according to the departmental dose optimizati on program which includes automated exposure control, adjustment of the mA and/or kV according to the patient size, and/or use of an iterative reconstruction technique. COMPARISON: None FINDINGS:Age indeterminate lucency within the left frontal parietal lobe. There is periventricular and subcortical white matter hypodensity which is nonspecific but compatible with chronic microvascular ischemic change. There are atherosclerotic calcifications of the intracranial circulation. There is generalized parenchymal volume loss without hydrocephalus, midline shift, or apparent mass effect. No acute intracranial hemorrhage. Basilar cisterns are patent. There are no extra-axial fluid collections. The skull is intact. Air-fluid level in the right maxillary sinus, correlate for signs acute sinusitis. Mastoid air cells are clear. Intraorbital contents are unremarkable. 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 Air-fluid level in the right maxillary sinus. Correlate for signs acute sinusitis. Signed: Nuris Edmond MDReport Verified Date/Time: 07/06/2020 03:30:21 [facility] 03[facility]25:00 Test Item Value Reference Range Interpretation Comments Troponin I (test code = <0.01 0-0.03 05200-6) JUAREZ (test code = JUAREZ) Troponin I (TnI) levels must be interpreted in the context of the presenting symptoms and the clinical findings. Elevated TnI levels indicate myocardial damage, but are not specific for ischemic heart disease. Elevated TnI levels are seen in patients with other cardiac conditions (including myocarditis and congestive heart failure), and slight TnI elevations occur in patients with other conditions, including sepsis, renal failure, acidosis, acute neurological disease, and persistent tachyarrhythmia.Opera tor ID - EDASI Lab Interpretation (test Normal code = 85629-1) [facility] [id number] 03:25:00 Test Item Value Reference Range Interpretation Comments TROPONIN I (BEAKER) (test code = 397) < ng/mL 0.00-0.03 Troponin I (TnI) levels must be interpreted in the context of the presenting symptoms and the clinical findings. Elevated TnI levels indicate myocardial damage, but are not specific for ischemic heart disease. Elevated TnI levels are seen in patients with other cardiac conditions (including myocarditis and congestive heart failure), and slight TnI elevations occur in patients with other conditions, including sepsis, renal failure, acidosis, acute neurological disease, and persistent tachyarrhythmia.Dispatch Clerk ID - EDASISARS-COV2/RT-PCR ([facility])2020-07-06 03:14:00 Test Item Value Reference Range Interpretation Comments SARS-COV2/RT-PCR (test code Negative Not Detected, Negative, = 2308563) See external report for linked test SARS-COV-2 PERFORMING LAB [facility] (test code = 0223438) Negative results do not preclude SARS-CoV-2 infection and should not be used as the sole basis for patient management decisions. Negative results must be combined with clinical observations, patient history, and epidemiological information. A false negative result may occur if a specimen is improperly collected, transported or handled.The limit of detection for this assay is 250 copies/mL.This SARS CoV-2 test is a rapid, real-time RT-PCR test intended for the qualitative detection of nucleic acid from SARS-CoV-2 in a nasopharyngeal swab specimen collected from individuals suspected of COVID-19 by their healthcare provider.This test has not been Food and Drug [...] is revoked under Section 564(g) of the Act.Fact Sheet for Healthcare Pro viders:https://www.DAVIDsTEA/Documents/Xpert%20Xpress%20SARS%20CoV-2/Fact%20Sh eets/302-3802%38PHAB-DKR-9%20HEALTHCARE%20PROVIDERS%20FACT%20SHEET.pdfFact Sheet for Healthcare Patients:https://www.Spinelab/Documents/Xpert%20Xpress%20SARS%20CoV-2/Fact%20Sheets/302-3801%20SARS-COV -2%20PATIENT%20FACT%20SHEET.pdfPerforming Laboratory:[facility] [place], [place] [id number] 02:39:00 Test Item Value Reference Range Interpretation Comments PARTIAL THROMBOPLASTIN TIME 30.1 seconds 22.5-36.0 (BEAKER) (test code = 760) [id number] 02:38:00 Test Item Value Reference Range Interpretation Comments Protime (test code = 13.7 11.9- 14.2 5902-2) seconds INR (test code = 1.08 <=5.90 6301-6) JUAREZ (test code = JUAREZ) Effective 04/11/2019: PT Reference Range ChangeNew: 11.9-14.2 Previous: 11.7-14.7 RECOMMENDED COUMADIN/WARFARIN INR THERAPY RANGESSTANDARD DOSE: 2.0-3.0 Includes: PROPHYLAXIS for venous thrombosis, systemic embolization; TREATMENT for venous thrombosis and/or pulmonary embolus.HIGH RISK: Target INR is 2.5-3.5 for patients wiht mechanical heart valves. Lab Interpretation Normal (test code = 36413-5) [id number] 02:38:00 Test Item Value Reference Range Interpretation Comments PROTIME (BEAKER) (test code = 13.7 seconds 11.9-14.2 759) INR (BEAKER) (test code = 370) 1.08 <=5.90 Effective 04/11/2019: PT Reference Range ChangeNew: 11.9-14.2 Previous: 11.7- 14.7RECOMMENDED COUMADIN/WARFARIN INR THERAPY RANGESSTANDARD DOSE: 2.0-3.0 Includes: PROPHYLAXIS for venous thrombosis, systemic embolization; TREATMENT for venous thrombosis and/or pulmonary embolus.HIGH RISK: Target INR is2.5-3.5 for patients wiht mechanical heart valves.COMPREHENSIVE METABOLIC PANEL 2020-07-06 02:34:00 Test Item Value Reference Range Interpretation Comments TOTAL PROTEIN 7.2 gm/dL 6.0-8.3 Specimen sligh tly (BEAKER) (test code = hemoly zed 770) ALBUMIN (BEAKER) 3.7 g/dL 3.5-5.0 Specimen sl ightly (test code = 1145) hemolyzed ALKALINE PHOSPHATASE 72 U/L 40-150 (BEAKER) (test code = 346) BILIRUBIN TOTAL 0.9 mg/dL 0.2-1.2 Specimen sli ghtly (BEAKER) (test code = hemoly zed 377) SODIUM (BEAKER) (test 128 meq/L 136-145 L code = 381) POTASSIUM (BEAKER) 4.3 meq/L 3.5-5.1 Specimen slightly (test code = 379) hemolyzed CHLORIDE (BEAKER) 98 meq/L 98-107 (test code = 382) CO2 (BEAKER) (test 22 meq/L 22-29 code = 355) BLOOD UREA NITROGEN 28 mg/dL 7-21 H (BEAKER) (test code = 354) CREATININE (BEAKER) 0.96 mg/dL 0.57-1.25 Specimen slightly (test code = 358) hemolyzed GLUCOSE RANDOM 78 mg/dL 70-105 (BEAKER) (test code = 652) CALCIUM (BEAKER) 9.2 mg/dL 8.4-10.2 (test code = 697) AST (SGOT) (BEAKER) 35 U/L 5-34 H Specimen slightly (test code = 353) hemolyzed ALT (SGPT) (BEAKER) 31 U/L 6-55 Specimen slightly (test code = 347) hemolyzed EGFR (BEAKER) (test 75 mL/min/1.73 ESTIMA REDD GFR IS code = 1092) sq m NOT ACCURATE CREATININE CLEARANCE IN PREDICTING GLOMERULAR FILTRATION RATE . ESTIMATED GFR I S NOT APPLICABLE FOR DIALYSIS PATIEN TS. Dispatch Clerk ID - JENAE ROSS, CHEST, 1 VIEW, NON [id number] 02:27:00Reason for exam:->BRADYCARDIAReason for exam:->sobShould this be performed at the bedside?->YesFINAL REPORT INDICATION: BRADYCARDIAsob COMPARISON: None TECHNIQUE: Single frontal view of the chest. IMPRESSION: Lungs and pleura: No consolidation. No effusion or pneumothorax.There is a 2.3 x 0.7 cm opacity which appears partially calcified overlying the right upper chest and which is nonspecific. This can be further evaluated with chest CT, as clinically warrantedHeart andmediastinum: Normal heart size. Moderate vascular calcifications of the aortic arch.Osseous structures: No acute abnormality.Other: None. Signed: Joan Meyers MDReport Verified Date/Time: 07/06/2020 02:27:40 CBC W/PLT COUNT & AUTO [id number] 02:15:00 Test Item Value Reference Range Interpretation Comments WHITE BLOOD CELL COUNT (BEAKER) 8.7 K/ L 3.5-10.5 (test code = 775) RED BLOOD CELL COUNT (BEAKER) 4.74 M/ L 4.63-6.08 (test code = 761) HEMOGLOBIN (BEAKER) (test code = 15.1 GM/DL 13.7-17.5 410) HEMATOCRIT (BEAKER) (test code = 44.5 % 40.1-51.0 411) MEAN CORPUSCULAR VOLUME (BEAKER) 93.9 fL 79.0-92.2 H (test code = 753) MEAN CORPUSCULAR HEMOGLOBIN 31.9 pg 25.7-32.2 (BEAKER) (test code = 751) MEAN CORPUSCULAR HEMOGLOBIN CONC 33.9 GM/DL 32.3-36.5 (BEAKER) (test code = 752) RED CELL DISTRIBUTION WIDTH 11.9 % 11.6-14.4 (BEAKER) (test code = 412) PLATELET COUNT (BEAKER) (test 164 K/CU MM 150-450 code = 756) MEAN PLATELET VOLUME (BEAKER) 10.5 fL 9.4-12.4 (test code = 754) NUCLEATED RED BLOOD CELLS 0 /100 WBC 0-0 (BEAKER) (test code = 413) NEUTROPHILS RELATIVE PERCENT 62 % (BEAKER) (test code = 429) LYMPHOCYTES RELATIVE PERCENT 24 % (BEAKER) (test code = 430) MONOCYTES RELATIVE PERCENT 12 % (BEAKER) (test code = 431) EOSINOPHILS RELATIVE PERCENT 2 % (BEAKER) (test code = 432) BASOPHILS RELATIVE PERCENT 1 % (BEAKER) (test code = 437) NEUTROPHILS ABSOLUTE COUNT 5.38 K/ L 1.78-5.38 (BEAKER) (test code = 670) LYMPHOCYTES ABSOLUTE COUNT 2.07 K/ L 1.32-3.57 (BEAKER) (test code = 414) MONOCYTES ABSOLUTE COUNT (BEAKER) 1.03 K/ L 0.30-0.82 H (test code = 415) EOSINOPHILS ABSOLUTE COUNT 0.16 K/ L 0.04-0.54 (BEAKER) (test code = 416) BASOPHILS ABSOLUTE COUNT (BEAKER) 0.04 K/ L 0.01-0.08 (test code = 417) IMMATURE GRANULOCYTES-RELATIVE 0 % 0-1 PERCENT (BEAKER) (test code = 4566)
[2020-09-22] MEDS ORDERED: LEVALBUTEROL 1.25 MG/3 ML NEB ONE (11:47)
[2020-09-22] MEDS ORDERED: predniSONE 20 MG TAB ONE (11:47)
[2020-09-22 12:18] LABS: Protime INR 2.09
[2020-09-22 12:19] LABS: Hematocrit 43.4 % (39.6-49.0)
[2020-09-22 12:20] LABS: MPV 10.6 fL (7.6-11.3)
[2020-09-22 12:21] LABS: Basophils % 0.7 % (0-1.3)
--- NOTE | 2020-09-22 12:38 | RAD REPORT ---
EXAM DESCRIPTION: RAD - Chest Single View - 09/22/2020 11:56 am CLINICAL HISTORY: SOB COMPARISON: CT chest September 05, 2020, portable chest April 2020 TECHNIQUE: AP portable chest image was obtained 09/22/2020 11:56 am . FINDINGS: Chronic interstitial lung disease is present with no new mass or consolidations seen. Hear t and vasculature are normal. Bilateral pleural effusions are present, right greater than left, not s ignificantly different from August CT chest study. No acute bony abnormality seen. No acute aortic f indings suspected. IMPRESSION: Chronic interstitial lung disease and bilateral pleural effusions similar to the September 05 CT chest study.
[2020-09-22 13:54] LABS: ALT/SGPT 28 U/L (12-78); AST/SGOT 33 U/L (15-37); Albumin 3.3 g/dL (3.4-5.0); Alkaline Phosphatase 103 U/L (45-117); BUN Blood Urea Nitrogen 22 mg/dL (7-18); Bicarbonate 25 mmol/L (21-32); Bilirubin Direct 0.4 mg/dL (0-0.2); Bilirubin Total 1.1 mg/dL (0.2-1.0); Glucose Level 142 mg/dL (74-106); Magnesium 1.9 mg/dL (1.8-2.4); NT PRO-BNP 4433 pg/mL (<450); Potassium 3.1 mmol/L (3.5-5.1); Protein, Total 7.5 g/dL (6.4-8.2); Sodium Level 140 mmol/L (136-145); Troponin (Emerg Dept Use Only) < 0.02 ng/mL (0.0-0.045)
--- NOTE | 2020-09-22 15:23 | ER ---
Nurse's Notes [facility] Name: Jhonatan Madden Age: 85 yrs Sex: Male : 1935 Arrival Date: 09/22/2020 Time: 11:15 Bed 4 Private MD: Tejas Stephenson S; Rio Brooks V Diagnosis: COPD Exacerbation;Shortness of breath Presentation: 09/22 11:30 Chief complaint: Patient's son or daughter states: increasing SOB over past two days, iw has hx of COPD, chronic cough, no fever. Ebola Screen: Patient negative for fever greater than or equal to 101.5 degrees Fahrenheit, and additional compatible Ebola Virus Disease symptoms Patient denies exposure to infectious person. Patient denies travel to an Ebola-affected area in the 21 days before illness onset. No symptoms or risks identified at this time. Initial Sepsis Screen: Does the patient meet any 2 criteria? No. Patient's initial sepsis screen is negative. Does the patient have a suspected source of infection? No. Patient's initial sepsis screen is negative. Risk Assessment: Do you want to hurt yourself or someone else? Patient reports no desire to harm self or others. Onset of symptoms was September 20, 2020. 11:30 Method Of Arrival: Wheelchair iw 11:30 Acuity: DONG 2 iw 11:30 Coronavirus screen: shortness of breath. iw Triage Assessment: 11:30 General: Appears distressed, uncomfortable, slender, Behavior is calm, cooperative, bp appropriate for age. Pain: Denies pain. EENT: No deficits noted. Neuro: No deficits noted. Cardiovascular: Rhythm is sinus rhythm. Respiratory: Reports shortness of breath cough that is Onset: The symptoms/episode began/occurred 2 DAYS AGO, the patient has moderate shortness of breath. GI: No signs and/or symptoms were reported involving the gastrointestinal system. : No signs and/or symptoms were reported regarding the genitourinary system. Derm: No deficits noted. Musculoskeletal: No deficits noted. Historical: - Allergies: 11:33 Codeine; iw - Home Meds: 11:37 hydralazine 25 mg Oral tab three times a day [Active]; Eliquis 5 mg oral tab 1 tab 2 iw times per day [Active]; aspirin 81 mg Oral TbEC 1 tab once daily [Active]; fluticasone inhalation inhalation 1 puff 2 times per day [Active]; olopatadine 0.1 % ophthalmic drop 1 drop 2 times per day [Active]; - PMHx: 11:33 COPD; Hypertension; iw 11:43 Pacemaker; iw 11:33 CVA; aa5 - Immunization history:: Adult Immunizations up to date. - Social history:: Smoking status: Patient/guardian denies using tobacco, but has a distant history of tobacco abuse. Screenin:00 Abuse screen: Denies threats or abuse. Denies injuries from another. Nutritional bp screening: No deficits noted. Tuberculosis screening: No symptoms or risk factors identified. Fall Risk None identified. Assessment: 11:30 General: SEE TRIAGE NOTE. bp 12:29 Reassessment: Patient appears in no apparent distress at this time. ALL CURRENT ORDERS bp COMPLETED Patient states feeling better. Patient states symptoms have improved. Cardiovascular: Rhythm is. Respiratory: Airway is patent Respiratory effort is even, labored, Breath sounds with wheezes bilaterally. 14:20 Reassessment: Patient is alert, oriented x 3, equal unlabored respirations, skin aa5 warm/dry/pink. Awaiting disposition. . 15:50 Reassessment: PT D/C HOME VIA W/C WITH FAMILY, DX WITH COPD EXACERBATION. bp Vital Signs: 11:30 BP 158 / 68; Pulse 68; Resp 22; Temp 98.3; Pulse Ox 98% on R/A; Weight 75.75 kg; Pain iw 0/10; 12:30 BP 169 / 73; Pulse 66; Resp 21; Pulse Ox 98% ; bp 13:30 BP 168 / 60; Pulse 63; Resp 20 S; Pulse Ox 98% on R/A; aa5 14:30 BP 160 / 82; Pulse 61; Resp 18 S; Pulse Ox 99% on R/A; aa5 16:00 BP 173 / 80; Pulse 64; Resp 17; Temp 98.3; Pulse Ox 99% ; bp ED Course: 11:15 Patient arrived in ED. as 11:18 Rio Brooks MD is Private Physician. as 11:18 Tejas Stephenson MD is Private Physician. as 11:20 Monty Meléndez MD is Attending Physician. kdr 11:21 Elton Quintana, LONG is Primary Nurse. bp 11:33 Triage completed. iw 11:33 Arm band placed on. iw 11:34 EKG done, by ED staff, reviewed by Monty Meléndez MD. em1 11:56 XRAY Chest (1 view) In Process Unspecified. EDMS 12:00 Patient has correct armband on for positive identification. Bed in low position. Call bp light in reach. Side rails up X2. Adult w/ patient. 12:07 Initial lab(s) drawn, by me, sent to lab. Inserted saline lock: 20 gauge in right em1 wrist, using aseptic technique. Blood collected. 15:22 Rio Brooks MD is Referral Physician. kdr 15:59 No provider procedures requiring assistance completed. IV discontinued, intact, iw bleeding controlled, No redness/swelling at site. Pressure dressing applied. Administered Medications: 11:40 Drug: predniSONE 60 mg Route: PO; aa5 12:31 Follow up: Response: No adverse reaction bp 11:45 Drug: Xopenex (3) 1.25 mg Route: Inhalation; aa5 Outcome: 15:23 Discharge ordered by . kdr 15:59 Discharged to home via ambulance, with family. iw 15:59 Condition: good 15:59 Discharge instructions given to patient, family, Instructed on discharge instructions, follow up and referral plans. Demonstrated understanding of instructions, follow-up care, medications, Prescriptions given X 2. 16:00 Patient left the ED. iw Signatures: Dispatcher [employer] EDNC Monty Meléndez MD MD kdr Yoko Jensen as Natalie Rosas, LONG RN iw Kleber Jensen em1 Bette Lomas, RN RN aa5 Elton Quintana RN RN bp Corrections: (The following items were deleted from the chart) 11:41 11:30 Pulse 68bpm; Resp 22bpm; Pulse Ox 98% RA; iw iw 16:00 15:59 Discharge instructions given to patient, family, Instructed on discharge iw instructions, follow up and referral plans. Demonstrated understanding of instructions, follow-up care, iw 16:10 16:00 BP 151 / 89; Pulse 124bpm; Resp 14bpm; Pulse Ox 100%; Temp 98.3F; bp bp 16:10 15:00 BP 112 / 70; Pulse 86bpm; Resp 16bpm; Pulse Ox 100%; bp bp
--- NOTE | 2020-09-22 15:24 | EDPHYS ---
Physician Documentation [facility] Name: Jhonatan Madden Age: 85 yrs Sex: Male : 1935 Arrival Date: 09/22/2020 Time: 11:15 Bed 4 Private MD: Tejas Stephenson S; Rio Brooks V ED Physician Monty Meléndez HPI: 09/22 17:16 This 85 yrs old Male presents to ER via Wheelchair with complaints of kdr Shortness Of Breath, COPD Exacerbation. 17:16 The patient has shortness of breath at rest, with light activity. Onset: The kdr symptoms/episode began/occurred suddenly, just prior to arrival, this morning. Duration: The symptoms are intermittent. The patient's shortness of breath is aggravated by exertion, light activity, talking, walking, is alleviated by nothing. Associated signs and symptoms: Pertinent positives: non-productive cough, Pertinent negatives: productive cough, diaphoresis, dizziness, fever, hemoptysis, loss of consciousness, nausea, numbness in extremities, visual changes, vomiting. Severity of symptoms: At their worst the symptoms were mild moderate just prior to arrival, in the emergency department the symptoms are unchanged. The patient has not experienced similar symptoms in the past. The patient has been recently seen by a physician: the patient's primary care provider. Daughter seems to feel that the patient is co-dependant upon her presence. She had been gone to [place] for a few days then today, he seemed to panic and caller multiple times until she came and brought him to the ED. Historical: - Allergies: 11:33 Codeine; iw - Home Meds: 11:37 hydralazine 25 mg Oral tab three times a day [Active]; Eliquis 5 mg oral tab 1 tab 2 iw times per day [Active]; aspirin 81 mg Oral TbEC 1 tab once daily [Active]; fluticasone inhalation inhalation 1 puff 2 times per day [Active]; olopatadine 0.1 % ophthalmic drop 1 drop 2 times per day [Active]; - PMHx: 11:33 COPD; Hypertension; iw 11:43 Pacemaker; iw 11:33 CVA; aa5 - Immunization history:: Adult Immunizations up to date. - Social history:: Smoking status: Patient/guardian denies using tobacco, but has a distant history of tobacco abuse. ROS: 17:16 Constitutional: Negative for fever, chills, and weight loss, Eyes: Negative for injury, kdr pain, redness, and discharge, ENT: Negative for injury, pain, and discharge, Neck: Negative for injury, pain, and swelling, Cardiovascular: Negative for chest pain, palpitations, and edema, Abdomen/GI: Negative for abdominal pain, nausea, vomiting, diarrhea, and constipation, Back: Negative for injury and pain, : Negative for injury, bleeding, discharge, and swelling, MS/Extremity: Negative for injury and deformity, Skin: Negative for injury, rash, and discoloration, Neuro: Negative for headache, weakness, numbness, tingling, and seizure activity. Psych: Negative for depression, anxiety, suicide ideation, homicidal ideation, and hallucinations, Allergy/Immunology: Negative for hives, rash, and allergies, Endocrine: Negative for neck swelling, polydipsia, polyuria, polyphagia, and marked weight changes, Hematologic/Lymphatic: Negative for swollen nodes, abnormal bleeding, and unusual bruising. 17:16 Respiratory: Positive for cough, with no reported sputum, dyspnea on exertion, shortness of breath, at rest. wheezing, Negative for cough, shortness of breath, wheezing. Exam: 17:16 Constitutional: This is a well developed, well nourished patient who is awake, alert, kdr and in no acute distress. Head/Face: Normocephalic, atraumatic. Eyes: Pupils equal round and reactive to light, extra-ocular motions intact. Lids and lashes normal. Conjunctiva and sclera are non-icteric and not injected. Cornea within normal limits. Periorbital areas with no swelling, redness, or edema. Neck: Trachea midline, no thyromegaly or masses palpated, and no cervical lymphadenopathy. Supple, full range of motion without nuchal rigidity, or vertebral point tenderness. No Meningismus. Chest/axilla: Normal chest wall appearance and motion. Nontender with no deformity. No lesions are appreciated. Cardiovascular: Regular rate and rhythm with a normal S1 and S2. No gallops, murmurs, or rubs. Normal PMI, no JVD. No pulse deficits. Abdomen/GI: Soft, non-tender, with normal bowel sounds. No distension or tympany. No guarding or rebound. No evidence of tenderness throughout. Back: No spinal tenderness. No costovertebral tenderness. Full range of motion. Skin: Warm, dry with normal turgor. Normal color with no rashes, no lesions, and no evidence of cellulitis. MS/ Extremity: Pulses equal, no cyanosis. Neurovascular intact. Full, normal range of motion. Neuro: Awake and alert, GCS 15, oriented to person, place, time, and situation. Cranial nerves II-XII grossly intact. Motor strength 5/5 in all extremities. Sensory grossly intact. Cerebellar exam normal. Normal gait. 17:16 Respiratory: mild respiratory distress is noted, Respirations: labored breathing, that is mild, paradoxical chest movement, shallow respirations, that is mild, tachypnea, Breath sounds: wheezing: that is mild, is heard diffusely. 19:17 ECG was reviewed by the Attending Physician. kdr Vital Signs: 11:30 BP 158 / 68; Pulse 68; Resp 22; Temp 98.3; Pulse Ox 98% on R/A; Weight 75.75 kg; Pain iw 0/10; 12:30 BP 169 / 73; Pulse 66; Resp 21; Pulse Ox 98% ; bp 13:30 BP 168 / 60; Pulse 63; Resp 20 S; Pulse Ox 98% on R/A; aa5 14:30 BP 160 / 82; Pulse 61; Resp 18 S; Pulse Ox 99% on R/A; aa5 16:00 BP 173 / 80; Pulse 64; Resp 17; Temp 98.3; Pulse Ox 99% ; bp MDM: 15:23 Patient medically screened. kdr 17:16 Data reviewed: vital signs, nurses notes, lab test result(s), EKG, radiologic studies. kdr Counseling: I had a detailed discussion with the patient and/or guardian regarding: the historical points, exam findings, and any diagnostic results supporting the discharge/admit diagnosis, lab results, radiology results, the need for outpatient follow up. 09/22 11:22 Order name: Basic Metabolic Panel; Complete Time: 14:52 kdr 09/22 11: Order name: CBC with Diff; Complete Time: 14:52 kdr 09/22 11:22 Order name: LFT's; Complete Time: 14:52 kdr 09/22 11:22 Order name: Magnesium; Complete Time: 14:52 kdr 09/22 11:22 Order name: NT PRO-BNP; Complete Time: 14:52 [facility] 09/22 11:22 Order name: PT-INR; Complete Time: 14:52 [facility] 09/22 11:22 Order name: Troponin (emerg Dept Use Only); Complete Time: 14:52 kdr 09/22 11:22 Order name: XRAY Chest (1 view); Complete Time: 14:52 [facility] 09/22 11:22 Order name: EKG; Complete Time: 11:23 kdr 09/22 11:22 Order name: Cardiac monitoring; Complete Time: 11:55 kdr 09/22 11:22 Order name: EKG - Nurse/Tech; Complete Time: 11:34 kdr 09/22 11:22 Order name: IV Saline Lock; Complete Time: 11:55 kdr 09/22 11:22 Order name: Labs collected and sent; Complete Time: 12:07 kdr 09/22 11:22 Order name: O2 Per Protocol; Complete Time: 11:55 kdr 09/22 11:22 Order name: O2 Sat Monitoring; Complete Time: :55 [facility] EC:17 Rate is 67 beats/min. Rhythm is regular, Paced with No ectopy. QRS [place] is Normal. SC kdr interval is normal. QRS interval is normal. QT interval is normal. Clinical impression: Ventricular Paced. Administered Medications: 11:40 Drug: predniSONE 60 mg Route: PO; aa5 12:31 Follow up: Response: No adverse reaction bp 11:45 Drug: Xopenex (3) 1.25 mg Route: Inhalation; aa5 Disposition: 09/22/20 15:23 Discharged to Home. Impression: COPD Exacerbation, Shortness of breath. - Condition is Stable. - Discharge Instructions: Shortness of Breath, [id number], Chronic Obstructive Pulmonary Disease Exacerbation, [id number]. - Prescriptions for Prednisone 20 mg Oral Tablet - take 1 tablet by ORAL route once daily for 5 days; 5 tablet. Albuterol Sulfate 90 mcg/actuation - inhale 1-2 puff by INHALATION route every 4-6 hours; 1 Inhaler. - Medication Reconciliation Form, Thank You Letter form. - Follow up: Rio Brooks MD; When: 2 - 3 days; Reason: If symptoms return, Further diagnostic work-up, Recheck today's complaints, Continuance of care, Re-evaluation by your physician. - Problem is an acute exacerbation. - Symptoms have improved. Signatures: Dispatcher [employer] [facility] Monty Meléndez MD MD kdr Natalie Rosas RN RN iw Bette Lomas RN RN aa5 Elton Quintana RN bp Corrections: (The following items were deleted from the chart) 12:24 12:08 CBC+[id number].LAB.BRZ ordered. [facility] 16:00 15:23 09/22/2020 15:23 Discharged to Home. Impression: COPD Exacerbation; Shortness of iw breath. Condition is Stable. Forms are Medication Reconciliation Form, Thank You Letter, Antibiotic Education, Prescription Opioid Use. Follow up: Rio Brooks; When: 2 - 3 days; Reason: If symptoms return, Further diagnostic work-up, Recheck today's complaints, Continuance of care, Re-evaluation by your physician. Problem is an acute exacerbation. Symptoms have improved. kdr
[2020-09-22 17:20] VITALS: TEMP 98.3
[2020-09-22 17:26] VITALS: BP 160/82; O2SAT 99
== END 2020-09-22 16:00 | disposition home or self-care (01) ==
LOC: ER 11:13
DX: J44.1 Chronic obstructive pulmonary disease with (acute) exacerbation (principal); I10 Essential (primary) hypertension; Z95.0 Presence of cardiac pacemaker; Z79.01 Long term (current) use of anticoagulants; Z79.82 Long term (current) use of aspirin; Z88.5 Allergy status to narcotic agent
CPT/HCPCS: 36415; 71045; 80048; 80076; 83735; 83880; 84484; 85025; 85610; 93005; 99285; J7512